=== PATIENT | female | born 1935 | race Caucasian/White ===

== ENCOUNTER 2019-09-22 12:52 | Inpatient (IN) | payer MEDICARE ==
[2019-09-22] MEDS ORDERED: SODIUM CHLORIDE 0.9% 1,000 ML IV STA (14:18)
[2019-09-22] MEDS ORDERED: ASPIRIN 81 MG PO STA (14:30)
--- NOTE | 2019-09-22 14:36 | ED ---
General Adult HPI - General Source: patient, RN notes reviewed, old records reviewed Mode of arrival: ambulatory Limitations: no limitations <Augustine Castillo - Last Filed: 09/22/19 17:01> <Murali Ortiz - Last Filed: 09/22/19 17:11> - General Chief complaint: Dizziness Stated complaint: Diarrhea; no appetite Time Seen by Provider: 09/22/19 14:09 - History of Present Illness Initial comments: 84-year-old female patient past history of type 2 diabetes, prior cardiac issues presents to ED for chief complaint of dizziness. Patient reports that she has been dizzy for a few days. Denies any recent falls or trauma. Denies any pain anywhere. Denies any chest pain, short of breath, abdominal pain. Patient reports that she does not know what her prior heart issues were. Denies any other complaints at this time. Systemic: Pt denies fatigue, fever/chills, rash. Pt denies weakness, night sweats, weight loss. Neuro: Pt denies headache, visual disturbances, syncope or pre-syncope. HEENT: Pt denies ocular discharge or irritation, otalgia, rhinorrhea, pharyngitis or notable lymphadenopathy. Cardiopulmonary: Pt denies chest pain, SOB, heart palpitations, dyspnea on exertion. Abdominal/GI: Pt denies abdominal pain, n/v/d. : Pt denies dysuria, burning w/ urination, frequency/urgency. Denies new onset urinary or bowel incontinence. MSK: Pt denies myalgia, loss of strength or function in extremities. Neuro: Pt denies new onset weakness, paresthesias. (Augustine Castillo) - Related Data Allergies Allergy/AdvReac Type Severity Reaction Status Date / Time Sulfa (Sulfonamide Allergy Unknown Verified 09/22/19 13:59 Antibiotics) Review of Systems ROS Other: All systems not noted in ROS Statement are negative. <Augustine Castillo - Last Filed: 09/22/19 17:01> ROS Other: All systems not noted in ROS Statement are negative. <Murali Ortiz - Last Filed: 09/22/19 17:11> ROS Statement: Those systems with pertinent positive or pertinent negative responses have been documented in the HPI. Past Medical History Past Medical History: Diabetes Mellitus, Myocardial Infarction (MD), Thyroid Disorder History of Any Multi-Drug Resistant Organisms: None Reported Past Surgical History: Breast Surgery, Cholecystectomy, Joint Replacement, Orthopedic Surgery Past Psychological History: No Psychological Hx Reported Smoking Status: Never smoker Past Alcohol Use History: None Reported Past Drug Use History: None Reported <Augustine Castillo - Last Filed: 09/22/19 17:01> General Exam Limitations: no limitations <Augustine Castillo - Last Filed: 09/22/19 17:01> - General Exam Comments Initial Comments: Constitutional: NAD, AOX3, Pt has pleasant affect. HEENT: NC/AT, trachea midline, neck supple, no lymphadenopathy. Posterior pharynx non erythematous, without exudates. External ears appear normal, without discharge. Mucous membranes moist. Eyes PERRLA, EOM intact. There is no scleral icterus. No pallor noted. Cardiopulmonary: RRR, no murmurs, rubs or gallops, no JVD noted. Lungs CTAB in anterior and posterior scherer. No peripheral edema. Abdominal exam: Abdomen soft and non-distended. Abdomen non-tender to palpation in all 4 quadrants. Bowel sounds active in LLQ. No hepatosplenomegaly. No ecchymosis Neuro: CN II-XII intact. No nuchal rigidity. No raccon eyes, no galo sign, no hemotympanum. No cervical spinal tenderness. NIH 0. MSK: No posterior calf tenderness bilaterally, homans sign negative bilaterally. Posterior tibialis and radial pulse +2 bilaterally. Sensation intact in upper and lower extremities. Full active ROM in upper and lower extremities, 5/5 stregnth. (Augustine Castillo) Course <Murali Ortiz - Last Filed: 09/22/19 17:11> Vital Signs 09/22/19 09/22/19 09/22/19 13:59 14:37 15:34 Temperature 97.4 F L Pulse Rate 62 61 57 L Respiratory 18 18 18 Rate Blood Pressure 88/46 107/39 122/39 O2 Sat by Pulse 99 99 95 Oximetry - Reevaluation(s) Reevaluation #1: 09/22/19 17:10 PA supervision: I personally do a [id number] evaluation the patient does present with complaints of weakness some lightheadedness dizziness. She recently had a cardiac catheterization with stent placement in [facility]. Family has no records of this. They do have meds however. Patient is seen Dr. Watkins recently. I did discuss the case with Dr. Gutierrez. Patient was noted have acute renal failure and labs which is new. Initial cardiac workup is negative except for some nonspecific inferior changes. Her clinical exam lungs are clear heart regular abdomen soft nontender. Patient will be admitted with consultation by cardiology and nephrology. I do agree with the assessment and plan (Murali Ortiz) Medical Decision Making - Lab Data Result diagrams: 09/22/19 14:29 09/22/19 14:29 - EKG Data -: EKG Interpreted by Me (and Dr. Ortiz) <Augustine Castillo - Last Filed: 09/22/19 17:01> - Lab Data Result diagrams: 09/22/19 14:29 09/22/19 14:29 <Murali Ortiz - Last Filed: 09/22/19 17:11> - Medical Decision Making 84-year-old female patient past history of type 2 diabetes, prior cardiac issues presents to ED for chief complaint of dizziness. Patient reports that she has been dizzy for a few days. Denies any recent falls or trauma. Denies any pain anywhere. Denies any chest pain, short of breath, abdominal pain. Patient reports that she does not know what her prior heart issues were. Denies any other complaints at this time. Patient will signs stable, afebrile. Physical exam done switch pathology. Neurologic exam within normal limits. Laboratory investigations revealed acute kidney injury, likely prerenal. Son in room r eports the patient is not eating or drinking and days. Mild hyperkalemia 5.5. Troponin 0.032. EKG displayed ST elevation in aVF nonspecific T-wave inversions. Patient not having chest pain this time. Troponins will be trended. No prior EKG for comparision. Patient administered 1 L normal saline. Patient treated for hyperkalemia with insulin, albuterol updraft, low dose of lasix. Patient will be admitted for acute kidney injury. Case discussed in depth with Dr. Ortiz. (Augustine Castillo) - Lab Data Lab Results 09/22/19 09/22/19 09/22/19 Range/Units 14:29 14:29 14:29 WBC 8.0 (3.8-10.6) k/uL RBC 3.73 L (3.80-5.40) m/uL Hgb 13.8 (11.4-16.0) gm/dL Hct 36.0 (34.0-46.0) % MCV 96.5 (80.0-100.0) fL MCH 37.1 H (25.0-35.0) pg MCHC 38.5 H (31.0-37.0) g/dL RDW 13.1 (11.5-15.5) % Plt Count 135 L (150-450) k/uL Neutrophils % 72 % Lymphocytes % 19 % Monocytes % 5 % Eosinophils % 2 % Basophils % 0 % Neutrophils # 5.7 (1.3-7.7) k/uL Lymphocytes # 1.5 (1.0-4.8) k/uL Monocytes # 0.4 (0-1.0) k/uL Eosinophils # 0.2 (0-0.7) k/uL Basophils # 0.0 (0-0.2) k/uL PT (9.0-12.0) sec INR (<1.2) APTT (22.0-30.0) sec Sodium 140 (137-145) mmol/L Potassium 5.5 H (3.5-5.1) mmol/L Chloride 110 H (98-107) mmol/L Carbon Dioxide 15 L (22-30) mmol/L Anion Gap 15 mmol/L BUN 92 H (7-17) mg/dL Creatinine 5.59 H (0.52-1.04) mg/dL Est GFR (CKD-EPI)AfAm 8 (>60 ml/min/1.73 sqM) Est GFR (CKD-EPI)NonAf 7 (>60 ml/min/1.73 sqM) Glucose 206 H (74-99) mg/dL Plasma Lactic Acid Terrence (0.7-2.0) mmol/L Calcium 10.0 (8.4-10.2) mg/dL Magnesium 2.2 (1.6-2.3) mg/dL Total Bilirubin 2.4 H (0.2-1.3) mg/dL AST 21 (14-36) U/L ALT 35 (9-52) U/L Alkaline Phosphatase 86 (38-126) U/L Troponin I (0.000-0.034) ng/mL NT-Pro-B Natriuret Pep 1460 pg/mL Total Protein 8.0 (6.3-8.2) g/dL Albumin 4.5 (3.5-5.0) g/dL 09/22/19 09/22/19 09/22/19 Range/Units 14:29 14:29 14:29 WBC (3.8-10.6) k/uL RBC (3.80-5.40) m/uL Hgb (11.4-16.0) gm/dL Hct (34.0-46.0) % MCV (80.0-100.0) fL MCH (25.0-35.0) pg MCHC (31.0-37.0) g/dL RDW (11.5-15.5) % Plt Count (150-450) k/uL Neutrophils % % Lymphocytes % % Monocytes % % Eosinophils % % Basophils % % Neutrophils # (1.3-7.7) k/uL Lymphocytes # (1.0-4.8) k/uL Monocytes # (0-1.0) k/uL Eosinophils # (0-0.7) k/uL Basophils # (0-0.2) k/uL PT 10.3 (9.0-12.0) sec INR 1.0 (<1.2) APTT 24.9 (22.0-30.0) sec Sodium (137-145) mmol/L Potassium (3.5-5.1) mmol/L Chloride (98-107) mmol/L Carbon Dioxide (22-30) mmol/L Anion Gap mmol/L BUN (7-17) mg/dL Creatinine (0.52-1.04) mg/dL Est GFR (CKD-EPI)AfAm (>60 ml/min/1.73 sqM) Est GFR (CKD-EPI)NonAf (>60 ml/min/1.73 sqM) Glucose (74-99) mg/dL Plasma Lactic Acid Terrence 1.4 (0.7-2.0) mmol/L Calcium (8.4-10.2) mg/dL Magnesium (1.6-2.3) mg/dL Total Bilirubin (0.2-1.3) mg/dL AST (14-36) U/L ALT (9-52) U/L Alkaline Phosphatase (38-126) U/L Troponin I 0.032 (0.000-0.034) ng/mL NT-Pro-B Natriuret Pep pg/mL Total Protein (6.3-8.2) g/dL Albumin (3.5-5.0) g/dL - EKG Data EKG Comments: Integrative 59, CO interval 220, QRS 90, QT/QTc 406/41. Sinus bradycardia with first-degree AV block. ST elevation in aVF. Non specific T-wave inversions. No prior EKG for comparison. Did not believe that this is acute ischemia at this time. (Augustine Castillo) Disposition Is patient prescribed a controlled substance at d/c from ED?: No <Augustine Castillo - Last Filed: 09/22/19 17:01> <Murali Ortiz - Last Filed: 09/22/19 17:11> Clinical Impression: Acute kidney injury Disposition: ADMITTED IP TO THIS HOSP Condition: Serious Referrals: Lisa Watkins MD [Primary Care Provider] - 1-2 days
[2019-09-22 14:42] LABS: Basophils % (A) 0 %; Eosinophils # (A) 0.2 k/uL (0-0.7); Eosinophils % (A) 2 %; HGB 13.8 gm/dL (11.4-16.0); Lymphocytes # (A) 1.5 k/uL (1.0-4.8); Lymphocytes % (A) 19 %; MCH 37.1 pg (25.0-35.0); MCV 96.5 fL (80.0-100.0); Mean Platelet Volume 8.8; Monocytes # (A) 0.4 k/uL (0-1.0); Monocytes % (A) 5 %; Neutrophils # (A) 5.7 k/uL (1.3-7.7); Neutrophils % (A) 72 %; Platelet Count 135 k/uL (150-450); RBC 3.73 m/uL (3.80-5.40); RDW 13.1 % (11.5-15.5)
[2019-09-22 14:46] LABS: MCHC 38.5 g/dL (31.0-37.0)
[2019-09-22 15:11] LABS: Partial Thromboplastin Time 24.9 sec (22.0-30.0); Prothrombin Time 10.3 sec (9.0-12.0)
--- NOTE | 2019-09-22 15:16 | CT ---
EXAMINATION TYPE: CT brain wo con DATE OF EXAM: 09/22/2019 HISTORY: Dizziness. COMPARISON: None TECHNIQUE: 1. Axial CT images of the head without contrast. Bone windows and sagittal and coronal reformats were reviewed. 2. CT DLP: 1099.4 mGycm Automated exposure control for dose reduction was used. FINDINGS: No acute intracranial hemorrhage. 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 No acute loss of melgar-white m atter differentiation to suggest large territorial infarction. Mild cerebral volume loss with appropriate size and morphology of the ventricular system. No extra-ax ial fluid collections or midline shift of structures. Patent basal cisterns. No depressed or displaced calvarial fracture. Intracranial vascular calcifications. Visualized parana jesse sinuses and temporal bone structures are well aerated. The orbits and skull base are unremarkable . IMPRESSION: 1. No acute intracranial abnormality. 2. Senescent changes including cerebral volume loss and sequale of chronic microangiopathy. 3. If there is sufficient clinical concern for acute ischemia, further evaluation with brain MRI is r ecommended.
[2019-09-22 15:18] LABS: Albumin 4.5 g/dL (3.5-5.0); Magnesium 2.2 mg/dL (1.6-2.3); Potassium 5.5 mmol/L (3.5-5.1); Total Bilirubin 2.4 mg/dL (0.2-1.3)
[2019-09-22] MEDS ORDERED: INSULIN REGULAR 100 UNIT/ML VIAL IV ONE (16:53)
[2019-09-22] MEDS ORDERED: DEXTROSE 50% SYRINGE 50 ML IVP STA (16:54)
[2019-09-22] MEDS ORDERED: ALBUTEROL NEBULIZED 2.5 MG/3 ML INHALATION STA (16:54)
[2019-09-22] MEDS ORDERED: FUROSEMIDE 10 MG/ML 2 ML VIAL IV STA (16:59)
[2019-09-22] MEDS ORDERED: NALOXONE 0.4 MG/ML 1 ML VIAL IV PRN (17:02)
--- NOTE | 2019-09-22 17:14 | XR ---
EXAMINATION TYPE: XR chest 2V DATE OF EXAM: 09/22/2019 COMPARISON: NONE TECHNIQUE: PA and lateral views submitted. HISTORY: Chest pain FINDINGS: The lungs are clear and there is no pneumothorax, pleural effusion, or focal pneumonia. Arthropathy of the shoulders with findings suggestive of calcific tendinosis on the right. No overt failure. Ath erosclerotic change aorta. Hypertrophic and degenerative change of the spine. Subsegmental changes at the left lung base. IMPRESSION: 1. Left basilar subsegmental changes which atelectasis is favored over pneumonia..
[2019-09-22] MEDS: SODIUM CHLORIDE 0.9% 1,000 ML IV SCH ×2 (17:53→23:36)
[2019-09-22 18:10] LABS: Glucose,Whole Blood 243 mg/dL (75-99)
[2019-09-22 20:16] LABS: Glucose,Whole Blood 97 mg/dL (75-99)
[2019-09-22] MEDS: INSULIN ASPART (NovoLOG) 100 UNIT/ML VIAL SQ SCH (21:14)
[2019-09-22] MEDS: TICAGRELOR 90 MG TAB PO SCH (21:19)
[2019-09-22] MEDS: ATORVASTATIN 40 MG TAB PO SCH (21:19)
[2019-09-22] MEDS: MIRTAZAPINE 15 MG TAB PO SCH (21:19)
[2019-09-22] MEDS: CARVEDILOL 6.25 MG TAB PO SCH (21:19)
[2019-09-22] MEDS: DONEPEZIL 10 MG TAB PO SCH (21:19)
[2019-09-22] MEDS ORDERED: MIDODRINE 5 MG TAB PO SCH (22:00)
[2019-09-23 02:00] LABS: Glucose,Whole Blood 91 mg/dL (75-99)
[2019-09-23 02:31] LABS: Basophils % (A) 0 %; Eosinophils # (A) 0.1 k/uL (0-0.7); Eosinophils % (A) 3 %; HCT 37.1 % (34.0-46.0); HGB 12.2 gm/dL (11.4-16.0); Lymphocytes # (A) 1.3 k/uL (1.0-4.8); Lymphocytes % (A) 28 %; MCH 31.8 pg (25.0-35.0); MCV 96.2 fL (80.0-100.0); Mean Platelet Volume 8.4; Monocytes # (A) 0.4 k/uL (0-1.0); Monocytes % (A) 8 %; Neutrophils # (A) 2.6 k/uL (1.3-7.7); Neutrophils % (A) 58 %; Platelet Count 125 k/uL (150-450); RBC 3.85 m/uL (3.80-5.40); WBC 4.5 k/uL (3.8-10.6)
[2019-09-23 02:41] LABS: Albumin 3.4 g/dL (3.5-5.0); Potassium 4.8 mmol/L (3.5-5.1); Total Bilirubin 1.8 mg/dL (0.2-1.3); Total Protein 6.4 g/dL (6.3-8.2)
[2019-09-23] MEDS: INSULIN ASPART (NovoLOG) 100 UNIT/ML VIAL SQ SCH ×4 (06:11→21:16)
[2019-09-23 06:12] LABS: Glucose,Whole Blood 98 mg/dL (75-99)
[2019-09-23] MEDS: CARVEDILOL 6.25 MG TAB PO SCH ×2 (06:42→17:34)
[2019-09-23] MEDS: LEVOTHYROXINE 75 MCG TAB PO SCH (06:42)
--- NOTE | 2019-09-23 09:04 | P.NPCON ---
History of Present Illness - Reason for Consult Consult date: 09/23/19 acute renal failure - Chief Complaint Dizziness - History of Present Illness 84-year-old female coming to the hospital with the above complaints. Poor historian and most of the history is obtained from the chart. No previous creatinine to compare. Initial vitals from the ER she was hypotensive with a systolic blood pressure in 80s. She's been having this issue's for few days she has history of hypertension and diabetes take some antihypertensives at home. No NSAID use or recent contrast studies.home medications include entresto, carvedilol, Aldactone. Blood pressures while in the hospital got better her entresto and Aldactone were stopped and was getting normal saline. But currently on midodrine and carvedilol. Review of Systems Constitutional: Reports as per HPI Past Medical History Past Medical History: Diabetes Mellitus, Myocardial Infarction (MT), Thyroid Disorder Additional Past Medical History / Comment(s): Type 2 DM, MT 07/29/19 Last Myocardial Infarction Date:: 07/29/19 History of Any Multi-Drug Resistant Organisms: None Reported Past Surgical History: Breast Surgery, Cholecystectomy, Heart Catheterization With Stent, Joint Replacement, Orthopedic Surgery Additional Past Surgical History / Comment(s): 2 stents Past Anesthesia/Blood Transfusion Reactions: No Reported Reaction Date of Last Stent Placement:: 07/29/19 Past Psychological History: No Psychological Hx Reported Smoking Status: Never smoker Past Alcohol Use History: None Reported Past Drug Use History: None Reported - Past Family History Brother(s) Family Medical History: Myocardial Infarction (MT) Medications and Allergies Home Medications Medication Instructions Recorded Confirmed Type Aspirin 81 mg PO DAILY 09/22/19 09/22/19 History Atorvastatin [Lipitor] 40 mg PO HS 09/22/19 09/22/19 History Carvedilol [Coreg] 6.25 mg PO BID 09/22/19 09/22/19 History Donepezil [Aricept] 10 mg PO BID 09/22/19 09/22/19 History INSULIN ASPART (NovoLOG) [NovoLOG See Protocol SQ AC-TID 09/22/19 09/22/19 History (formulary)] Levothyroxine Sodium [Synthroid] 75 mcg PO DAILY 09/22/19 09/22/19 History Midodrine HCl [ProAmatine] 10 mg PO TID 09/22/19 09/22/19 History Mirtazapine [Remeron] 15 mg PO HS 09/22/19 09/22/19 History Oxybutynin ER [Ditropan Xl] 15 mg PO DAILY 09/22/19 09/22/19 History Sacubitril/Valsartan [Entresto 24 1 tab PO BID 09/22/19 09/22/19 History mg-26 mg Tablet] Spironolactone [Aldactone] 25 mg PO DAILY 09/22/19 09/22/19 History Ticagrelor [Brilinta] 90 mg PO BID 09/22/19 09/22/19 History Allergies Allergy/AdvReac Type Severity Reaction Status Date / Time Sulfa (Sulfonamide Allergy Unknown Verified 09/22/19 18:58 Antibiotics) Physical Exam Vitals: Vital Signs Temp Pulse Pulse Resp BP BP Pulse Ox 09/23/19 04:00 97.7 F 58 L 16 115/53 95 09/23/19 00:00 97.5 F L 57 L 18 152/58 95 09/22/19 20:00 97.8 F 65 18 155/70 98 09/22/19 18:45 97.5 F L 65 16 134/58 99 09/22/19 17:53 98.0 F 63 18 102/36 100 09/22/19 17:28 80 09/22/19 17:15 76 09/22/19 15:34 57 L 18 122/39 95 09/22/19 14:37 61 18 107/39 99 09/22/19 13:59 97.4 F L 62 18 88/46 99 Intake and Output 09/22/19 09/23/19 09/23/19 22:59 06:59 14:59 Intake Total 240 Balance 240 Intake: Oral 240 Other: Voiding Method Toilet Toilet # Voids 1 Weight 74.389 kg 71.7 kg No acute distress S1-S2 heard Lungs clear Abdomen soft No edema Results - Lab Results Most recent lab results Calcium 9.0 mg/dL (8.4-10.2) 09/23/19 02:14 Magnesium 2.2 mg/dL (1.6-2.3) 09/22/19 14:29 09/23/19 02:14 09/23/19 02:14 Assessment and Plan Assessment: #1 acute kidney injury suspect hemodynamics with low blood pressures. Concomitant use of antihypertensives. Unknown baseline creatinine. #2 hypertension, admitted with hypotension #3 metabolic acidosis secondary to acute kidney injury #4 volume depletion Plan: #1 agree with holding antihypertensives. Change normal saline to a bicarb drip. #2 check bladder scan to rule out urinary retention #3 stop midodrine as her blood pressures currently running high. #4 leave Coreg for now if systolic less than 120 decrease dose to 3.125 mg twice a day. #5 check urine analysis renal ultrasounds and repeat labs in the morning.
[2019-09-23] MEDS: ASPIRIN 81 MG PO SCH (09:51)
[2019-09-23] MEDS: TICAGRELOR 90 MG TAB PO SCH (09:51)
[2019-09-23] MEDS: DONEPEZIL 10 MG TAB PO SCH ×2 (09:51→21:17)
--- NOTE | 2019-09-23 10:05 | US ---
EXAMINATION TYPE: US kidneys/renal and bladder DATE OF EXAM: 09/23/2019 COMPARISON: NONE CLINICAL HISTORY: lazaro. EXAM MEASUREMENTS: Right Kidney: 11.2 x 5.3 x 5.3 cm Left Kidney: 7.6 x 2.4 x 2.6 cm Right Kidney: No hydronephrosis or masses seen Left Kidney: atrophied, difficult to visualize. Left pelvis imaged to ensure there is not a pelvic ki dney. Bladder: not well distended Bilateral Jets seen: No Right kidney is unremarkable. The left kidney is small measuring 7.6 cm. There is no evidence of hydr onephrosis. IMPRESSION: LEFT RENAL ATROPHY.
[2019-09-23] MEDS: ACETAMINOPHEN TAB 325 MG TAB PO PRN ×2 (10:19→17:34)
--- NOTE | 2019-09-23 11:33 | P.HPIM ---
History of Present Illness H&P Date: 09/23/19 Chief Complaint: Dizziness This is an 84-year-old female patient of Dr. Watkins with past medical history of diabetes mellitus type 2, myocardial infarction, hypothyroidism. Patient was diagnosed with a myocardial infarction on 07/29/2019 was she was in [place]. She underwent cardiac stenting at that time and the details are not known. Patient did have a follow-up appointment with Dr. lewis following that. Patient is complaining of dizziness and lightheadedness, not eating well. She denies having any falls. She states her symptoms have been going on for at least a few days. She denies any chest pain, shortness of breath or abdominal pain. Patient came into [facility] emergency center for evaluation. Her initial blood pressure was 88/46, BUN 92 and creatinine 5.59, potassium 5.5, CO2 15, chloride 110, blood sugar 106. ProBNP 1460, troponin 0.03 to, lactic acid 1.4. Patient was given 2 L of IV fluid, regular insulin, dextrose 50% and albuterol. Patient received 1 dose of IV Lasix 20 mg. Patient was admitted to the cardiac stepdown unit and consult requested with nephrology and cardiology. Review of Systems Constitutional: Reports fatigue, Reports lethargy, Reports malaise, Reports poor appetite, Reports weakness Eyes: denies blurred vision, denies pain Ears, nose, mouth and throat: Reports vertigo, Denies dental pain, Denies dysphagia, Denies headache, Denies nasal congestion, Denies nasal discharge, Denies sore throat Cardiovascular: Reports lightheadedness, Denies chest pain, Denies edema, Denies irregular heart beat, Denies shortness of breath, Denies syncope Respiratory: Denies cough, Denies cough with sputum, Denies dyspnea, Denies excessive sputum, Denies hemoptysis, Denies home oxygen, Denies respiratory infections, Denies wheezing Gastrointestinal: Reports loss of appetite, Denies abdominal pain, Denies diarrhea, Denies nausea, Denies vomiting Genitourinary: Denies dysuria, Denies hematuria, Denies urgency, Denies urinary frequency Musculoskeletal: Reports muscle weakness, Denies frequent falls, Denies gait dysfunction, Denies myalgias Integumentary: Denies pruritus, Denies rash, Denies wounds Neurological: Denies change in mentation, Denies change in speech, Denies numbness, Denies weakness Psychiatric: Denies anxiety, Denies depression Endocrine: Denies fatigue, Denies weight change Past Medical History Past Medical History: Diabetes Mellitus, Myocardial Infarction (ND), Thyroid Disorder Additional Past Medical History / Comment(s): Type 2 DM, ND 07/29/19 Last Myocardial Infarction Date:: 07/29/19 History of Any Multi-Drug Resistant Organisms: None Reported Past Surgical History: Breast Surgery, Cholecystectomy, Heart Catheterization With Stent, Joint Replacement, Orthopedic Surgery Additional Past Surgical History / Comment(s): 2 cardiac stents, bilateral cataract removal and intraocular lens implants Past Anesthesia/Blood Transfusion Reactions: No Reported Reaction Date of Last Stent Placement:: 07/29/19 Past Psychological History: No Psychological Hx Reported Smoking Status: Never smoker Past Alcohol Use History: None Reported Additional Past Alcohol Use History / Comment(s): Patient was a smoker one pack per day for proximal might 20 years. No illicit drug use or alcohol abuse. Patient uses a walker for ambulation. Past Drug Use History: None Reported - Past Family History Brother(s) Family Medical History: Myocardial Infarction (ND) Additional Family Medical History / Comment(s): The patient has 3 brothers and all have passed. Patient does not know their medical histories nor the reason further tests. Father Additional Family Medical History / Comment(s): Patient's father is . Patient does not know any of his medical history. Mother Additional Family Medical History / Comment(s): Mother in her 60s while sleeping. Sister(s) Additional Family Medical History / Comment(s): Patient has 3 sisters and one has that his history of coronary artery disease status post stents. Daughter(s) Additional Family Medical History / Comment(s): Patient has one daughter that in a motor vehicle accident. Patient has 2 sons and one from an unknown cause. One son is alive with no major medical problems. Medications and Allergies Home Medications Medication Instructions Recorded Confirmed Type Aspirin 81 mg PO DAILY 09/22/19 09/22/19 History Atorvastatin [Lipitor] 40 mg PO HS 09/22/19 09/22/19 History Carvedilol [Coreg] 6.25 mg PO BID 09/22/19 09/22/19 History Donepezil [Aricept] 10 mg PO BID 09/22/19 09/22/19 History INSULIN ASPART (NovoLOG) [NovoLOG See Protocol SQ AC-TID 09/22/19 09/22/19 History (formulary)] Levothyroxine Sodium [Synthroid] 75 mcg PO DAILY 09/22/19 09/22/19 History Midodrine HCl [ProAmatine] 10 mg PO TID 09/22/19 09/22/19 History Mirtazapine [Remeron] 15 mg PO HS 09/22/19 09/22/19 History Oxybutynin ER [Ditropan Xl] 15 mg PO DAILY 09/22/19 09/22/19 History Sacubitril/Valsartan [Entresto 24 1 tab PO BID 09/22/19 09/22/19 History mg-26 mg Tablet] Spironolactone [Aldactone] 25 mg PO DAILY 09/22/19 09/22/19 History Ticagrelor [Brilinta] 90 mg PO BID 09/22/19 09/22/19 History Allergies Allergy/AdvReac Type Severity Reaction Status Date / Time Sulfa (Sulfonamide Allergy Unknown Verified 09/22/19 18:58 Antibiotics) Physical Exam Vitals: Vital Signs Temp Pulse Pulse Resp BP BP Pulse Ox 09/23/19 04:00 97.7 F 58 L 16 115/53 95 09/23/19 00:00 97.5 F L 57 L 18 152/58 95 09/22/19 20:00 97.8 F 65 18 155/70 98 09/22/19 18:45 97.5 F L 65 16 134/58 99 09/22/19 17:53 98.0 F 63 18 102/36 100 09/22/19 17:28 80 09/22/19 17:15 76 09/22/19 15:34 57 L 18 122/39 95 09/22/19 14:37 61 18 107/39 99 09/22/19 13:59 97.4 F L 62 18 88/46 99 Intake and Output 09/22/19 09/23/19 09/23/19 22:59 06:59 14:59 Intake Total 240 Balance 240 Intake: Oral 240 Other: Voiding Method Toilet Toilet # Voids 1 Weight 74.389 kg 71.7 kg Gen: This is an 84-year-old female. Patient is resting in bed and appears to be comfortable and in no acute distress. HEENT: Head is atraumatic, normocephalic. Pupils equal, round. Sclerae is anicteric. NECK: Supple. No JVD. No lymphadenopathy. No thyromegaly. LUNGS: Clear to auscultation. No wheezes or rhonchi. No intercostal retractions. HEART: Regular rate and rhythm. No murmur. ABDOMEN: Soft. Bowel sounds are present. No masses. No tenderness. EXTREMITIES: No pedal edema. No calf tenderness. Dorsalis pedis +2 bilaterally. NEUROLOGICAL: Patient is awake, alert and oriented x3. Cranial nerves 2 through 12 are grossly intact. Results CBC & Chem 7: 09/23/19 02:14 09/23/19 02:14 Labs: Abnormal Lab Results - Last 24 Hours (Table) 09/22/19 09/22/19 09/22/19 Range/Units 14:29 14:29 18:09 RBC 3.73 L (3.80-5.40) m/uL MCH 37.1 H (25.0-35.0) pg MCHC 38.5 H (31.0-37.0) g/dL Plt Count 135 L (150-450) k/uL Potassium 5.5 H (3.5-5.1) mmol/L Chloride 110 H (98-107) mmol/L Carbon Dioxide 15 L (22-30) mmol/L BUN 92 H (7-17) mg/dL Creatinine 5.59 H (0.52-1.04) mg/dL Glucose 206 H (74-99) mg/dL POC Glucose (mg/dL) 243 H (75-99) mg/dL Total Bilirubin 2.4 H (0.2-1.3) mg/dL Albumin (3.5-5.0) g/dL 09/23/19 09/23/19 Range/Units 02:14 02:14 RBC (3.80-5.40) m/uL MCH (25.0-35.0) pg MCHC (31.0-37.0) g/dL Plt Count 125 L (150-450) k/uL Potassium (3.5-5.1) mmol/L Chloride 117 H (98-107) mmol/L Carbon Dioxide 13 L (22-30) mmol/L BUN 89 H (7-17) mg/dL Creatinine 4.70 H (0.52-1.04) mg/dL Glucose (74-99) mg/dL POC Glucose (mg/dL) (75-99) mg/dL Total Bilirubin 1.8 H (0.2-1.3) mg/dL Albumin 3.4 L (3.5-5.0) g/dL Thrombosis Risk Factor Assmnt - DVT/VTE Prophylaxis DVT/VTE Prophylaxis: Pharmacologic Prophylaxis ordered - Choose All That Apply Each Risk Factor Represents 3 Points: Age 75 years or older Thrombosis Risk Factor Assessment Total Risk Factor Score: 3 Thrombosis Risk Factor Assessment Level: Moderate Risk Assessment and Plan Plan: 1. Acute kidney injury secondary to poor oral intake, hypotension. Consult with nephrology appreciated. Patient has been started on a bicarb drip. Renal ultrasound, bladder scan to rule out urinary retention, midodrine was discontinued. Coreg to continue with parameters. Entresto and Aldactone on hold. 2. Recent myocardial infarction July 29 status post 3 stents. Continue aspirin 81 mg daily, atorvastatin 40 mg at bedtime, Coreg 6.25 mg twice daily, Brilinta 90 mg twice daily. Consult with cardiology. 3. Dementia. Continue Aricept 10 mg twice daily. 4. Diabetes mellitus type 2. Patient started on NovoLog scale before meals and at bedtime. 5. Overactive bladder. Hold oxybutynin. 6. Hypothyroidism. Continue levothyroxine 75 g daily. 7. GI prophylaxis. Pepcid. 8. DVT prophylaxis. SCDs and ZOILA roberte. Patient will be admitted to the hospital for a minimum of 3 night stay. Discharge plan: To be determined. PT and OT will be added. Impression and plan of care have been directed as dictated by the signing physician. Michelle Rivera nurse practitioner acting as scribe for signing physician.
[2019-09-23 11:41] LABS: Glucose,Whole Blood 143 mg/dL (75-99)
[2019-09-23] MEDS: DEXTROSE 5% IN WATER 1,000 ML with SODIUM BICARB (1 MEQ/ML) 150 ML IV SCH (12:06)
--- NOTE | 2019-09-23 14:13 | CONS ---
CONSULTATION Mrs. Ojeda is an 84-year-old female who is seen for cardiac evaluation. The patient is a poor historian. History was mostly obtained from the son. The patient has a known history of coronary artery disease. She had a myocardial infarction in July in [place] and underwent 2 stent placements. Subsequently patient was admitted there after a few weeks with episodes of hypoglycemia and was treated and subsequently the patient was brought over here. The patient had not been feeling well since she has been in [place]. Her oral intake is very poor. Occasionally she feels nauseated and she has been having some loose bowel movements 2 or 3 per day. The patient denies any chest pain. Denies any orthopnea or PND. The patient had been on Entresto, Coreg and Aldactone as well as Brilinta. PAST MEDICAL HISTORY: Includes history of diabetes, myocardial infarction, cholecystectomy, orthopedic surgery. MEDICATIONS: The patient's home medications include aspirin, Lipitor, Coreg, Synthroid, midodrine, Remeron, Ditropan, Entresto, Aldactone and Brilinta. PHYSICAL EXAMINATION: At present reveals the patient's blood pressure initially was in the range of 88/56. Patient received 1 L of fluids and blood pressure now is better. The patient is alert and awake and comfortable, sitting in a chair. No respiratory distress is noted. Blood pressure is 125/50 mmHg, heart rate is 50 per minute. HEENT examination is negative. NECK is supple. There is no increase in jugular venous pressure. Both the carotid pulses are felt. There is no bruit. CHEST is symmetrical. HEART the PMI is not felt. First and second heart sounds are normal. There is no evidence of any murmur. LUNGS are clinically clear to auscultation and percussion. ABDOMEN is soft. Liver and spleen not enlarged. EXTREMITIES: Peripheral pulses are not felt. EKG shows sinus bradycardia with a suggestion of old inferior wall myocardial infarction. The patient's hemoglobin is 12.2. Initial creatinine was 5.59 and BUN is 92. The patient's bilirubin was 2.4, repeat bilirubin is 1.8. Two troponins are normal. FINAL IMPRESSION: This patient is admitted with acute renal failure. We do not know the baseline creatinine status. The renal failure could be multifactorial. Patient is stable cardiac llanos without any symptoms of angina. RECOMMENDATIONS: We will recommend to hold the Entresto and Aldactone at present. We will also discontinue Brilinta and start her on Plavix. Echo and Doppler study will be obtained. Continue the rest of the cardiac medications. Thank you for this consultation. DEMAR / VIDYA: [id number] /
[2019-09-23 15:50] LABS: Appearance,Urine Clear (Clear); Bacteria,Urine Rare /hpf; Bilirubin,Urine Negative (Negative); Blood,Urine Negative (Negative); Color,Urine Yellow; Glucose,Urine (UA) Negative (Negative); Hyaline Casts,Urine 4 /lpf (0-2); Ketones,Urine Negative (Negative); Leukocyte Esterase,Urine Small (Negative); Mucus,Urine Rare /hpf; Nitrite,Urine Negative (Negative); Protein,Urine Negative (Negative); RBC,Urine 1 /hpf (0-5); Specific Gravity,Urine 1.011 (1.001-1.035); Squamous Epithelial Cell,Urine 2 /hpf (0-4); Urobilinogen,Urine <2.0 mg/dL (<2.0); WBC,Urine 5 /hpf (0-5)
[2019-09-23 16:29] LABS: Glucose,Whole Blood 163 mg/dL (75-99)
[2019-09-23 21:02] LABS: Glucose,Whole Blood 224 mg/dL (75-99)
[2019-09-23] MEDS: ATORVASTATIN 40 MG TAB PO SCH (21:17)
[2019-09-23] MEDS: MIRTAZAPINE 15 MG TAB PO SCH (21:17)
[2019-09-24] MEDS: DEXTROSE 5% IN WATER 1,000 ML with SODIUM BICARB (1 MEQ/ML) 150 ML IV SCH ×2 (06:08→21:52)
[2019-09-24 06:17] LABS: Calcium 8.7 mg/dL (8.4-10.2); Potassium 4.3 mmol/L (3.5-5.1)
[2019-09-24 06:22] LABS: Glucose,Whole Blood 103 mg/dL (75-99)
[2019-09-24] MEDS: INSULIN ASPART (NovoLOG) 100 UNIT/ML VIAL SQ SCH ×4 (06:25→21:59)
[2019-09-24] MEDS: LEVOTHYROXINE 75 MCG TAB PO SCH (06:26)
[2019-09-24] MEDS: CARVEDILOL 6.25 MG TAB PO SCH ×2 (06:27→17:23)
[2019-09-24] MEDS: DONEPEZIL 10 MG TAB PO SCH ×2 (09:42→20:53)
[2019-09-24] MEDS: CLOPIDOGREL 75 MG TAB PO SCH (09:42)
[2019-09-24] MEDS: ASPIRIN 81 MG PO SCH (09:42)
--- NOTE | 2019-09-24 10:41 | ECHOF ---
Referral Reason:mi MEASUREMENTS -------- HEIGHT: 157.5 cm WEIGHT: 73.9 kg BP: 155/66 RVIDd: 2.5 cm (< 3.3) IVSd: 1.6 cm (0.6 - 1.1) LVIDd: 3.5 cm (3.9 - 5.3) LVPWd: 1.7 cm (0.6 - 1.1) IVSs: 1.6 cm LVIDs: 1.9 cm LVPWs: 1.8 cm Ao Diam: 3.0 cm (2.0 - 3.7) AV Cusp: 1.8 cm (1.5 - 2.6) LA Diam: 3.5 cm (2.7 - 3.8) MV EXCURSION: 15.965 mm (> 18.000) MV EF SLOPE: 71 mm/s (70 - 150) EPSS: 0.2 cm MV E Ean: 0.89 m/s MV DecT: 265 ms MV A Ean: 0.97 m/s MV E/A Ratio: 0.92 RAP: 5.00 mmHg RVSP: 14.31 mmHg TAPSE: 15.27 mm FINDINGS -------- Sinus rhythm. This was a technically adequate study. The left ventricular size is normal. There is severe concentric left ventricular hypertrophy. Ove rall left ventricular systolic function is normal with, an EF between 55 - 60 %. The right ventricle is normal in size. The left atrial size is normal. The right atrial size is normal. The aortic valve is trileaflet and appears structurally normal. The mitral valve is normal. Mild mitral annular calcification present. There is trace mitral regu rgitation. The tricuspid valve appears structurally normal. Trace tricuspid regurgitation present. Right jhonathan tricular systolic pressure is normal at < 35 mmHg. There is no pulmonic regurgitation present. The aortic root size is normal. IVC Not well visulized. There is a moderate, generalized pericardial effusion present. CONCLUSIONS -------- 1. Sinus rhythm. 2. This was a technically adequate study. 3. The left ventricular size is normal. 4. There is severe concentric left ventricular hypertrophy. 5. Overall left ventricular systolic function is normal with, an EF between 55 - 60 %. 6. The right ventricle is normal in size. 7. The left atrial size is normal. 8. The right atrial size is normal. 9. The aortic valve is trileaflet and appears structurally normal. 10. The mitral valve is normal. 11. Mild mitral annular calcification present. 12. There is trace mitral regurgitation. 13. The tricuspid valve appears structurally normal. 14. Trace tricuspid regurgitation present. 15. Right ventricular systolic pressure is normal at < 35 mmHg. 16. There is no pulmonic regurgitation present. 17. The aortic root size is normal. 18. IVC Not well visulized. 19. There is a moderate, generalized pericardial effusion present. MEDICAL PHYSICS TEACHER: Lou Lee RDCS
[2019-09-24 11:14] LABS: Hemoglobin A1C 8.2 % (4.0-6.0)
[2019-09-24 11:43] LABS: Glucose,Whole Blood 118 mg/dL (75-99)
--- NOTE | 2019-09-24 13:38 | P.PN ---
Subjective Progress Note Date: 09/24/19 This is an 84-year-old female patient of Dr. Watkins with past medical history of diabetes mellitus type 2, myocardial infarction, hypothyroidism. Patient was diagnosed with a myocardial infarction on 07/29/2019 was she was in [place]. She underwent cardiac stenting at that time and the details are not known. Patient did have a follow-up appointment with Dr. lewis following that. Patient is complaining of dizziness and lightheadedness, not eating well. She denies having any falls. She states her symptoms have been going on for at least a few days. She denies any chest pain, shortness of breath or abdominal pain. Patient came into [facility] emergency center for evaluation. Her initial blood pressure was 88/46, BUN 92 and creatinine 5.59, potassium 5.5, CO2 15, chloride 110, blood sugar 106. ProBNP 1460, troponin 0.03 to, lactic acid 1.4. Patient was given 2 L of IV fluid, regular insulin, dextrose 50% and albuterol. Patient received 1 dose of IV Lasix 20 mg. Patient was admitted to the cardiac stepdown unit and consult requested with nephrology and cardiology. 09/24: Patient is seen and followed by cardiology. Cardiology has change blunted to Plavix. Renal ultrasound showed left renal atrophy, no hydronephrosis. Patient continues to have no appetite. She states she feels dizzy. Orthostatic vital signs will be checked. Patient has been afebrile, heart rate 64, blood pressure 146/68, pulse ox 96% on room air. Repeat lab work reveals BUN 70, creatinine 2.8, CO2 19. Echocardiogram reveals EF of 55-60% with severe concentric left ventricular hypertrophy, trace mitral regurgitation, trace tricuspid regurgitation, moderate generalized pericardial effusion. Patient is followed by nephrology currently on a bicarb drip. Discharge plan will be subacute rehab. PT and OT in place. Possible discharge by tomorrow. Review of Systems Constitutional: Reports fatigue, Reports lethargy, Reports malaise, Reports poor appetite, Reports weakness Ears, nose, mouth and throat: Reports vertigo, Denies dental pain, Denies dysphagia, Denies headache, Denies nasal congestion, Denies nasal discharge, Denies sore throat Cardiovascular: Reports lightheadedness, Denies chest pain, Denies edema, Denies irregular heart beat, Denies shortness of breath, Denies syncope Respiratory: Denies cough, Denies cough with sputum, Denies dyspnea, Denies excessive sputum, Denies hemoptysis, Denies home oxygen, Denies respiratory infections, Denies wheezing Gastrointestinal: Reports loss of appetite, Denies abdominal pain, Denies diarrhea, Denies nausea, Denies vomiting Genitourinary: Denies dysuria, Denies hematuria, Denies urgency, Denies urinary frequency Musculoskeletal: Reports muscle weakness, Denies frequent falls, Denies gait dysfunction, Denies myalgias Integumentary: Denies pruritus, Denies rash, Denies wounds Neurological: Denies change in mentation, Denies change in speech, Denies numbness, Denies weakness Psychiatric: Denies anxiety, Denies depression Endocrine: Denies fatigue, Denies weight change Objective - Vital Signs Vital signs: Vital Signs Temp 98.0 F 09/24/19 08:00 Pulse 64 09/24/19 08:00 Resp 18 09/24/19 08:00 BP 146/68 09/24/19 08:00 Pulse Ox 96 09/24/19 08:00 Intake & Output 09/23/19 09/24/19 09/24/19 18:59 06:59 18:59 Intake Total 600 Output Total 950 1250 Balance -350 -1250 Weight 74.3 kg Intake: Intake, IV Titration 600 Amount Dextrose 5% in Water 1, 600 000 ml @ 75 mls/hr IV . [id number] MARIO with Sodium Bicarb (1 Meq/ml) 150 ml Rx#:[id number] Output: Urine 950 1250 Other: Voiding Method Toilet Toilet # Voids 4 # Bowel Movements 1 1 - Exam Gen: This is an 84-year-old female. Patient is resting in bed and appears to be comfortable and in no acute distress. Son is at bedside. HEENT: Head is atraumatic, normocephalic. Pupils equal, round. Sclerae is anicteric. NECK: Supple. No JVD. No lymphadenopathy. No thyromegaly. LUNGS: Clear to auscultation. No wheezes or rhonchi. No intercostal retractions. HEART: Regular rate and rhythm. No murmur. ABDOMEN: Soft. Bowel sounds are present. No masses. No tenderness. EXTREMITIES: No pedal edema. No calf tenderness. Dorsalis pedis +2 bilaterally. NEUROLOGICAL: Patient is awake, alert and oriented x3. Cranial nerves 2 through 12 are grossly intact. Generalized weakness noted. - Labs CBC & Chem 7: 09/23/19 02:14 09/24/19 05:40 Labs: Abnormal Lab Results - Last 24 Hours (Table) 09/22/19 09/23/19 09/23/19 Range/Units 15:30 11:39 16:28 Chloride (98-107) mmol/L Carbon Dioxide (22-30) mmol/L BUN (7-17) mg/dL Creatinine (0.52-1.04) mg/dL Glucose (74-99) mg/dL POC Glucose (mg/dL) 143 H 163 H (75-99) mg/dL Ur Leukocyte Esterase Small H (Negative) Urine Bacteria Rare H (None) /hpf Hyaline Casts 4 H (0-2) /lpf Urine Mucus Rare H (None) /hpf 09/23/19 09/24/19 09/24/19 Range/Units 21:01 05:40 06:22 Chloride 116 H (98-107) mmol/L Carbon Dioxide 19 L (22-30) mmol/L BUN 70 H (7-17) mg/dL Creatinine 2.80 H (0.52-1.04) mg/dL Glucose 104 H (74-99) mg/dL POC Glucose (mg/dL) 224 H 103 H (75-99) mg/dL Ur Leukocyte Esterase (Negative) Urine Bacteria (None) /hpf Hyaline Casts (0-2) /lpf Urine Mucus (None) /hpf Assessment and Plan Plan: 1. Acute kidney injury secondary to poor oral intake, hypotension. Consult with nephrology appreciated. Patient has been started on a bicarb drip. Renal ultrasound as above, bladder scan to rule out urinary retention, midodrine was discontinued. Coreg to continue with parameters. Entresto and Aldactone on hold . 2. Recent myocardial infarction July 29 status post 3 stents. Continue aspirin 81 mg daily, atorvastatin 40 mg at bedtime, Coreg 6.25 mg twice daily, Brilinta changed to Plavix. Consult with cardiology appreciated. 3. Dementia. Continue Aricept 10 mg twice daily. 4. Diabetes mellitus type 2. Patient started on NovoLog scale before meals and at bedtime. 5. Overactive bladder. Hold oxybutynin. 6. Hypothyroidism. Continue levothyroxine 75 g daily. 7. GI prophylaxis. Pepcid. 8. DVT prophylaxis. SCDs and ZOILA carpio. Discharge plan: Subacute rehab. PT and OT will be added. Impression and plan of care have been directed as dictated by the signing physician. Michelle Rivera nurse practitioner acting as scribe for signing physician.
[2019-09-24 17:01] LABS: Glucose,Whole Blood 148 mg/dL (75-99)
--- NOTE | 2019-09-24 18:22 | PN ---
PROGRESS NOTE Patient is seen for followup for acute kidney injury. Her renal function has improved significantly with creatinine down from 5.59 at peak to 2.8 now. Patient is maintained on IV bicarb at 75 mL an hour. She has had good urine output. PHYSICAL EXAMINATION: On examination, blood pressure this morning 134/59, heart rate 56 per minute. Patient does have significant orthostatic hypotension. Examination of the heart S1, S2. Examination of the lungs, bilateral breath sounds are heard. Examination of lower extremities show no significant edema. ABDOMEN: Soft, nontender. LAB: Show sodium 144, potassium 4.3, chloride 160, CO2 is 19, BUN 70, creatinine 2.8. ASSESSMENT: 1. Acute kidney injury prerenal currently improving with IV hydration. Continue IV fluids for now. 2. Non-gap metabolic acidosis secondary to renal failure and diarrhea, currently maintained on IV bicarb. This has improved. I will continue with the bicarb for one more day. 3. Hypertension currently controlled. Blood pressure is on the lower side with significant orthostatic hypotension, mainly secondary to hypovolemia. 4. Rule out chronic kidney disease. 5. Coronary artery disease with recent myocardial infarction July 29, status post 3 coronary stents. 6. Dementia. PLAN: Continue with the bicarb drip. Repeat labs in a.m. Avoid nephrotoxic agents. MMODL / IJN: [id number] /
[2019-09-24] MEDS: MIRTAZAPINE 15 MG TAB PO SCH (20:52)
[2019-09-24] MEDS: ATORVASTATIN 40 MG TAB PO SCH (20:52)
[2019-09-24 21:11] LABS: Glucose,Whole Blood 134 mg/dL (75-99)
[2019-09-25 06:36] LABS: Glucose,Whole Blood 126 mg/dL (75-99)
[2019-09-25] MEDS: INSULIN ASPART (NovoLOG) 100 UNIT/ML VIAL SQ SCH ×4 (07:00→21:34)
[2019-09-25] MEDS: LEVOTHYROXINE 75 MCG TAB PO SCH (07:41)
[2019-09-25] MEDS: CARVEDILOL 6.25 MG TAB PO SCH ×2 (07:41→16:09)
[2019-09-25] MEDS: DEXTROSE 5% IN WATER 1,000 ML with SODIUM BICARB (1 MEQ/ML) 150 ML IV SCH (07:42)
[2019-09-25] MEDS: DONEPEZIL 10 MG TAB PO SCH ×2 (09:38→21:34)
[2019-09-25] MEDS: CLOPIDOGREL 75 MG TAB PO SCH (09:38)
[2019-09-25] MEDS: ASPIRIN 81 MG PO SCH (09:38)
[2019-09-25 11:31] LABS: Calcium 9.1 mg/dL (8.4-10.2); Potassium 4.4 mmol/L (3.5-5.1)
[2019-09-25] MEDS ORDERED: SODIUM CHLORIDE 0.9% 1,000 ML IV SCH (11:45)
[2019-09-25 11:47] LABS: Glucose,Whole Blood 152 mg/dL (75-99)
--- NOTE | 2019-09-25 13:36 | P.PN ---
Subjective Progress Note Date: 09/25/19 This is an 84-year-old female patient of Dr. Watkins with past medical history of diabetes mellitus type 2, myocardial infarction, hypothyroidism. Patient was diagnosed with a myocardial infarction on 07/29/2019 was she was in [place]. She underwent cardiac stenting at that time and the details are not known. Patient did have a follow-up appointment with Dr. lewis following that. Patient is complaining of dizziness and lightheadedness, not eating well. She denies having any falls. She states her symptoms have been going on for at least a few days. She denies any chest pain, shortness of breath or abdominal pain. Patient came into [facility] emergency center for evaluation. Her initial blood pressure was 88/46, BUN 92 and creatinine 5.59, potassium 5.5, CO2 15, chloride 110, blood sugar 106. ProBNP 1460, troponin 0.03 to, lactic acid 1.4. Patient was given 2 L of IV fluid, regular insulin, dextrose 50% and albuterol. Patient received 1 dose of IV Lasix 20 mg. Patient was admitted to the cardiac stepdown unit and consult requested with nephrology and cardiology. 09/24: Patient is seen and followed by cardiology. Cardiology has change blunted to Plavix. Renal ultrasound showed left renal atrophy, no hydronephrosis. Patient continues to have no appetite. She states she feels dizzy. Orthostatic vital signs will be checked. Patient has been afebrile, heart rate 64, blood pressure 146/68, pulse ox 96% on room air. Repeat lab work reveals BUN 70, creatinine 2.8, CO2 19. Echocardiogram reveals EF of 55-60% with severe concentric left ventricular hypertrophy, trace mitral regurgitation, trace tricuspid regurgitation, moderate generalized pericardial effusion. Patient is followed by nephrology currently on a bicarb drip. Discharge plan will be subacute rehab. PT and OT in place. Possible discharge by tomorrow. 09/25: Patient continues to state she does not feel well. Orthostatic vital signs have been negative. She has been afebrile, heart rate 64, blood pressure 172/79, pulse ox 90% on room air. Repeat blood work reveals BUN 41 and creatinine 2.07, CO2 23, chloride 112. Anticipate discharge to subacute rehab tomorrow, most likely [facility]. Review of Systems Constitutional: Reports fatigue, Reports lethargy, Reports malaise, Reports poor appetite, Reports weakness Ears, nose, mouth and throat: Reports vertigo, Denies dental pain, Denies dysphagia, Denies headache, Denies nasal congestion, Denies nasal discharge, Denies sore throat Cardiovascular: Reports lightheadedness, Denies chest pain, Denies edema, Denies irregular heart beat, Denies shortness of breath, Denies syncope Respiratory: Denies cough, Denies cough with sputum, Denies dyspnea, Denies excessive sputum, Denies hemoptysis, Denies home oxygen, Denies respiratory infections, Denies wheezing Gastrointestinal: Reports loss of appetite, Denies abdominal pain, Denies diarrhea, Denies nausea, Denies vomiting Genitourinary: Denies dysuria, Denies hematuria, Denies urgency, Denies urinary frequency Musculoskeletal: Reports muscle weakness, Denies frequent falls, Denies gait dysfunction, Denies myalgias Integumentary: Denies pruritus, Denies rash, Denies wounds Neurological: Denies change in mentation, Denies change in speech, Denies numbness Psychiatric: Denies anxiety, Denies depression Endocrine: Denies fatigue, Denies weight change Objective - Vital Signs Vital signs: Vital Signs Temp 98.4 F 09/25/19 08:30 Pulse 62 09/25/19 08:30 Resp 18 09/25/19 08:30 BP 140/65 09/25/19 08:30 Pulse Ox 92 L 09/25/19 08:30 Intake & Output 09/24/19 09/25/19 09/25/19 18:59 06:59 18:59 Intake Total 480 765 Output Total 504 Balance -24 765 Weight 73 kg Intake: Intake, IV Titration 525 Amount Dextrose 5% in Water 1, 525 000 ml @ 75 mls/hr IV . [id number] MARIO with Sodium Bicarb (1 Meq/ml) 150 ml Rx#:[id number] Oral 480 240 Output: Urine 500 Stool 4 Other: Voiding Method Toilet # Voids 3 3 1 - Exam Gen: This is an 84-year-old female. Patient is resting in bed and appears to be comfortable and in no acute distress. HEENT: Head is atraumatic, normocephalic. Pupils equal, round. Sclerae is anicteric. NECK: Supple. No JVD. No lymphadenopathy. No thyromegaly. LUNGS: Clear to auscultation. No wheezes or rhonchi. No intercostal retractions. HEART: Regular rate and rhythm. No murmur. ABDOMEN: Soft. Bowel sounds are present. No masses. No tenderness. EXTREMITIES: No pedal edema. No calf tenderness. Dorsalis pedis +2 bilaterally. NEUROLOGICAL: Patient is awake, alert and oriented x3. Cranial nerves 2 through 12 are grossly intact. Generalized weakness noted. - Labs CBC & Chem 7: 09/23/19 02:14 09/25/19 10:58 Labs: Abnormal Lab Results - Last 24 Hours (Table) 09/23/19 09/24/19 09/24/19 Range/Units 02:14 11:42 16:59 POC Glucose (mg/dL) 118 H 148 H (75-99) mg/dL Hemoglobin A1c 8.2 H (4.0-6.0) % 09/24/19 09/25/19 Range/Units 21:10 06:34 POC Glucose (mg/dL) 134 H 126 H (75-99) mg/dL Hemoglobin A1c (4.0-6.0) % Assessment and Plan Plan: 1. Acute kidney injury secondary to poor oral intake, hypotension. Consult with nephrology appreciated. Continue normal saline at 60 mL per hour. 2. Recent myocardial infarction July 29 status post 3 stents. Continue aspirin 81 mg daily, atorvastatin 40 mg at bedtime, Coreg 6.25 mg twice daily, Brilinta changed to Plavix. Consult with cardiology appreciated. 3. Dementia. Continue Aricept 10 mg twice daily. 4. Diabetes mellitus type 2. Patient started on NovoLog scale before meals and at bedtime. 5. Overactive bladder. Hold oxybutynin. 6. Hypothyroidism. Continue levothyroxine 75 g daily. 7. GI prophylaxis. Pepcid. 8. DVT prophylaxis. SCDs and ZOILA hose. Discharge plan: Subacute rehab on Tuesday. PT and OT following. Impression and plan of care have been directed as dictated by the signing physician. Michelle Rivera nurse practitioner acting as scribe for signing matias asher.
[2019-09-25 16:49] LABS: Glucose,Whole Blood 110 mg/dL (75-99)
--- NOTE | 2019-09-25 18:38 | PN ---
PROGRESS NOTE The patient is seen for followup for acute kidney injury. Currently she is sitting in bed, comfortable, not in any acute distress. Her renal function has improved with creatinine down to 2.0 from 5.59 on initial admission. The patient is off IV fluids. PHYSICAL EXAMINATION: On examination, blood pressure this morning 163/71, heart rate of 64 per minute. She is afebrile. Examination of the heart S1, S2. Examination of the lungs, bilateral breath sounds are heard. ABDOMEN: Soft, nontender. No edema is noted. [employer] exam grossly intact. LABS: Sodium 145, potassium 4.4, chloride 112, CO2 is 23. BUN 41, creatinine 2.07. ASSESSMENT: 1. Acute kidney injury, prerenal, currently significantly improved. Continue off IV fluids. Continue to encourage increased oral intake. 2. Hypertension, uncontrolled, increase Coreg to 12.5 mg b.i.d. 3. Recent myocardial infarction status post cardiac cath and coronary stents. 4. Non-gap metabolic acidosis secondary to renal failure, status post IV bicarb. 5. Dementia. PLAN: Discontinue IV fluids. Increase Coreg. Repeat labs in a.m. Follow up as outpatient for CKD. MMODL / IJN: [id number] /
[2019-09-25 20:04] LABS: Appearance,Urine Clear (Clear); Bilirubin,Urine Negative (Negative); Blood,Urine Negative (Negative); Color,Urine Yellow; Glucose,Urine (UA) 1+ (Negative); Ketones,Urine Negative (Negative); Leukocyte Esterase,Urine Negative (Negative); Nitrite,Urine Negative (Negative); Protein,Urine Negative (Negative); Specific Gravity,Urine 1.016 (1.001-1.035); Urobilinogen,Urine <2.0 mg/dL (<2.0)
[2019-09-25 20:21] LABS: Glucose,Whole Blood 157 mg/dL (75-99)
[2019-09-25] MEDS: MIRTAZAPINE 15 MG TAB PO SCH (21:34)
[2019-09-25] MEDS: ATORVASTATIN 40 MG TAB PO SCH (21:34)
[2019-09-26 06:00] LABS: Glucose,Whole Blood 102 mg/dL (75-99)
[2019-09-26] MEDS: LEVOTHYROXINE 75 MCG TAB PO SCH (06:58)
[2019-09-26] MEDS: INSULIN ASPART (NovoLOG) 100 UNIT/ML VIAL SQ SCH ×4 (06:58→20:21)
[2019-09-26] MEDS: CARVEDILOL 12.5 MG TAB PO SCH ×2 (06:58→17:47)
[2019-09-26 07:02] LABS: Calcium 8.8 mg/dL (8.4-10.2); Potassium 4.2 mmol/L (3.5-5.1)
[2019-09-26] MEDS: DONEPEZIL 10 MG TAB PO SCH ×2 (10:00→20:16)
[2019-09-26] MEDS: ASPIRIN 81 MG PO SCH (10:01)
[2019-09-26] MEDS: CLOPIDOGREL 75 MG TAB PO SCH (10:01)
--- NOTE | 2019-09-26 10:32 | P.DS ---
Providers Date of admission: 09/22/19 17:10 Expected date of discharge: 09/27/19 Attending physician: Lyle Gutierrez Consults: 09/22/19 17:14 Consult Physician Stat Consulting Provider: Deedee Recinos Consult Reason/Comments: abnormal ekg Do you want consulting provider notified?: Yes Consult Physician Stat Consulting Provider: Mansoor Hodges Consult Reason/Comments: acute renal failure Do you want consulting provider notified?: Yes Primary care physician: Lisa Watkins [facility] Course: This is an 84-year-old female patient of Dr. Watkins with past medical history of diabetes mellitus type 2, myocardial infarction, hypothyroidism. Patient was diagnosed with a myocardial infarction on 07/29/2019 was she was in [place]. She underwent cardiac stenting at that time and the details are not known. Patient did have a follow-up appointment with Dr. lewis following that. Patient is complaining of dizziness and lightheadedness, not eating well. She denies having any falls. She states her symptoms have been going on for at least a few days. She denies any chest pain, shortness of breath or abdominal pain. Patient came into [facility] emergency center for evaluation. Her initial blood pressure was 88/46, BUN 92 and creatinine 5.59, potassium 5.5, CO2 15, chloride 110, blood sugar 106. ProBNP 1460, troponin 0.03 to, lactic acid 1.4. Patient was given 2 L of IV fluid, regular insulin, dextrose 50% and albuterol. Patient received 1 dose of IV Lasix 20 mg. Patient was admitted to the cardiac stepdown unit and consult requested with nephrology and cardiology. 09/24: Patient is seen and followed by cardiology. Cardiology has change blunted to Plavix. Renal ultrasound showed left renal atrophy, no hydronephrosis. Patient continues to have no appetite. She states she feels dizzy. Orthostatic vital signs will be checked. Patient has been afebrile, heart rate 64, blood pressure 146/68, pulse ox 96% on room air. Repeat lab work reveals BUN 70, creatinine 2.8, CO2 19. Echocardiogram reveals EF of 55-60% with severe concentric left ventricular hypertrophy, trace mitral regurgitation, trace tricuspid regurgitation, moderate generalized pericardial effusion. Patient is followed by nephrology currently on a bicarb drip. Discharge plan will be subacute rehab. PT and OT in place. Possible discharge by tomorrow. 09/25: Patient continues to state she does not feel well. Orthostatic vital signs have been negative. She has been afebrile, heart rate 64, blood pressure 172/79, pulse ox 90% on room air. Repeat blood work reveals BUN 41 and creatinine 2.07, CO2 23, chloride 112. Anticipate discharge to subacute rehab tomorrow, most likely [facility]. 09/26: Patient was prepared for discharge to [facility] today but due to orthostatic changes, discharge held and planned for tomorrow. IV fluids will be started at 0.9 normal saline at 75 mL per hour. Repeat orthostatics in the morning. Patient states that she ate okay this morning for breakfast. She slept well during the night. She has been afebrile, heart rate 56, blood pressure 159/71, pulse ox 99% on room air. Repeat lab work reveals BUN of 20 and creatinine 1.71, CO2 24, potassium 4.2. Blood sugars running between 102 and 144. 09/27: No new complaints and the patient today. She is again orthostatic positive but was last changed. Pulse rate is stable. Repeat lab work reveals hemoglobin 9.5, platelet count 106, BUN 18, creatinine 1.48, CO2 21, chloride 115, potassium 4.1. Patient is cleared for discharge to [facility] and will be followed there by Dr. Gutierrez. Discharge diagnoses: 1. Acute kidney injury secondary to poor oral intake, hypotension entresto and aldactone contributing. 2. Recent myocardial infarction July 29 status post 3 stents. 3. Dementia. 4. Diabetes mellitus type 2. 5. Overactive bladder. 6. Hypothyroidism. 7. Orthostatic changes. Discharge plan:[facility] under the care of Dr. Gutierrez. Impression and plan of care have been directed as dictated by the signing physician. Michelle Rivera nurse practitioner acting as scribe for signing physician. Patient Condition at Discharge: Good Plan - Discharge Summary Discharge Rx Participant: No New Discharge Prescriptions: New Carvedilol [Coreg*] 12.5 mg PO AC-BID tab INSULIN ASPART (NovoLOG) [NovoLOG (formulary)] 0 unit SQ ACHS vial Clopidogrel [Plavix] 75 mg PO DAILY tab Continue Levothyroxine Sodium [Synthroid] 75 mcg PO DAILY Donepezil [Aricept] 10 mg PO HS Atorvastatin [Lipitor] 40 mg PO HS Aspirin 81 mg PO DAILY Mirtazapine [Remeron] 7.5 mg PO HS Discontinued Oxybutynin ER [Ditropan Xl] 15 mg PO DAILY INSULIN ASPART (NovoLOG) [NovoLOG (formulary)] See Protocol SQ AC-TID Sacubitril/Valsartan [Entresto 24 mg-26 mg Tablet] 1 tab PO BID Carvedilol [Coreg] 6.25 mg PO BID Ticagrelor [Brilinta] 90 mg PO BID Midodrine HCl [ProAmatine] 10 mg PO TID Spironolactone [Aldactone] 25 mg PO DAILY Discharge Medication List Aspirin 81 mg PO DAILY 09/22/19 [History] Atorvastatin [Lipitor] 40 mg PO HS 09/22/19 [History] Donepezil [Aricept] 10 mg PO HS 09/22/19 [History] Levothyroxine Sodium [Synthroid] 75 mcg PO DAILY 09/22/19 [History] Mirtazapine [Remeron] 7.5 mg PO HS 09/22/19 [History] Carvedilol [Coreg*] 12.5 mg PO AC-BID tab 09/26/19 [Rx] Clopidogrel [Plavix] 75 mg PO DAILY tab 09/26/19 [Rx] INSULIN ASPART (NovoLOG) [NovoLOG (formulary)] 0 unit SQ ACHS vial 09/26/19 [Rx] Follow up Appointment(s)/Referral(s): [facility] [Provider Group] - 1 Week Tamara Alvarez MD [STAFF PHYSICIAN] - 1 Week Lisa Watkins MD [Primary Care Provider] - 1 Week (after discharge form [facility]) Discharge Disposition: TRANSFER TO SNF/[facility]
[2019-09-26 11:59] LABS: Glucose,Whole Blood 144 mg/dL (75-99)
--- NOTE | 2019-09-26 14:07 | P.PN ---
Subjective Progress Note Date: 09/26/19 This is an 84-year-old female patient of Dr. Watkins with past medical history of diabetes mellitus type 2, myocardial infarction, hypothyroidism. Patient was diagnosed with a myocardial infarction on 07/29/2019 was she was in [place]. She underwent cardiac stenting at that time and the details are not known. Patient did have a follow-up appointment with Dr. lewis following that. Patient is complaining of dizziness and lightheadedness, not eating well. She denies having any falls. She states her symptoms have been going on for at least a few days. She denies any chest pain, shortness of breath or abdominal pain. Patient came into [facility] emergency center for evaluation. Her initial blood pressure was 88/46, BUN 92 and creatinine 5.59, potassium 5.5, CO2 15, chloride 110, blood sugar 106. ProBNP 1460, troponin 0.03 to, lactic acid 1.4. Patient was given 2 L of IV fluid, regular insulin, dextrose 50% and albuterol. Patient received 1 dose of IV Lasix 20 mg. Patient was admitted to the cardiac stepdown unit and consult requested with nephrology and cardiology. 09/24: Patient is seen and followed by cardiology. Cardiology has change blunted to Plavix. Renal ultrasound showed left renal atrophy, no hydronephrosis. Patient continues to have no appetite. She states she feels dizzy. Orthostatic vital signs will be checked. Patient has been afebrile, heart rate 64, blood pressure 146/68, pulse ox 96% on room air. Repeat lab work reveals BUN 70, creatinine 2.8, CO2 19. Echocardiogram reveals EF of 55-60% with severe concentric left ventricular hypertrophy, trace mitral regurgitation, trace tricuspid regurgitation, moderate generalized pericardial effusion. Patient is followed by nephrology currently on a bicarb drip. Discharge plan will be subacute rehab. PT and OT in place. Possible discharge by tomorrow. 09/25: Patient continues to state she does not feel well. Orthostatic vital signs have been negative. She has been afebrile, heart rate 64, blood pressure 172/79, pulse ox 90% on room air. Repeat blood work reveals BUN 41 and creatinine 2.07, CO2 23, chloride 112. Anticipate discharge to subacute rehab tomorrow, most likely [facility]. 12/11: Patient was prepared for discharge to [facility] today but due to orthostatic changes, patient will be sent held for discharge and planned for tomorrow. IV fluids will be started at 0.9 normal saline at 75 mL per hour. Repeat orthostatics in the morning. Patient states that she ate okay this morning for breakfast. She slept well during the night. She has been afebrile, heart rate 56, blood pressure 159/71, pulse ox 99% on room air. Repeat lab work reveals BUN of 20 and creatinine 1.71, CO2 24, potassium 4.2. Blood sugars running between 102 and 144. Review of Systems Constitutional: Reports fatigue, Reports poor appetite, Reports weakness Ears, nose, mouth and throat: Reports vertigo, Denies dental pain, Denies dysphagia, Denies headache, Denies nasal congestion, Denies nasal discharge, Denies sore throat Cardiovascular: Reports lightheadedness, Denies chest pain, Denies edema, Denies irregular heart beat, Denies shortness of breath, Denies syncope Respiratory: Denies cough, Denies cough with sputum, Denies dyspnea, Denies excessive sputum, Denies hemoptysis, Denies home oxygen, Denies respiratory infections, Denies wheezing Gastrointestinal: Reports loss of appetite, Denies abdominal pain, Denies diarrhea, Denies nausea, Denies vomiting Genitourinary: Denies dysuria, Denies hematuria, Denies urgency, Denies urinary frequency Musculoskeletal: Reports muscle weakness, Denies frequent falls, Denies gait dysfunction, Denies myalgias Integumentary: Denies pruritus, Denies rash, Denies wounds Neurological: Denies change in mentation, Denies change in speech, Denies numbness Psychiatric: Denies anxiety, Denies depression Endocrine: Denies fatigue, Denies weight change Objective - Vital Signs Vital signs: Vital Signs Temp 97.6 F 09/26/19 11:36 Pulse 56 L 09/26/19 11:36 Resp 18 09/26/19 11:36 BP 159/71 09/26/19 11:36 Pulse Ox 99 09/26/19 11:36 Intake & Output 09/25/19 09/26/19 09/26/19 18:59 06:59 18:59 Intake Total 480 360 Output Total 400 400 1 Balance -400 80 359 Weight 73 kg Intake: Intake, IV Titration 360 Amount Sodium Chloride 0.9% 1, 360 000 ml @ 60 mls/hr IV . [id number] [facility] Rx#:[id number] Oral 120 360 Output: Urine 400 400 Stool 1 Other: Voiding Method Toilet Toilet # Voids 1 2 0 # Bowel Movements 1 - Exam Gen: This is an 84-year-old female. Patient is resting in bed and appears to be in no acute distress. HEENT: Head is atraumatic, normocephalic. Pupils equal, round. Sclerae is anicteric. NECK: Supple. No JVD. No lymphadenopathy. No thyromegaly. LUNGS: Clear to auscultation. No wheezes or rhonchi. No intercostal retractions. HEART: Regular rate and rhythm. No murmur. ABDOMEN: Soft. Bowel sounds are present. No masses. No tenderness. EXTREMITIES: No pedal edema. No calf tenderness. Dorsalis pedis +2 bilaterally. NEUROLOGICAL: Patient is awake, alert and oriented x3. Cranial nerves 2 through 12 are grossly intact. Generalized weakness noted. - Labs CBC & Chem 7: 09/23/19 02:14 09/26/19 06:23 Labs: Abnormal Lab Results - Last 24 Hours (Table) 09/25/19 09/25/19 09/25/19 Range/Units 16:10 16:47 20:19 Chloride (98-107) mmol/L BUN (7-17) mg/dL Creatinine (0.52-1.04) mg/dL Glucose (74-99) mg/dL POC Glucose (mg/dL) 110 H 157 H (75-99) mg/dL Urine Glucose (UA) 1+ H (Negative) 09/26/19 09/26/19 09/26/19 Range/Units 05:58 06:23 11:47 Chloride 113 H (98-107) mmol/L BUN 28 H (7-17) mg/dL Creatinine 1.71 H (0.52-1.04) mg/dL Glucose 118 H (74-99) mg/dL POC Glucose (mg/dL) 102 H 144 H (75-99) mg/dL Urine Glucose (UA) (Negative) Assessment and Plan Plan: 1. Acute kidney injury secondary to poor oral intake, hypotension. Consult with nephrology appreciated. 2. Recent myocardial infarction July 29 status post 3 stents. Continue aspirin 81 mg daily, atorvastatin 40 mg at bedtime, Coreg 6.25 mg twice daily, Brilinta changed to Plavix. Consult with cardiology appreciated. 3. Dementia. Continue Aricept 10 mg twice daily. 4. Diabetes mellitus type 2. Patient started on NovoLog scale before meals and at bedtime. 5. Overactive bladder. Hold oxybutynin. 6. Hypothyroidism. Continue levothyroxine 75 g daily. 7. GI prophylaxis. Pepcid. 8. DVT prophylaxis. SCDs and ZOILA hose. 9. Orthostatic changes. Patient will be started on normal saline at 75 mL per hour. Recheck orthostatics tomorrow. Discharge plan: on . PT and OT following. Impression and plan of care have been directed as dictated by the signing physician. Michelle Rivera nurse practitioner acting as scribe for signing physician.
--- NOTE | 2019-09-26 15:46 | P.PN ---
Subjective Progress Note Date: 09/26/19 Is an 84-year-old female with history of coronary artery disease and recent myocardial infarction in July at which time she underwent 2 stents, she was seen in consultation yesterday by Dr. VC Leon. Patient was brought to the hospital primarily was hypoglycemia and acute renal failure. Echocardiogram with Doppler study was performed which revealed a normal left ventricular systolic function. is scheduled to return to [facility] today. From cardiology's perspective we will recommend to continue her other current medications. Continue to hold the and chest O and Aldactone. Objective - Vital Signs Vital signs: Vital Signs Temp 97.6 F 09/26/19 11:36 Pulse 56 L 09/26/19 11:36 Resp 18 09/26/19 11:36 BP 159/71 09/26/19 11:36 Pulse Ox 99 09/26/19 11:36 Intake & Output 09/25/19 09/26/19 09/26/19 18:59 06:59 18:59 Intake Total 480 360 Output Total 400 400 1 Balance -400 80 359 Weight 73 kg Intake: Intake, IV Titration 360 Amount Sodium Chloride 0.9% 1, 360 000 ml @ 60 mls/hr IV . [id number] [facility] Rx#:[id number] Oral 120 360 Output: Urine 400 400 Stool 1 Other: Voiding Method Toilet Toilet # Voids 1 2 0 # Bowel Movements 1 - Exam Gen: This is an 84-year-old female. Patient is resting in bed and appears to be in no acute distress. HEENT: Head is atraumatic, normocephalic. Pupils equal, round. Sclerae is anicteric. NECK: Supple. No JVD. No lymphadenopathy. No thyromegaly. LUNGS: Clear to auscultation. No wheezes or rhonchi. No intercostal retracti ons. HEART: Regular rate and rhythm. No murmur. ABDOMEN: Soft. Bowel sounds are present. No masses. No tenderness. EXTREMITIES: No pedal edema. No calf tenderness. Dorsalis pedis +2 bilaterally. NEUROLOGICAL: Patient is awake, alert and oriented x3. Cranial nerves 2 through 12 are grossly intact. Generalized weakness noted. - Labs CBC & Chem 7: 09/23/19 02:14 09/26/19 06:23 Labs: Abnormal Lab Results - Last 24 Hours (Table) 09/25/19 09/25/19 09/25/19 Range/Units 16:10 16:47 20:19 Chloride (98-107) mmol/L BUN (7-17) mg/dL Creatinine (0.52-1.04) mg/dL Glucose (74-99) mg/dL POC Glucose (mg/dL) 110 H 157 H (75-99) mg/dL Urine Glucose (UA) 1+ H (Negative) 09/26/19 09/26/19 09/26/19 Range/Units 05:58 06:23 11:47 Chloride 113 H (98-107) mmol/L BUN 28 H (7-17) mg/dL Creatinine 1.71 H (0.52-1.04) mg/dL Glucose 118 H (74-99) mg/dL POC Glucose (mg/dL) 102 H 144 H (75-99) mg/dL Urine Glucose (UA) (Negative) Assessment and Plan Plan: Assessment and Plan: 1. Acute kidney injury secondary to poor oral intake, hypotension. 2. Recent myocardial infarction July 29 status post 3 stents. 3. Dementia. 4. Diabetes mellitus type 2. 5. Overactive bladder. 6. Hypothyroidism 7. Hyperlipidemia Plan From cardiology's perspective, patient is stable to be transferred back to [facility] once cleared by primary. We will follow her along with you now on an as-needed basis only, please on hesitate to call with any questions. DNP note has been reviewed, I agree with a documented findings and plan of care. Patient was seen and examined.
[2019-09-26 17:07] LABS: Glucose,Whole Blood 134 mg/dL (75-99)
[2019-09-26] MEDS: SODIUM CHLORIDE 0.9% 1,000 ML IV SCH (17:48)
--- NOTE | 2019-09-26 18:43 | PN ---
PROGRESS NOTE The patient is seen for followup for acute kidney injury. Her renal function continues to improve. Creatinine is down to 1.7 from 5.59. The patient is off of IV fluids, awaiting discharge. PHYSICAL EXAMINATION: On examination, blood pressure was 163/65 this morning, heart rate 55 per minute. She is afebrile. EXAMINATION OF THE HEART: S1 and S2. EXAMINATION OF THE LUNGS: Bilateral breath sounds are heard. ABDOMEN: Soft, nontender. Examination of lower extremities shows no significant edema. LABORATORY DATA: Labs show sodium 145, potassium 4.2, chloride 113, BUN 28, creatinine 1.7. ASSESSMENT: 1. Acute kidney injury, nonoliguric renal failure, currently improving. 2. Hypertension, currently better controlled. Coreg was increased yesterday. 3. History of recent myocardial infarction and cardiac catheterization with coronary stent placement last month. 4. Non-gap metabolic acidosis secondary to renal failure, status post intravenous bicarb. 5. Dementia. PLAN: Patient is stable for discharge. Follow up as outpatient for CKD. MMODL / IJN: [id number] /
[2019-09-26] MEDS: MIRTAZAPINE 15 MG TAB PO SCH (20:16)
[2019-09-26] MEDS: ATORVASTATIN 40 MG TAB PO SCH (20:16)
[2019-09-26 20:19] LABS: Glucose,Whole Blood 111 mg/dL (75-99)
[2019-09-26 20:21] VITALS: RESP 16
[2019-09-27] MEDS: SODIUM CHLORIDE 0.9% 1,000 ML IV SCH (02:58)
[2019-09-27 03:55] VITALS: TEMP 97.5
[2019-09-27] MEDS: INSULIN ASPART (NovoLOG) 100 UNIT/ML VIAL SQ SCH (06:11)
[2019-09-27 06:12] LABS: Glucose,Whole Blood 125 mg/dL (75-99)
[2019-09-27] MEDS: LEVOTHYROXINE 75 MCG TAB PO SCH (06:13)
[2019-09-27] MEDS: CARVEDILOL 12.5 MG TAB PO SCH (06:13)
[2019-09-27 07:12] LABS: HCT 37.4 % (34.0-46.0); HGB 9.5 gm/dL (11.4-16.0); Hypochromasia Marked; MCH 25.7 pg (25.0-35.0); MCHC 25.3 g/dL (31.0-37.0); Platelet Count 106 k/uL (150-450); RBC 3.69 m/uL (3.80-5.40); RDW 12.8 % (11.5-15.5)
[2019-09-27 07:13] LABS: MCV 101.5 fL (80.0-100.0)
[2019-09-27 07:27] LABS: Calcium 8.3 mg/dL (8.4-10.2); Potassium 4.1 mmol/L (3.5-5.1)
[2019-09-27] MEDS: ASPIRIN 81 MG PO SCH (08:59)
[2019-09-27] MEDS: CLOPIDOGREL 75 MG TAB PO SCH (08:59)
[2019-09-27] MEDS: DONEPEZIL 10 MG TAB PO SCH (09:00)
[2019-09-27 12:20] LABS: Glucose,Whole Blood 114 mg/dL (75-99)
[2019-09-27 12:41] VITALS: BP 145/74; PULSE 47
--- NOTE | 2019-09-27 18:23 | PN ---
PROGRESS NOTE Patient is seen for followup for acute kidney injury. Renal function has improved significantly. The patient is off of IV fluids. PHYSICAL EXAMINATION: On examination this morning, blood pressure was 145/74, heart rate 50 per minute. She is afebrile. EXAMINATION OF THE HEART: S1 and S2. EXAMINATION OF LUNGS: Decreased breath sounds at bases. ABDOMEN: Soft, non-tender. Examination of lower extremities shows no significant edema. MANAGER ACUTE exam is grossly intact. LABS: Sodium 144, potassium 4.1, BUN 18, creatinine 1.48, hemoglobin 9.5 g/dL. ASSESSMENT: 1. Acute kidney injury, acute tubular necrosis, currently resolved, with significant improvement in renal function. 2. Hypertension, better controlled with increased dose of Coreg. 3. History of myocardial infarction, status post coronary stents. 4. Non-gap metabolic acidosis, status post IV bicarb. PLAN: Patient is stable for discharge. Repeat labs as outpatient and follow up as outpatient. MMODL / IJN: [id number] /
--- NOTE | 2019-10-01 05:44 | CDI ---
Documentation Clarification Form Date: 10/01/19 From: Raudel Goncalves Phone: If you have a question about this query, please contact Brenda Irving, Production Finisher at [phone] between 8am and 5pm. Admit Date: 09/22/19 Discharge Date: 09/27/19 Patient Name: Rusty Concepcion Visit Number: [id number] ATTENTION: The Clinical Documentation Specialists (CDI) and [facility] Coding Staff appreciate your assistance in clarifying documentation. Please respond to the clarification below the line at the bottom and electronically sign. The CDI & [facility] Coding staff will review the response and follow-up if needed. Please note: Queries are made part of the Legal Health Record. If you have any questions, please contact the author of this message via ITS. Dear Lyle Garcia., Patient admitted with Acute kidney failure. History/Risk Factors:Old NH,cardiac catheterization with stent, Hyperkalemia, Pericardial effusion. BNP: pro-BNP 1460. Echocardiogram Results: ECHO Echocardiogram reveals EF of 55-60% with severe concentric left ventricular hypertrophy, trace mitral regurgitation, trace tricuspid regurgitation, moderate generalized pericardial effusion. Chest X Ray:Left basilar subsegmental changes which atelectasis is favored over pneumonia. Treatment: IV lasix in ED, Cardiology has change blunted to Plavix In your professional opinion, based on these findings Can you please Clarify the diagnosis? CHF Present - YES CHF present- NO IF YES, Please specify type and acuity of CHF ? If known Systolic Heart Failure: Acute Chronic Acute on Chronic Diastolic Heart Failure: Acute Chronic Acute on Chronic Unable to Determine Other, please specify Chronic systolic heart failure MTDD
== END 2019-09-27 15:19 | DRG 683 ==
LOC: EC 12:52 → 3SCARD 17:10
PROVIDERS: ADMIT Internal Medicine; ATTEND Internal Medicine
DX: N17.0 Acute kidney failure with tubular necrosis (principal); E87.2 Acidosis; I31.3 Pericardial effusion (noninflammatory); I50.22 Chronic systolic (congestive) heart failure; E11.9 Type 2 diabetes mellitus without complications; E03.9 Hypothyroidism, unspecified; E78.5 Hyperlipidemia, unspecified; I44.30 Unspecified atrioventricular block; Z96.1 Presence of intraocular lens; F03.90 Unspecified dementia, unspecified severity, without behavioral disturbance, psychotic disturbance, mood disturbance, and anxiety; N32.81 Overactive bladder; I10 Essential (primary) hypertension; E87.5 Hyperkalemia; E86.9 Volume depletion, unspecified; I25.10 Atherosclerotic heart disease of native coronary artery without angina pectoris; R19.7 Diarrhea, unspecified; E86.1 Hypovolemia; I95.1 Orthostatic hypotension; I51.7 Cardiomegaly; Z88.2 Allergy status to sulfonamides; I25.2 Old myocardial infarction; Z90.49 Acquired absence of other specified parts of digestive tract; Z98.890 Other specified postprocedural states; Z95.5 Presence of coronary angioplasty implant and graft; Z98.42 Cataract extraction status, left eye; Z98.41 Cataract extraction status, right eye; Z82.49 Family history of ischemic heart disease and other diseases of the circulatory system; Z79.82 Long term (current) use of aspirin; Z79.899 Other long term (current) drug therapy; Z79.890 Hormone replacement therapy; Z79.02 Long term (current) use of antithrombotics/antiplatelets
CPT/HCPCS: 36415; 70450; 71046; 76770; 80048; 80053; 81001; 81003; 83036; 83605; 83735; 83880; 84484; 85025; 85027; 85610; 85730; 87324; 93005; 93306; 96361; 96374; 96375; 99285

== ENCOUNTER 2020-02-14 16:12 | Inpatient (IN) | payer MEDICARE, OTHER ==
[2020-02-14] MEDS ORDERED: SODIUM CHLORIDE 0.9% 1,000 ML IV STA ×3 (16:28→16:53)
[2020-02-14] MEDS ORDERED: ALBUTEROL NEB (CONC) 2.5 MG/0.5 ML INHALATION ONE (16:29)
[2020-02-14] MEDS ORDERED: SODIUM BICARB 8.4% 50 ML SYR (1 MEQ/ML) IV ONE (16:29)
[2020-02-14] MEDS ORDERED: INSULIN REGULAR 100 UNIT/ML VIAL IV ONE ×2 (16:29→22:45)
[2020-02-14] MEDS ORDERED: SODIUM POLYSTYRENE SULFONATE 15 GM/60 ML BOTTLE PO ONE ×2 (16:29→22:39)
[2020-02-14] MEDS ORDERED: DEXTROSE 50% SYRINGE 50 ML IVP ONE (16:29)
[2020-02-14] MEDS ORDERED: CALCIUM GLUCONATE 1 GM in SODIUM CHLORIDE 0.9% 100 ML IVPB ONE ×2 (16:30→23:00)
[2020-02-14] MEDS ORDERED: DEXTROSE 5% IN WATER 1,000 ML with SODIUM BICARB (1 MEQ/ML) 150 ML IV ONE (16:30)
--- NOTE | 2020-02-14 16:36 | ED ---
General Adult HPI - General Chief complaint: Recheck/Abnormal Lab/Rx Stated complaint: Abnormal Labs Time Seen by Provider: 02/14/20 16:27 Source: patient, EMS, RN notes reviewed Mode of arrival: EMS Limitations: altered mental status - History of Present Illness Initial comments: Patient is a pleasant 85-year-old female presenting to the emergency department with concerns regarding hyper came anemia. Patient did have blood work done prior to arrival showing renal failure and hyperkalemia. Patient is a very poor historian and has difficulty providing information. Patient admits to feeling nauseated. Patient states she has been throwing up. Patient does admit to decreased oral intake the last couple of days. Patient is unclear if there is a ny diarrhea. No fevers. - Related Data Home Medications Medication Instructions Recorded Confirmed Aspirin 81 mg PO DAILY 09/22/19 09/24/19 Atorvastatin [Lipitor] 40 mg PO HS 09/22/19 09/24/19 Donepezil [Aricept] 10 mg PO HS 09/22/19 09/24/19 Levothyroxine Sodium [Synthroid] 75 mcg PO DAILY 09/22/19 09/24/19 Mirtazapine [Remeron] 7.5 mg PO HS 09/22/19 09/24/19 Previous Rx's Medication Instructions Recorded Carvedilol [Coreg*] 12.5 mg PO AC-BID tab 09/26/19 Clopidogrel [Plavix] 75 mg PO DAILY tab 09/26/19 INSULIN ASPART (NovoLOG) [NovoLOG 0 unit SQ ACHS vial 09/26/19 (formulary)] Allergies Allergy/AdvReac Type Severity Reaction Status Date / Time Sulfa (Sulfonamide Allergy Unknown Verified 09/22/19 18:58 Antibiotics) Review of Systems ROS Statement: Those systems with pertinent positive or pertinent negative responses have been documented in the HPI. ROS Other: All systems not noted in ROS Statement are negative. Constitutional: Denies: fever Eyes: Denies: eye pain ENT: Denies: ear pain Respiratory: Denies: cough, dyspnea Cardiovascular: Denies: chest pain Endocrine: Reports: fatigue Gastrointestinal: Reports: nausea, vomiting. Denies: abdominal pain Genitourinary: Denies: dysuria Musculoskeletal: Denies: back pain Skin: Denies: rash Past Medical History Past Medical History: Diabetes Mellitus, Myocardial Infarction ([place]), Thyroid Disorder Additional Past Medical History / Comment(s): Type 2 DM, [place] 07/29/19 Last Myocardial Infarction Date:: 07/29/19 History of Any Multi-Drug Resistant Organisms: None Reported Past Surgical History: Breast Surgery, Cholecystectomy, Heart Catheterization With Stent, Joint Replacement, Orthopedic Surgery Additional Past Surgical History / Comment(s): 2 cardiac stents, bilateral cataract removal and intraocular lens implants Past Anesthesia/Blood Transfusion Reactions: No Reported Reaction Date of Last Stent Placement:: 07/29/19 Past Psychological History: No Psychological Hx Reported Smoking Status: Never smoker Past Alcohol Use History: None Reported Past Drug Use History: None Reported - Past Family History Brother(s) Family Medical History: Myocardial Infarction ([place]) Additional Family Medical History / Comment(s): The patient has 3 brothers and all have passed. Patient does not know their medical histories nor the reason further tests. Father Additional Family Medical History / Comment(s): Patient's father is . Patient does not know any of his medical history. Mother Additional Family Medical History / Comment(s): Mother in her 60s while sleeping. Sister(s) Additional Family Medical History / Comment(s): Patient has 3 sisters and one has that his history of coronary artery disease status post stents. Daughter(s) Additional Family Medical History / Comment(s): Patient has one daughter that in a motor vehicle accident. Patient has 2 sons and one from an unknown cause. One son is alive with no major medical problems. General Exam Limitations: altered mental status General appearance: alert, in no apparent distress Head exam: Present: normocephalic Eye exam: Present: normal appearance, PERRL ENT exam: Present: normal oropharynx Neck exam: Present: normal inspection Respiratory exam: Present: normal lung sounds bilaterally Cardiovascular Exam: Present: regular rate, normal rhythm GI/Abdominal exam: Present: soft, normal bowel sounds. Absent: distended, tenderness, pulsatile mass Extremities exam: Present: normal inspection Neurological exam: Present: alert Expanded Patient oriented to: Present: person, place Psychiatric exam: Present: normal affect, normal mood Skin exam: Present: normal color Course Vital Signs 02/14/20 16:13 Temperature 97.6 F Pulse Rate 58 L Respiratory 17 Rate Blood Pressure 115/45 O2 Sat by Pulse 97 Oximetry EKG Findings - EKG Comments: EKG Findings:: Sinus bradycardia with rate of 59. QRS 106. QT 418. QTC 413. Normal axis. Q waves inferior and leads V1 and V2. No acute ST change. Medical Decision Making - Medical Decision Making Patient reevaluated and updated. Case was discussed in detail with Dr. Brenda romero states this is his patient and will admit. Case also discussed with Dr. Nobles, who will consult for critical care. Nephrology will be placed on consult. Patient received multiple medications for hyperkalemia. - Lab Data Result diagrams: 02/14/20 16:45 02/14/20 16:45 Lab Results 02/14/20 02/14/20 02/14/20 Range/Units 16:45 16:45 16:45 WBC 8.4 (3.8-10.6) k/uL RBC 4.00 (3.80-5.40) m/uL Hgb 12.6 (11.4-16.0) gm/dL Hct 39.1 (34.0-46.0) % MCV 97.8 (80.0-100.0) fL MCH 31.5 (25.0-35.0) pg MCHC 32.2 (31.0-37.0) g/dL RDW 13.4 (11.5-15.5) % Plt Count 142 L (150-450) k/uL Neutrophils % 72 % Lymphocytes % 22 % Monocytes % 5 % Eosinophils % 1 % Basophils % 0 % Neutrophils # 6.0 (1.3-7.7) k/uL Lymphocytes # 1.9 (1.0-4.8) k/uL Monocytes # 0.4 (0-1.0) k/uL Eosinophils # 0.1 (0-0.7) k/uL Basophils # 0.0 (0-0.2) k/uL Hypochromasia Moderate PT 10.2 (9.0-12.0) sec INR 1.0 (<1.2) APTT 23.0 (22.0-30.0) sec Sodium 137 (137-145) mmol/L Potassium 8.5 H* (3.5-5.1) mmol/L Chloride 114 H (98-107) mmol/L Carbon Dioxide 8 L* (22-30) mmol/L Anion Gap 15 mmol/L BUN 157 H* (7-17) mg/dL Creatinine 12.43 H* (0.52-1.04) mg/dL Est GFR (CKD-EPI)AfAm 3 (>60 ml/min/1.73 sqM) Est GFR (CKD-EPI)NonAf 2 (>60 ml/min/1.73 sqM) Glucose 100 H (74-99) mg/dL Calcium 8.7 (8.4-10.2) mg/dL Total Bilirubin 0.5 (0.2-1.3) mg/dL AST 19 (14-36) U/L ALT 42 H (4-34) U/L Alkaline Phosphatase 76 (38-126) U/L Total Protein 6.8 (6.3-8.2) g/dL Albumin 3.7 (3.5-5.0) g/dL Coronavirus (PCR) (Not Detectd) 02/14/20 Range/Units 16:45 WBC (3.8-10.6) k/uL RBC (3.80-5.40) m/uL Hgb (11.4-16.0) gm/dL Hct (34.0-46.0) % MCV (80.0-100.0) fL MCH (25.0-35.0) pg MCHC (31.0-37.0) g/dL RDW (11.5-15.5) % Plt Count (150-450) k/uL Neutrophils % % Lymphocytes % % Monocytes % % Eosinophils % % Basophils % % Neutrophils # (1.3-7.7) k/uL Lymphocytes # (1.0-4.8) k/uL Monocytes # (0-1.0) k/uL Eosinophils # (0-0.7) k/uL Basophils # (0-0.2) k/uL Hypochromasia PT (9.0-12.0) sec INR (<1.2) APTT (22.0-30.0) sec Sodium (137-145) mmol/L Potassium (3.5-5.1) mmol/L Chloride (98-107) mmol/L Carbon Dioxide (22-30) mmol/L Anion Gap mmol/L BUN (7-17) mg/dL Creatinine (0.52-1.04) mg/dL Est GFR (CKD-EPI)AfAm (>60 ml/min/1.73 sqM) Est GFR (CKD-EPI)NonAf (>60 ml/min/1.73 sqM) Glucose (74-99) mg/dL Calcium (8.4-10.2) mg/dL Total Bilirubin (0.2-1.3) mg/dL AST (14-36) U/L ALT (4-34) U/L Alkaline Phosphatase (38-126) U/L Total Protein (6.3-8.2) g/dL Albumin (3.5-5.0) g/dL Coronavirus (PCR) Not Detected (Not Detectd) Critical Care Time Critical Care Time: Yes Total Critical Care Time: 33 Disposition Clinical Impression: Acute kidney injury, Hyperkalemia Disposition: ADMITTED IP TO THIS [facility] Condition: Serious Is patient prescribed a controlled substance at d/c from ED?: No Decision Time: 18:14
[2020-02-14 17:00] LABS: Basophils % (A) 0 %; Eosinophils # (A) 0.1 k/uL (0-0.7); Eosinophils % (A) 1 %; HCT 39.1 % (34.0-46.0); HGB 12.6 gm/dL (11.4-16.0); Hypochromasia Moderate; Lymphocytes # (A) 1.9 k/uL (1.0-4.8); Lymphocytes % (A) 22 %; MCH 31.5 pg (25.0-35.0); MCHC 32.2 g/dL (31.0-37.0); MCV 97.8 fL (80.0-100.0); Mean Platelet Volume 8.2; Monocytes # (A) 0.4 k/uL (0-1.0); Monocytes % (A) 5 %; Neutrophils % (A) 72 %; Platelet Count 142 k/uL (150-450); RDW 13.4 % (11.5-15.5); WBC 8.4 k/uL (3.8-10.6)
[2020-02-14 17:09] LABS: Prothrombin Time 10.2 sec (9.0-12.0)
[2020-02-14 17:11] LABS: Albumin 3.7 g/dL (3.5-5.0); Calcium 8.7 mg/dL (8.4-10.2); Total Bilirubin 0.5 mg/dL (0.2-1.3); Total Protein 6.8 g/dL (6.3-8.2)
[2020-02-14 17:24] LABS: Potassium 8.5 mmol/L (3.5-5.1)
--- NOTE | 2020-02-14 17:40 | XR ---
EXAMINATION TYPE: XR chest 2V DATE OF EXAM: 02/14/2020 COMPARISON: 09/22/2019 INDICATION: Weakness TECHNIQUE: Frontal and lateral views of the chest are obtained. FINDINGS: The heart size is normal. The pulmonary vasculature is normal. The lungs are unchanged. There is a linear opacity at the left lung base may be some scarring present previously. Suspicious peripheral consolidation is not evident. IMPRESSION: 1. No acute pulmonary process.
[2020-02-14] MEDS ORDERED: NALOXONE 0.4 MG/ML 1 ML VIAL IV PRN (18:17)
[2020-02-14] MEDS ORDERED: SODIUM CHLORIDE 0.9% 1,000 ML IV SCH (18:30)
[2020-02-14] MEDS ORDERED: ACETAMINOPHEN TAB 325 MG TAB PO PRN (20:41)
[2020-02-14 20:55] LABS: Appearance,Urine Turbid (Clear); Bacteria,Urine Many /hpf; Bilirubin,Urine Negative (Negative); Blood,Urine Small (Negative); Color,Urine Yellow; Glucose,Urine (UA) Negative (Negative); Hyaline Casts,Urine 32 /lpf (0-2); Ketones,Urine Negative (Negative); Leukocyte Esterase,Urine Large (Negative); Mucus,Urine Few /hpf; Nitrite,Urine Negative (Negative); PH, Urine 5.5 (5.0-8.0); Protein,Urine 2+ (Negative); RBC,Urine 32 /hpf (0-5); Squamous Epithelial Cell,Urine 2 /hpf (0-4); WBC,Urine >182 /hpf (0-5)
[2020-02-14] MEDS: LORazepam 2 MG/ML INJ IV PRN (21:31)
[2020-02-14 22:22] LABS: Calcium 8.7 mg/dL (8.4-10.2)
[2020-02-14] MEDS: DEXTROSE 5% IN WATER 1,000 ML with SODIUM BICARB (1 MEQ/ML) 150 ML IV SCH (22:30)
[2020-02-14 22:32] LABS: Potassium 7.2 mmol/L (3.5-5.1)
[2020-02-14] MEDS ORDERED: DEXTROSE 50% SYRINGE 50 ML IVP STA (22:39)
[2020-02-14] MEDS ORDERED: SODIUM BICARB 8.4% 50 ML SYR (1 MEQ/ML) IV STA ×2 (22:39→22:55)
[2020-02-15 03:16] LABS: Basophils % (A) 0 %; Eosinophils # (A) 0.1 k/uL (0-0.7); Eosinophils % (A) 2 %; HCT 33.2 % (34.0-46.0); HGB 10.5 gm/dL (11.4-16.0); Hypochromasia Slight; Lymphocytes # (A) 1.4 k/uL (1.0-4.8); Lymphocytes % (A) 22 %; MCH 31.3 pg (25.0-35.0); MCHC 31.7 g/dL (31.0-37.0); MCV 98.7 fL (80.0-100.0); Mean Platelet Volume 8.4; Monocytes # (A) 0.3 k/uL (0-1.0); Monocytes % (A) 6 %; Neutrophils # (A) 4.3 k/uL (1.3-7.7); Neutrophils % (A) 69 %; Platelet Count 122 k/uL (150-450); RBC 3.36 m/uL (3.80-5.40); RDW 13.3 % (11.5-15.5); WBC 6.2 k/uL (3.8-10.6)
[2020-02-15 03:52] LABS: Calcium 8.5 mg/dL (8.4-10.2); Potassium 5.3 mmol/L (3.5-5.1)
[2020-02-15 06:03] LABS: Calcium 8.7 mg/dL (8.4-10.2); Magnesium 2.3 mg/dL (1.6-2.3); Phosphorus 7.9 mg/dL (2.5-4.5); Potassium 5.2 mmol/L (3.5-5.1)
[2020-02-15 07:48] LABS: Glucose,Whole Blood 101 mg/dL (75-99)
[2020-02-15] MEDS: DEXTROSE 5% IN WATER 1,000 ML with SODIUM BICARB (1 MEQ/ML) 150 ML IV SCH ×2 (08:44→20:29)
[2020-02-15] MEDS: PANTOPRAZOLE 40 MG/10 ML VIAL IV SCH (08:44)
--- NOTE | 2020-02-15 09:33 | XR ---
EXAMINATION TYPE: XR chest 1V DATE OF EXAM: 02/15/2020 COMPARISON: 02/14/2020 HISTORY: Respiratory distress TECHNIQUE: Single frontal view of the chest is obtained. FINDINGS: There is no focal air space opacity, pleural effusion, or pneumothorax seen. Platelike ate lectasis at the left lung base and in the right midlung linear. The cardiac silhouette size is within normal limits. The osseous structures are intact. Moderate degenerative change of the spine. IMPRESSION: Minimal bibasilar subsegmental atelectasis. Otherwise no acute cardiopulmonary process.
--- NOTE | 2020-02-15 11:24 | P.HPIM ---
History of Present Illness H&P Date: 02/15/20 Chief Complaint: EZEQUIEL/Hyperkalemia/Metabolic acidosis This is an 85-year-old female with a previous medical history significant for coronary artery disease status post myocardial infarction with PCI and his current intervention and ischemic cardiomyopathy, hypertension and hypertensive cardiovascular disease, hyperlipidemia, diabetes mellitus type 2, vascular dementia, hypothyroidism, patient resides at [facility] for chronic care, patient developed to have a significant the poor oral intake of fluid and food over the last few days and the she was found unresponsive by the staff at [facility] a laboratory evaluation was ordered and that showed that the patient is an acute kidney injury with hyperkalemia along with severe metabolic acidosis, patient was directed to be transferred to the emergency department at [facility] where she was evaluated in the ER and she was found to have hyperkalemia as well as acute kidney injury and the patient was admitted to the intensive care unit, she was started on IV fluid resuscitation, she will be seen in consultation by subway repair supervisor as well as nephrology. Review of Systems Constitutional: Reports anorexia, Reports fatigue, Reports lethargy, Reports malaise, Reports weakness Eyes: denies blurred vision, denies bulging eye, denies decreased vision Ears: bilateral: decreased hearing Ears, nose, mouth and throat: Denies dysphagia, Denies neck lump, Denies sore throat Cardiovascular: Denies chest pain, Denies decreased exercise tolerance, Denies dyspnea on exertion, Denies lightheadedness, Denies rapid heart beat, Denies shortness of breath, Denies syncope Respiratory: Denies congestion, Denies cough, Denies dyspnea, Denies home oxygen, Denies sleep apnea, Denies snoring, Denies wheezing Gastrointestinal: Reports loss of appetite, Denies abdominal pain, Denies bloating, Denies BRBPR, Denies heartburn, Denies melena, Denies nausea, Denies vomiting Genitourinary: Denies dysuria, Denies nocturia Menstruation: Reports postmenopausal Musculoskeletal: Reports gait dysfunction Musculoskeletal: absent: ankle pain, ankle stiffness, ankle swelling, elbow pain, elbow stiffness, elbow swelling, foot pain, foot stiffness, foot swelling, hand pain, hand stiffness, hand swelling, hip pain, hip stiffness, hip swelling, knee pain, knee stiffness, knee swelling, shoulder pain, shoulder stiffness, shoulder swelling, wrist pain, wrist stiffness, wrist swelling Integumentary: Denies pruritus, Denies rash Neurological: Reports confusion, Reports gait dysfunction, Reports memory loss, Reports weakness Psychiatric: Reports anxiety, Reports depression, Denies sadness/tearfulness, Denies sleep disturbances, Denies suicidal ideation Endocrine: Denies fatigue, Denies weight change Past Medical History Past Medical History: Coronary Artery Disease (CAD), Diabetes Mellitus, Hyperli pidemia, Hypertension, Memory Impairment, Myocardial Infarction ([place]), Osteoarthritis (OA), Thyroid Disorder Additional Past Medical History / Comment(s): Type 2 DM, [place] 07/29/19 Last Myocardial Infarction Date:: 07/29/19 History of Any Multi-Drug Resistant Organisms: None Reported Past Surgical History: Breast Surgery, Cholecystectomy, Heart Catheterization With Stent, Joint Replacement, Orthopedic Surgery Additional Past Surgical History / Comment(s): 2 cardiac stents, bilateral cataract removal and intraocular lens implants Past Anesthesia/Blood Transfusion Reactions: No Reported Reaction Date of Last Stent Placement:: 07/29/19 Smoking Status: Unknown if ever smoked - Past Family History Brother(s) Family Medical History: Myocardial Infarction ([place]) Additional Family Medical History / Comment(s): The patient has 3 brothers and all have passed. Patient does not know their medical histories nor the reason f urther tests. Father Additional Family Medical History / Comment(s): Patient's father is . Patient does not know any of his medical history. Mother Additional Family Medical History / Comment(s): Mother in her 60s while sleeping. Sister(s) Additional Family Medical History / Comment(s): Patient has 3 sisters and one has that his history of coronary artery disease status post stents. Daughter(s) Additional Family Medical History / Comment(s): Patient has one daughter that in a motor vehicle accident. Patient has 2 sons and one from an unknown cause. One son is alive with no major medical problems. Medications and Allergies Home Medications Medication Instructions Recorded Confirmed Type Aspirin 81 mg PO DAILY@1700 09/22/19 02/14/20 History Atorvastatin [Lipitor] 40 mg PO HS 09/22/19 02/14/20 History Donepezil [Aricept] 10 mg PO HS@2100 09/22/19 02/14/20 History Levothyroxine Sodium [Synthroid] 75 mcg PO DAILY@0600 09/22/19 02/14/20 History Mirtazapine [Remeron] 15 mg PO HS@2100 09/22/19 02/14/20 History Acetaminophen [Tylenol 8 Hour] 650 mg PO Q4H PRN 02/14/20 02/14/20 History Bisacodyl [Dulcolax] 10 mg RECTAL Q24H PRN 02/14/20 02/14/20 History [place] Breakfast Essentials 1 packet PO BID@0800,1700 02/14/20 02/14/20 History Carvedilol [Coreg*] 12.5 mg PO BID@0800,1700 02/14/20 02/14/20 History Clopidogrel [Plavix] 75 mg PO DAILY@0800 02/14/20 02/14/20 History Glucerna Shake 237 ml PO DAILY@1200 02/14/20 02/14/20 History INSULIN ASPART (NovoLOG) [NovoLOG See Protocol SQ ACHS 02/14/20 02/14/20 History (formulary)] Insulin Detemir (Levemir) [Levemir] 23 unit SQ HS@2100 02/14/20 02/14/20 History Lisinopril [Zestril] 10 mg PO DAILY@0800 02/14/20 02/14/20 History Loperamide HCl [Loperamide] 2 mg PO DAILY PRN 02/14/20 02/14/20 History Magnesium Hydroxide [Milk of 7,200 mg PO Q48H PRN 02/14/20 02/14/20 History Magnesia Concentrate] Spironolactone 12.5 mg PO DAILY@0800 02/14/20 02/14/20 History Allergies Allergy/AdvReac Type Severity Reaction Status Date / Time Sulfa (Sulfonamide Allergy Unknown Verified 02/14/20 18:58 Antibiotics) Physical Exam Vitals: Vital Signs Temp Pulse Resp BP Pulse Ox 02/15/20 08:00 79 20 127/45 98 02/15/20 07:30 75 22 129/43 98 02/15/20 07:00 75 20 124/48 96 02/15/20 06:30 68 18 110/40 99 02/15/20 06:00 64 19 138/52 98 02/15/20 05:30 73 20 150/123 96 02/15/20 05:00 71 18 127/43 98 02/15/20 04:30 97.3 F L 68 18 119/40 99 02/15/20 04:00 70 14 131/46 99 02/15/20 03:30 75 18 128/41 98 02/15/20 03:00 72 18 106/50 98 02/15/20 02:30 68 19 126/39 98 02/15/20 02:00 68 17 119/69 98 02/15/20 01:30 72 21 107/39 98 02/15/20 01:00 67 19 119/67 95 02/15/20 00:30 68 20 106/81 98 02/15/20 00:00 98.1 F 76 18 112/51 96 02/14/20 23:30 72 17 111/42 98 02/14/20 23:00 68 17 114/41 97 02/14/20 22:30 72 15 109/41 97 02/14/20 22:00 73 21 99/35 96 02/14/20 21:30 66 18 114/42 99 02/14/20 21:00 72 13 108/35 98 02/14/20 20:30 61 12 98/88 99 02/14/20 20:15 71 22 99/37 96 02/14/20 20:00 65 22 108/93 95 02/14/20 19:45 97.6 F 72 22 89/58 96 02/14/20 19:25 97.2 F L 02/14/20 18:58 69 18 115/69 98 02/14/20 18:40 71 18 02/14/20 18:30 67 02/14/20 18:15 66 18 101/50 98 02/14/20 16:13 97.6 F 58 L 17 115/45 97 Intake and Output 02/14/20 02/15/20 02/15/20 22:59 06:59 14:59 Intake Total 385 1180 125 Output Total 26 590 100 Balance 359 590 25 Intake: IV 385 1180 125 0.9 NaCl- 260 30 D5W with Sodium 125 1000 125 Bicarbonate Rocephin IVPB 50 calcium gluconate 100 Output: Urine 26 590 100 Other: Voiding Method Indwelling Catheter Indwelling Catheter # Bowel Movements 1 1 Weight 73.9 kg 73.6 kg HEENT: Head is atraumatic, normocephalic, pupils were equal round reactive to light and accommodations, extraocular muscle movements were intact, mucous membranes of the mouth are somewhat dry. Neck: Supple, no JVD, decreased carotid upstroke bilaterally. Chest: Decreased breath sounds at the bases, otherwise clear to auscultation no crackles no wheezes no chest wall tenderness no intercostal retractions. Heart: First heart sound is depressed, second heart sounds normal, there is systolic ejection murmur 2/6 located in the left sternal border. Abdomen: Soft, nontender, nondistended, positive bowel sounds. Extremities: There is no edema, no calf tenderness, dorsalis pedis +1 bilaterally. Neurologic examination: Patient is stuporous opens her eyes response to verbal stimuli. Results CBC & Chem 7: 02/15/20 03:03 02/15/20 05:10 Labs: Abnormal Lab Results - Last 24 Hours (Table) 02/14/20 02/14/20 02/14/20 Range/Units 16:45 16:45 20:15 RBC (3.80-5.40) m/uL Hgb (11.4-16.0) gm/dL Hct (34.0-46.0) % Plt Count 142 L (150-450) k/uL Potassium 8.5 H* (3.5-5.1) mmol/L Chloride 114 H (98-107) mmol/L Carbon Dioxide 8 L* (22-30) mmol/L BUN 157 H* (7-17) mg/dL Creatinine 12.43 H* (0.52-1.04) mg/dL Glucose 100 H (74-99) mg/dL POC Glucose (mg/dL) 101 H (75-99) mg/dL Phosphorus (2.5-4.5) mg/dL ALT 42 H (4-34) U/L Urine Appearance (Clear) Urine Protein (Negative) Urine Blood (Negative) Ur Leukocyte Esterase (Negative) Urine RBC (0-5) /hpf Urine WBC (0-5) /hpf Urine WBC Clumps (None) /hpf Urine Bacteria (None) /hpf Hyaline Casts (0-2) /lpf Urine Mucus (None) /hpf 02/14/20 02/14/20 02/15/20 Range/Units 20:22 21:20 03:03 RBC 3.36 L (3.80-5.40) m/uL Hgb 10.5 L (11.4-16.0) gm/dL Hct 33.2 L (34.0-46.0) % Plt Count 122 L (150-450) k/uL Potassium 7.2 H* (3.5-5.1) mmol/L Chloride 116 H (98-107) mmol/L Carbon Dioxide 10 L (22-30) mmol/L BUN 156 H* (7-17) mg/dL Creatinine 11.59 H* (0.52-1.04) mg/dL Glucose (74-99) mg/dL POC Glucose (mg/dL) (75-99) mg/dL Phosphorus (2.5-4.5) mg/dL ALT (4-34) U/L Urine Appearance Turbid H (Clear) Urine Protein 2+ H (Negative) Urine Blood Small H (Negative) Ur Leukocyte Esterase Large H (Negative) Urine RBC 32 H (0-5) /hpf Urine WBC >182 H (0-5) /hpf Urine WBC Clumps Many H (None) /hpf Urine Bacteria Many H (None) /hpf Hyaline Casts 32 H (0-2) /lpf Urine Mucus Few H (None) /hpf 02/15/20 02/15/20 Range/Units 03:03 05:10 RBC (3.80-5.40) m/uL Hgb (11.4-16.0) gm/dL Hct (34.0-46.0) % Plt Count (150-450) k/uL Potassium 5.3 H 5.2 H (3.5-5.1) mmol/L Chloride 115 H 112 H (98-107) mmol/L Carbon Dioxide 13 L 16 L (22-30) mmol/L BUN 158 H* 155 H* (7-17) mg/dL Creatinine 10.44 H* 10.09 H* (0.52-1.04) mg/dL Glucose 127 H 127 H (74-99) mg/dL POC Glucose (mg/dL) (75-99) mg/dL Phosphorus 7.9 H (2.5-4.5) mg/dL ALT (4-34) U/L Urine Appearance (Clear) Urine Protein (Negative) Urine Blood (Negative) Ur Leukocyte Esterase (Negative) Urine RBC (0-5) /hpf Urine WBC (0-5) /hpf Urine WBC Clumps (None) /hpf Urine Bacteria (None) /hpf Hyaline Casts (0-2) /lpf Urine Mucus (None) /hpf Microbiology - Last 24 Hours (Table) 02/14/20 20:22 Urine Culture - Preliminary Urine,Voided Thrombosis Risk Factor Assmnt - DVT/VTE Prophylaxis DVT/VTE Prophylaxis: Pharmacologic Prophylaxis ordered, Mechanical Prophylaxis ordered - Choose All That Apply Any of the Below Risk Factors Present?: Yes Each Factor Represents 1 point: Obesity (BMI >25) Other Risk Factors: Yes Each Risk Factor Represents 2 Points: Patient confined to bed Each Risk Factor Represents 3 Points: Age 75 years or older Thrombosis Risk Factor Assessment Total Risk Factor Score: 6 Thrombosis Risk Factor Assessment Level: High Risk Assessment and Plan Assessment: Assessment and plan: 1. Acute kidney injury secondary to acute tubular necrosis due to poor oral intake and the use of diuretics in a patient with a prior history of ischemic cardiomyopathy and probably reduce effective the blood flow to the kidneys. The patient will be started on IV fluid in the form of half-normal saline at 100 mL an hour, monitor input and output and daily weight continue Romero catheter for close drainage, ultrasound of the kidneys for evaluation of hydronephrosis, nephrology consultation, subway repair supervisor consultation as well. 2. Hyperkalemia secondary to acute kidney injury. Patient did receive D50 in the ER along with calcium gluconate and Kayexalate as well, her potassium today is 5.6. We will continue to monitor continue IV fluid resuscitation the form of normal saline at 100 mL per hour. 3. Anion gap metabolic acidosis due to acute kidney injury. Continue patient on sodium bicarbonate 650 mg orally twice every day. Monitor the patient CMP. 4. UTI. Start the patient on Rocephin 1 g IV piggyback every 24 hours, check the patient urine culture as well as blood culture per 5. History of coronary artery disease post PCI. Continue patient on aspirin 81 mg once every day, Lipitor 40 mg orally once every day, hold off RICKI inhibitor due to the patient's acute kidney injury. 6. Hyperlipidemia. Continue Lipitor 40 mg orally once every day. 7. Hypothyroidism. Continue patient on Synthroid. 8. Diabetes mellitus type 2. Restart the patient on her Levemir as well as sliding scale insulin. 9. Hypertension and hypertensive cardiovascular disease. Hold antihypertensive medicine as the patient is hypertensive for now. 10. Vascular dementia. Currently on Aricept. 11. Anemia. Keep hemoglobin greater than 8. 12. DVT prophylaxis. Heparin 5000 units subcutaneously every 12 hours. 13. GI prophylaxis. Continue the patient on Protonix 40 mg IV push every 24 hours. 14. Patient is full code. 15. Admitted to inpatient. Estimate a length of stay 2 midnights.
--- NOTE | 2020-02-15 12:01 | P.NPCON ---
History of Present Illness - Reason for Consult acute renal failure, hyperkalemia - History of Present Illness Reason for consultation: Acute kidney injury and hyperkalemia History of present illness: Patient is a 85-year-old female seen in renal consultation for acute kidney injury and hyperkalemia. Patient had blood work an outpatient and was noted to be in renal failure with high potassium. She was subsequently sent to the hospital. Patient's potassium level was 8.5 on admission with creatinine of 12.43. Hyperkalemia was medically treated and has been gradually trending down. It was 5.2 this morning. She was noted to be extremely acidotic with a bicarb level of 8 and is currently maintained on isotonic sodium bicarbonate drip which is running at 1 25 mL an hour. Creatinine was 12.43 on admission and is down to 10.09 today. Patient is not a reliable historian. She is currently sleeping. Not any vasopressors. Urine output has improved and is now anywhere in the range of 80-125 mL an hour. No evidence of fluid overload. She was on lisinopril as well as spironolactone at home which are both currently held. I don't see any nonsteroidals at her home medications. Per the records it appears her oral intake has been quite poor the last few days as she has been nauseated. Vital signs are stable. General: The patient appeared well nourished and normally developed. HEENT: Head exam is unremarkable. Neck is without jugular venous distension. LUNGS: Lungs are clear to auscultation and percussion. Breath sounds decreased. HEART: Rate and Rhythm are regular. ABDOMEN: Soft, nondistended. EXTREMITITES: No clubbing, cyanosis, or edema. Past Medical History Past Medical History: Coronary Artery Disease (CAD), Diabetes Mellitus, Hyperlip idemia, Hypertension, Memory Impairment, Myocardial Infarction ([place]), Osteoarthritis (OA), Thyroid Disorder Additional Past Medical History / Comment(s): Type 2 DM, [place] 07/29/19 Last Myocardial Infarction Date:: 07/29/19 History of Any Multi-Drug Resistant Organisms: None Reported Past Surgical History: Breast Surgery, Cholecystectomy, Heart Catheterization With Stent, Joint Replacement, Orthopedic Surgery Additional Past Surgical History / Comment(s): 2 cardiac stents, bilateral cataract removal and intraocular lens implants Past Anesthesia/Blood Transfusion Reactions: No Reported Reaction Date of Last Stent Placement:: 07/29/19 Smoking Status: Unknown if ever smoked - Past Family History Brother(s) Family Medical History: Myocardial Infarction ([place]) Additional Family Medical History / Comment(s): The patient has 3 brothers and all have passed. Patient does not know their medical histories nor the reason further tests. Father Additional Family Medical History / Comment(s): Patient's father is . Patient does not know any of his medical history. Mother Additional Family Medical History / Comment(s): Mother in her 60s while sleeping. Sister(s) Additional Family Medical History / Comment(s): Patient has 3 sisters and one has that his history of coronary artery disease status post stents. Daughter(s) Additional Family Medical History / Comment(s): Patient has one daughter that in a motor vehicle accident. Patient has 2 sons and one from an unknown cause. One son is alive with no major medical problems. Medications and Allergies Home Medications Medication Instructions Recorded Confirmed Type Aspirin 81 mg PO DAILY@1700 09/22/19 02/14/20 History Atorvastatin [Lipitor] 40 mg PO HS 09/22/19 02/14/20 History Donepezil [Aricept] 10 mg PO HS@2100 09/22/19 02/14/20 History Levothyroxine Sodium [Synthroid] 75 mcg PO DAILY@0600 09/22/19 02/14/20 History Mirtazapine [Remeron] 15 mg PO HS@2100 09/22/19 02/14/20 History Acetaminophen [Tylenol 8 Hour] 650 mg PO Q4H PRN 02/14/20 02/14/20 History Bisacodyl [Dulcolax] 10 mg RECTAL Q24H PRN 02/14/20 02/14/20 History [place] Breakfast Essentials 1 packet PO BID@0800,1700 02/14/20 02/14/20 History Carvedilol [Coreg*] 12.5 mg PO BID@0800,1700 02/14/20 02/14/20 History Clopidogrel [Plavix] 75 mg PO DAILY@0800 02/14/20 02/14/20 History Glucerna Shake 237 ml PO DAILY@1200 02/14/20 02/14/20 History INSULIN ASPART (NovoLOG) [NovoLOG See Protocol SQ ACHS 02/14/20 02/14/20 History (formulary)] Insulin Detemir (Levemir) [Levemir] 23 unit SQ HS@2100 02/14/20 02/14/20 History Lisinopril [Zestril] 10 mg PO DAILY@0800 02/14/20 02/14/20 History Loperamide HCl [Loperamide] 2 mg PO DAILY PRN 02/14/20 02/14/20 History Magnesium Hydroxide [Milk of 7,200 mg PO Q48H PRN 02/14/20 02/14/20 History Magnesia Concentrate] Spironolactone 12.5 mg PO DAILY@0800 02/14/20 02/14/20 History Allergies Allergy/AdvReac Type Severity Reaction Status Date / Time Sulfa (Sulfonamide Allergy Unknown Verified 02/14/20 18:58 Antibiotics) Physical Exam Vitals: Vital Signs Temp Pulse Resp BP Pulse Ox 02/15/20 11:00 64 15 143/52 99 02/15/20 10:30 64 16 119/39 97 02/15/20 10:00 63 15 125/43 98 02/15/20 09:30 72 26 H 105/44 98 02/15/20 09:00 69 15 134/72 99 02/15/20 08:30 97.6 F 65 15 129/44 99 02/15/20 08:00 79 20 127/45 98 02/15/20 07:30 75 22 129/43 98 02/15/20 07:00 75 20 124/48 96 02/15/20 06:30 68 18 110/40 99 02/15/20 06:00 64 19 138/52 98 02/15/20 05:30 73 20 150/123 96 02/15/20 05:00 71 18 127/43 98 02/15/20 04:30 97.3 F L 68 18 119/40 99 02/15/20 04:00 70 14 131/46 99 02/15/20 03:30 75 18 128/41 98 02/15/20 03:00 72 18 106/50 98 02/15/20 02:30 68 19 126/39 98 02/15/20 02:00 68 17 119/69 98 02/15/20 01:30 72 21 107/39 98 02/15/20 01:00 67 19 119/67 95 02/15/20 00:30 68 20 106/81 98 02/15/20 00:00 98.1 F 76 18 112/51 96 02/14/20 23:30 72 17 111/42 98 02/14/20 23:00 68 17 114/41 97 02/14/20 22:30 72 15 109/41 97 02/14/20 22:00 73 21 99/35 96 02/14/20 21:30 66 18 114/42 99 02/14/20 21:00 72 13 108/35 98 02/14/20 20:30 61 12 98/88 99 02/14/20 20:15 71 22 99/37 96 02/14/20 20:00 65 22 108/93 95 02/14/20 19:45 97.6 F 72 22 89/58 96 02/14/20 19:25 97.2 F L 02/14/20 18:58 69 18 115/69 98 02/14/20 18:40 71 18 02/14/20 18:30 67 02/14/20 18:15 66 18 101/50 98 02/14/20 16:13 97.6 F 58 L 17 115/45 97 Intake and Output 02/14/20 02/15/20 02/15/20 22:59 06:59 14:59 Intake Total 385 1180 725 Output Total 26 590 385 Balance 359 590 340 Intake: IV 385 1180 725 0.9 NaCl- 260 30 100 D5W with Sodium 125 1000 250 Bicarbonate Dextrose 5% in Water 1, 375 000 ml @ 125 mls/hr IV . Q9H12M MARIO with Sodium Bicarb (1 Meq/ml) 150 ml Rx#:[id number] Rocephin IVPB 50 calcium gluconate 100 Output: Urine 26 590 385 Other: Voiding Method Indwelling Catheter Indwelling Catheter # Bowel Movements 1 1 Weight 73.9 kg 73.6 kg Results - Lab Results Most recent lab results Calcium 8.7 mg/dL (8.4-10.2) 02/15/20 05:10 Phosphorus 7.9 mg/dL (2.5-4.5) H 02/15/20 05:10 Magnesium 2.3 mg/dL (1.6-2.3) 02/15/20 05:10 02/15/20 03:03 02/15/20 05:10 Assessment and Plan Plan: Assessment: 1. Acute kidney injury secondary to ATN secondary to hypotension and severe intravascular volume depletion. Further worsened with the use of lisinopril. Creatinine was 12.43 on admission and is 10.09 today. 2. Rule out chronic kidney disease. Unknown baseline renal function. She had developed an episode of acute kidney injury in September 2019 and at that time her creatinine did come down to 1.4. 3. Hyperkalemia secondary to acute kidney injury, metabolic acidosis, use of lisinopril and Aldactone. Better. 4. Metabolic acidosis secondary to acute kidney injury. Improving. Currently on bicarb drip. 5. Insulin-dependent diabetes mellitus. Plan: Maintain bicarb drip at 125 mL an hour. Repeat BMP at 5 PM today. Continue to monitor renal function and urine output. Avoid nephrotoxins. No urgent need for renal replacement therapy at this time. Thank you for the consultation. I will continue to follow the patient with you during her hospital stay.
[2020-02-15] MEDS: SODIUM CHLORIDE 0.9% 1,000 ML IV SCH (12:47)
--- NOTE | 2020-02-15 14:02 | P.CNPUL ---
History of Present Illness Consult date: 02/15/20 Requesting physician: Lyle Gutierrez Reason for consult: other Chief complaint: Altered mental status, acute kidney injury, hyperkalemia History of present illness: 85 -year-old white female patient of Dr. Gutierrez, a resident of local [facility], with past medical history of coronary artery disease with PCI, with previous history of myocardial infarction, hypertension, hyperlipid emia, diabetes mellitus type 2, vascular dementia, hypothyroidism, osteoarthritis, who was brought into the hospital on 02/14/2020 for concern of acute hypokalemia, and acute kidney injury. Patient is a poor historian, most of the history was obtained from the chart. Apparently patient has been na useous, vomiting, has had poor oral intake or 2 days prior to presentation. Unknown if she also had any diarrhea. No fevers. EKG shows sinus bradycardia with a rate of [address] changes. Lab work showed a normal white count of 8.4, hemoglobin of 12.6, quit addition profile was within normal limits, potassium was 8.5, chloride was 114, CO2 was only 8, anion gap was 15, BUN is 157, and creatinine 12.43, Coronavirus PCR was negative. No pulmonary complaints, chest x-ray shows no acute pulmonary process. Urinalysis showed evidence of urinary tract infection, patient was started on Rocephin for antibiotic coverage. Her hyperkalemia has been treated with combination of sodium bicarbonate, IV fluids, Kayexalate, insulin, and calcium gluconate. Today's labs showed white blood cell count of 6.2, hemoglobin is 10.5, sodium of 141, potassium is down to 5.2, chloride is 112, CO2 16, BUN is 155, creatinine is 10.09. Nephrology is following the patient, and is medically treating the patient, she remains on bicarbonate infusion at a rate of 125 ML per hour. Hemodynamically patient is stable, she is not requiring any drips, she started to produce some urine. Review of Systems All systems: negative Constitutional: Reports anorexia, Reports malaise, Reports weakness, Denies chills, Denies fever Eyes: denies blurred vision, denies pain Ears, nose, mouth and throat: Denies headache, Denies sore throat Cardiovascular: Denies chest pain, Denies shortness of breath Respiratory: Denies cough Gastrointestinal: Reports nausea, Reports vomiting, Denies abdominal pain, Denies diarrhea Genitourinary: Denies dysuria, Denies hematuria Musculoskeletal: Denies myalgias Integumentary: Denies pruritus, Denies rash Neurological: Denies numbness, Denies weakness Psychiatric: Denies anxiety, Denies depression Endocrine: Denies fatigue, Denies weight change Past Medical History Past Medical History: Coronary Artery Disease (CAD), Diabetes Mellitus, Hyperlipidemia, Hypertension, Memory Impairment, Myocardial Infarction (SC), Osteoarthritis (OA), Thyroid Disorder Additional Past Medical History / Comment(s): Type 2 DM, SC 07/29/19 Last Myocardial Infarction Date:: 07/29/19 History of Any Multi-Drug Resistant Organisms: None Reported Past Surgical History: Breast Surgery, Cholecystectomy, Heart Catheterization With Stent, Joint Replacement, Orthopedic Surgery Additional Past Surgical History / Comment(s): 2 cardiac stents, bilateral cataract removal and intraocular lens implants Past Anesthesia/Blood Transfusion Reactions: No Reported Reaction Date of Last Stent Placement:: 07/29/19 Smoking Status: Unknown if ever smoked - Past Family History Brother(s) Family Medical History: Myocardial Infarction (SC) Additional Family Medical History / Comment(s): The patient has 3 brothers and all have passed. Patient does not know their medical histories nor the reason further tests. Father Additional Family Medical History / Comment(s): Patient's father is . Patient does not know any of his medical history. Mother Additional Family Medical History / Comment(s): Mother in her 60s while sleeping. Sister(s) Additional Family Medical History / Comment(s): Patient has 3 sisters and one has that his history of coronary artery disease status post stents. Daughter(s) Additional Family Medical History / Comment(s): Patient has one daughter that in a motor vehicle accident. Patient has 2 sons and one from an unknown cause. One son is alive with no major medical problems. Medications and Allergies Home Medications Medication Instructions Recorded Confirmed Type Aspirin 81 mg PO DAILY@1700 09/22/19 02/14/20 History Atorvastatin [Lipitor] 40 mg PO HS 09/22/19 02/14/20 History Donepezil [Aricept] 10 mg PO HS@2100 09/22/19 02/14/20 History Levothyroxine Sodium [Synthroid] 75 mcg PO DAILY@0600 09/22/19 02/14/20 History Mirtazapine [Remeron] 15 mg PO HS@2100 09/22/19 02/14/20 History Acetaminophen [Tylenol 8 Hour] 650 mg PO Q4H PRN 02/14/20 02/14/20 History Bisacodyl [Dulcolax] 10 mg RECTAL Q24H PRN 02/14/20 02/14/20 History Magnolia Breakfast Essentials 1 packet PO BID@0800,1700 02/14/20 02/14/20 History Carvedilol [Coreg*] 12.5 mg PO BID@0800,1700 02/14/20 02/14/20 History Clopidogrel [Plavix] 75 mg PO DAILY@0800 02/14/20 02/14/20 History Glucerna Shake 237 ml PO DAILY@1200 02/14/20 02/14/20 History INSULIN ASPART (NovoLOG) [NovoLOG See Protocol SQ ACHS 02/14/20 02/14/20 History (formulary)] Insulin Detemir (Levemir) [Levemir] 23 unit SQ HS@209902/14/20 02/14/20 History Lisinopril [Zestril] 10 mg PO DAILY@0800 02/14/20 02/14/20 History Loperamide HCl [Loperamide] 2 mg PO DAILY PRN 02/14/20 02/14/20 History Magnesium Hydroxide [Milk of 7,200 mg PO Q48H PRN 02/14/20 02/14/20 History Magnesia Concentrate] Spironolactone 12.5 mg PO DAILY@0800 02/14/20 02/14/20 History Allergies Allergy/AdvReac Type Severity Reaction Status Date / Time Sulfa (Sulfonamide Allergy Unknown Verified 02/14/20 18:58 Antibiotics) Physical Exam Vitals: Vital Signs Temp Pulse Resp BP Pulse Ox 02/15/20 13:00 86 17 117/61 97 02/15/20 12:30 68 18 132/48 97 02/15/20 12:00 97.5 F L 85 23 138/66 95 02/15/20 11:30 23 153/44 95 02/15/20 11:00 64 15 143/52 99 02/15/20 10:30 64 16 119/39 97 02/15/20 10:00 63 15 125/43 98 02/15/20 09:30 72 26 H 105/44 98 02/15/20 09:00 69 15 134/72 99 02/15/20 08:30 97.6 F 65 15 129/44 99 02/15/20 08:00 79 20 127/45 98 02/15/20 07:30 75 22 129/43 98 02/15/20 07:00 75 20 124/48 96 02/15/20 06:30 68 18 110/40 99 02/15/20 06:00 64 19 138/52 98 02/15/20 05:30 73 20 150/123 96 02/15/20 05:00 71 18 127/43 98 02/15/20 04:30 97.3 F L 68 18 119/40 99 02/15/20 04:00 70 14 131/46 99 02/15/20 03:30 75 18 128/41 98 02/15/20 03:00 72 18 106/50 98 02/15/20 02:30 68 19 126/39 98 02/15/20 02:00 68 17 119/69 98 02/15/20 01:30 72 21 107/39 98 02/15/20 01:00 67 19 119/67 95 02/15/20 00:30 68 20 106/81 98 02/15/20 00:00 98.1 F 76 18 112/51 96 02/14/20 23:30 72 17 111/42 98 02/14/20 23:00 68 17 114/41 97 02/14/20 22:30 72 15 109/41 97 02/14/20 22:00 73 21 99/35 96 02/14/20 21:30 66 18 114/42 99 02/14/20 21:00 72 13 108/35 98 02/14/20 20:30 61 12 98/88 99 02/14/20 20:15 71 22 99/37 96 02/14/20 20:00 65 22 108/93 95 02/14/20 19:45 97.6 F 72 22 89/58 96 02/14/20 19:25 97.2 F L 02/14/20 18:58 69 18 115/69 98 02/14/20 18:40 71 18 04/30/20 18:30 67 02/14/20 18:15 66 18 101/50 98 02/14/20 16:13 97.6 F 58 L 17 115/45 97 Intake and Output 02/14/20 02/15/20 02/15/20 22:59 06:59 14:59 Intake Total 385 1180 1025 Output Total 26 590 473 Balance 359 590 552 Intake: IV 385 1180 995 0.9 NaCl- 260 30 120 D5W with Sodium 125 1000 250 Bicarbonate Dextrose 5% in Water 1, 625 000 ml @ 125 mls/hr IV . Q9H12M MARIO with Sodium Bicarb (1 Meq/ml) 150 ml Rx#:[id number] Rocephin IVPB 50 calcium gluconate 100 Oral 30 Output: Urine 26 590 473 Other: Voiding Method Indwelling Catheter Indwelling Catheter # Bowel Movements 1 1 Weight 73.9 kg 73.6 kg GENERAL EXAM: Lethargic but arousable, 85-year-old white female, resting in bed in the ICU, on 2 L of oxygen with a pulse ox of 96%, comfortable in no apparent distress. HEAD: Normocephalic/atraumatic. EYES: Normal reaction of pupils, equal size. Conjunctiva pink, sclera white. NOSE: Clear with pink turbinates. THROAT: No erythema or exudates. NECK: No masses, no JVD, no thyroid enlargement, no adenopathy. CHEST: No chest wall deformity. Symmetrical expansion. LUNGS: Equal air entry with no crackles, wheeze, rhonchi or dullness. CVS: Regular rate and rhythm, normal S1 and S2, no gallops, no murmurs, no rubs ABDOMEN: Soft, nontender. No hepatosplenomegaly, normal bowel sounds, no guarding or rigidity. EXTREMITIES: No clubbing, no edema, no cyanosis, 2+ pulses and upper and lower extremities. MUSCULOSKELETAL: Muscle strength and tone normal. SPINE: No scoliosis or deformity SKIN: No rashes CENTRAL NERVOUS SYSTEM: Lethargic. No focal deficits, tone is normal in all 4 extremities. Results - Laboratory Findings CBC and BMP: 02/15/20 03:03 02/15/20 05:10 PT/INR, D-dimer PT 10.2 sec (9.0-12.0) 02/14/20 16:45 INR 1.0 (<1.2) 02/14/20 16:45 Abnormal lab findings: Abnormal Labs 02/14/20 02/14/20 02/14/20 16:45 16:45 20:15 RBC Hgb Hct Plt Count 142 L Potassium 8.5 H* Chloride 114 H Carbon Dioxide 8 L* BUN 157 H* Creatinine 12.43 H* Glucose 100 H POC Glucose (mg/dL) 101 H Phosphorus ALT 42 H Urine Appearance Urine Protein Urine Blood Ur Leukocyte Esterase Urine RBC Urine WBC Urine WBC Clumps Urine Bacteria Hyaline Casts Urine Mucus 02/14/20 02/14/20 02/15/20 20:22 21:20 03:03 RBC 3.36 L Hgb 10.5 L Hct 33.2 L Plt Count 122 L Potassium 7.2 H* Chloride 116 H Carbon Dioxide 10 L BUN 156 H* Creatinine 11.59 H* Glucose POC Glucose (mg/dL) Phosphorus ALT Urine Appearance Turbid H Urine Protein 2+ H Urine Blood Small H Ur Leukocyte Esterase Large H Urine RBC 32 H Urine WBC >182 H Urine WBC Clumps Many H Urine Bacteria Many H Hyaline Casts 32 H Urine Mucus Few H 02/15/20 02/15/20 03:03 05:10 RBC Hgb Hct Plt Count Potassium 5.3 H 5.2 H Chloride 115 H 112 H Carbon Dioxide 13 L 16 L BUN 158 H* 155 H* Creatinine 10.44 H* 10.09 H* Glucose 127 H 127 H POC Glucose (mg/dL) Phosphorus 7.9 H ALT Urine Appearance Urine Protein Urine Blood Ur Leukocyte Esterase Urine RBC Urine WBC Urine WBC Clumps Urine Bacteria Hyaline Casts Urine Mucus - Diagnostic Findings Chest x-ray: report reviewed, image reviewed Assessment and Plan Plan: Assessment: #1. Acute kidney injury multifactorial, related to nausea, vomiting, dehydration, RICKI inhibitors and possibility of urinary tract infection #2. Acute hyperkalemia related to the above improved with medical treatment #3. Possibility of chronic kidney disease, unspecified with unknown baseline and renal function, previous episode of acute kidney injury in September 2019 #4. Acute metabolic acidosis related to acute kidney injury moving with bicarbonate replacement #5. Acute urinary tract infection, likely covered with Rocephin, cultures pending #6. Coronary artery disease with previous PCI #7. Diabetes mellitus type 2 #8. Hypertension #9. Hyperlipidemia #10. Previous history of myocardial infarction #11. Hypothyroidism #12. Vascular dementia Plan: Continue bicarbonate infusion at current rate, continue IV antibiotics, send a urine culture. Hemodynamically patient is stable, hyperkalemia and renal profile are improving, nephrology is following, patient is producing small amount of urine, change monitoring electrolytes and renal profile, her code with PCR was negative, she is afebrile. She is empirically covered with antibiotics, chest x-ray shows atelectasis at the left base, no definite evidence of any pulmonary process. Maintain aspiration precautions, monitor febrile pattern, hemodynamics, will continue to monitor in the intensive care unit, CODE STATUS is DO NOT RESUSCITATE, continue supportive treatment, GI and DVT prophylaxis. Will follow I performed a history & physical examination of the patient and discussed their management with my nurse practitioner, Bettie Evans. I reviewed the nurse practitioner's note and agree with the documented findings and plan of care. Lung sounds are positive for diminished breath sounds. The findings and the impression was discussed with the patient. I attest to the documentation by the nurse practitioner. Time with Patient: Greater than 30
[2020-02-15] MEDS: ASPIRIN 81 MG PO SCH (17:45)
[2020-02-15] MEDS: DONEPEZIL 10 MG TAB PO SCH (21:09)
[2020-02-15] MEDS: HEPARIN SODIUM,PORCINE 5,000 UNIT/ML 1 ML VIAL SQ SCH (21:09)
[2020-02-15] MEDS: ATORVASTATIN 40 MG TAB PO SCH (21:09)
[2020-02-15] MEDS: LORazepam 2 MG/ML INJ IV PRN (23:21)
[2020-02-16] MEDS: SODIUM CHLORIDE 0.9% 1,000 ML IV SCH ×3 (05:55→22:58)
[2020-02-16 06:17] LABS: Basophils % (A) 0 %; Eosinophils # (A) 0.1 k/uL (0-0.7); Eosinophils % (A) 3 %; HCT 31.6 % (34.0-46.0); HGB 10.5 gm/dL (11.4-16.0); Lymphocytes # (A) 1.1 k/uL (1.0-4.8); Lymphocytes % (A) 21 %; MCH 31.3 pg (25.0-35.0); MCHC 33.4 g/dL (31.0-37.0); MCV 93.9 fL (80.0-100.0); Mean Platelet Volume 8.3; Monocytes # (A) 0.4 k/uL (0-1.0); Monocytes % (A) 7 %; Neutrophils # (A) 3.6 k/uL (1.3-7.7); Neutrophils % (A) 69 %; Platelet Count 132 k/uL (150-450); RBC 3.36 m/uL (3.80-5.40); RDW 13.5 % (11.5-15.5); WBC 5.3 k/uL (3.8-10.6)
--- NOTE | 2020-02-16 06:22 | XR ---
EXAMINATION TYPE: XR chest 1V DATE OF EXAM: 02/16/2020 HISTORY: Resp distress. REFERENCE: Previous study dated 02/15/2020. FINDINGS: There is platelike atelectasis at the right lung base. There is continuing opacification at the left lung base. The heart is mildly enlarged. There is blunting of left CP angle and I cannot ex clude a small left effusion. IMPRESSION: NO SIGNIFICANT INTERVAL CHANGE IN THE APPEARANCE OF THE CHEST.
[2020-02-16 06:28] LABS: Glucose,Whole Blood 156 mg/dL (75-99)
[2020-02-16 06:34] LABS: Calcium 7.6 mg/dL (8.4-10.2)
[2020-02-16] MEDS: LEVOTHYROXINE 75 MCG TAB PO SCH (06:35)
[2020-02-16] MEDS: DEXTROSE 5% IN WATER 1,000 ML with SODIUM BICARB (1 MEQ/ML) 150 ML IV SCH (06:36)
[2020-02-16] MEDS: HEPARIN SODIUM,PORCINE 5,000 UNIT/ML 1 ML VIAL SQ SCH ×2 (08:28→20:57)
[2020-02-16] MEDS: PANTOPRAZOLE 40 MG/10 ML VIAL IV SCH (08:28)
--- NOTE | 2020-02-16 10:56 | P.PN ---
Subjective Progress Note Date: 02/16/20 This is an 85-year-old female with a previous medical history significant for coronary artery disease status post myocardial infarction with PCI and his current intervention and ischemic cardiomyopathy, hypertension and hypertensive cardiovascular disease, hyperlipidemia, diabetes mellitus type 2, vascular dementia, hypothyroidism, patient resides at [facility] for chronic care, patient developed to have a significant the poor oral intake of fluid and food over the last few days and the she was found unresponsive by the staff at [facility] a laboratory evaluation was ordered and that showed that the patient is an acute kidney injury with hyperkalemia along with severe metabolic acidosis, patient was directed to be transferred to the emergency department at [facility] where she was evaluated in the ER and she was found to have hyperkalemia as well as acute kidney injury and the patient was admitted to the intensive care unit, she was started on IV fluid resuscitation, she will be seen in consultation by manager law as well as nephrology. 02/15: Patient is doing a lot better today she is more awake and more alert she continues to have a poor appetite, she is not eating much, she is taken off bicarbonate drip, her numbers continue to drift down, nephrology is following, patient denies any chest pain, shortness breath, she has no abdominal pain, nausea or vomiting or diarrhea. Objective - Vital Signs Vital signs: Vital Signs Temp 98.5 F 02/16/20 07:00 Pulse 87 02/16/20 09:00 Resp 29 H 02/16/20 09:00 BP 147/51 02/16/20 09:00 Pulse Ox 97 02/16/20 09:00 Intake & Output 02/15/20 02/16/20 02/16/20 18:59 06:59 18:59 Intake Total 1700 1720 385 Output Total 1018 1065 350 Balance 682 655 35 Weight 75.2 kg Intake: IV 1670 1670 385 0.9 NaCl- 170 120 10 D5W with Sodium 250 Bicarbonate Dextrose 5% in Water 1, 1250 1500 375 000 ml @ 125 mls/hr IV . Q9H12M MARIO with Sodium Bicarb (1 Meq/ml) 150 ml Rx#:[id number] Rocephin IVPB 50 Oral 30 50 Output: Urine 1018 1065 350 Other: Voiding Method Indwelling Catheter Indwelling Catheter - Exam Review of Systems Constitutional: Reports anorexia, Reports fatigue, Reports lethargy, Reports malaise, Reports weakness Eyes: denies blurred vision, denies bulging eye, denies decreased vision Ears: bilateral: decreased hearing Ears, nose, mouth and throat: Denies dysphagia, Denies neck lump, Denies sore throat Cardiovascular: Denies chest pain, Denies decreased exercise tolerance, Denies dyspnea on exertion, Denies lightheadedness, Denies rapid heart beat, Denies shortness of breath, Denies syncope Respiratory: Denies congestion, Denies cough, Denies dyspnea, Denies home oxygen, Denies sleep apnea, Denies snoring, Denies wheezing Gastrointestinal: Reports loss of appetite, Denies abdominal pain, Denies bloating, Denies BRBPR, Denies heartburn, Denies melena, Denies nausea, Denies vomiting Genitourinary: Denies dysuria, Denies nocturia Menstruation: Reports postmenopausal Musculoskeletal: Reports gait dysfunction Musculoskeletal: absent: ankle pain, ankle stiffness, ankle swelling, elbow pain, elbow stiffness, elbow swelling, foot pain, foot stiffness, foot swelling, hand pain, hand stiffness, hand swelling, hip pain, hip stiffness, hip swelling, knee pain, knee stiffness, knee swelling, shoulder pain, shoulder stiffness, shoulder swelling, wrist pain, wrist stiffness, wrist swelling Integumentary: Denies pruritus, Denies rash Neurological: Reports confusion, Reports gait dysfunction, Reports memory loss, Reports weakness Psychiatric: Reports anxiety, Reports depression, Denies sadness/tearfulness, Denies sleep disturbances, Denies suicidal ideation Endocrine: Denies fatigue, Denies weight change Physical Exam: HEENT: Head is atraumatic, normocephalic, pupils were equal round reactive to light and accommodations, extraocular muscle movements were intact, mucous membranes of the mouth are somewhat dry. Neck: Supple, no JVD, decreased carotid upstroke bilaterally. Chest: Decreased breath sounds at the bases, otherwise clear to auscultation no crackles no wheezes no chest wall tenderness no intercostal retractions. Heart: First heart sound is depressed, second heart sounds normal, there is systolic ejection murmur 2/6 located in the left sternal border. Abdomen: Soft, nontender, nondistended, positive bowel sounds. Extremities: There is no edema, no calf tenderness, dorsalis pedis +1 bilaterally. Neurologic examination: Patient is stuporous opens her eyes response to verbal stimuli. - Labs CBC & Chem 7: 02/16/20 05:50 02/16/20 05:50 Labs: Abnormal Lab Results - Last 24 Hours (Table) 02/15/20 02/16/20 02/16/20 Range/Units 17:09 05:50 05:50 RBC 3.36 L (3.80-5.40) m/uL Hgb 10.5 L (11.4-16.0) gm/dL Hct 31.6 L (34.0-46.0) % Plt Count 132 L (150-450) k/uL Chloride 108 H (98-107) mmol/L Carbon Dioxide 21 L 31 H (22-30) mmol/L BUN 138 H* 115 H* (7-17) mg/dL Creatinine 7.62 H* 5.08 H (0.52-1.04) mg/dL Glucose 154 H 145 H (74-99) mg/dL POC Glucose (mg/dL) (75-99) mg/dL Calcium 8.0 L 7.6 L (8.4-10.2) mg/dL 02/16/20 Range/Units 06:27 RBC (3.80-5.40) m/uL Hgb (11.4-16.0) gm/dL Hct (34.0-46.0) % Plt Count (150-450) k/uL Chloride (98-107) mmol/L Carbon Dioxide (22-30) mmol/L BUN (7-17) mg/dL Creatinine (0.52-1.04) mg/dL Glucose (74-99) mg/dL POC Glucose (mg/dL) 156 H (75-99) mg/dL Calcium (8.4-10.2) mg/dL Microbiology - Last 24 Hours (Table) 02/14/20 20:22 Urine Culture - Preliminary Urine,Voided Gram Neg Bacilli Assessment and Plan Assessment: Assessment and plan: 1. Acute kidney injury secondary to acute tubular necrosis due to poor oral intake and the use of diuretics in a patient with a prior history of ischemic cardiomyopathy and probably reduce effective blood flow to the kidneys. The patient will be started on IV fluid in the form of half-normal saline at 100 mL an hour, monitor input and output and daily weight continue Romero catheter for close drainage, ultrasound of the kidneys for evaluation of hydronephrosis, nephrology consultation, manager law consultation as well. 2. Hyperkalemia secondary to acute kidney injury. Patient did receive D50 in the ER along with calcium gluconate and Kayexalate as well, her potassium today is 5.6. We will continue to monitor continue IV fluid resuscitation the form of normal saline at 100 mL per hour. 3. Anion gap metabolic acidosis due to acute kidney injury. Monitor the patient CMP. This has resolved. 4. UTI. Start the patient on Rocephin 1 g IV piggyback every 24 hours, check the patient urine culture as well as blood culture . 5. History of coronary artery disease post PCI. Continue patient on aspirin 81 mg once every day, Lipitor 40 mg orally once every day, hold off RICKI inhibitor due to the patient's acute kidney injury. 6. Hyperlipidemia. Continue Lipitor 40 mg orally once every day. 7. Hypothyroidism. Continue patient on Synthroid. 8. Diabetes mellitus type 2. Restart the patient on her Levemir as well as sliding scale insulin. 9. Hypertension and hypertensive cardiovascular disease. Hold antihypertensive medicine as the patient is hypertensive for now. 10. Vascular dementia. Currently on Aricept. 11. Anemia. Keep hemoglobin greater than 8. 12. DVT prophylaxis. Heparin 5000 units subcutaneously every 12 hours. 13. GI prophylaxis. Continue the patient on Protonix 40 mg IV push every 24 hours. 14. Patient is full code.
[2020-02-16 11:59] LABS: Glucose,Whole Blood 138 mg/dL (75-99)
--- NOTE | 2020-02-16 12:13 | P.PN ---
Subjective Progress Note Date: 02/16/20 Follow-up for acute kidney injury. Doing better. No nausea vomiting diarrhea. Objective - Vital Signs Vital signs: Vital Signs Temp 98.6 F 02/16/20 12:00 Pulse 76 02/16/20 12:00 Resp 22 02/16/20 12:00 BP 147/47 02/16/20 12:00 Pulse Ox 98 02/16/20 12:00 Intake & Output 02/15/20 02/16/20 02/16/20 18:59 06:59 18:59 Intake Total 1700 1720 685 Output Total 1018 1065 555 Balance 682 655 130 Weight 75.2 kg Intake: IV 1670 1670 685 0.9 NaCl- 170 120 220 D5W with Sodium 250 Bicarbonate Dextrose 5% in Water 1, 1250 1500 375 000 ml @ 125 mls/hr IV . Q9H12M MARIO with Sodium Bicarb (1 Meq/ml) 150 ml Rx#:[id number] Rocephin IVPB 50 Sodium Chloride 0.9% 1, 90 000 ml @ 100 mls/hr IV . Q10H MARIO Rx#:[id number] Oral 30 50 Output: Urine 1018 1065 555 Other: Voiding Method Indwelling Catheter Indwelling Catheter Indwelling Catheter - Exam No acute distress S1-S2 heard Lungs clear Trace edema - Labs CBC & Chem 7: 02/16/20 05:50 02/16/20 05:50 Labs: Abnormal Lab Results - Last 24 Hours (Table) 02/15/20 02/16/20 02/16/20 Range/Units 17:09 05:50 05:50 RBC 3.36 L (3.80-5.40) m/uL Hgb 10.5 L (11.4-16.0) gm/dL Hct 31.6 L (34.0-46.0) % Plt Count 132 L (150-450) k/uL Chloride 108 H (98-107) mmol/L Carbon Dioxide 21 L 31 H (22-30) mmol/L BUN 138 H* 115 H* (7-17) mg/dL Creatinine 7.62 H* 5.08 H (0.52-1.04) mg/dL Glucose 154 H 145 H (74-99) mg/dL POC Glucose (mg/dL) (75-99) mg/dL Calcium 8.0 L 7.6 L (8.4-10.2) mg/dL 02/16/20 02/16/20 Range/Units 06:27 11:58 RBC (3.80-5.40) m/uL Hgb (11.4-16.0) gm/dL Hct (34.0-46.0) % Plt Count (150-450) k/uL Chloride (98-107) mmol/L Carbon Dioxide (22-30) mmol/L BUN (7-17) mg/dL Creatinine (0.52-1.04) mg/dL Glucose (74-99) mg/dL POC Glucose (mg/dL) 156 H 138 H (75-99) mg/dL Calcium (8.4-10.2) mg/dL Microbiology - Last 24 Hours (Table) 02/14/20 20:22 Urine Culture - Preliminary Urine,Voided Gram Neg Bacilli Assessment and Plan Assessment: #1 nonoliguric acute kidney injury secondary to prerenal process from volume depletion. Baseline creatinine unknown. #2 hyperkalemia multifactorial, acidosis, acute kidney injury, lisinopril use. #3 metabolic alkalosis secondary to bicarb drip #4 insulin-dependent diabetes #5 hypertension Plan: #1 agree with stopping bicarb drip as she was alkalotic. #2 continue with normal saline at 100 ML's an hour. #3 monitor renal function and urine output closely #4 avoid nephrotoxic agents and hypotensive episodes. #5 no acute indication for BOARD LAYER at this time.
--- NOTE | 2020-02-16 14:34 | P.PN ---
Subjective Progress Note Date: 02/16/20 Principal diagnosis: Altered mental status, acute kidney injury, hyperkalemia 85 -year-old white female patient of Dr. Gutierrez, a resident of local [facility], with past medical history of coronary artery disease with PCI, with previous history of myocardial infarction, hypertension, hyperlipidemia, diabetes mellitus type 2, vascular dementia, hypothyroidism, osteoarthritis, who was brought into the hospital on 02/14/2020 for concern of acute hypokalemia, and acute kidney injury. Patient is a poor historian, most of the history was obtained from the chart. Apparently patient has been nauseous, vomiting, has had poor oral intake or 2 days prior to presentation. Unknown if she also had any diarrhea. No fevers. EKG shows sinus bradycardia with a rate of [address] changes. Lab work showed a normal white count of 8.4, hemoglobin of 12.6, quit addition profile was within normal limits, potassium was 8.5, chloride was 114, CO2 was only 8, anion gap was 15, BUN is 157, and creatinine 12.43, Coronavirus PCR was negative. No pulmonary complaints, chest x-ray shows no acute pulmonary process. Urinalysis showed evidence of urinary tract infection, patient was started on Rocephin for antibiotic coverage. Her hyperkalemia has been treated with combination of sodium bicarbonate, IV fluids, Kayexalate, insulin, and calcium gluconate. Roland ingram's labs showed white blood cell count of 6.2, hemoglobin is 10.5, sodium of 141, potassium is down to 5.2, chloride is 112, CO2 16, BUN is 155, creatinine is 10.09. Nephrology is following the patient, and is medically treating the patient, she remains on bicarbonate infusion at a rate of 125 ML per hour. Hemodynamically patient is stable, she is not requiring any drips, she started to produce some urine. The patient is seen today 02/16/2020 in follow-up in the intensive care unit. She is currently resting comfortably in bed. Awake and alert in no acute distress. She is maintaining O2 saturations in the high 90s on 2 L/m per nasal cannula. Chest x-ray reveals atelectasis of the lung bases more so on the left. She is currently on a bicarb drip at 125 ML's per hour. 0.9 normal saline at 10 MLS per hour. Urine culture is positive for gram-negative bacilli. She is currently on ceftriaxone. White count 5.3. Hemoglobin 10.5. Platelet count 132,000. Sodium 145. Potassium 4.0. Chloride 104. Bicarb 31. BUN 115. Creatinine 5.08. Glucose 145. Objective - Vital Signs Vital signs: Vital Signs Temp 98.6 F 02/16/20 12:00 Pulse 84 02/16/20 14:00 Resp 47 H 02/16/20 14:00 BP 128/80 02/16/20 14:00 Pulse Ox 94 L 02/16/20 14:00 Intake & Output 02/15/20 02/16/20 02/16/20 18:59 06:59 18:59 Intake Total 1700 1720 685 Output Total 1018 1065 555 Balance 682 655 130 Weight 75.2 kg Intake: IV 1670 1670 685 0.9 NaCl- 170 120 220 D5W with Sodium 250 Bicarbonate Dextrose 5% in Water 1, 1250 1500 375 000 ml @ 125 mls/hr IV . Q9H12M MARIO with Sodium Bicarb (1 Meq/ml) 150 ml Rx#:[id number] Rocephin IVPB 50 Sodium Chloride 0.9% 1, 90 000 ml @ 100 mls/hr IV . Q10H MARIO Rx#:[id number] Oral 30 50 Output: Urine 1018 1065 555 Other: Voiding Method Indwelling Catheter Indwelling Catheter Indwelling Catheter - Exam GENERAL EXAM: Lethargic but arousable, 85-year-old female patient, maintaining O2 saturation the high 90s on 2 L/m per nasal cannula, comfortable in no apparent distress. HEAD: Normocephalic/atraumatic. EYES: Normal reaction of pupils, equal size. Conjunctiva pink, sclera white. NOSE: Clear with pink turbinates. THROAT: No erythema or exudates. NECK: No masses, no JVD, no thyroid enlargement, no adenopathy. CHEST: No chest wall deformity. Symmetrical expansion. LUNGS: Equal air entry with crackles in the bilateral posterior bases. CVS: Regular rate and rhythm, normal S1 and S2, no gallops, no murmurs, no rubs ABDOMEN: Soft, nontender. No hepatosplenomegaly, normal bowel sounds, no guarding or rigidity. EXTREMITIES: No clubbing, no edema, no cyanosis, 2+ pulses and upper and lower extremities. MUSCULOSKELETAL: Muscle strength and tone normal. SPINE: No scoliosis or deformity SKIN: No rashes CENTRAL NERVOUS SYSTEM: No focal deficits, tone is normal in all 4 extremities. - Labs CBC & Chem 7: 02/16/20 05:50 02/16/20 05:50 Labs: Abnormal Lab Results - Last 24 Hours (Table) 02/15/20 02/16/20 02/16/20 Range/Units 17:09 05:50 05:50 RBC 3.36 L (3.80-5.40) m/uL Hgb 10.5 L (11.4-16.0) gm/dL Hct 31.6 L (34.0-46.0) % Plt Count 132 L (150-450) k/uL Chloride 108 H (98-107) mmol/L Carbon Dioxide 21 L 31 H (22-30) mmol/L BUN 138 H* 115 H* (7-17) mg/dL Creatinine 7.62 H* 5.08 H (0.52-1.04) mg/dL Glucose 154 H 145 H (74-99) mg/dL POC Glucose (mg/dL) (75-99) mg/dL Calcium 8.0 L 7.6 L (8.4-10.2) mg/dL 02/16/20 02/16/20 Range/Units 06:27 11:58 RBC (3.80-5.40) m/uL Hgb (11.4-16.0) gm/dL Hct (34.0-46.0) % Plt Count (150-450) k/uL Chloride (98-107) mmol/L Carbon Dioxide (22-30) mmol/L BUN (7-17) mg/dL Creatinine (0.52-1.04) mg/dL Glucose (74-99) mg/dL POC Glucose (mg/dL) 156 H 138 H (75-99) mg/dL Calcium (8.4-10.2) mg/dL Microbiology - Last 24 Hours (Table) 02/14/20 20:22 Urine Culture - Preliminary Urine,Voided Gram Neg Bacilli Assessment and Plan Assessment: #1. Acute kidney injury multifactorial, related to nausea, vomiting, dehydration, RICKI inhibitors and possibility of urinary tract infection #2. Acute hyperkalemia related to the above improved with medical treatment #3. Possibility of chronic kidney disease, unspecified with unknown baseline and renal function, previous episode of acute kidney injury in September 2019 #4. Acute metabolic acidosis related to acute kidney injury moving with bicarbonate replacement #5. Acute urinary tract infection, likely covered with Rocephin, cultures pending #6. Coronary artery disease with previous PCI #7. Diabetes mellitus type 2 #8. Hypertension #9. Hyperlipidemia #10. Previous history of myocardial infarction #11. Hypothyroidism #12. Vascular dementia Plan: The patient was seen and evaluated by Dr. Nobles Chest x-ray and labs reviewed Discontinue bicarbonate drip 0.9 normal saline at 100 mL per hour Continue ceftriaxone and await final cultures Keep her here in the intensive care unit another 24 hours We'll continue to follow and make further recommendations based on her clinical status I, the cosigning physician, performed a history & physical examination of the patient. Lungs sounds with crackles in the bilateral posterior bases. Maintaining good O2 saturations in the 90s on 2 L/m per nasal cannula. I discussed the assessment and plan of care with my nurse practitioner, Aishwarya Almaguer. I attest to the above note as dictated by her. Time with Patient: Greater than 30
[2020-02-16] MEDS: ASPIRIN 81 MG PO SCH (16:38)
[2020-02-16 16:47] LABS: Glucose,Whole Blood 138 mg/dL (75-99)
[2020-02-16 20:31] LABS: Glucose,Whole Blood 157 mg/dL (75-99)
[2020-02-16] MEDS: ATORVASTATIN 40 MG TAB PO SCH (20:55)
[2020-02-16] MEDS: DONEPEZIL 10 MG TAB PO SCH (20:56)
[2020-02-17 04:39] LABS: Basophils % (A) 1 %; Eosinophils # (A) 0.1 k/uL (0-0.7); Eosinophils % (A) 1 %; HCT 30.7 % (34.0-46.0); HGB 9.7 gm/dL (11.4-16.0); Lymphocytes # (A) 1.2 k/uL (1.0-4.8); Lymphocytes % (A) 22 %; MCH 30.5 pg (25.0-35.0); MCHC 31.5 g/dL (31.0-37.0); Mean Platelet Volume 7.7; Monocytes # (A) 0.3 k/uL (0-1.0); Monocytes % (A) 6 %; Neutrophils # (A) 3.7 k/uL (1.3-7.7); Neutrophils % (A) 69 %; Platelet Count 121 k/uL (150-450); RBC 3.17 m/uL (3.80-5.40); RDW 13.4 % (11.5-15.5); WBC 5.4 k/uL (3.8-10.6)
[2020-02-17 05:11] LABS: Potassium 4.2 mmol/L (3.5-5.1)
[2020-02-17] MEDS: SODIUM CHLORIDE 0.9% 1,000 ML IV SCH ×4 (06:20→22:07)
[2020-02-17] MEDS: LEVOTHYROXINE 75 MCG TAB PO SCH (06:22)
[2020-02-17 06:43] LABS: Glucose,Whole Blood 117 mg/dL (75-99)
[2020-02-17] MEDS: PANTOPRAZOLE 40 MG/10 ML VIAL IV SCH (08:53)
[2020-02-17] MEDS: HEPARIN SODIUM,PORCINE 5,000 UNIT/ML 1 ML VIAL SQ SCH ×2 (08:53→21:58)
[2020-02-17] MEDS ORDERED: ONDANSETRON 4 MG/2 ML VIAL IVP PRN (09:46)
--- NOTE | 2020-02-17 10:04 | P.PN ---
Subjective Progress Note Date: 02/17/20 This is an 85-year-old female with a previous medical history significant for coronary artery disease status post myocardial infarction with PCI and his current intervention and ischemic cardiomyopathy, hypertension and hypertensive cardiovascular disease, hyperlipidemia, diabetes mellitus type 2, vascular dementia, hypothyroidism, patient resides at [facility] for chronic care, patient developed to have a significant the poor oral intake of fluid and food over the last few days and the she was found unresponsive by the staff at [facility] a laboratory evaluation was ordered and that showed that the patient is an acute kidney injury with hyperkalemia along with severe metabolic acidosis, patient was directed to be transferred to the emergency department at [facility] where she was evaluated in the ER and she was found to have hyperkalemia as well as acute kidney injury and the patient was admitted to the intensive care unit, she was started on IV fluid resuscitation, she will be seen in consultation by yard inspector as well as nephrology. 5/2: Patient is doing a lot better today she is more awake and more alert she continues to have a poor appetite, she is not eating much, she is taken off bicarbonate drip, her numbers continue to drift down, nephrology is following, patient denies any chest pain, shortness breath, she has no abdominal pain, nausea or vomiting or diarrhea. 5/3: Patient is laying down in bed that does not appear to be in acute distress, she can use to be deeply depressed she is not eating or drinking much patient kidney function is improving at this point in time we will try to move the patient out of the intensive care unit to the medical surgical floor this point I'll restart the patient back on a small dose of mirtazapine 7.5 mg orally once every day. As an antidepressant as well as an appetite stimulant while the patient is here we'll continue with the monitoring very closely patient denies any chest pain at this time she has no shortness breath that she does have some nausea she will be getting Zofran for that, she has no bowel movement yet she does not appear to be in acute distress at this point in time. Objective - Vital Signs Vital signs: Vital Signs Temp 98.6 F 02/17/20 08:00 Pulse 74 02/17/20 08:00 Resp 27 H 02/17/20 08:00 BP 163/52 02/17/20 08:00 Pulse Ox 97 02/17/20 08:00 Intake & Output 02/16/20 02/17/20 02/17/20 18:59 06:59 18:59 Intake Total 1285 1385 300 Output Total 879 1180 150 Balance 406 205 150 Weight 76.7 kg Intake: IV 1285 1275 300 0.9 NaCl- 220 Dextrose 5% in Water 1, 375 125 000 ml @ 125 mls/hr IV . Q9H12M MARIO with Sodium Bicarb (1 Meq/ml) 150 ml Rx#:[id number] Rocephin IVPB 50 Sodium Chloride 0.9% 1, 690 1100 300 000 ml @ 100 mls/hr IV . Q10H MARIO Rx#:[id number] Oral 110 Output: Urine 879 1150 150 Emesis 30 Other: Voiding Method Indwelling Catheter Indwelling Catheter Indwelling Catheter - Exam Review of Systems Constitutional: Reports anorexia, Reports fatigue, Reports lethargy, Reports malaise, Reports weakness Eyes: denies blurred vision, denies bulging eye, denies decreased vision Ears: bilateral: decreased hearing Ears, nose, mouth and throat: Denies dysphagia, Denies neck lump, Denies sore throat Cardiovascular: Denies chest pain, Denies decreased exercise tolerance, Denies dyspnea on exertion, Denies lightheadedness, Denies rapid heart beat, Denies shortness of breath, Denies syncope Respiratory: Denies congestion, Denies cough, Denies dyspnea, Denies home o xygen, Denies sleep apnea, Denies snoring, Denies wheezing Gastrointestinal: Reports loss of appetite, Denies abdominal pain, Denies bloating, Denies BRBPR, Denies heartburn, Denies melena, Denies nausea, Denies vomiting Genitourinary: Denies dysuria, Denies nocturia Menstruation: Reports postmenopausal Musculoskeletal: Reports gait dysfunction Musculoskeletal: absent: ankle pain, ankle stiffness, ankle swelling, elbow pain, elbow stiffness, elbow swelling, foot pain, foot stiffness, foot swelling, hand pain, hand stiffness, hand swelling, hip pain, hip stiffness, hip swelling, knee pain, knee stiffness, knee swelling, shoulder pain, shoulder stiffness, shoulder swelling, wrist pain, wrist stiffness, wrist swelling Integumentary: Denies pruritus, Denies rash Neurological: Reports confusion, Reports gait dysfunction, Reports memory loss, Reports weakness Psychiatric: Reports anxiety, Reports depression, Denies sadness/tearfulness, Denies sleep disturbances, Denies suicidal ideation Endocrine: Denies fatigue, Denies weight change Physical Exam: HEENT: Head is atraumatic, normocephalic, pupils were equal round reactive to light and accommodations, extraocular muscle movements were intact, mucous membranes of the mouth are somewhat dry. Neck: Supple, no JVD, decreased carotid upstroke bilaterally. Chest: Decreased breath sounds at the bases, otherwise clear to auscultation no crackles no wheezes no chest wall tenderness no intercostal retractions. Heart: First heart sound is depressed, second heart sounds normal, there is systolic ejection murmur 2/6 located in the left sternal border. Abdomen: Soft, nontender, nondistended, positive bowel sounds. Extremities: There is no edema, no calf tenderness, dorsalis pedis +1 bilate rally. Neurologic examination: Patient is stuporous opens her eyes response to verbal stimuli. - Labs CBC & Chem 7: 02/17/20 04:22 02/17/20 04:22 Labs: Abnormal Lab Results - Last 24 Hours (Table) 02/16/20 02/16/20 02/16/20 Range/Units 11:58 16:46 20:30 RBC (3.80-5.40) m/uL Hgb (11.4-16.0) gm/dL Hct (34.0-46.0) % Plt Count (150-450) k/uL Carbon Dioxide (22-30) mmol/L BUN (7-17) mg/dL Creatinine (0.52-1.04) mg/dL Glucose (74-99) mg/dL POC Glucose (mg/dL) 138 H 138 H 157 H (75-99) mg/dL Calcium (8.4-10.2) mg/dL 02/17/20 02/17/20 02/17/20 Range/Units 04:22 04:22 06:41 RBC 3.17 L (3.80-5.40) m/uL Hgb 9.7 L (11.4-16.0) gm/dL Hct 30.7 L (34.0-46.0) % Plt Count 121 L (150-450) k/uL Carbon Dioxide 33 H (22-30) mmol/L BUN 76 H (7-17) mg/dL Creatinine 2.83 H (0.52-1.04) mg/dL Glucose 121 H (74-99) mg/dL POC Glucose (mg/dL) 117 H (75-99) mg/dL Calcium 7.0 L (8.4-10.2) mg/dL Microbiology - Last 24 Hours (Table) 02/14/20 20:22 Urine Culture - Final Urine,Voided Escherichia coli Assessment and Plan Assessment: Assessment and plan: 1. Acute kidney injury secondary to acute tubular necrosis due to poor oral intake and the use of diuretics in a patient with a prior history of ischemic cardiomyopathy and probably reduce effective blood flow to the kidneys. The patient will be started on IV fluid in the form of half-normal saline at 100 mL an hour, monitor input and output and daily weight continue Romero catheter for close drainage, numbers are improving we will continue to monitor the CMP and a daily basis per 2. Hyperkalemia secondary to acute kidney injury. Resolved. 3. Anion gap metabolic acidosis due to acute kidney injury. Monitor the patient CMP. This has resolved. 4. UTI. Start the patient on Rocephin 1 g IV piggyback every 24 hours, check the patient urine culture as well as blood culture . 5. History of coronary artery disease post PCI. Continue patient on aspirin 81 mg once every day, Lipitor 40 mg orally once every day, hold off RICKI inhibitor d ue to the patient's acute kidney injury. 6. Hyperlipidemia. Continue Lipitor 40 mg orally once every day. 7. Hypothyroidism. Continue patient on Synthroid. 8. Diabetes mellitus type 2. Restart the patient on her Levemir as well as sliding scale insulin. 9. Hypertension and hypertensive cardiovascular disease. Hold antihypertensive medicine as the patient is hypertensive for now. 10. Vascular dementia. Currently on Aricept. 11. Anemia. Keep hemoglobin greater than 8. 12. DVT prophylaxis. Heparin 5000 units subcutaneously every 12 hours. 13. GI prophylaxis. Continue the patient on Protonix 40 mg IV push every 24 hours. 14. Depression with poor appetite. Start the patient on mirtazapine 15 mg at bedtime. 15. Full code. 16. Medically stable to be transferred to the medical surgical floor.
--- NOTE | 2020-02-17 11:57 | P.PN ---
Subjective Progress Note Date: 02/17/20 Follow-up for acute kidney injury. Doing better. No nausea vomiting diarrhea. Objective - Vital Signs Vital signs: Vital Signs Temp 98.6 F 02/17/20 08:00 Pulse 74 02/17/20 08:00 Resp 27 H 02/17/20 08:00 BP 163/52 02/17/20 08:00 Pulse Ox 97 02/17/20 08:00 Intake & Output 02/16/20 02/17/20 02/17/20 18:59 06:59 18:59 Intake Total 1285 1385 300 Output Total 879 1180 150 Balance 406 205 150 Weight 76.7 kg Intake: IV 1285 1275 300 0.9 NaCl- 220 Dextrose 5% in Water 1, 375 125 000 ml @ 125 mls/hr IV . Q9H12M MARIO with Sodium Bicarb (1 Meq/ml) 150 ml Rx#:[id number] Rocephin IVPB 50 Sodium Chloride 0.9% 1, 690 1100 300 000 ml @ 100 mls/hr IV . Q10H MARIO Rx#:[id number] Oral 110 Output: Urine 879 1150 150 Emesis 30 Other: Voiding Method Indwelling Catheter Indwelling Catheter Indwelling Catheter - Exam No acute distress S1-S2 heard Lungs clear Trace edema - Labs CBC & Chem 7: 02/17/20 04:22 02/17/20 04:22 Labs: Abnormal Lab Results - Last 24 Hours (Table) 02/16/20 02/16/20 02/16/20 Range/Units 11:58 16:46 20:30 RBC (3.80-5.40) m/uL Hgb (11.4-16.0) gm/dL Hct (34.0-46.0) % Plt Count (150-450) k/uL Carbon Dioxide (22-30) mmol/L BUN (7-17) mg/dL Creatinine (0.52-1.04) mg/dL Glucose (74-99) mg/dL POC Glucose (mg/dL) 138 H 138 H 157 H (75-99) mg/dL Calcium (8.4-10.2) mg/dL 02/17/20 02/17/20 02/17/20 Range/Units 04:22 04:22 06:41 RBC 3.17 L (3.80-5.40) m/uL Hgb 9.7 L (11.4-16.0) gm/dL Hct 30.7 L (34.0-46.0) % Plt Count 121 L (150-450) k/uL Carbon Dioxide 33 H (22-30) mmol/L BUN 76 H (7-17) mg/dL Creatinine 2.83 H (0.52-1.04) mg/dL Glucose 121 H (74-99) mg/dL POC Glucose (mg/dL) 117 H (75-99) mg/dL Calcium 7.0 L (8.4-10.2) mg/dL Microbiology - Last 24 Hours (Table) 02/14/20 20:22 Urine Culture - Final Urine,Voided Escherichia coli Assessment and Plan Assessment: #1 nonoliguric acute kidney injury secondary to prerenal process from volume depletion. Baseline creatinine unknown. #2 hyperkalemia multifactorial, acidosis, acute kidney injury, lisinopril use. #3 metabolic alkalosis secondary to bicarb drip, stopped yesterday #4 insulin-dependent diabetes #5 hypertension Plan: #1 continue with normal saline at 100 ML's an hour. #2 monitor renal function and urine output closely #3 avoid nephrotoxic agents and hypotensive episodes. #4 no acute indication for SANITATION MANAGER at this time.
--- NOTE | 2020-02-17 12:05 | P.PN ---
Subjective Progress Note Date: 02/17/20 Principal diagnosis: Altered mental status, acute kidney injury, hyperkalemia 85 -year-old white female patient of Dr. Gutierrez, a resident of local [facility], with past medical history of coronary artery disease with PCI, with previous history of myocardial infarction, hypertension, hyperlipidemia, diabetes mellitus type 2, vascular dementia, hypothyroidism, osteoarthritis, who was brought into the hospital on 02/14/2020 for concern of acute hypokalemia, and acute kidney injury. Patient is a poor historian, most of the history was obtained from the chart. Apparently patient has been nauseous, vomiting, has had poor oral intake or 2 days prior to presentation. Unknown if she also had any diarrhea. No fevers. EKG shows sinus bradycardia with a rate of [address] changes. Lab work showed a normal white count of 8.4, hemoglobin of 12.6, quit addition profile was within normal limits, potassium was 8.5, chloride was 114, CO2 was only 8, anion gap was 15, BUN is 157, and creatinine 12.43, Coronavirus PCR was negative. No pulmonary complaints, chest x-ray shows no acute pulmonary process. Urinalysis showed evidence of urinary tract infection, patient was started on Rocephin for antibiotic coverage. Her hyperkalemia has been treated with combination of sodium bicarbonate, IV fluids, Kayexalate, insulin, and calcium gluconate. Roland ingram's labs showed white blood cell count of 6.2, hemoglobin is 10.5, sodium of 141, potassium is down to 5.2, chloride is 112, CO2 16, BUN is 155, creatinine is 10.09. Nephrology is following the patient, and is medically treating the patient, she remains on bicarbonate infusion at a rate of 125 ML per hour. Hemodynamically patient is stable, she is not requiring any drips, she started to produce some urine. The patient is seen today 02/16/2020 in follow-up in the intensive care unit. She is currently resting comfortably in bed. Awake and alert in no acute distress. She is maintaining O2 saturations in the high 90s on 2 L/m per nasal cannula. Chest x-ray reveals atelectasis of the lung bases more so on the left. She is currently on a bicarb drip at 125 ML's per hour. 0.9 normal saline at 10 MLS per hour. Urine culture is positive for gram-negative bacilli. She is currently on ceftriaxone. White count 5.3. Hemoglobin 10.5. Platelet count 132,000. Sodium 145. Potassium 4.0. Chloride 104. Bicarb 31. BUN 115. Creatinine 5.08. Glucose 145. The patient is seen today 02/17/2020 in follow-up in the intensive care unit. She is currently awake and alert in no acute distress. Maintaining O2 saturations in the 90s on 2 L/m per nasal cannula. She's been afebrile. He modynamically stable. Urine culture positive for E. coli. White count 5.4. Hemoglobin 9.7. Platelets 121. Sodium 134. Potassium 4.2. Creatinine 2.83. She is continued on ceftriaxone. Objective - Vital Signs Vital signs: Vital Signs Temp 98.6 F 02/17/20 08:00 Pulse 74 02/17/20 08:00 Resp 27 H 02/17/20 08:00 BP 163/52 02/17/20 08:00 Pulse Ox 97 02/17/20 08:00 Intake & Output 02/16/20 02/17/20 02/17/20 18:59 06:59 18:59 Intake Total 1285 1385 300 Output Total 879 1180 150 Balance 406 205 150 Weight 76.7 kg Intake: IV 1285 1275 300 0.9 NaCl- 220 Dextrose 5% in Water 1, 375 125 000 ml @ 125 mls/hr IV . Q9H12M MARIO with Sodium Bicarb (1 Meq/ml) 150 ml Rx#:[id number] Rocephin IVPB 50 Sodium Chloride 0.9% 1, 690 1100 300 000 ml @ 100 mls/hr IV . Q10H MARIO Rx#:[id number] Oral 110 Output: Urine 879 1150 150 Emesis 30 Other: Voiding Method Indwelling Catheter Indwelling Catheter Indwelling Catheter - Exam GENERAL EXAM: Awake, 85-year-old female patient, maintaining O2 saturation the high 90s on 2 L/m per nasal cannula, comfortable in no apparent distress. HEAD: Normocephalic/atraumatic. EYES: Normal reaction of pupils, equal size. Conjunctiva pink, sclera white. NOSE: Clear with pink turbinates. THROAT: No erythema or exudates. NECK: No masses, no JVD, no thyroid enlargement, no adenopathy. CHEST: No chest wall deformity. Symmetrical expansion. LUNGS: Equal air entry with crackles in the bilateral posterior bases. CVS: Regular rate and rhythm, normal S1 and S2, no gallops, no murmurs, no rubs ABDOMEN: Soft, nontender. No hepatosplenomegaly, normal bowel sounds, no guarding or rigidity. EXTREMITIES: No clubbing, no edema, no cyanosis, 2+ pulses and upper and lower extremities. MUSCULOSKELETAL: Muscle strength and tone normal. SPINE: No scoliosis or deformity SKIN: No rashes CENTRAL NERVOUS SYSTEM: No focal deficits, tone is normal in all 4 extremities. - Labs CBC & Chem 7: 02/17/20 04:22 02/17/20 04:22 Labs: Abnormal Lab Results - Last 24 Hours (Table) 02/16/20 02/16/20 02/17/20 Range/Units 16:46 20:30 04:22 RBC 3.17 L (3.80-5.40) m/uL Hgb 9.7 L (11.4-16.0) gm/dL Hct 30.7 L (34.0-46.0) % Plt Count 121 L (150-450) k/uL Carbon Dioxide (22-30) mmol/L BUN (7-17) mg/dL Creatinine (0.52-1.04) mg/dL Glucose (74-99) mg/dL POC Glucose (mg/dL) 138 H 157 H (75-99) mg/dL Calcium (8.4-10.2) mg/dL 02/17/20 02/17/20 Range/Units 04:22 06:41 RBC (3.80-5.40) m/uL Hgb (11.4-16.0) gm/dL Hct (34.0-46.0) % Plt Count (150-450) k/uL Carbon Dioxide 33 H (22-30) mmol/L BUN 76 H (7-17) mg/dL Creatinine 2.83 H (0.52-1.04) mg/dL Glucose 121 H (74-99) mg/dL POC Glucose (mg/dL) 117 H (75-99) mg/dL Calcium 7.0 L (8.4-10.2) mg/dL Microbiology - Last 24 Hours (Table) 02/14/20 20:22 Urine Culture - Final Urine,Voided Escherichia coli Assessment and Plan Assessment: #1. Acute kidney injury multifactorial, related to nausea, vomiting, dehydration, RICKI inhibitors and urinary tract infection secondary to E. coli. On ceftriaxone. Creatinine 2.83. #2. Acute hyperkalemia related to the above improved with medical treatment, c urrent potassium 4.2 #3. Possibility of chronic kidney disease, unspecified with unknown baseline and renal function, previous episode of acute kidney injury in September 2019 #4. Acute metabolic acidosis related to acute kidney injury moving with bicarbonate replacement, recovered #5. Acute urinary tract infection, likely covered with Rocephin, cultures pending #6. Coronary artery disease with previous PCI #7. Diabetes mellitus type 2 #8. Hypertension #9. Hyperlipidemia #10. Previous history of myocardial infarction #11. Hypothyroidism #12. Vascular dementia Plan: The patient was seen and evaluated by Dr. Nobles Continue ceftriaxone for E. coli UTI Transfer her out to the regular medical floor today We'll continue to follow and make further recommendations based on her clinical status I, the cosigning physician, performed a history & physical examination of the patient. Lungs sounds with crackles in the bilateral posterior bases. Maintaining good O2 saturations in the 90s on 2 L/m per nasal cannula. I discussed the assessment and plan of care with my nurse practitioner, Aishwarya Almaguer. I attest to the above note as dictated by her.
[2020-02-17 12:09] LABS: Glucose,Whole Blood 99 mg/dL (75-99)
[2020-02-17 16:59] LABS: Glucose,Whole Blood 116 mg/dL (75-99)
[2020-02-17] MEDS: ASPIRIN 81 MG PO SCH (17:17)
[2020-02-17] MEDS ORDERED: CARVEDILOL 6.25 MG TAB PO SCH (17:30)
[2020-02-17] MEDS: hydrALAZINE HCL 20 MG/ML 1 ML VIAL IVP PRN (17:58)
[2020-02-17 20:22] LABS: Glucose,Whole Blood 125 mg/dL (75-99)
[2020-02-17] MEDS: DONEPEZIL 10 MG TAB PO SCH (21:57)
[2020-02-17] MEDS: MIRTAZAPINE 15 MG TAB PO SCH (21:57)
[2020-02-17] MEDS: ATORVASTATIN 40 MG TAB PO SCH (21:57)
[2020-02-18] MEDS: hydrALAZINE HCL 20 MG/ML 1 ML VIAL IVP PRN (00:51)
[2020-02-18] MEDS: LORazepam 2 MG/ML INJ IV PRN (01:46)
[2020-02-18 04:57] LABS: Basophils % (A) 0 %; Eosinophils # (A) 0.1 k/uL (0-0.7); Eosinophils % (A) 2 %; HGB 9.4 gm/dL (11.4-16.0); Hypochromasia Marked; Lymphocytes # (A) 1.3 k/uL (1.0-4.8); Lymphocytes % (A) 20 %; MCHC 31.3 g/dL (31.0-37.0); MCV 99.2 fL (80.0-100.0); Mean Platelet Volume 8.1; Monocytes # (A) 0.4 k/uL (0-1.0); Monocytes % (A) 6 %; Neutrophils # (A) 4.5 k/uL (1.3-7.7); Neutrophils % (A) 71 %; Platelet Count 125 k/uL (150-450); RBC 3.03 m/uL (3.80-5.40); RDW 12.8 % (11.5-15.5); WBC 6.4 k/uL (3.8-10.6)
[2020-02-18 05:15] LABS: Albumin 2.4 g/dL (3.5-5.0); Potassium 4.5 mmol/L (3.5-5.1)
[2020-02-18 05:29] LABS: Calcium 6.3 mg/dL (8.4-10.2)
[2020-02-18 07:30] LABS: Glucose,Whole Blood 103 mg/dL (75-99)
[2020-02-18] MEDS: LEVOTHYROXINE 75 MCG TAB PO SCH (08:53)
[2020-02-18] MEDS: PANTOPRAZOLE 40 MG/10 ML VIAL IV SCH (08:53)
[2020-02-18] MEDS: CLOPIDOGREL 75 MG TAB PO SCH (08:53)
[2020-02-18] MEDS: HEPARIN SODIUM,PORCINE 5,000 UNIT/ML 1 ML VIAL SQ SCH ×2 (08:53→21:01)
[2020-02-18] MEDS: CARVEDILOL 6.25 MG TAB PO SCH ×2 (08:54→17:38)
[2020-02-18] MEDS: SODIUM CHLORIDE 0.9% 1,000 ML IV SCH (08:55)
--- NOTE | 2020-02-18 09:31 | P.PN ---
Subjective Progress Note Date: 02/18/20 This is an 85-year-old female with a previous medical history significant for coronary artery disease status post myocardial infarction with PCI and his current intervention and ischemic cardiomyopathy, hypertension and hypertensive cardiovascular disease, hyperlipidemia, diabetes mellitus type 2, vascular dementia, hypothyroidism, patient resides at [facility] for chronic care, patient developed to have a significant the poor oral intake of fluid and food over the last few days and the she was found unresponsive by the staff at [facility] a laboratory evaluation was ordered and that showed that the patient is an acute kidney injury with hyperkalemia along with severe metabolic acidosis, patient was directed to be transferred to the emergency department at [facility] where she was evaluated in the ER and she was found to have hyperkalemia as well as acute kidney injury and the patient was admitted to the intensive care unit, she was started on IV fluid resuscitation, she will be seen in consultation by ecommerce marketing manager as well as nephrology. 5/2: Patient is doing a lot better today she is more awake and more alert she continues to have a poor appetite, she is not eating much, she is taken off bicarbonate drip, her numbers continue to drift down, nephrology is following, patient denies any chest pain, shortness breath, she has no abdominal pain, nausea or vomiting or diarrhea. 5/3: Patient is laying down in bed that does not appear to be in acute distress, she can use to be deeply depressed she is not eating or drinking much patient kidney function is improving at this point in time we will try to move the patient out of the intensive care unit to the medical surgical floor this point I'll restart the patient back on a small dose of mirtazapine 7.5 mg orally once every day. As an antidepressant as well as an appetite stimulant while the patient is here we'll continue with the monitoring very closely patient denies any chest pain at this time she has no shortness breath that she does have some nausea she will be getting Zofran for that, she has no bowel movement yet she does not appear to be in acute distress at this point in time. 5/4: Patient sitting up in chair she appears extremely weak at this point in time yesterday developed to have a significant accelerated hypertension for which she was started on hydralazine 20 mg IV push every 4 hours as needed she did use it once, increase her carvedilol to 12.5 mg orally twice every day, her blood pressure is much better, patient denies any chest pain, or shortness breath, she has no abdominal pain nausea or vomiting she continues to have very poor appetite she continues to feel very weak, physical therapy will be consulted patient Romero catheter will be discontinued and she will be moved to a medical surgical floor today. Objective - Vital Signs Vital signs: Vital Signs Temp 98.2 F 02/18/20 08:00 Pulse 87 02/18/20 08:00 Resp 25 H 02/18/20 08:00 BP 139/43 02/18/20 08:00 Pulse Ox 98 02/18/20 08:00 Intake & Output 02/17/20 02/18/20 02/18/20 18:59 06:59 18:59 Intake Total 1600 2100 Output Total 713 1050 200 Balance 887 1050 -200 Weight 78.4 kg Intake: IV 1000 1500 Rocephin IVPB 100 Sodium Chloride 0.9% 1, 1000 1400 000 ml @ 100 mls/hr IV . Q10H [facility] Rx#:[id number] Oral 600 600 Output: Urine 713 1050 200 Other: Voiding Method Indwelling Catheter Indwelling Catheter Indwelling Catheter - Exam Review of Systems Constitutional: Reports anorexia, Reports fatigue, Reports lethargy, Reports malaise, Reports weakness Eyes: denies blurred vision, denies bulging eye, denies decreased vision Ears: bilateral: decreased hearing Ears, nose, mouth and throat: Denies dysphagia, Denies neck lump, Denies sore throat Cardiovascular: Denies chest pain, Denies decreased exercise tolerance, Denies dyspnea on exertion, Denies lightheadedness, Denies rapid heart beat, Denies shortness of breath, Denies syncope Respiratory: Denies congestion, Denies cough, Denies dyspnea, Denies home oxygen, Denies sleep apnea, Denies snoring, Denies wheezing Gastrointestinal: Reports loss of appetite, Denies abdominal pain, Denies bloating, Denies BRBPR, Denies heartburn, Denies melena, Denies nausea, Denies vomiting Genitourinary: Denies dysuria, Denies nocturia Menstruation: Reports postmenopausal Musculoskeletal: Reports gait dysfunction Musculoskeletal: absent: ankle pain, ankle stiffness, ankle swelling, elbow pain, elbow stiffness, elbow swelling, foot pain, foot stiffness, foot swelling, hand pain, hand stiffness, hand swelling, hip pain, hip stiffness, hip swelling, knee pain, knee stiffness, knee swelling, shoulder pain, shoulder stiffness, shoulder swelling, wrist pain, wrist stiffness, wrist swelling Integumentary: Denies pruritus, Denies rash Neurological: Reports confusion, Reports gait dysfunction, Reports memory loss, Reports weakness Psychiatric: Reports anxiety, Reports depression, Denies sadness/tearfulness, Denies sleep disturbances, Denies suicidal ideation Endocrine: Denies fatigue, Denies weight change Physical Exam: HEENT: Head is atraumatic, normocephalic, pupils were equal round reactive to light and accommodations, extraocular muscle movements were intact, mucous membranes of the mouth are somewhat dry. Neck: Supple, no JVD, decreased carotid upstroke bilaterally. Chest: Decreased breath sounds at the bases, otherwise clear to auscultation no crackles no wheezes no chest wall tenderness no intercostal retractions. Heart: First heart sound is depressed, second heart sounds normal, there is systolic ejection murmur 2/6 located in the left sternal border. Abdomen: Soft, nontender, nondistended, positive bowel sounds. Extremities: There is no edema, no calf tenderness, dorsalis pedis +1 bilaterally. Neurologic examination: Patient is stuporous opens her eyes response to verbal stimuli. - Labs CBC & Chem 7: 02/18/20 04:46 02/18/20 04:46 Labs: Abnormal Lab Results - Last 24 Hours (Table) 02/17/20 02/17/20 02/18/20 Range/Units 16:58 20:21 04:46 RBC 3.03 L (3.80-5.40) m/uL Hgb 9.4 L (11.4-16.0) gm/dL Hct 30.0 L (34.0-46.0) % Plt Count 125 L (150-450) k/uL Chloride (98-107) mmol/L BUN (7-17) mg/dL Creatinine (0.52-1.04) mg/dL Glucose (74-99) mg/dL POC Glucose (mg/dL) 116 H 125 H (75-99) mg/dL Calcium (8.4-10.2) mg/dL Ionized Calcium Neal (4.5-5.3) mg/dL Total Protein (6.3-8.2) g/dL Albumin (3.5-5.0) g/dL 02/18/20 02/18/20 02/18/20 Range/Units 04:46 07:29 07:34 RBC (3.80-5.40) m/uL Hgb (11.4-16.0) gm/dL Hct (34.0-46.0) % Plt Count (150-450) k/uL Chloride 110 H (98-107) mmol/L BUN 44 H (7-17) mg/dL Creatinine 1.90 H (0.52-1.04) mg/dL Glucose 105 H (74-99) mg/dL POC Glucose (mg/dL) 103 H (75-99) mg/dL Calcium 6.3 L* (8.4-10.2) mg/dL Ionized Calcium Neal 3.9 L (4.5-5.3) mg/dL Total Protein 5.0 L (6.3-8.2) g/dL Albumin 2.4 L (3.5-5.0) g/dL Assessment and Plan Assessment: Assessment and plan: 1. Acute kidney injury secondary to acute tubular necrosis due to poor oral intake and the use of diuretics in a patient with a prior history of ischemic cardiomyopathy and probably reduce effective blood flow to the kidneys. The patient will be started on IV fluid in the form of half-normal saline at 100 mL an hour, monitor input and output and daily weight continue Romero catheter for close drainage, numbers are improving we will continue to monitor the CMP and a daily basis per 2. Hyperkalemia secondary to acute kidney injury. Resolved. 3. Anion gap metabolic acidosis due to acute kidney injury. Monitor the patient CMP. This has resolved. 4. UTI. Start the patient on Rocephin 1 g IV piggyback every 24 hours. 5. History of coronary artery disease post PCI. Continue patient on aspirin 81 mg once every day, Lipitor 40 mg orally once every day, Plavix 75 mg orally once every day, hold off RICKI inhibitor due to the patient's acute kidney injury. 6. Hyperlipidemia. Continue Lipitor 40 mg orally once every day. 7. Hypothyroidism. Continue patient on Synthroid 75 g orally once every day. 8. Diabetes mellitus type 2. Restart the patient on sliding scale insulin for now as the patient is not eating more than 25% of her meal. 9. Hypertension and hypertensive cardiovascular disease. We will continue Coreg 12.5 mg orally twice every day as well as hydralazine 20 mg IV push every 4 hours as needed for systolic greater than 160. 10. Vascular dementia. Currently on Aricept 10 mg orally bedtime. 11. Anemia. Keep hemoglobin greater than 8. 12. DVT prophylaxis. Heparin 5000 units subcutaneously every 12 hours. 13. GI prophylaxis. Continue the patient on Protonix 40 mg and we will switch her to oral. 14. Depression with poor appetite. Start the patient on mirtazapine 15 mg at bedtime. 15. Full code. 16. Medically stable to be transferred to the medical surgical floor. 17. Physical therapy evaluation to return back to [facility]. 18. Discontinue Romero catheter.
[2020-02-18 12:32] LABS: Glucose,Whole Blood 102 mg/dL (75-99)
[2020-02-18] MEDS: SODIUM CHLORIDE 0.45% 1,000 ML IV SCH (12:34)
--- NOTE | 2020-02-18 15:50 | PN ---
PROGRESS NOTE PULMONARY/CRITICAL CARE PROGRESS NOTE: DATE OF SERVICE: 02/18/2020 This is an 85-year-old female who was admitted back on February 13 for hyperkalemia and acute kidney injury. Currently the patient is on 2 L by nasal cannula and saline at 10 mL/hour. The patient has a history of acute kidney injury, acute hyperkalemia, metabolic acidosis, urinary tract infection, CAD with previous stenting, diabetes, hypertension, hyperlipidemia, prior history of myocardial infarction, hypothyroidism and vascular dementia. Currently the patient is an overflow patient waiting for a bed on the medical/surgical floor. She has no complaints today. She is resting comfortably. PHYSICAL EXAMINATION: VITAL SIGNS: Current vital signs are reviewed. Temperature 98.2, heart rate 87, respiratory rate 16, blood pressure 139/43, mean 75, two-liter saturation 98%. GENERAL APPEARANCE: Appears in no acute distress. HEENT EXAMINATION: Grossly unremarkable. Mucous membranes are moist. Nasal oxygen noted. NECK: Supple. Full range of motion. No adenopathy, thyromegaly or neck vein distention. CARDIOVASCULAR: Examination reveals regular rhythm and rate. Heart rate 87 beats per minute. S1, S2 normal. There is no murmur. LUNGS: Lungs reveal clear breath sounds. No wheezes, rhonchi or crackles. ABDOMEN: Soft. Bowel sounds are heard. EXTREMITIES: Intact. No cyanosis, clubbing or significant edema. SKIN: Without rash. NEUROLOGIC: Neurologic examination is brief but nonfocal. LABS: Reviewed. White count 6.4, hemoglobin 9.4, hematocrit 30, platelet count 125,000. Sodium 142, potassium 4.5, chloride 110, CO2 26. Anion gap is 6. BUN and creatinine were 44 and 1.90. Calcium 6.3, albumin 2.4. No recent chest x-ray to report. Microbiology is showing E coli in the urine. MEDICATIONS: Reviewed. Currently she is on Tylenol, aspirin, Lipitor, Coreg, Rocephin, Plavix, Aricept, subcutaneous heparin, hydralazine, levothyroxine, Remeron, Narcan, Zofran, Protonix and saline IV. ASSESSMENT: 1. Acute kidney injury secondary to dehydration, RICKI inhibitors and Escherichia coli urinary tract infection. 2. Acute hyperkalemia, secondary to acute kidney injury. 3. Possible underlying chronic kidney disease. 4. Acute metabolic acidosis secondary to acute kidney injury. 5. Escherichia coli urinary tract infection. 6. Coronary artery disease with previous percutaneous coronary intervention. 7. Diabetes mellitus, type 2. 8. Hypertension. 9. Hyperlipidemia. 10.Prior history of myocardial infarction. 11.Hypothyroidism. 12.Vascular dementia. PLAN: The patient remains on Rocephin for her E coli urinary tract infection. She remains on GI and DVT prophylaxis. Will continue to follow. Prognosis is guarded. No additional recommendations are made. Waiting for a bed on the medical/surgical floor. MMODL / IJN: [id number] /
--- NOTE | 2020-02-18 15:50 | PN ---
PROGRESS NOTE Patient is seen for followup for acute kidney injury. Renal function has improved. Serum creatinine is down to 1.9 from initial reading of 12.43 on admission. Patient has been maintained on IV fluids. This morning she is awake, comfortable. She is not in any acute distress. Blood pressure this morning was 139/43, heart rate 87 per minute, she is afebrile. Examination shows bilateral lower extremities to be wrapped. LEARNING OPERATIONS SPECIALIST exam grossly intact. Abdomen is soft, nontender. Decreased breath sounds at the bases. LEARNING OPERATIONS SPECIALIST exam grossly intact. LABS: Show hemoglobin 9.4, sodium 142, potassium 4.5, BUN 44, serum creatinine 1.9, calcium 6.3. ASSESSMENT: 1. Acute kidney injury, prerenal associated with severe volume depletion, currently significantly improved. The patient is maintained on IV fluids. 2. Escherichia coli urinary tract infection, maintained on Rocephin. 3. Severe volume depletion, currently improved. 4. Hyperkalemia associated with acute kidney injury metabolic acidosis on initial admission along with use of RICKI inhibitors, now resolved. 5. Hypertension, currently controlled. PLAN: Encourage increased oral intake. Check chest x-ray in a.m. and if patient has good oral intake, we can decrease her fluids. MMODL / IJN: [id number] /
[2020-02-18 17:18] LABS: Glucose,Whole Blood 135 mg/dL (75-99)
[2020-02-18] MEDS: ASPIRIN 81 MG PO SCH (17:38)
[2020-02-18] MEDS: ATORVASTATIN 40 MG TAB PO SCH (21:01)
[2020-02-18] MEDS: MIRTAZAPINE 15 MG TAB PO SCH (21:01)
[2020-02-18] MEDS: DONEPEZIL 10 MG TAB PO SCH (21:01)
[2020-02-18 21:11] LABS: Glucose,Whole Blood 99 mg/dL (75-99)
[2020-02-19] MEDS: LEVOTHYROXINE 75 MCG TAB PO SCH (05:05)
[2020-02-19] MEDS: SODIUM CHLORIDE 0.45% 1,000 ML IV SCH ×2 (05:05→15:28)
[2020-02-19 06:45] LABS: Basophils % (A) 0 %; Eosinophils # (A) 0.2 k/uL (0-0.7); Eosinophils % (A) 3 %; HCT 30.7 % (34.0-46.0); HGB 9.9 gm/dL (11.4-16.0); Hypochromasia Slight; Lymphocytes # (A) 1.2 k/uL (1.0-4.8); Lymphocytes % (A) 22 %; MCH 31.1 pg (25.0-35.0); MCHC 32.1 g/dL (31.0-37.0); MCV 96.9 fL (80.0-100.0); Mean Platelet Volume 8.2; Monocytes # (A) 0.4 k/uL (0-1.0); Monocytes % (A) 6 %; Neutrophils # (A) 3.8 k/uL (1.3-7.7); Neutrophils % (A) 67 %; Platelet Count 108 k/uL (150-450); RBC 3.17 m/uL (3.80-5.40); RDW 13.1 % (11.5-15.5); WBC 5.7 k/uL (3.8-10.6)
[2020-02-19 06:59] LABS: Potassium 4.2 mmol/L (3.5-5.1)
[2020-02-19 07:06] LABS: Calcium 6.4 mg/dL (8.4-10.2)
[2020-02-19 07:39] LABS: Glucose,Whole Blood 93 mg/dL (75-99)
[2020-02-19] MEDS: HEPARIN SODIUM,PORCINE 5,000 UNIT/ML 1 ML VIAL SQ SCH ×2 (07:58→19:56)
[2020-02-19] MEDS: CLOPIDOGREL 75 MG TAB PO SCH (07:58)
[2020-02-19] MEDS: CARVEDILOL 6.25 MG TAB PO SCH ×2 (07:58→17:14)
[2020-02-19] MEDS: PANTOPRAZOLE 40 MG TABLET PO SCH (07:58)
[2020-02-19 11:28] LABS: Glucose,Whole Blood 84 mg/dL (75-99)
--- NOTE | 2020-02-19 11:54 | P.PN ---
Subjective Progress Note Date: 02/19/20 Principal diagnosis: Altered mental status, acute kidney injury, hyperkalemia 85 -year-old white female patient of Dr. Gutierrez, a resident [facility], with past medical history of coronary artery disease with PCI, with previous history of myocardial infarction, hypertension, hyperlipidemia, diabetes mellitus type 2, vascular dementia, hypothyroidism, osteoarthritis, who was brought into the hospital on 02/14/2020 for concern of acute hypokalemia, and acute kidney injury. Patient is a poor historian, most of the history was obtained from the chart. Apparently patient has been nauseous, vomiting, has had poor oral intake or 2 days prior to presentation. Unknown if she also had any diarrhea. No fevers. EKG shows sinus bradycardia with a rate of [address] changes. Lab work showed a normal white count of 8.4, hemoglobin of 12.6, quit addition profile was within normal limits, potassium was 8.5, chloride was 114, CO2 was only 8, anion gap was 15, BUN is 157, and creatinine 12.43, Coronavirus PCR was negative. No pulmonary complaints, chest x-ray shows no acute pulmonary process. Urinalysis showed evidence of urinary tract infection, patient was started on Rocephin for antibiotic coverage. Her hyperkalemia has been treated with combination of sodium bicarbonate, IV fluids, Kayexalate, insulin, and calcium gluconate. Roland ingram's labs showed white blood cell count of 6.2, hemoglobin is 10.5, sodium of 141, potassium is down to 5.2, chloride is 112, CO2 16, BUN is 155, creatinine is 10.09. Nephrology is following the patient, and is medically treating the patient, she remains on bicarbonate infusion at a rate of 125 ML per hour. Hemodynamically patient is stable, she is not requiring any drips, she started to produce some urine. The patient is seen today 02/16/2020 in follow-up in the intensive care unit. She is currently resting comfortably in bed. Awake and alert in no acute distress. She is maintaining O2 saturations in the high 90s on 2 L/m per nasal cannula. Chest x-ray reveals atelectasis of the lung bases more so on the left. She is currently on a bicarb drip at 125 ML's per hour. 0.9 normal saline at 10 MLS per hour. Urine culture is positive for gram-negative bacilli. She is currently on ceftriaxone. White count 5.3. Hemoglobin 10.5. Platelet count 132,000. Sodium 145. Potassium 4.0. Chloride 104. Bicarb 31. BUN 115. Creatinine 5.08. Glucose 145. The patient is seen today 02/17/2020 in follow-up in the intensive care unit. She is currently awake and alert in no acute distress. Maintaining O2 saturations in the 90s on 2 L/m per nasal cannula. She's been afebrile. He modynamically stable. Urine culture positive for E. coli. White count 5.4. Hemoglobin 9.7. Platelets 121. Sodium 134. Potassium 4.2. Creatinine 2.83. She is continued on ceftriaxone. Patient is seen today 02/19/2020 in follow-up on the regular medical floor. She is currently resting comfortably and patent. Laying flat. On room air. White count 5.7. Hemoglobin 9.9. Platelets 108. Sodium 140. Potassium 4.2. Creatinine 1.62. Objective - Vital Signs Vital signs: Vital Signs Temp 98.2 F 02/19/20 11:49 Pulse 66 02/19/20 11:49 Resp 18 02/19/20 11:49 BP 165/67 02/19/20 11:49 Pulse Ox 95 02/19/20 11:49 Intake & Output 02/18/20 02/19/20 02/19/20 18:59 06:59 18:59 Intake Total 600 825 Output Total 800 500 Balance -200 325 Intake: IV 600 Sodium Chloride 0.9% 1, 600 000 ml @ 100 mls/hr IV . Q10H [facility] Rx#:[id number] Intake, IV Titration 825 Amount Sodium Chloride 0.45% 1, 825 000 ml @ 75 mls/hr IV . [id number] [facility] Rx#:[id number] Output: Urine 800 500 Straight 500 Other: Voiding Method Indwelling Catheter Diaper Diaper # Voids 0 - Exam GENERAL EXAM: Awake, 85-year-old female patient, maintaining O2 saturation the high 90s on room air, comfortable in no apparent distress. HEAD: Normocephalic/atraumatic. EYES: Normal reaction of pupils, equal size. Conjunctiva pink, sclera white. NOSE: Clear with pink turbinates. THROAT: No erythema or exudates. NECK: No masses, no JVD, no thyroid enlargement, no adenopathy. CHEST: No chest wall deformity. Symmetrical expansion. LUNGS: Equal air entry with no crackles, rhonchi, wheeze. CVS: Regular rate and rhythm, normal S1 and S2, no gallops, no murmurs, no rubs ABDOMEN: Soft, nontender. No hepatosplenomegaly, normal bowel sounds, no guarding or rigidity. EXTREMITIES: No clubbing, no edema, no cyanosis, 2+ pulses and upper and lower extremities. MUSCULOSKELETAL: Muscle strength and tone normal. SPINE: No scoliosis or deformity SKIN: No rashes CENTRAL NERVOUS SYSTEM: No focal deficits, tone is normal in all 4 extremities. - Labs CBC & Chem 7: 02/19/20 06:07 02/19/20 06:07 Labs: Abnormal Lab Results - Last 24 Hours (Table) 02/18/20 02/18/20 02/19/20 Range/Units 12:31 17:02 06:07 RBC 3.17 L (3.80-5.40) m/uL Hgb 9.9 L (11.4-16.0) gm/dL Hct 30.7 L (34.0-46.0) % Plt Count 108 L (150-450) k/uL Chloride (98-107) mmol/L BUN (7-17) mg/dL Creatinine (0.52-1.04) mg/dL POC Glucose (mg/dL) 102 H 135 H (75-99) mg/dL Calcium (8.4-10.2) mg/dL 02/19/20 Range/Units 06:07 RBC (3.80-5.40) m/uL Hgb (11.4-16.0) gm/dL Hct (34.0-46.0) % Plt Count (150-450) k/uL Chloride 109 H (98-107) mmol/L BUN 30 H (7-17) mg/dL Creatinine 1.62 H (0.52-1.04) mg/dL POC Glucose (mg/dL) (75-99) mg/dL Calcium 6.4 L* (8.4-10.2) mg/dL Assessment and Plan Assessment: #1. Acute kidney injury multifactorial, related to nausea, vomiting, dehydration, RICKI inhibitors and urinary tract infection secondary to E. coli. Completed ceftriaxone. Creatinine 1.6 to. #2. Acute hyperkalemia related to the above improved with medical treatment, current potassium 4.2 #3. Possibility of chronic kidney disease, unspecified with unknown baseline and renal function, previous episode of acute kidney injury in September 2019 #4. Acute metabolic acidosis related to acute kidney injury moving with bicarbonate replacement, recovered #5. Acute urinary tract infection, likely covered with Rocephin, cultures pending #6. Coronary artery disease with previous PCI #7. Diabetes mellitus type 2 #8. Hypertension #9. Hyperlipidemia #10. Previous history of myocardial infarction #11. Hypothyroidism #12. Vascular dementia Plan: The patient was seen and evaluated by Dr. Engel She is stable from the pulmonary and critical care standpoint We will see her on an as-needed basis I, the cosigning physician, performed a history & physical examination of the patient. Lungs sounds clear. Maintaining good O2 saturations in the 90s on room air. I discussed the assessment and plan of care with my nurse practitioner, Aishwarya Almaguer. I attest to the above note as dictated by her.
--- NOTE | 2020-02-19 12:10 | XR ---
EXAMINATION TYPE: XR chest 1V DATE OF EXAM: 02/19/2020 HISTORY: Shortness of breath. COMPARISON: February 16, 2020 TECHNIQUE: Single view of the chest is submitted. FINDINGS: Demonstrated are scattered senescent parenchymal change. Persistent but improving patchy infiltrate left lower lobe. The heart is stable. Hilar and mediastinal structures are within normal limits. Degenerative changes are seen of the dorsal spine. IMPRESSION: 1. Persistent but improving patchy infiltrate left lower lobe.
--- NOTE | 2020-02-19 13:02 | P.DS ---
Providers Date of admission: 02/14/20 18:17 Expected date of discharge: 02/20/20 Attending physician: Lyle Gutierrez Consults: 02/14/20 16:52 Consult Physician Urgent Consulting Provider: Italo Botello Consult Reason/Comments: arf, hyperkalemia Do you want consulting provider notified?: Yes 02/14/20 18:17 Consult Physician Stat Consulting Provider: Juan Nobles Consult Reason/Comments: criticalcare Do you want consulting provider notified?: Already Contacted Primary care physician: Lyle Gutierrez Hospital Course: This is an 85-year-old female with a previous medical history significant for coronary artery disease status post myocardial infarction with PCI and his current intervention and ischemic cardiomyopathy, hypertension and hypertensive cardiovascular disease, hyperlipidemia, diabetes mellitus type 2, vascular dementia, hypothyroidism, patient resides at [facility] for chronic care, patient developed to have a significant the poor oral intake of fluid and food over the last few days and the she was found unresponsive by the staff at [facility] a laboratory evaluation was ordered and that showed that the patient is an acute kidney injury with hyperkalemia along with severe metabolic acidosis, patient was directed to be transferred to the emergency department at [facility] where she was evaluated in the ER and she was found to have hyperkalemia as well as acute kidney injury and the patient was admitted to the intensive care unit, she was started on IV fluid resuscitation, she will be seen in consultation by load blocker as well as nephrology. 5/2: Patient is doing a lot better today she is more awake and more alert she continues to have a poor appetite, she is not eating much, she is taken off bicarbonate drip, her numbers continue to drift down, nephrology is following, patient denies any chest pain, shortness breath, she has no abdominal pain, nausea or vomiting or diarrhea. 5/3: Patient is laying down in bed that does not appear to be in acute distress, she can use to be deeply depressed she is not eating or drinking much patient kidney function is improving at this point in time we will try to move the patient out of the intensive care unit to the medical surgical floor this point I'll restart the patient back on a small dose of mirtazapine 7.5 mg orally once every day. As an antidepressant as well as an appetite stimulant while the patient is here we'll continue with the monitoring very closely patient denies any chest pain at this time she has no shortness breath that she does have some nausea she will be getting Zofran for that, she has no bowel movement yet she does not appear to be in acute distress at this point in time. 02/17: Patient sitting up in chair she appears extremely weak at this point in time yesterday developed to have a significant accelerated hypertension for which she was started on hydralazine 20 mg IV push every 4 hours as needed she did use it once, increase her carvedilol to 12.5 mg orally twice every day, her blood pressure is much better, patient denies any chest pain, or shortness breath, she has no abdominal pain nausea or vomiting she continues to have very poor appetite she continues to feel very weak, physical therapy will be consulted patient Romero catheter will be discontinued and she will be moved to a medical surgical floor today. discharge diagnoses: 1. Acute kidney injury secondary to acute tubular necrosis due to poor oral intake and the use of diuretics in a patient with a prior history of ischemic cardiomyopathy and probably reduce effective blood flow to the kidneys. 2. Hyperkalemia secondary to acute kidney injury. 3. Anion gap metabolic acidosis due to acute kidney injury. 4. UTI. 5. History of coronary artery disease post PCI. 6. Hyperlipidemia. 7. Hypothyroidism. 8. Diabetes mellitus type 2. 9. Hypertension and hypertensive cardiovascular disease. 10. Vascular dementia. 11. Anemia. Patient Condition at Discharge: Serious Plan - Discharge Summary Discharge Rx Participant: No New Discharge Prescriptions: New Cefuroxime Axetil [Ceftin] 250 mg PO BID 7 Days #14 tab Continue Levothyroxine Sodium [Synthroid] 75 mcg PO DAILY@0600 Donepezil [Aricept] 10 mg PO HS@2100 Atorvastatin [Lipitor] 40 mg PO HS Aspirin 81 mg PO DAILY@1700 Mirtazapine [Remeron] 15 mg PO HS@2100 Bisacodyl [Dulcolax] 10 mg RECTAL Q24H PRN PRN Reason: Constipation Acetaminophen [Tylenol 8 Hour] 650 mg PO Q4H PRN PRN Reason: general discomfort INSULIN ASPART (NovoLOG) [NovoLOG (formulary)] See Protocol SQ ACHS Carvedilol [Coreg*] 12.5 mg PO BID@0800,1700 Clopidogrel [Plavix] 75 mg PO DAILY@0800 Glucerna Shake 237 ml PO DAILY@1200 Discontinued Loperamide HCl [Loperamide] 2 mg PO DAILY PRN PRN Reason: Loose Stool [place] Breakfast Essentials 1 packet PO BID@0800,1700 Spironolactone 12.5 mg PO DAILY@0800 Insulin Detemir (Levemir) [Levemir] 23 unit SQ HS@2100 Magnesium Hydroxide [Milk of Magnesia Concentrate] 7,200 mg PO Q48H PRN PRN Reason: Constipation Lisinopril [Zestril] 10 mg PO DAILY@0800 Discharge Medication List Aspirin 81 mg PO DAILY@1700 09/22/19 [History] Atorvastatin [Lipitor] 40 mg PO HS 09/22/19 [History] Donepezil [Aricept] 10 mg PO HS@2100 09/22/19 [History] Levothyroxine Sodium [Synthroid] 75 mcg PO DAILY@0600 09/22/19 [History] Mirtazapine [Remeron] 15 mg PO HS@2100 09/22/19 [History] Acetaminophen [Tylenol 8 Hour] 650 mg PO Q4H PRN 02/14/20 [History] Bisacodyl [Dulcolax] 10 mg RECTAL Q24H PRN 02/14/20 [History] Carvedilol [Coreg*] 12.5 mg PO BID@0800,1700 02/14/20 [History] Clopidogrel [Plavix] 75 mg PO DAILY@0800 02/14/20 [History] Glucerna Shake 237 ml PO DAILY@1200 02/14/20 [History] INSULIN ASPART (NovoLOG) [NovoLOG (formulary)] See Protocol SQ ACHS 02/14/20 [History] Cefuroxime Axetil [Ceftin] 250 mg PO BID 7 Days #14 tab 02/19/20 [Rx] Discharge Disposition: TRANSFER TO SNF/ECF
--- NOTE | 2020-02-19 15:44 | PN ---
PROGRESS NOTE Patient is seen for followup for acute kidney injury. She is currently doing very well. Serum creatinine continues to improve. It is down to 1.6 now. Patient remains on IV fluids which were decreased to 75 mL an hour. PHYSICAL EXAMINATION: On examination, blood pressure this morning was 133/58, heart rate of 66 per minute. Patient is afebrile. She appears euvolemic. No evidence of edema lower extremities. Abdomen is soft, nontender. Patient is resting comfortably, she is arousable. CHAR CONVEYOR TENDER CELLAR exam grossly intact. LABS: Show hemoglobin 9.9, sodium 140, potassium 4.2, chloride 109, BUN 30, creatinine 1.62. Calcium was low at 6.4. ASSESSMENT: 1. Acute kidney injury, mostly associated with severe volume depletion, ATN, hypotension, currently improving. 2. Escherichia coli urinary tract infection, maintained on Rocephin. 3. Hyperkalemia associated acute kidney injury on initial admission, now resolved. PLAN: Continue to encourage increased oral intake. Continue IV fluids. Monitor labs if patient is discharged to rehab. Continue off RICKI inhibitors for now. MMODL / IJN: [id number] /
[2020-02-19] MEDS: ASPIRIN 81 MG PO SCH (17:14)
[2020-02-19 17:26] LABS: Glucose,Whole Blood 80 mg/dL (75-99)
[2020-02-19] MEDS: MIRTAZAPINE 15 MG TAB PO SCH (19:56)
[2020-02-19] MEDS: ATORVASTATIN 40 MG TAB PO SCH (19:56)
[2020-02-19] MEDS: DONEPEZIL 10 MG TAB PO SCH (19:56)
[2020-02-19 20:38] LABS: Glucose,Whole Blood 81 mg/dL (75-99)
[2020-02-20] MEDS: LEVOTHYROXINE 75 MCG TAB PO SCH (05:38)
[2020-02-20] MEDS: SODIUM CHLORIDE 0.45% 1,000 ML IV SCH (05:38)
[2020-02-20] MEDS: hydrALAZINE HCL 20 MG/ML 1 ML VIAL IVP PRN (05:38)
[2020-02-20 07:15] LABS: Glucose,Whole Blood 63 mg/dL (75-99)
[2020-02-20 07:40] LABS: Glucose,Whole Blood 82 mg/dL (75-99)
[2020-02-20] MEDS: CLOPIDOGREL 75 MG TAB PO SCH (09:55)
[2020-02-20] MEDS: CARVEDILOL 6.25 MG TAB PO SCH ×2 (09:55→17:35)
[2020-02-20] MEDS: PANTOPRAZOLE 40 MG TABLET PO SCH (09:56)
[2020-02-20] MEDS: HEPARIN SODIUM,PORCINE 5,000 UNIT/ML 1 ML VIAL SQ SCH ×2 (09:56→20:18)
[2020-02-20] MEDS ORDERED: FUROSEMIDE 10 MG/ML 4 ML VIAL IV STA (10:51)
--- NOTE | 2020-02-20 10:51 | P.PN ---
Subjective Progress Note Date: 02/20/20 This is an 85-year-old female with a previous medical history significant for coronary artery disease status post myocardial infarction with PCI and his current intervention and ischemic cardiomyopathy, hypertension and hypertensive cardiovascular disease, hyperlipidemia, diabetes mellitus type 2, vascular dementia, hypothyroidism, patient resides at [facility] for chronic care, patient developed to have a significant the poor oral intake of fluid and food over the last few days and the she was found unresponsive by the staff at [facility] a laboratory evaluation was ordered and that showed that the patient is an acute kidney injury with hyperkalemia along with severe metabolic acidosis, patient was directed to be transferred to the emergency department at [facility] where she was evaluated in the ER and she was found to have hyperkalemia as well as acute kidney injury and the patient was admitted to the intensive care unit, she was started on IV fluid resuscitation, she will be seen in consultation by derrick man as well as nephrology. 5/2: Patient is doing a lot better today she is more awake and more alert she continues to have a poor appetite, she is not eating much, she is taken off bicarbonate drip, her numbers continue to drift down, nephrology is following, patient denies any chest pain, shortness breath, she has no abdominal pain, nausea or vomiting or diarrhea. 5/3: Patient is laying down in bed that does not appear to be in acute distress, she can use to be deeply depressed she is not eating or drinking much patient kidney function is improving at this point in time we will try to move the patient out of the intensive care unit to the medical surgical floor this point I'll restart the patient back on a small dose of mirtazapine 7.5 mg orally once every day. As an antidepressant as well as an appetite stimulant while the patient is here we'll continue with the monitoring very closely patient denies any chest pain at this time she has no shortness breath that she does have some nausea she will be getting Zofran for that, she has no bowel movement yet she does not appear to be in acute distress at this point in time. 5/4: Patient sitting up in chair she appears extremely weak at this point in time yesterday developed to have a significant accelerated hypertension for which she was started on hydralazine 20 mg IV push every 4 hours as needed she did use it once, increase her carvedilol to 12.5 mg orally twice every day, her blood pressure is much better, patient denies any chest pain, or shortness breath, she has no abdominal pain nausea or vomiting she continues to have very poor appetite she continues to feel very weak, physical therapy will be consulted patient Romero catheter will be discontinued and she will be moved to a medical surgical floor today. 02/19: Patient sitting up in bed that she appears a bit short of breath today chest x-ray was ordered she will be given Lasix 40 mg IV push 1, we will monitor the patient very closely today hopefully she will be able to be discharged back to [facility] hopefully in the next 24 hours. Objective - Vital Signs Vital signs: Vital Signs Temp 99.3 F 02/20/20 05:35 Pulse 70 02/20/20 05:35 Resp 18 02/20/20 05:35 BP 128/56 02/20/20 06:11 Pulse Ox 93 L 02/20/20 05:35 Intake & Output 02/19/20 02/20/20 02/20/20 18:59 06:59 18:59 Intake Total 825 Balance 825 Intake: Intake, IV Titration 825 Amount Sodium Chloride 0.45% 1, 825 000 ml @ 75 mls/hr IV . [id number] [facility] Rx#:[id number] Other: Voiding Method Diaper Diaper # Voids 3 1 - Exam Review of Systems Constitutional: Reports anorexia, Reports fatigue, Reports lethargy, Reports malaise, Reports weakness Eyes: denies blurred vision, denies bulging eye, denies decreased vision Ears: bilateral: decreased hearing Ears, nose, mouth and throat: Denies dysphagia, Denies neck lump, Denies sore throat Cardiovascular: Denies chest pain, Denies decreased exercise tolerance, Denies dyspnea on exertion, Denies lightheadedness, Denies rapid heart beat, Denies shortness of breath, Denies syncope Respiratory: Denies congestion, Denies cough, Denies dyspnea, Denies home oxygen, Denies sleep apnea, Denies snoring, Denies wheezing Gastrointestinal: Reports loss of appetite, Denies abdominal pain, Denies bloating, Denies BRBPR, Denies heartburn, Denies melena, Denies nausea, Denies vomiting Genitourinary: Denies dysuria, Denies nocturia Menstruation: Reports postmenopausal Musculoskeletal: Reports gait dysfunction Musculoskeletal: absent: ankle pain, ankle stiffness, ankle swelling, elbow pain, elbow stiffness, elbow swelling, foot pain, foot stiffness, foot swelling, hand pain, hand stiffness, hand swelling, hip pain, hip stiffness, hip swelling, knee pain, knee stiffness, knee swelling, shoulder pain, shoulder stiffness, shoulder swelling, wrist pain, wrist stiffness, wrist swelling Integumentary: Denies pruritus, Denies rash Neurological: Reports confusion, Reports gait dysfunction, Reports memory loss, Reports weakness Psychiatric: Reports anxiety, Reports depression, Denies sadness/tearfulness, Denies sleep disturbances, Denies suicidal ideation Endocrine: Denies fatigue, Denies weight change Physical Exam: HEENT: Head is atraumatic, normocephalic, pupils were equal round reactive to light and accommodations, extraocular muscle movements were intact, mucous membranes of the mouth are somewhat dry. Neck: Supple, no JVD, decreased carotid upstroke bilaterally. Chest: Decreased breath sounds at the bases, few rhonchi minimal electrophoresis minimal intercostal retractions. Heart: First heart sound is depressed, second heart sound is normal, there is systolic ejection murmur 2/6 located in the left sternal border. Abdomen: Soft, nontender, nondistended, positive bowel sounds. Extremities: There is no edema, no calf tenderness, dorsalis pedis +1 bilaterally. Neurologic examination: Patient is stuporous opens her eyes response to verbal stimuli. - Labs CBC & Chem 7: 02/19/20 06:07 02/19/20 06:07 Labs: Abnormal Lab Results - Last 24 Hours (Table) 02/20/20 Range/Units 07:12 POC Glucose (mg/dL) 63 L (75-99) mg/dL Assessment and Plan Assessment: Assessment and plan: 1. Acute respiratory insufficiency due to fluid overload. Chest x-ray was ordered of the patient Lasix 40 mg IV push 1 Hep-Lock IV. 2. Acute kidney injury secondary to acute tubular necrosis due to poor oral intake and the use of diuretics in a patient with a prior history of ischemic cardiomyopathy and probably reduce effective blood flow to the kidneys. resolved. 3. Hyperkalemia secondary to acute kidney injury. Resolved. 4. Anion gap metabolic acidosis due to acute kidney injury. Monitor the patient CMP. This has resolved. 5. UTI. Start the patient on cipro 250 mg orally bid. 6. History of coronary artery disease post PCI. Continue patient on aspirin 81 mg once every day, Lipitor 40 mg orally once every day, Plavix 75 mg orally once every day, hold off RICKI inhibitor due to the patient's acute kidney injury. 7. Hyperlipidemia. Continue Lipitor 40 mg orally once every day. 8. Hypothyroidism. Continue patient on Synthroid 75 g orally once every day. 9. Diabetes mellitus type 2. Restart the patient on sliding scale insulin for now as the patient is not eating more than 25% of her meal. 10. Hypertension and hypertensive cardiovascular disease. We will continue Coreg 12.5 mg orally twice every day as well as hydralazine 20 mg IV push every 4 hours as needed for systolic greater than 160. 11. Vascular dementia. Currently on Aricept 10 mg orally bedtime. 12. Anemia. Keep hemoglobin greater than 8. 13. DVT prophylaxis. Heparin 5000 units subcutaneously every 12 hours. 14. GI prophylaxis. Continue the patient on Protonix 40 mg and we will switch her to oral. 15. Depression with poor appetite. Start the patient on mirtazapine 15 mg at bedtime. 16. DO NOT RESUSCITATE.. 17. Medically stable to be transferred to the medical surgical floor. 18. Physical therapy evaluation to return back to [facility] tomorrow morning.
[2020-02-20] MEDS ORDERED: CALCIUM GLUCONATE 1 GM in SODIUM CHLORIDE 0.9% 100 ML IVPB ONE (10:57)
--- NOTE | 2020-02-20 11:21 | XR ---
EXAMINATION TYPE: XR chest 1V DATE OF EXAM: 02/20/2020 CLINICAL HISTORY: Wheezing . TECHNIQUE: Single AP portable upright view of the chest is obtained. COMPARISON: Chest x-ray from one day earlier and older x-ray studies. FINDINGS: There is chronic parenchymal change with persistent lateral left basilar opacity. Right lynne ng remains clear. Cardiac silhouette size stable and mildly enlarged with atherosclerotic change in t he aortic knob. Osseous structures demineralized with dextroconvex scoliosis centered mid thoracic sp ine redemonstrated. IMPRESSION: Overall stable findings, chronic parenchymal changes and mild cardiomegaly with persist ent lateral left basilar acute infiltrate and/or atelectasis. No new infiltrates seen.
[2020-02-20 11:29] LABS: Glucose,Whole Blood 76 mg/dL (75-99)
--- NOTE | 2020-02-20 12:52 | PN ---
PROGRESS NOTE PULMONARY/CRITICAL CARE PROGRESS NOTE: DATE OF SERVICE: 02/20/2020 An 85-year-old female who was again seen in her room. She is resting comfortably. She is not receiving any supplemental oxygen. She is getting 0.45 saline at 20 mL an hour. She has a history of acute kidney injury, acute hyperkalemia, chronic kidney disease, metabolic acidosis, urinary tract infection, CAD, and diabetes mellitus. The patient possibly could be discharged within the next 24-48 hours or so. Today, she has no particular pulmonary complaints. She denies any shortness of breath, chest tightness, wheezing, cough or phlegm production. Current vital signs are reviewed. Temperature is 98 degrees, heart rate 65, respiratory rate 18, blood pressure 171/72 mean 105, room air saturation 96%. She appears in no acute distress. HEENT: Examination is grossly unremarkable. Mucous membranes are moist. No supplemental oxygen. NECK: Supple. Full range of motion. No adenopathy. Neck veins are flat. CARDIOVASCULAR: Examination reveals regular rhythm and rate. Heart rate 65 beats per minute. S1, S2 normal. LUNGS: Reveal clear breath sounds. No wheezes, rhonchi, or crackles. ABDOMEN: Obese. Bowel sounds are heard. EXTREMITIES: Intact. Minimal edema. No cyanosis or clubbing. SKIN: Without rash. NEUROLOGIC: Examination is brief but nonfocal. LABS: Reviewed. No new labs from today. Her most recent kidney function from yesterday showed a BUN of 30 and creatinine of 1.62. Microbiology showing it to be positive for E coli in the urine. The most recent chest x-ray done today shows stable findings with mild cardiomegaly and some minimal atelectasis or infiltrate at the bases. Medications are reviewed. Everything seems to be appropriate. ASSESSMENT: 1. Acute kidney injury, secondary to dehydration, RICKI inhibitors, and E coli urinary tract infection. 2. Acute hyperkalemia secondary to acute kidney injury. 3. History of chronic kidney disease, possibly from diabetic nephropathy. 4. Acute metabolic acidosis, resolved. 5. Escherichia coli urinary tract infection. 6. Coronary artery disease with previous PCI. 7. Diabetes mellitus, type 2, rule out diabetic nephropathy. 8. Hypertension. 9. Hyperlipidemia. 10.History of myocardial infarction. 11.Hypothyroidism. 12.Vascular dementia. PLAN: The patient is doing well. Her pulmonary status is stable. We will see the patient as needed. No additional recommendations are made. Prognosis is guarded. MMODL / IJN: [id number] /
--- NOTE | 2020-02-20 15:04 | PN ---
PROGRESS NOTE Patient is seen for followup for acute kidney injury which was mainly associated with volume depletion. Patient's renal function has improved significantly. She has been maintained on IV fluids; however, this morning she states she is not feeling well. She appears to be mildly short of breath. Patient has audible wheezing. This morning, blood pressure was 128/56, heart rate of 70 per minute, and a blood pressure was 172/52. She has O2 saturation 93% on room air. Examination of the lungs shows bilateral wheezing. Heart sounds are heard. Abdomen is soft, nontender. Examination of the lower extremities shows no significant edema. GAS SPECIALIST exam grossly intact. LABS: Not available from today. Sodium 140, potassium 4.2 yesterday. Serum creatinine 1.62 yesterday. ASSESSMENT: 1. Acute kidney injury, prerenal associated with severe volume depletion, hypotension, currently significantly improved. No labs from today. We will repeat labs in a.m. Patient is nonoliguric. I will hold the IV fluids and obtain a chest x-ray. Patient appears volume overloaded. 2. Escherichia coli urinary tract infection, maintained on Rocephin. 3. Hyperkalemia on initial admission, now resolved. PLAN: Hold IV fluids. Check chest x-ray. Encourage increased oral intake, repeat labs in a.m. MMODL / IJN: [id number] /
[2020-02-20 17:01] LABS: Glucose,Whole Blood 69 mg/dL (75-99)
[2020-02-20 17:30] LABS: Glucose,Whole Blood 86 mg/dL (75-99)
[2020-02-20] MEDS: ASPIRIN 81 MG PO SCH (17:35)
[2020-02-20] MEDS: ATORVASTATIN 40 MG TAB PO SCH (20:18)
[2020-02-20] MEDS: MIRTAZAPINE 15 MG TAB PO SCH (20:18)
[2020-02-20] MEDS: DONEPEZIL 10 MG TAB PO SCH (20:18)
[2020-02-20] MEDS: CIPROFLOXACIN HCL 250 MG TAB PO SCH (20:18)
[2020-02-20 20:45] LABS: Glucose,Whole Blood 93 mg/dL (75-99)
[2020-02-20 21:25] VITALS: RESP 16
[2020-02-21] MEDS: LEVOTHYROXINE 75 MCG TAB PO SCH (05:23)
[2020-02-21] MEDS: hydrALAZINE HCL 20 MG/ML 1 ML VIAL IVP PRN (05:23)
[2020-02-21 06:46] LABS: Glucose,Whole Blood 77 mg/dL (75-99)
[2020-02-21 07:02] LABS: Basophils % (A) 0 %; Eosinophils # (A) 0.2 k/uL (0-0.7); Eosinophils % (A) 4 %; HCT 30.7 % (34.0-46.0); HGB 9.8 gm/dL (11.4-16.0); Hypochromasia Slight; Lymphocytes # (A) 1.1 k/uL (1.0-4.8); Lymphocytes % (A) 23 %; MCH 30.7 pg (25.0-35.0); MCHC 31.8 g/dL (31.0-37.0); MCV 96.8 fL (80.0-100.0); Mean Platelet Volume 8.2; Monocytes # (A) 0.3 k/uL (0-1.0); Monocytes % (A) 7 %; Neutrophils # (A) 2.9 k/uL (1.3-7.7); Neutrophils % (A) 64 %; Platelet Count 148 k/uL (150-450); RBC 3.17 m/uL (3.80-5.40); RDW 12.7 % (11.5-15.5); WBC 4.6 k/uL (3.8-10.6)
[2020-02-21 07:25] LABS: Albumin 2.6 g/dL (3.5-5.0); Calcium 6.9 mg/dL (8.4-10.2); Potassium 3.9 mmol/L (3.5-5.1); Total Bilirubin 0.9 mg/dL (0.2-1.3); Total Protein 5.4 g/dL (6.3-8.2)
[2020-02-21] MEDS: HEPARIN SODIUM,PORCINE 5,000 UNIT/ML 1 ML VIAL SQ SCH (08:51)
[2020-02-21] MEDS: PANTOPRAZOLE 40 MG TABLET PO SCH (08:52)
[2020-02-21] MEDS: CLOPIDOGREL 75 MG TAB PO SCH (08:52)
[2020-02-21] MEDS: CARVEDILOL 6.25 MG TAB PO SCH (08:52)
[2020-02-21] MEDS: CIPROFLOXACIN HCL 250 MG TAB PO SCH (10:00)
[2020-02-21 11:14] LABS: Glucose,Whole Blood 101 mg/dL (75-99)
[2020-02-21 12:25] VITALS: BP 129/56; PULSE 62; TEMP 97.1
[2020-02-21 12:31] VITALS: BMI 30.6
--- NOTE | 2020-02-21 13:21 | P.DS ---
Providers Date of admission: 02/14/20 18:17 Expected date of discharge: 02/21/20 Attending physician: Lyle Gutierrez Consults: 02/14/20 16:52 Consult Physician Urgent Consulting Provider: Italo Botello Consult Reason/Comments: arf, hyperkalemia Do you want consulting provider notified?: Yes 02/14/20 18:17 Consult Physician Stat Consulting Provider: Juan Nobles Consult Reason/Comments: criticalcare Do you want consulting provider notified?: Already Contacted Primary care physician: Lyle Gutierrez Hospital Course: This is an 85-year-old female with a previous medical history significant for coronary artery disease status post myocardial infarction with PCI and his current intervention and ischemic cardiomyopathy, hypertension and hypertensive cardiovascular disease, hyperlipidemia, diabetes mellitus type 2, vascular dementia, hypothyroidism, patient resides at [facility] for chronic care, patient developed to have a significant the poor oral intake of fluid and food over the last few days and the she was found unresponsive by the staff at [facility] a laboratory evaluation was ordered and that showed that the patient is an acute kidney injury with hyperkalemia along with severe metabolic acidosis, patient was directed to be transferred to the emergency department at [facility] where she was evaluated in the ER and she was found to have hyperkalemia as well as acute kidney injury and the patient was admitted to the intensive care unit, she was started on IV fluid resuscitation, she will be seen in consultation by digital strategy director as well as nephrology. 5/2: Patient is doing a lot better today she is more awake and more alert she continues to have a poor appetite, she is not eating much, she is taken off bicarbonate drip, her numbers continue to drift down, nephrology is following, patient denies any chest pain, shortness breath, she has no abdominal pain, nausea or vomiting or diarrhea. 5/3: Patient is laying down in bed that does not appear to be in acute distress, she can use to be deeply depressed she is not eating or drinking much patient kidney function is improving at this point in time we will try to move the patient out of the intensive care unit to the medical surgical floor this point I'll restart the patient back on a small dose of mirtazapine 7.5 mg orally once every day. As an antidepressant as well as an appetite stimulant while the patient is here we'll continue with the monitoring very closely patient denies any chest pain at this time she has no shortness breath that she does have some nausea she will be getting Zofran for that, she has no bowel movement yet she does not appear to be in acute distress at this point in time. 02/17: Patient sitting up in chair she appears extremely weak at this point in time yesterday developed to have a significant accelerated hypertension for which she was started on hydralazine 20 mg IV push every 4 hours as needed she did use it once, increase her carvedilol to 12.5 mg orally twice every day, her blood pressure is much better, patient denies any chest pain, or shortness breath, she has no abdominal pain nausea or vomiting she continues to have very poor appetite she continues to feel very weak, physical therapy will be consulted patient Romero catheter will be discontinued and she will be moved to a medical surgical floor today. 6: Patient sitting up in bed that she appears a bit short of breath today chest x-ray was ordered she will be given Lasix 40 mg IV push 1, we will monitor the patient very closely today hopefully she will be able to be discharged back to [facility] hopefully in the next 24 hours. 02/20: A C. difficile toxin negative. WBC 4.6, hemoglobin 9.8, platelet count 148, BUN 23 creatinine 1.66, albumin 2.6. Patient ate about 50% of her dinner but did not eat her breakfast today and a very little for lunch. Patient is denying any abdominal pain, no lower extremity edema improved from yesterday after IV Lasix. Patient will be discharged home today in stable condition. Discharge diagnoses: 1. Acute kidney injury secondary to acute tubular necrosis due to poor oral intake and the use of diuretics in a patient with a prior history of ischemic cardiomyopathy and probably reduce effective blood flow to the kidneys. 2. Hyperkalemia secondary to acute kidney injury. 3. Anion gap metabolic acidosis due to acute kidney injury. 4. E coli UTI. 5. History of coronary artery disease post PCI. 6. Hyperlipidemia. 7. Hypothyroidism. 8. Diabetes mellitus type 2. 9. Hypertension and hypertensive cardiovascular disease. 10. Vascular dementia. 11. Anemia. 12. CKD 3. Discharge plan: Return to [facility] Impression and plan of care have been directed as dictated by the signing physician. Michelle Rivera nurse practitioner acting as scribe for signing physician. Patient Condition at Discharge: Good Plan - Discharge Summary Discharge Rx Participant: No New Discharge Prescriptions: New Cefuroxime Axetil [Ceftin] 250 mg PO BID 7 Days #14 tab Continue Levothyroxine Sodium [Synthroid] 75 mcg PO DAILY@0600 Donepezil [Aricept] 10 mg PO HS@2100 Atorvastatin [Lipitor] 40 mg PO HS Aspirin 81 mg PO DAILY@1700 Mirtazapine [Remeron] 15 mg PO HS@2100 Bisacodyl [Dulcolax] 10 mg RECTAL Q24H PRN PRN Reason: Constipation Acetaminophen [Tylenol 8 Hour] 650 mg PO Q4H PRN PRN Reason: general discomfort INSULIN ASPART (NovoLOG) [NovoLOG (formulary)] See Protocol SQ ACHS Carvedilol [Coreg*] 12.5 mg PO BID@0800,1700 Clopidogrel [Plavix] 75 mg PO DAILY@0800 Glucerna Shake 237 ml PO DAILY@1200 Discontinued Loperamide HCl [Loperamide] 2 mg PO DAILY PRN PRN Reason: Loose Stool Josephine Breakfast Essentials 1 packet PO BID@0800,1700 Spironolactone 12.5 mg PO DAILY@0800 Insulin Detemir (Levemir) [Levemir] 23 unit SQ HS@2100 Magnesium Hydroxide [Milk of Magnesia Concentrate] 7,200 mg PO Q48H PRN PRN Reason: Constipation Lisinopril [Zestril] 10 mg PO DAILY@0800 Discharge Medication List Aspirin 81 mg PO DAILY@1700 09/22/19 [History] Atorvastatin [Lipitor] 40 mg PO HS 09/22/19 [History] Donepezil [Aricept] 10 mg PO HS@2100 09/22/19 [History] Levothyroxine Sodium [Synthroid] 75 mcg PO DAILY@0600 09/22/19 [History] Mirtazapine [Remeron] 15 mg PO HS@2100 09/22/19 [History] Acetaminophen [Tylenol 8 Hour] 650 mg PO Q4H PRN 02/14/20 [History] Bisacodyl [Dulcolax] 10 mg RECTAL Q24H PRN 02/14/20 [History] Carvedilol [Coreg*] 12.5 mg PO BID@0800,1700 02/14/20 [History] Clopidogrel [Plavix] 75 mg PO DAILY@0800 02/14/20 [History] Glucerna Shake 237 ml PO DAILY@1200 02/14/20 [History] INSULIN ASPART (NovoLOG) [NovoLOG (formulary)] See Protocol SQ ACHS 02/14/20 [History] Cefuroxime Axetil [Ceftin] 250 mg PO BID 7 Days #14 tab 02/19/20 [Rx] Follow up Appointment(s)/Referral(s): Lyle Gutierrez MD [Primary Care Provider] - 1 Week Discharge Disposition: TRANSFER TO SNF/ECF
--- NOTE | 2020-02-21 14:11 | PN ---
PROGRESS NOTE Patient is seen for followup for acute kidney injury which has improved significantly with serum creatinine now staying at about 1.6 mg/dL for the last 2 days. The serum creatinine has decreased from 12.43 on initial admission. Patient was maintained on IV fluids which were held yesterday as she was mildly short of breath and mildly volume overloaded. Currently, she is comfortable not in any acute distress. Blood pressure was 115/57, heart rate 69 per minute, she is afebrile. Examination of the heart, S1 and S2. Examination of lower extremities shows trace edema bilaterally. Abdomen is soft, nontender. Patient is not in any acute distress. ESCROW CLOSER exam is grossly intact. LABS: Show sodium 138, potassium 3.9, chloride 108, BUN 20, serum creatinine 1.6, hemoglobin 9.8 g/dL. ASSESSMENT: 1. Acute kidney injury associated with volume depletion, hypotension, currently improved. 2. Chronic kidney disease stage III previous creatinine 1.4 in September of 2019 secondary to most likely nephrosclerosis; however, patient did have proteinuria on this admission. This will be repeated down the road. 3. Escherichia coli urinary tract infection, status post antibiotics. 4. Generalized debility. 5. Hypertension. PLAN: Continue off of IV fluids. Continue to encourage increased oral intake. Patient will need followup as outpatient. MMODL / IJN: [id number] /
[2020-02-22] MEDS ORDERED: CIPROFLOXACIN HCL 250 MG TAB PO SCH (04:00)
== END 2020-02-21 16:05 | DRG 683 ==
LOC: EC 16:12 → 2SICU 18:17 → 5NMEDONC 02-18 16:12
PROVIDERS: ADMIT Internal Medicine; ATTEND Internal Medicine
DX: N17.0 Acute kidney failure with tubular necrosis (principal); E87.4 Mixed disorder of acid-base balance; N39.0 Urinary tract infection, site not specified; J98.11 Atelectasis; Z11.59 Encounter for screening for other viral diseases; D63.1 Anemia in chronic kidney disease; E11.22 Type 2 diabetes mellitus with diabetic chronic kidney disease; I13.10 Hypertensive heart and chronic kidney disease without heart failure, with stage 1 through stage 4 chronic kidney disease, or unspecified chronic kidney disease; F01.50 Vascular dementia, unspecified severity, without behavioral disturbance, psychotic disturbance, mood disturbance, and anxiety; I95.9 Hypotension, unspecified; N18.3 Chronic kidney disease, stage 3 (moderate); E87.5 Hyperkalemia; E78.5 Hyperlipidemia, unspecified; Z66 Do not resuscitate; I25.10 Atherosclerotic heart disease of native coronary artery without angina pectoris; I25.5 Ischemic cardiomyopathy; E03.9 Hypothyroidism, unspecified; E66.9 Obesity, unspecified; M19.90 Unspecified osteoarthritis, unspecified site; E86.0 Dehydration; R00.1 Bradycardia, unspecified; F32.9 Major depressive disorder, single episode, unspecified; R63.0 Anorexia; E87.70 Fluid overload, unspecified; R06.89 Other abnormalities of breathing; R53.81 Other malaise; K59.00 Constipation, unspecified; T46.4X5A Adverse effect of angiotensin-converting-enzyme inhibitors, initial encounter; B96.20 Unspecified Escherichia coli [E. coli] as the cause of diseases classified elsewhere; I25.2 Old myocardial infarction; Z68.30 Body mass index [BMI] 30.0-30.9, adult; Z71.3 Dietary counseling and surveillance; Z79.82 Long term (current) use of aspirin; Z79.899 Other long term (current) drug therapy; Z79.890 Hormone replacement therapy; Z79.02 Long term (current) use of antithrombotics/antiplatelets; Z79.4 Long term (current) use of insulin; Z90.49 Acquired absence of other specified parts of digestive tract; Z95.5 Presence of coronary angioplasty implant and graft; Z98.42 Cataract extraction status, left eye; Z98.41 Cataract extraction status, right eye; Z96.1 Presence of intraocular lens; Z96.60 Presence of unspecified orthopedic joint implant; Z88.2 Allergy status to sulfonamides; Z82.49 Family history of ischemic heart disease and other diseases of the circulatory system
CPT/HCPCS: 36415; 71045; 71046; 80048; 80053; 81001; 82330; 83605; 83735; 84100; 84484; 85025; 85027; 85610; 85730; 87077; 87086; 87186; 87324; 87635; 93005; 94640; 96365; 96375; 99291

== ENCOUNTER 2021-02-01 20:43 | Emergency (ER) | payer MEDICARE, OTHER ==
[2021-02-01] MEDS ORDERED: cloNIDine HCL 0.2 MG TAB PO STA (21:15)
--- NOTE | 2021-02-01 22:52 | ED ---
ENT HPI - General Chief complaint: Recheck/Abnormal Lab/Rx Stated complaint: Nosebleed Time Seen by Provider: 02/01/21 20:47 Source: patient, EMS Mode of arrival: EMS Limitations: no limitations - History of Present Illness MD complaint: epistaxis -: hour(s) Location: nose Severity: moderate Severity scale (1-10): 0 Consistency: constant Improves with: pressure Context-Epistaxis: other (plavix) - Related Data Home Medications Medication Instructions Recorded Confirmed Aspirin 81 mg PO DAILY@1700 09/22/19 02/01/21 Atorvastatin [Lipitor] 40 mg PO HS@2100 09/22/19 02/01/21 Donepezil [Aricept] 10 mg PO HS@2100 09/22/19 02/01/21 Levothyroxine Sodium [Synthroid] 75 mcg PO DAILY@0600 09/22/19 02/01/21 Mirtazapine [Remeron] 15 mg PO HS@2100 09/22/19 02/01/21 Acetaminophen [Tylenol 8 Hour] 650 mg PO Q4H PRN 02/14/20 02/01/21 Clopidogrel [Plavix] 75 mg PO DAILY@0800 02/14/20 02/01/21 INSULIN ASPART (NovoLOG) [NovoLOG See Protocol SQ ACHS 02/14/20 02/01/21 (formulary)] bisacodyL [Dulcolax] 10 mg RECTAL DAILY PRN 02/14/20 02/01/21 carvediloL [Coreg*] 12.5 mg PO BID@0800,1700 02/14/20 02/01/21 Cholecalciferol [Vitamin D3 (25 2,000 units PO DAILY@0800 05/26/20 02/01/21 Mcg = 1000 Iu)] Magnesium Hydroxide [Milk of 30 ml PO DAILY PRN 05/26/20 02/01/21 Magnesia] INSULIN ASPART (NovoLOG) [NovoLOG 2 unit SQ DAILY@0700 02/01/21 02/01/21 (formulary)] INSULIN ASPART (NovoLOG) [NovoLOG 4 unit SQ DAILY@1100 02/01/21 02/01/21 (formulary)] INSULIN ASPART (NovoLOG) [NovoLOG 6 unit SQ DAILY@1630 02/01/21 02/01/21 (formulary)] Insulin Detemir [Levemir Flextouch] 16 units SQ HS@2100 02/01/21 02/01/21 Loperamide HCl [Imodium A-D] 4 mg PO Q12H PRN 02/01/21 02/01/21 Ubidecarenone [Co Q-10] 200 mg PO DAILY@1700 02/01/21 02/01/21 lisinopriL [Zestril] 5 mg PO DAILY@0800 02/01/21 02/01/21 Allergies Allergy/AdvReac Type Severity Reaction Status Date / Time Sulfa (Sulfonamide Allergy Unknown Verified 02/01/21 21:33 Antibiotics) Review of Systems ROS Statement: Those systems with pertinent positive or pertinent negative responses have been documented in the HPI. ROS Other: All systems not noted in ROS Statement are negative. Constitutional: Denies: fever, chills ENT: Reports: epistaxis. Denies: throat pain, congestion Respiratory: Denies: cough, dyspnea Cardiovascular: Denies: chest pain, palpitations Gastrointestinal: Denies: abdominal pain, vomiting Neurological: Denies: headache Past Medical History Past Medical History: Coronary Artery Disease (CAD), Diabetes Mellitus, Hyperlipidemia, Hypertension, Memory Impairment, Myocardial Infarction (CA), Osteoarthritis (OA), Thyroid Disorder Additional Past Medical History / Comment(s): Type 2 DM, CA 07/29/19 Last Myocardial Infarction Date:: 07/29/19 History of Any Multi-Drug Resistant Organisms: None Reported Past Surgical History: Breast Surgery, Cholecystectomy, Heart Catheterization With Stent, Joint Replacement, Orthopedic Surgery Additional Past Surgical History / Comment(s): 2 cardiac stents, bilateral cataract removal and intraocular lens implants Past Anesthesia/Blood Transfusion Reactions: No Reported Reaction Date of Last Stent Placement:: 07/29/19 Past Psychological History: No Psychological Hx Reported Smoking Status: Former smoker - Past Family History Brother(s) Family Medical History: Myocardial Infarction (CA) Additional Family Medical History / Comment(s): The patient has 3 brothers and all have passed. Patient does not know their medical histories nor the reason further tests. Father Additional Family Medical History / Comment(s): Patient's father is . Patient does not know any of his medical history. Mother Additional Family Medical History / Comment(s): Mother in her 60s while sleeping. Sister(s) Additional Family Medical History / Comment(s): Patient has 3 sisters and one h as that his history of coronary artery disease status post stents. Daughter(s) Additional Family Medical History / Comment(s): Patient has one daughter that in a motor vehicle accident. Patient has 2 sons and one from an unknown cause. One son is alive with no major medical problems. 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 The has mucosa adjacent to the perforation is hyperemic and there is ulceration with bleeding on both sides at the margin of the area of perforation) Neck exam: Present: normal inspection Respiratory exam: Present: normal lung sounds bilaterally. Absent: respiratory distress, wheezes, rales, rhonchi, stridor Cardiovascular Exam: Present: regular rate, normal rhythm, normal heart sounds. Absent: systolic murmur, diastolic murmur, rubs, gallop GI/Abdominal exam: Present: soft. Absent: tenderness Extremities exam: Present: normal inspection, normal capillary refill. Absent: pedal edema, calf tenderness Back exam: Present: normal inspection. Absent: CVA tenderness (R), CVA tenderness (L) Neurological exam: Present: alert Skin exam: Present: warm, dry, intact, normal color. Absent: rash Course Vital Signs 02/01/21 02/01/21 02/01/21 20:46 21:24 23:26 Temperature 97.5 F L Pulse Rate 60 61 60 Respiratory 18 18 16 Rate Blood Pressure 144/61 126/73 150/55 O2 Sat by Pulse 96 97 96 Oximetry 02/02/21 00:00 Temperature 98.0 F Pulse Rate 64 Respiratory 16 Rate Blood Pressure 128/52 O2 Sat by Pulse 98 Oximetry Medical Decision Making - Medical Decision Making This patient is an 85-year-old woman here for epistaxis. 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 I did apply Afrin spray which did slow the bleeding did not stop it. Silver nitrate cautery was applied which did provide good hemostasis. Patient tolerated this well Disposition Clinical Impression: Epistaxis Disposition: HOME SELF-CARE Condition: Good Instructions (If sedation given, give patient instructions): Nosebleed (ED) Is patient prescribed a controlled substance at d/c from ED?: No Referrals: Lyle Gutierrez MD [Primary Care Provider] - 1-2 days
[2021-02-01] MEDS ORDERED: OXYMETAZOLINE 0.05% NASL SPRAY 1 SPRAY BOTTLE NASAL STA (22:55)
[2021-02-01] MEDS ORDERED: SILVER NITRATE APPLICATOR 1 EACH STICK..EA. TOPICAL STA (22:55)
[2021-02-01 23:27] VITALS: RESP 16
[2021-02-02 00:04] VITALS: BP 128/52; PULSE 64; TEMP 98
== END 2021-02-02 | disposition home or self-care (01) ==
LOC: EC 20:43
DX: R04.0 Epistaxis (principal); I25.10 Atherosclerotic heart disease of native coronary artery without angina pectoris; E11.9 Type 2 diabetes mellitus without complications; E78.5 Hyperlipidemia, unspecified; I10 Essential (primary) hypertension; I25.2 Old myocardial infarction; M19.90 Unspecified osteoarthritis, unspecified site; E07.9 Disorder of thyroid, unspecified; Z90.49 Acquired absence of other specified parts of digestive tract; Z95.5 Presence of coronary angioplasty implant and graft
CPT/HCPCS: 99283

== ENCOUNTER 2021-04-14 12:49 | Inpatient (IN) | payer MEDICARE, OTHER ==
[2021-04-14] MEDS ORDERED: ACETAMINOPHEN TAB 500 MG TAB PO STA (13:07)
[2021-04-14] MEDS ORDERED: IBUPROFEN 600 MG TAB PO STA (13:07)
--- NOTE | 2021-04-14 13:32 | ED ---
General Adult HPI - General Chief complaint: Weakness Stated complaint: Weakness/Possible UTI Time Seen by Provider: 04/14/21 12:55 Source: patient, EMS, RN notes reviewed, old records reviewed Mode of arrival: EMS - History of Present Illness Initial comments: This is an 86-year-old female presents emergency Department from a assisted because she has a fever. Patient is a very poor historian because of her dementia. However she does deny any pain currently. She was sent in because she has a fever and appears to be overall more weak. Temperature at the facility was 101.5 here I got a temperature 102.0. Patient denies any chest pain patient denies headache patient denies abdominal pain. - Related Data Home Medications Medication Instructions Recorded Confirmed Aspirin 81 mg PO DAILY@1700 09/22/19 04/14/21 Atorvastatin [Lipitor] 40 mg PO HS@2100 09/22/19 04/14/21 Donepezil [Aricept] 10 mg PO HS@2100 09/22/19 04/14/21 Levothyroxine Sodium [Synthroid] 75 mcg PO DAILY@0600 09/22/19 04/14/21 Acetaminophen [Tylenol 8 Hour] 650 mg PO Q4H PRN 02/14/20 04/14/21 Clopidogrel [Plavix] 75 mg PO DAILY@0800 02/14/20 04/14/21 INSULIN ASPART (NovoLOG) [NovoLOG See Protocol SQ ACHS 02/14/20 04/14/21 (formulary)] bisacodyL [Dulcolax] 10 mg RECTAL DAILY PRN 02/14/20 04/14/21 carvediloL [Coreg*] 12.5 mg PO BID@0800,1700 02/14/20 04/14/21 Cholecalciferol [Vitamin D3 (25 2,000 units PO DAILY@0800 05/26/20 04/14/21 Mcg = 1000 Iu)] INSULIN ASPART (NovoLOG) [NovoLOG 2 unit SQ DAILY@0700 02/01/21 04/14/21 (formulary)] INSULIN ASPART (NovoLOG) [NovoLOG 4 unit SQ DAILY@1100 02/01/21 04/14/21 (formulary)] INSULIN ASPART (NovoLOG) [NovoLOG 6 unit SQ DAILY@1630 02/01/21 04/14/21 (formulary)] Insulin Detemir [Levemir Flextouch] 16 units SQ HS@2100 02/01/21 04/14/21 Loperamide HCl [Imodium A-D] 2 - 4 mg PO TID PRN MDD 4 TABS 02/01/21 04/14/21 Ubidecarenone [Co Q-10] 200 mg PO DAILY@1700 02/01/21 04/14/21 lisinopriL [Zestril] 5 mg PO DAILY@0800 02/01/21 04/14/21 Magnesium Hydroxide [Milk of 7,200 mg PO DAILY PRN 04/14/21 04/14/21 Magnesia Concentrate] Ondansetron HCl [Zofran] 4 mg PO Q8H PRN 04/14/21 04/14/21 Allergies Allergy/AdvReac Type Severity Reaction Status Date / Time Sulfa (Sulfonamide Allergy Unknown Verified 04/14/21 13:36 Antibiotics) Review of Systems ROS Statement: Those systems with pertinent positive or pertinent negative responses have been documented in the HPI. ROS Other: All systems not noted in ROS Statement are negative. Past Medical History Past Medical History: Coronary Artery Disease (CAD), Diabetes Mellitus, Hyperlipidemia, Hypertension, Memory Impairment, Myocardial Infarction (HI), Ost eoarthritis (OA), Thyroid Disorder Additional Past Medical History / Comment(s): Type 2 DM, HI 07/29/19 Last Myocardial Infarction Date:: 07/29/19 History of Any Multi-Drug Resistant Organisms: None Reported Past Surgical History: Breast Surgery, Cholecystectomy, Heart Catheterization With Stent, Joint Replacement, Orthopedic Surgery Additional Past Surgical History / Comment(s): 2 cardiac stents, bilateral cataract removal and intraocular lens implants Past Anesthesia/Blood Transfusion Reactions: No Reported Reaction Date of Last Stent Placement:: 07/29/19 Past Psychological History: No Psychological Hx Reported Smoking Status: Former smoker Past Alcohol Use History: None Reported Past Drug Use History: None Reported - Past Family History Brother(s) Family Medical History: Myocardial Infarction (HI) Additional Family Medical History / Comment(s): The patient has 3 brothers and all have passed. Patient does not know their medical histories nor the reason further tests. Father Additional Family Medical History / Comment(s): Patient's father is . Patient does not know any of his medical history. Mother Additional Family Medical History / Comment(s): Mother in her 60s while sleeping. Sister(s) Additional Family Medical History / Comment(s): Patient has 3 sisters and one has that his history of coronary artery disease status post stents. Daughter(s) Additional Family Medical History / Comment(s): Patient has one daughter that in a motor vehicle accident. Patient has 2 sons and one from an unknown cause. One son is alive with no major medical problems. General Exam - General Exam Comments Initial Comments: GENERAL: Patient is well-developed and well-nourished. Patient is nontoxic and well-hydrated and is in no acute distress. Temperature is 102.0 ENT: Neck is soft and supple. No significant lymphadenopathy is noted. Oropharynx is clear. Moist mucous membranes. Neck has full range of motion without eliciting any pain. EYES: The sclera were anicteric and conjunctiva were pink and moist. Extraocular movements were intact and pupils were equal round and reactive to light. Eyelids were unremarkable. PULMONARY: Unlabored respirations. Good breath sounds bilaterally. No audible rales rhonchi or wheezing was noted. CARDIOVASCULAR: There is a regular rate and rhythm without any murmurs gallops or rubs. ABDOMEN: Soft and nontender with normal bowel sounds. SKIN: Skin is clear with no lesions or rashes and otherwise unremarkable. NEUROLOGIC: Patient is alert and oriented 2. Cranial nerves II through XII are grossly intact. Motor and sensory are also intact. Normal speech, volume and content. Symmetrical smile. MUSCULOSKELETAL: Normal extremities with adequate strength and full range of motion. No lower extremity swelling or edema. No calf tenderness. LYMPHATICS: No significant lymphadenopathy is noted PSYCHIATRIC: Normal psychiatric evaluation. Course Vital Signs 04/14/21 04/14/21 12:52 14:51 Temperature 100.4 F H 101.8 F H Pulse Rate 80 Respiratory 18 Rate O2 Sat by Pulse 96 Oximetry Medical Decision Making - Medical Decision Making EKG shows sinus rhythm at 77 bpm UT interval is 234 QRS is 86 QT interval 366 QTC is 414 per patient's EKG shows no ST segment elevation or depression. Patient received 2 g of Rocephin emergency department. I spoke with Dr. Jay and he agreed to admit the patient admitted the patient I wrote admitting orders and I continued antibiotics on the floor. - Lab Data Result diagrams: 04/14/21 13:44 04/14/21 13:44 Lab Results 04/14/21 04/14/21 04/14/21 Range/Units 13:44 13:44 13:44 WBC 5.6 (3.8-10.6) k/uL RBC 4.20 (3.80-5.40) m/uL Hgb 13.2 (11.4-16.0) gm/dL Hct 40.1 (34.0-46.0) % MCV 95.4 (80.0-100.0) fL MCH 31.5 (25.0-35.0) pg MCHC 33.0 (31.0-37.0) g/dL RDW 12.6 (11.5-15.5) % Plt Count 115 L (150-450) k/uL MPV 7.7 Neutrophils % 82 % Lymphocytes % 11 % Monocytes % 5 % Eosinophils % 1 % Basophils % 0 % Neutrophils # 4.6 (1.3-7.7) k/uL Lymphocytes # 0.6 L (1.0-4.8) k/uL Monocytes # 0.3 (0-1.0) k/uL Eosinophils # 0.0 (0-0.7) k/uL Basophils # 0.0 (0-0.2) k/uL PT (9.0-12.0) sec INR (<1.2) APTT (22.0-30.0) sec Sodium 138 (137-145) mmol/L Potassium 4.3 (3.5-5.1) mmol/L Chloride 109 H (98-107) mmol/L Carbon Dioxide 18 L (22-30) mmol/L Anion Gap 11 mmol/L BUN 25 H (7-17) mg/dL Creatinine 1.81 H (0.52-1.04) mg/dL Est GFR (CKD-EPI)AfAm 29 (>60 ml/min/1.73 sqM) Est GFR (CKD-EPI)NonAf 25 (>60 ml/min/1.73 sqM) Glucose 165 H (74-99) mg/dL Plasma Lactic Acid Terrence (0.7-2.0) mmol/L Calcium 8.7 (8.4-10.2) mg/dL Total Bilirubin 0.9 (0.2-1.3) mg/dL AST 89 H (14-36) U/L ALT 21 (4-34) U/L Alkaline Phosphatase 93 (38-126) U/L Total Protein 6.5 (6.3-8.2) g/dL Albumin 3.6 (3.5-5.0) g/dL Urine Color Light Yellow Urine Appearance Cloudy H (Clear) Urine pH 5.0 (5.0-8.0) Ur Specific Fre[place] 1.013 (1.001-1.035) Urine Protein 1+ H (Negative) Urine Glucose (UA) Negative (Negative) Urine Ketones Negative (Negative) Urine Blood Moderate H (Negative) Urine Nitrite Positive H (Negative) Urine Bilirubin Negative (Negative) Urine Urobilinogen <2.0 (<2.0) mg/dL Ur Leukocyte Esterase Large H (Negative) Urine RBC 2 (0-5) /hpf Urine WBC 96 H (0-5) /hpf Urine WBC Clumps Few H (None) /hpf Ur Squamous Epith Cells <1 (0-4) /hpf Urine Bacteria Moderate H (None) /hpf Urine Mucus Rare H (None) /hpf 04/14/21 04/14/21 Range/Units 13:44 15:11 WBC (3.8-10.6) k/uL RBC (3.80-5.40) m/uL Hgb (11.4-16.0) gm/dL Hct (34.0-46.0) % MCV (80.0-100.0) fL MCH (25.0-35.0) pg MCHC (31.0-37.0) g/dL RDW (11.5-15.5) % Plt Count (150-450) k/uL MPV Neutrophils % % Lymphocytes % % Monocytes % % Eosinophils % % Basophils % % Neutrophils # (1.3-7.7) k/uL Lymphocytes # (1.0-4.8) k/uL Monocytes # (0-1.0) k/uL Eosinophils # (0-0.7) k/uL Basophils # (0-0.2) k/uL PT 10.9 (9.0-12.0) sec INR 1.0 (<1.2) APTT 24.1 (22.0-30.0) sec Sodium (137-145) mmol/L Potassium (3.5-5.1) mmol/L Chloride (98-107) mmol/L Carbon Dioxide (22-30) mmol/L Anion Gap mmol/L BUN (7-17) mg/dL Creatinine (0.52-1.04) mg/dL Est GFR (CKD-EPI)AfAm (>60 ml/min/1.73 sqM) Est GFR (CKD-EPI)NonAf (>60 ml/min/1.73 sqM) Glucose (74-99) mg/dL Plasma Lactic Acid Terrence 1.6 (0.7-2.0) mmol/L Calcium (8.4-10.2) mg/dL Total Bilirubin (0.2-1.3) mg/dL AST (14-36) U/L ALT (4-34) U/L Alkaline Phosphatase (38-126) U/L Total Protein (6.3-8.2) g/dL Albumin (3.5-5.0) g/dL Urine Color Urine Appearance (Clear) Urine pH (5.0-8.0) Ur Specific Fre[place] (1.001-1.035) Urine Protein (Negative) Urine Glucose (UA) (Negative) Urine Ketones (Negative) Urine Blood (Negative) Urine Nitrite (Negative) Urine Bilirubin (Negative) Urine Urobilinogen (<2.0) mg/dL Ur Leukocyte Esterase (Negative) Urine RBC (0-5) /hpf Urine WBC (0-5) /hpf Urine WBC Clumps (None) /hpf Ur Squamous Epith Cells (0-4) /hpf Urine Bacteria (None) /hpf Urine Mucus (None) /hpf Disposition Clinical Impression: Urinary tract infection, Generalized weakness, Altered mental state Disposition: ADMITTED IP TO THIS HOSP Referrals: None,Stated [Primary Care Provider] - 1-2 days Time of Disposition: 16:05
[2021-04-14] MEDS: SODIUM CHLORIDE 0.9% 500 ML 500 ML IV SCH (13:56)
[2021-04-14 14:02] LABS: Basophils % (A) 0 %; Eosinophils % (A) 1 %; HCT 40.1 % (34.0-46.0); HGB 13.2 gm/dL (11.4-16.0); Lymphocytes # (A) 0.6 k/uL (1.0-4.8); Lymphocytes % (A) 11 %; MCH 31.5 pg (25.0-35.0); MCV 95.4 fL (80.0-100.0); Mean Platelet Volume 7.7; Monocytes # (A) 0.3 k/uL (0-1.0); Monocytes % (A) 5 %; Neutrophils # (A) 4.6 k/uL (1.3-7.7); Neutrophils % (A) 82 %; Platelet Count 115 k/uL (150-450); RDW 12.6 % (11.5-15.5); WBC 5.6 k/uL (3.8-10.6)
[2021-04-14 14:12] LABS: Albumin 3.6 g/dL (3.5-5.0); Calcium 8.7 mg/dL (8.4-10.2); Potassium 4.3 mmol/L (3.5-5.1); Total Bilirubin 0.9 mg/dL (0.2-1.3); Total Protein 6.5 g/dL (6.3-8.2)
--- NOTE | 2021-04-14 14:19 | XR ---
EXAMINATION TYPE: XR chest 2V DATE OF EXAM: 04/14/2021 COMPARISON: 02/20/2020 HISTORY: Shortness of breath TECHNIQUE: Frontal and lateral views of the chest are obtained. FINDINGS: Scattered senescent parenchymal changes noted. Hyperinflation compatible with COPD. No evidence for infiltrate. No evidence for atelectasis. Heart size is stable. Mediastinal structures are stable and grossly unremarkable. No evidence for hilar prominence. Degenerative changes dorsal spine. IMPRESSION: 1. No evidence for acute pulmonary disease.
[2021-04-14 15:28] LABS: Appearance,Urine Cloudy (Clear); Bacteria,Urine Moderate /hpf; Bilirubin,Urine Negative (Negative); Blood,Urine Moderate (Negative); Color,Urine Light Yellow; Glucose,Urine (UA) Negative (Negative); Ketones,Urine Negative (Negative); Leukocyte Esterase,Urine Large (Negative); Mucus,Urine Rare /hpf; Nitrite,Urine Positive (Negative); Protein,Urine 1+ (Negative); RBC,Urine 2 /hpf (0-5); Specific Gravity,Urine 1.013 (1.001-1.035); Squamous Epithelial Cell,Urine <1 /hpf (0-4); Urobilinogen,Urine <2.0 mg/dL (<2.0); WBC,Urine 96 /hpf (0-5)
[2021-04-14 16:03] LABS: Partial Thromboplastin Time 24.1 sec (22.0-30.0); Prothrombin Time 10.9 sec (9.0-12.0)
[2021-04-14] MEDS ORDERED: SODIUM CHLORIDE 0.9% 1,000 ML IV ONE (16:06)
[2021-04-14] MEDS ORDERED: ACETAMINOPHEN TAB 325 MG TAB PO PRN (21:34)
[2021-04-14] MEDS ORDERED: bisacodyL 10 MG SUPP RECTAL PRN (21:34)
[2021-04-14] MEDS ORDERED: INSULIN DETEMIR (LEVEMIR) 100 UNIT/ML SYR SQ SCH (22:00)
[2021-04-14] MEDS: METOPROLOL TARTRATE 25 MG TAB PO SCH (22:21)
[2021-04-14] MEDS: ATORVASTATIN 40 MG TAB PO SCH (22:21)
[2021-04-14] MEDS: DONEPEZIL 10 MG TAB PO SCH (22:21)
[2021-04-15] MEDS: HEPARIN SODIUM,PORCINE/PF 5,000 UNIT/0.5 ML SYRINGE SQ SCH ×4 (00:11→23:11)
[2021-04-15] MEDS: LEVOTHYROXINE 75 MCG TAB PO SCH (05:39)
[2021-04-15 08:17] LABS: Glucose,Whole Blood 204 mg/dL (75-99)
[2021-04-15] MEDS: INSULIN ASPART (NovoLOG) 100 UNIT/ML VIAL SQ SCH ×5 (08:57→21:11)
[2021-04-15] MEDS: CLOPIDOGREL 75 MG TAB PO SCH (08:57)
[2021-04-15] MEDS: METOPROLOL TARTRATE 25 MG TAB PO SCH ×2 (08:58→21:23)
[2021-04-15] MEDS: CHOLECALCIFEROL 25 MCG (1000 IU) TABLET PO SCH (08:58)
[2021-04-15] MEDS: lisinopriL 5 MG TAB PO SCH (08:58)
--- NOTE | 2021-04-15 09:18 | P.HPIM ---
History of Present Illness H&P Date: 04/14/21 Chief Complaint: Altered mental status Patient is a 86-year-old female with a known history of hypertension, hyperlipidemia, diabetes type 2 insulin-dependent, coronary artery disease with history of stent placement, history of MO, hypothyroidism and memory impairment currently staying at [facility] facility was sent to Hospital due to fever and altered mental status. Patient does have underlying dementia and is a poor historian otherwise. Patient has been more weak recently. Patient will be able to walk with a walker. T-max was 101.5 at that facility. plans of cough or sputum production. no shortness of breath. denied any abdominal pain. no nausea vomiting or diarrhea recently. blood pressure 100/61 and pulse 60 and t-max 101.8 on admission and saturating at 94% on room air. Chest x-ray showed no acute process. EKG showed sinus rhythm with first-degree AV block. Low voltage QRS. Laboratory data showed WBC 5.6, hemoglobin 13.2 and platelets 115 BUE and 25 and creatinine 1.81 Sodium 138 potassium 4.3 chloride 109 and bicarb is 18 Urinalysis showed cloudy with nitrite positive and large leukocyte esterase with elevated WBC count. COVID-19 patient not ejected. Review of Systems Constitutional: Patient does have fever and chills and generalized weakness and malaise.. Abdomen: Patient denied nausea vomiting and diarrhea and abdominal pain. Cardiovascular: Patient denies any chest pain or short of breath no palpitations. Respiratory: patient denied any cough is from production. No shortness of breath Neurologic: Patient denied any numbness or tingling headache. Complete review of systems could not be obtained from the patient. Past Medical History Past Medical History: Coronary Artery Disease (CAD), Diabetes Mellitus, Hyperlipidemia, Hypertension, Memory Impairment, Myocardial Infarction (MO), Osteoarthritis (OA), Thyroid Disorder Additional Past Medical History / Comment(s): Type 2 DM, MO 07/29/19 Last Myocardial Infarction Date:: 07/29/19 History of Any Multi-Drug Resistant Organisms: None Reported Past Surgical History: Breast Surgery, Cholecystectomy, Heart Catheterization With Stent, Joint Replacement, Orthopedic Surgery Additional Past Surgical History / Comment(s): 2 cardiac stents, bilateral cataract removal and intraocular lens implants Past Anesthesia/Blood Transfusion Reactions: No Reported Reaction Date of Last Stent Placement:: 07/29/19 Past Psychological History: No Psychological Hx Reported Smoking Status: Former smoker Past Alcohol Use History: None Reported Past Drug Use History: None Reported - Past Family History Brother(s) Family Medical History: Myocardial Infarction (MO) Additional Family Medical History / Comment(s): The patient has 3 brothers and all have passed. Patient does not know their medical histories nor the reason further tests. Father Additional Family Medical History / Comment(s): Patient's father is . Patient does not know any of his medical history. Mother Additional Family Medical History / Comment(s): Mother in her 60s while sleeping. Sister(s) Additional Family Medical History / Comment(s): Patient has 3 sisters and one has that his history of coronary artery disease status post stents. Daughter(s) Additional Family Medical History / Comment(s): Patient has one daughter that in a motor vehicle accident. Patient has 2 sons and one from an unknown cause. One son is alive with no major medical problems. Medications and Allergies Home Medications Medication Instructions Recorded Confirmed Type Aspirin 81 mg PO DAILY@1700 09/22/19 04/14/21 History Atorvastatin [Lipitor] 40 mg PO HS@2100 09/22/19 04/14/21 History Donepezil [Aricept] 10 mg PO HS@2100 09/22/19 04/14/21 History Levothyroxine Sodium [Synthroid] 75 mcg PO DAILY@0600 09/22/19 04/14/21 History Acetaminophen [Tylenol 8 Hour] 650 mg PO Q4H PRN 02/14/20 04/14/21 History Clopidogrel [Plavix] 75 mg PO DAILY@0800 02/14/20 04/14/21 History INSULIN ASPART (NovoLOG) [NovoLOG See Protocol SQ ACHS 02/14/20 04/14/21 History (formulary)] bisacodyL [Dulcolax] 10 mg RECTAL DAILY PRN 02/14/20 04/14/21 History carvediloL [Coreg*] 12.5 mg PO BID@0800,1700 02/14/20 04/14/21 History Cholecalciferol [Vitamin D3 (25 2,000 units PO DAILY@0800 0804/14/21 History Mcg = 1000 Iu)] INSULIN ASPART (NovoLOG) [NovoLOG 2 unit SQ DAILY@0700 02/01/21 04/14/21 History (formulary)] INSULIN ASPART (NovoLOG) [NovoLOG 4 unit SQ DAILY@1100 02/01/21 04/14/21 History (formulary)] INSULIN ASPART (NovoLOG) [NovoLOG 6 unit SQ DAILY@1630 02/01/21 04/14/21 History (formulary)] Insulin Detemir [Levemir Flextouch] 16 units SQ HS@2100 02/01/21 04/14/21 History Loperamide HCl [Imodium A-D] 2 - 4 mg PO TID PRN MDD 4 TABS 02/01/21 04/14/21 History Ubidecarenone [Co Q-10] 200 mg PO DAILY@1700 02/01/21 04/14/21 History lisinopriL [Zestril] 5 mg PO DAILY@0800 02/01/21 04/14/21 History Magnesium Hydroxide [Milk of 7,200 mg PO DAILY PRN 04/14/21 04/14/21 History Magnesia Concentrate] Ondansetron HCl [Zofran] 4 mg PO Q8H PRN 04/14/21 04/14/21 History Allergies Allergy/AdvReac Type Severity Reaction Status Date / Time Sulfa (Sulfonamide Allergy Unknown Verified 04/14/21 13:36 Antibiotics) Physical Exam Vitals: Vital Signs Temp Pulse Resp BP Pulse Ox 04/14/21 18:19 69 18 100/61 95 04/14/21 16:24 99.7 F H 60 18 96 04/14/21 14:51 101.8 F H 04/14/21 12:52 100.4 F H 80 18 96 Intake and Output 04/14/21 04/14/21 04/14/21 06:59 14:59 22:59 Other: Weight 177.2 kg PHYSICAL EXAMINATION: Patient is lying in the bed comfortably, no acute distress, awake alert and oriented 2.. HEENT: Normocephalic. Neck is supple. Pupils reactive. Nostrils clear. Oral cavity is moist. Neck reveals no JVD, carotid bruits, or thyromegaly. CHEST EXAMINATION: Trachea is central. Symmetrical expansion. Lung scherer clear to auscultation and percussion. CARDIAC: Normal S1, S2 with no gallops. No murmurs ABDOMEN: Soft. Bowel sounds normal. No organomegaly. No abdominal bruits. Extremities: reveal no edema. No clubbing or cyanosis Neurologically awake, alert, oriented x2 with well-coordinated movements. No focal deficits noted Skin: No rash or skin lesions. Psychiatric: Coperative. Could not be sure that completely. Musculoskeletal: No joint swelling or deformity. Normal range of motion. Results CBC & Chem 7: 04/14/21 13:44 04/14/21 13:44 Labs: Abnormal Lab Results - Last 24 Hours (Table) 04/14/21 04/14/21 04/14/21 Range/Units 13:44 13:44 13:44 Plt Count 115 L (150-450) k/uL Lymphocytes # 0.6 L (1.0-4.8) k/uL Chloride 109 H (98-107) mmol/L Carbon Dioxide 18 L (22-30) mmol/L BUN 25 H (7-17) mg/dL Creatinine 1.81 H (0.52-1.04) mg/dL Glucose 165 H (74-99) mg/dL AST 89 H (14-36) U/L Urine Appearance Cloudy H (Clear) Urine Protein 1+ H (Negative) Urine Blood Moderate H (Negative) Urine Nitrite Positive H (Negative) Ur Leukocyte Esterase Large H (Negative) Urine WBC 96 H (0-5) /hpf Urine WBC Clumps Few H (None) /hpf Urine Bacteria Moderate H (None) /hpf Urine Mucus Rare H (None) /hpf Thrombosis Risk Factor Assmnt - DVT/VTE Prophylaxis DVT/VTE Prophylaxis: Pharmacologic Prophylaxis ordered Assessment and Plan Assessment: Altered mental status. Possible metabolic encephalopathy due to infection. 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 Hypertension Hyperlipidemia Diabetes type 2 uncontrolled with mild hyperglycemia DVT prophylaxis with heparin subcu. Plan: Patient be continued on gentle IV hydration and antibiotics in form of ceftriaxone. Follow-up urine culture report. Hold blood pressure medications due to hypotension. Follow-up renal function. PTOT consulted. Continue to follow closely. Time with Patient: Greater than 30
[2021-04-15 10:27] LABS: African American GFR (CKD) 35 (>60 ml/min/1.73 sqM); Anion Gap 8 mmol/L; Blood Urea Nitrogen 25 mg/dL (7-17); Calcium 8.3 mg/dL (8.4-10.2); Carbon Dioxide 17 mmol/L (22-30); Chloride 115 mmol/L (98-107); Glucose 179 mg/dL (74-99); Non-African American GFR(CKD) 30 (>60 ml/min/1.73 sqM); Potassium 4.2 mmol/L (3.5-5.1); Sodium 140 mmol/L (137-145)
[2021-04-15] MEDS ORDERED: INSULIN ASPART (NovoLOG) 100 UNIT/ML VIAL SQ SCH ×2 (11:00→16:30)
[2021-04-15 11:54] LABS: Glucose,Whole Blood 103 mg/dL (75-99)
[2021-04-15] MEDS: ASPIRIN 81 MG PO SCH (15:57)
[2021-04-15] MEDS: NON FORMULARY DRUG (Ubidecarenone [Co Q-10] 100 MG Capsule) PO SCH (16:11)
[2021-04-15 16:23] LABS: Glucose,Whole Blood 89 mg/dL (75-99)
[2021-04-15 17:57] LABS: Glucose,Whole Blood 86 mg/dL (75-99)
[2021-04-15 20:51] LABS: Glucose,Whole Blood 86 mg/dL (75-99)
[2021-04-15] MEDS: ATORVASTATIN 40 MG TAB PO SCH (21:23)
[2021-04-15] MEDS: DONEPEZIL 10 MG TAB PO SCH (21:23)
[2021-04-16] MEDS: LEVOTHYROXINE 75 MCG TAB PO SCH (06:00)
[2021-04-16 06:53] LABS: Glucose,Whole Blood 94 mg/dL (75-99)
[2021-04-16] MEDS: INSULIN ASPART (NovoLOG) 100 UNIT/ML VIAL SQ SCH ×5 (07:28→20:22)
[2021-04-16] MEDS: CLOPIDOGREL 75 MG TAB PO SCH (07:31)
[2021-04-16] MEDS: HEPARIN SODIUM,PORCINE/PF 5,000 UNIT/0.5 ML SYRINGE SQ SCH ×3 (07:32→23:17)
[2021-04-16] MEDS: lisinopriL 5 MG TAB PO SCH (07:32)
[2021-04-16] MEDS: METOPROLOL TARTRATE 25 MG TAB PO SCH ×2 (07:32→20:31)
[2021-04-16] MEDS: CHOLECALCIFEROL 25 MCG (1000 IU) TABLET PO SCH (07:32)
[2021-04-16] MEDS: INSULIN DETEMIR (LEVEMIR) 100 UNIT/ML SYR SQ SCH (08:32)
--- NOTE | 2021-04-16 09:10 | P.PN ---
Subjective Progress Note Date: 04/16/21 HISTORY OF PRESENT ILLNESS This is an 86-year-old female with previous medical history significa nt for coronary artery disease status post myocardial infarction with PCI, ischemic cardiomyopathy, hypertension hypertensive cardiovascular disease, hyperlipidemia, diabetes mellitus type 2, vascular dementia, hypothyroidism, chronic kidney disease stage IIIB, recurrent depression and generalized anxiety disorder. Patient is a long-term resident at [facility] yesterday nursing reported the patient had a brief episode of loss of consciousness and her eyes rolled back in her head. Temperature was found to be 101.5, heart rate 85, respiratory rate 16, blood pressure 179/68 and pulse ox 95% on room air. Patient was transferred to [facility] emergency center for further evaluation and subsequently was admitted to the hospital initially under [facility] services and subsequently was transferred to our care. In the emergency center, patient had a temperature max 101.8. EKG was a sinus rhythm with no acute ST changes. WBC 5.6, hemoglobin 13.2, platelet count 115 sodium 1 38, potassium 4.3, chloride 109, CO2 18, BUN 25 creatinine 1.81. Blood sugar 165. AST 89 otherwise liver function tests were normal. Albumin 3.6. Urinalysis cloudy with blood moderate, nitrate positive, leukoesterase large, WBC is 96, bacteria moderate. Lactic acid 1.6. X-ray revealed no acute pulmonary disease. Patient was started on Rocephin, [facility] Urine culture is positive for gram-negative bacilli. Blood culture no growth at 24 hours. REVIEW OF SYSTEMS Constitutional: No fever, no chills, no night sweats. No weight change. Noted weakness, noted fatigue noted lethargy. No daytime sleepiness. EENT: No headache. No blurred vision or double vision, no loss of vision. No loss of Hearing, no ringing in the ears, no dizziness. No nasal drainage or congestion. No epistaxis. No sore throat. Lungs: No shortness of breath, cough, no sputum production. No wheezing. Cardiovascular: No chest pain, no lower extremity edema. No palpitations. No paroxysmal nocturnal dyspnea. No orthopnea. No lightheadedness or dizziness. Reported syncopal episodes. Abdominal: No abdominal pain. Reported nausea, reported 1 episode of vomiting. No diarrhea. No constipation. No bloody or tarry stools. Noted loss of appetite. Genitourinary: No dysuria, increased frequency, urgency. No urinary retention. Musculoskeletal: No myalgias. No muscle weakness, no gait dysfunction, no frequent falls. No back pain. No neck pain. Integumentary: No wounds, no lesions. No rash or pruritus. No unusual bruising. No change in hair or nails. Neurologic: No aphasia. No facial droop. Mild change in mentation. Underlying dementia. No head injury. No headache. No paralysis. No paresthesia. Psychiatric: No depression. No anxiety. No mood swings. Endocrine: No abnormal blood sugars. MEDICAL HISTORY CAD post UT and PCI. Hypertension and hypertensive cardiovascular disease. Hyperlipidemia. CKD 3. Hypothyroidism. Diabetes mellitus type 2. Osteoarthritis. Vascular dementia. SURGICAL HISTORY LHC with PCI and 2 stents placed. Bilateral cataract surgeries. Cholecystectomy. Breast surgery. Orthopedic surgery. SOCIAL HISTORY Patient smoked about a pack every day for 20 years then quit, she denies any ETOH use, no Illicit drug use, uses a walker for ambulation. FAMILY HISTORY Mother in her 60s while sleeping, father and she does not know anything about him, patient had 3 brothers all and does not know much about their medicals, patient had 3 sisters one from CAD, patient had one daughter who from MVA, 2 sons one from unknown cause and the other one no issues. PHYSICAL EXAMINATION Gen: This is this is an 86-year-old female. HEENT: Head is atraumatic, normocephalic. Pupils equal, round. Sclerae is anicteric. NECK: Supple. No JVD. No lymphadenopathy. No thyromegaly. LUNGS: Decreased breath sounds at the bases. No wheezes or rhonchi. No intercostal retractions. HEART: Regular rate and rhythm. Systolic ejection murmur 2/6 at the left sternal border. ABDOMEN: Soft. Bowel sounds are present. No masses. No tenderness. EXTREMITIES: No pedal edema. No calf tenderness. NEUROLOGICAL: Patient is awake, alert and oriented to person and place. She is able to move all 4 extremities. Cranial nerves II through XII are grossly intact. Muscle power 4/5 in the bilateral upper extremities and 3/5 in the lower extremities. ASSESSMENT AND PLAN 1. Acute metabolic encephalopathy secondary to urinary tract infection and sepsis. Continue Rocephin 1 g IV piggyback daily, await finalization of urine culture, monitor blood cultures. Encourage oral intake and reorient patient. 2. Acute urinary tract infection. Continue as in #1. 3. Acute kidney injury with chronic kidney disease stage IIIB. Patient is status post 2 L of IV fluid. 4. Metabolic acidosis secondary to acute kidney injury. 5. Thrombocytopenia most likely secondary to sepsis. 6. First-degree AV block on EKG, Coreg changed to Lopressor. Hypertension, hypertensive cardio vascular disease. Continue lisinopril 5 mg daily, Coreg was changed to Lopressor 25 mg twice daily. 7. Lipidemia. Continue Lipitor 40 mg at bedtime. 8. Coronary artery disease with previous UT and PCI. Continue aspirin 81 mg daily, Plavix 75 mg daily, Lopressor. 9. Hypothyroidism. Continue levothyroxine 75 g daily. 10. Diabetes mellitus type 2. Sugars are running on the lower side with poor oral intake. Scheduled NovoLog will be discontinued for now. Continue Levemir 16 units daily and NovoLog scale.. 11. Vascular dementia. Continue Aricept 10 mg at bedtime. 12. GI prophylaxis. Protonix 40 mg oral daily. 13. DVT prophylaxis. Heparin subcu 5000 units every 8 hours. CODE STATUS: Full code Patient will be admitted to the hospital for a minimum of 2 night stay. DISCHARGE PLAN Return to [facility] under the care of Dr. Gutierrez where she resides as a long-term care resident. Impression and plan of care have been directed as dictated by the signing physician. Michelle Rivera nurse practitioner acting as scribe for signing ph ysician. Objective - Vital Signs Vital signs: Vital Signs Temp 98.3 F 04/16/21 07:44 Pulse 62 04/16/21 07:44 Resp 14 04/16/21 07:44 BP 151/45 04/16/21 07:44 Pulse Ox 96 04/16/21 07:44 Intake & Output 04/15/21 04/16/21 04/16/21 18:59 06:59 18:59 Intake Total 472 Balance 472 Intake: Oral 472 Other: Voiding Method Toilet Toilet Diaper # Voids 1 2 # Bowel Movements 1 # Emeses 1 - Labs CBC & Chem 7: 04/14/21 13:44 04/15/21 09:27 Labs: Abnormal Lab Results - Last 24 Hours (Table) 04/15/21 04/15/21 Range/Units 09:27 11:52 Chloride 115 H (98-107) mmol/L Carbon Dioxide 17 L (22-30) mmol/L BUN 25 H (7-17) mg/dL Creatinine 1.57 H (0.52-1.04) mg/dL Glucose 179 H (74-99) mg/dL POC Glucose (mg/dL) 103 H (75-99) mg/dL Calcium 8.3 L (8.4-10.2) mg/dL Microbiology - Last 24 Hours (Table) 04/14/21 13:44 Urine Culture - Preliminary Urine,Voided Gram Neg Bacilli 04/14/21 13:44 Blood Culture - Preliminary Blood No Growth after 24 hours 04/14/21 13:44 Blood Culture - Preliminary Blood No Growth after 24 hours
--- NOTE | 2021-04-16 09:36 | P.PN ---
Subjective Progress Note Date: 04/15/21 Principal diagnosis: Acute urinary tract infection Altered mental status Patient is a 86-year-old female with a known history of hypertension, hyperlipidemia, diabetes type 2 insulin-dependent, coronary artery disease with history of stent placement, history of CA, hypothyroidism and memory impairment currently staying at [facility] facility was sent to Hospital due to fever and altered mental status. Patient does have underlying dementia and is a poor historian otherwise. Patient has been more weak recently. Patient will be able to walk with a walker. T-max was 101.5 at that facility. plans of cough or sputum production. no shortness of breath. denied any abdominal pain. no nausea vomiting or diarrhea recently. blood pressure 100/61 and pulse 60 and t-max 101.8 on admission and saturating at 94% on room air. Chest x-ray showed no acute process. EKG showed sinus rhythm with first-degree AV block. Low voltage QRS. Laboratory data showed WBC 5.6, hemoglobin 13.2 and platelets 115 BUE and 25 and creatinine 1.81 Sodium 138 potassium 4.3 chloride 109 and bicarb is 18 Urinalysis showed cloudy with nitrite positive and large leukocyte esterase with elevated WBC count. COVID-19 patient not ejected. 04/15/2021 Patient is currently lying in the bed comfortably. Awake alert and oriented 3. No complaints of abdominal pain. No nausea vomiting or diarrhea. Currently on IV hydration and renal function is improving with creatinine level I.57 Urine culture is pending at this time. Continue with PT OT and antibiotic support, of ceftriaxone. Patient has been afebrile. No cough or sputum production. No chest pain or shortness of breath. current medications reviewed. Objective - Vital Signs Vital signs: Vital Signs Temp 100.2 F H 04/15/21 19:41 Pulse 66 04/15/21 19:41 Resp 17 04/15/21 19:41 BP 182/69 04/15/21 19:41 Pulse Ox 94 L 04/15/21 19:41 Intake & Output 04/15/21 04/15/21 04/16/21 06:59 18:59 06:59 Intake Total 472 Balance 472 Weight 177.2 kg Intake: Oral 472 Other: Voiding Method Toilet Toilet Diaper # Voids 1 1 # Bowel Movements 2 1 # Emeses 1 - Exam PHYSICAL EXAMINATION: Patient is lying in the bed comfortably, no acute distress, awake alert and oriented 3.. HEENT: Normocephalic. Neck is supple. Pupils reactive. Nostrils clear. Oral cavity is moist. Neck reveals no JVD, carotid bruits, or thyromegaly. CHEST EXAMINATION: Trachea is central. Symmetrical expansion. Lung scherer clear to auscultation and percussion. CARDIAC: Normal S1, S2 with no gallops. No murmurs ABDOMEN: Soft. Bowel sounds normal. No organomegaly. No abdominal bruits. Extremities: reveal no edema. No clubbing or cyanosis Neurologically awake, alert, oriented x2-3 with well-coordinated movements. No focal deficits noted Skin: No rash or skin lesions. Psychiatric: Coperative. Could not be sure that completely. Musculoskeletal: No joint swelling or deformity. Normal range of motion. - Labs CBC & Chem 7: 04/14/21 13:44 04/15/21 09:27 Labs: Abnormal Lab Results - Last 24 Hours (Table) 04/15/21 04/15/21 04/15/21 Range/Units 08:16 09:27 11:52 Chloride 115 H (98-107) mmol/L Carbon Dioxide 17 L (22-30) mmol/L BUN 25 H (7-17) mg/dL Creatinine 1.57 H (0.52-1.04) mg/dL Glucose 179 H (74-99) mg/dL POC Glucose (mg/dL) 204 H 103 H (75-99) mg/dL Calcium 8.3 L (8.4-10.2) mg/dL Microbiology - Last 24 Hours (Table) 04/14/21 13:44 Urine Culture - Preliminary Urine,Voided Gram Neg Bacilli 04/14/21 13:44 Blood Culture - Preliminary Blood No Growth after 24 hours 04/14/21 13:44 Blood Culture - Preliminary Blood No Growth after 24 hours Assessment and Plan Assessment: Altered mental status. Possible metabolic encephalopathy due to infection. Improved. Acute urinary tract infection with gram-negative bacilli. Acute kidney injury likely prerenal Further underlying CK D stage III due to diabetic nephropathy Metabolic acidosis secondary to acute kidney injury Coronary artery disease with history of stent placement History of CA Hypothyroidism Memory impairment/dementia Medical debility patient able to walk with walker at intermediate. Hypertension Hyperlipidemia Diabetes type 2 uncontrolled with mild hyperglycemia DVT prophylaxis with heparin subcu. Plan: Patient be continued on gentle IV hydration and antibiotics in form of ceftriaxone. Follow-up urine culture report. Hold blood pressure medications due to hypotension. Follow up final culture report. Follow-up renal function. PTOT consulted. Continue to follow closely.
[2021-04-16 11:08] LABS: Glucose,Whole Blood 114 mg/dL (75-99)
[2021-04-16 16:24] LABS: Glucose,Whole Blood 181 mg/dL (75-99)
[2021-04-16] MEDS: ASPIRIN 81 MG PO SCH (16:56)
[2021-04-16] MEDS: NON FORMULARY DRUG (Ubidecarenone [Co Q-10] 100 MG Capsule) PO SCH (16:59)
[2021-04-16 20:25] LABS: Glucose,Whole Blood 77 mg/dL (75-99)
[2021-04-16] MEDS: DONEPEZIL 10 MG TAB PO SCH (20:31)
[2021-04-16] MEDS: ATORVASTATIN 40 MG TAB PO SCH (20:31)
[2021-04-17] MEDS: LEVOTHYROXINE 75 MCG TAB PO SCH (05:40)
[2021-04-17] MEDS: INSULIN ASPART (NovoLOG) 100 UNIT/ML VIAL SQ SCH (07:25)
[2021-04-17] MEDS: INSULIN DETEMIR (LEVEMIR) 100 UNIT/ML SYR SQ SCH (07:25)
[2021-04-17 07:29] LABS: Glucose,Whole Blood 122 mg/dL (75-99)
[2021-04-17] MEDS ORDERED: PANTOPRAZOLE 40 MG TABLET PO SCH (07:30)
[2021-04-17] MEDS: CLOPIDOGREL 75 MG TAB PO SCH (07:32)
[2021-04-17] MEDS: lisinopriL 5 MG TAB PO SCH (07:32)
[2021-04-17] MEDS: CHOLECALCIFEROL 25 MCG (1000 IU) TABLET PO SCH (07:32)
[2021-04-17] MEDS: METOPROLOL TARTRATE 25 MG TAB PO SCH (07:32)
[2021-04-17] MEDS: HEPARIN SODIUM,PORCINE/PF 5,000 UNIT/0.5 ML SYRINGE SQ SCH (07:32)
[2021-04-17 08:04] VITALS: BP 156/73; PULSE 51; RESP 16; TEMP 99.2
--- NOTE | 2021-04-17 08:40 | P.DS ---
Providers Date of admission: 04/14/21 16:06 Expected date of discharge: 04/17/21 Attending physician: Lyle Gutierrez Primary care physician: Stated None Hospital Course: HISTORY OF PRESENT ILLNESS This is an 86-year-old female with previous medical history significant for coronary artery disease status post myocardial infarction with PCI, ischemic cardiomyopathy, hypertension hypertensive cardiovascular disease, hyperlipidemia, diabetes mellitus type 2, vascular dementia, hypothyroidism, chronic kidney disease stage IIIB, recurrent depression and generalized anxiety disorder. Patient is a long-term resident at [facility] yesterday nursing reported the patient had a brief episode of loss of consciousness and her eyes rolled back in her head. Temperature was found to be 101.5, heart rate 85, respiratory rate 16, blood pressure 179/68 and pulse ox 95% on room air. Patient was transferred to [facility] emergency center for further evaluation and subsequently was admitted to the hospital initially under [facility] services and subsequently was transferred to our care. In the emergency center, patient had a temperature max 101.8. EKG was a sinus rhythm with no acute ST changes. WBC 5.6, hemoglobin 13.2, platelet count 115 sodium 138, potassium 4.3, chloride 109, CO2 18, BUN 25 creatinine 1.81. Blood sugar 165. AST 89 otherwise liver function tests were normal. Albumin 3.6. Urinalysis cloudy with blood moderate, nitrate positive, leukoesterase large, WBC is 96, bacteria moderate. Lactic acid 1.6. X-ray revealed no acute pulmonary disease. Patient was started on Rocephin, admitted to the [facility] floor. Urine culture is positive for gram-negative bacilli. Blood culture no growth at 24 hours. /: Urine culture is positive for E. coli resistant to Bactrim and ampicillin/Unasyn. She has been afebrile, heart rate 63, blood pressure 180/73, pulse ox 92% on room air. Blood sugars have been running between 77 and 181. Patient denies any new complaints today. She denies having any fever or chills. No abdominal pain. No chest pain or shortness of breath, no cough. She did eat her breakfast this morning. Patient will be discharged back to [facility] today in stable condition. ASSESSMENT AND PLAN 1. Acute metabolic encephalopathy secondary to urinary tract infection and sepsis. 2. Acute urinary tract infection. 3. Acute kidney injury with chronic kidney disease stage IIIB. 4. Metabolic acidosis secondary to acute kidney injury. 5. Thrombocytopenia most likely secondary to sepsis. 6. First-degree AV block on EKG. 7. Hyperlipidemia. 8. Coronary artery disease with previous [place] and PCI. 9. Hypothyroidism. 10. Diabetes mellitus type 2. 11. Vascular dementia. DISCHARGE PLAN Return to [facility] under the care of Dr. Gutierrez where she resides as a long-term care resident. Impression and plan of care have been directed as dictated by the signing physician. Michelle Rivera nurse practitioner acting as scribe for signing physician. Plan - Discharge Summary Discharge Rx Participant: Yes New Discharge Prescriptions: New Cefuroxime [Ceftin] 250 mg PO BID 7 Days #14 tab Continue Levothyroxine Sodium [Synthroid] 75 mcg PO DAILY@0600 Donepezil [Aricept] 10 mg PO HS@2100 Atorvastatin [Lipitor] 40 mg PO HS@2100 Aspirin 81 mg PO DAILY@1700 bisacodyL [Dulcolax] 10 mg RECTAL DAILY PRN PRN Reason: Constipation Acetaminophen [Tylenol 8 Hour] 650 mg PO Q4H PRN PRN Reason: general discomfort INSULIN ASPART (NovoLOG) [NovoLOG (formulary)] See Protocol SQ ACHS carvediloL [Coreg*] 12.5 mg PO BID@0800,1700 Clopidogrel [Plavix] 75 mg PO DAILY@0800 Cholecalciferol [Vitamin D3 (25 Mcg = 1000 Iu)] 2,000 units PO DAILY@0800 Insulin Detemir [Levemir Flextouch] 16 units SQ HS@2100 Loperamide HCl [Imodium A-D] 2 - 4 mg PO TID PRN MDD 4 TABS PRN Reason: Diarrhea Magnesium Hydroxide [Milk of Magnesia Concentrate] 7,200 mg PO DAILY PRN PRN Reason: Constipation Ubidecarenone [Co Q-10] 200 mg PO DAILY@1700 Ondansetron HCl [Zofran] 4 mg PO Q8H PRN PRN Reason: Nausea And Vomiting Changed lisinopriL [Zestril] 10 mg PO DAILY@0800 #0 Discontinued INSULIN ASPART (NovoLOG) [NovoLOG (formulary)] 6 unit SQ DAILY@1630 INSULIN ASPART (NovoLOG) [NovoLOG (formulary)] 4 unit SQ DAILY@1100 INSULIN ASPART (NovoLOG) [NovoLOG (formulary)] 2 unit SQ DAILY@0700 Discharge Medication List Aspirin 81 mg PO DAILY@1700 09/22/19 [History] Atorvastatin [Lipitor] 40 mg PO HS@2100 09/22/19 [History] Donepezil [Aricept] 10 mg PO HS@2100 09/22/19 [History] Levothyroxine Sodium [Synthroid] 75 mcg PO DAILY@0600 09/22/19 [History] Acetaminophen [Tylenol 8 Hour] 650 mg PO Q4H PRN 02/14/20 [History] Clopidogrel [Plavix] 75 mg PO DAILY@0800 02/14/20 [History] INSULIN ASPART (NovoLOG) [NovoLOG (formulary)] See Protocol SQ ACHS 02/14/20 [History] bisacodyL [Dulcolax] 10 mg RECTAL DAILY PRN 02/14/20 [History] carvediloL [Coreg*] 12.5 mg PO BID@0800,1700 02/14/20 [History] Cholecalciferol [Vitamin D3 (25 Mcg = 1000 Iu)] 2,000 units PO DAILY@0800 05/26/20 [History] Insulin Detemir [Levemir Flextouch] 16 units SQ HS@209902/01/21 [History] Loperamide HCl [Imodium A-D] 2 - 4 mg PO TID PRN MDD 4 TABS 02/01/21 [History] Ubidecarenone [Co Q-10] 200 mg PO DAILY@1700 02/01/21 [History] Magnesium Hydroxide [Milk of Magnesia Concentrate] 7,200 mg PO DAILY PRN 04/14/21 [History] Ondansetron HCl [Zofran] 4 mg PO Q8H PRN 04/14/21 [History] Cefuroxime [Ceftin] 250 mg PO BID 7 Days #14 tab 04/17/21 [Rx] lisinopriL [Zestril] 10 mg PO DAILY@0800 #0 04/17/21 [Rx] Follow up Appointment(s)/Referral(s): Lyle Gutierrez MD [STAFF PHYSICIAN] - 1 Week Discharge Disposition: TRANSFER TO SNF/ECF
[2021-04-17] MEDS ORDERED: lisinopriL 5 MG TAB PO STA (08:59)
== END 2021-04-17 11:59 | DRG 871 ==
LOC: EC 12:49 → 4SSUR 16:06
PROVIDERS: ADMIT Internal Medicine; ATTEND Internal Medicine
DX: A41.9 Sepsis, unspecified organism (principal); G93.41 Metabolic encephalopathy; N39.0 Urinary tract infection, site not specified; N17.9 Acute kidney failure, unspecified; E87.2 Acidosis; F33.9 Major depressive disorder, recurrent, unspecified; Z16.29 Resistance to other single specified antibiotic; I25.10 Atherosclerotic heart disease of native coronary artery without angina pectoris; E78.5 Hyperlipidemia, unspecified; Z20.822 Contact with and (suspected) exposure to COVID-19; F01.50 Vascular dementia, unspecified severity, without behavioral disturbance, psychotic disturbance, mood disturbance, and anxiety; N18.32 Chronic kidney disease, stage 3b; E03.9 Hypothyroidism, unspecified; E11.22 Type 2 diabetes mellitus with diabetic chronic kidney disease; E11.65 Type 2 diabetes mellitus with hyperglycemia; F41.1 Generalized anxiety disorder; M19.90 Unspecified osteoarthritis, unspecified site; D69.59 Other secondary thrombocytopenia; I44.0 Atrioventricular block, first degree; Z82.49 Family history of ischemic heart disease and other diseases of the circulatory system; I25.5 Ischemic cardiomyopathy; Z79.02 Long term (current) use of antithrombotics/antiplatelets; Z79.82 Long term (current) use of aspirin; Z79.890 Hormone replacement therapy; Z79.4 Long term (current) use of insulin; Z95.5 Presence of coronary angioplasty implant and graft; I25.2 Old myocardial infarction; Z87.891 Personal history of nicotine dependence; I13.10 Hypertensive heart and chronic kidney disease without heart failure, with stage 1 through stage 4 chronic kidney disease, or unspecified chronic kidney disease; Z96.1 Presence of intraocular lens; B96.20 Unspecified Escherichia coli [E. coli] as the cause of diseases classified elsewhere; Z79.899 Other long term (current) drug therapy
CPT/HCPCS: 36415; 71046; 80048; 80053; 81001; 83605; 85025; 85610; 85730; 87040; 87077; 87086; 87186; 87635; 93005; 96360; 96361; 99285

== ENCOUNTER 2021-09-04 05:34 | Emergency (ER) | payer MEDICARE, OTHER ==
[2021-09-04 05:44] VITALS: BP 153/83; PULSE 45; RESP 17; TEMP 97.8
[2021-09-04] MEDS ORDERED: MORPHINE SULFATE 4 MG/ML SYRINGE IV STA (05:49)
[2021-09-04] MEDS ORDERED: MORPHINE SULFATE 4 MG/ML SYRINGE IM STA (05:51)
--- NOTE | 2021-09-04 06:24 | XR ---
EXAMINATION TYPE: XR shoulder limited LT DATE OF EXAM: 09/04/2021 COMPARISON: NONE HISTORY: Fall. Pain. TECHNIQUE: 2 views FINDINGS: There is 3 x 1 cm chip fracture of the greater tuberosity humerus. There is no dislocation. AC joint is intact. I see no definite humeral neck fracture. IMPRESSION: Large chip fracture of the greater tuberosity of the humerus. Humeral neck fracture not e ntirely excluded.
--- NOTE | 2021-09-04 06:25 | XR ---
EXAMINATION TYPE: XR humerus LT DATE OF EXAM: 09/04/2021 COMPARISON: NONE HISTORY: Fall. Pain. TECHNIQUE: Single view FINDINGS: There is no dislocation. Elbow joint appears to be anatomic. There is large chip fracture o f the greater tuberosity humerus. There is possible hairline fracture of the humeral neck. IMPRESSION: Large chip fracture of the greater tuberosity of the left humerus. Possible hairline frac ture of the humeral neck.
--- NOTE | 2021-09-04 06:41 | ED ---
Fall HPI - General Chief Complaint: Fall Stated Complaint: Fall Time Seen by Provider: 09/04/21 05:46 Source: patient, EMS Mode of arrival: EMS - History of Present Illness Initial Comments: This patient is an 86-year-old woman brought for evaluation after she had fall at her long-term care facility. Patient believes the only injury was to her arm. She denies head, neck, back, chest or abdomen pain. No loss consciousness. MD Complaint: fall Onset/Timin -: hour(s) Fall From: standing When Fall Occurred: 1 hour [employer] Fall Witnessed: yes, by living facility staff Place Fall Occurred: residential/SNF Loss of Consciousness: none Prolonged Down Time?: no Symptoms Prior to Fall: none Location - Extremities: Left: Shoulder Severity: severe Quality: sharp Associated Symptoms: denies - Related Data Home Medications Medication Instructions Recorded Confirmed Aspirin 81 mg PO DAILY@1700 09/22/19 04/14/21 Atorvastatin [Lipitor] 40 mg PO HS@2100 09/22/19 04/14/21 Donepezil [Aricept] 10 mg PO HS@2100 09/22/19 04/14/21 Levothyroxine Sodium [Synthroid] 75 mcg PO DAILY@0600 09/22/19 04/14/21 Acetaminophen [Tylenol 8 Hour] 650 mg PO Q4H PRN 02/14/20 04/14/21 Clopidogrel [Plavix] 75 mg PO DAILY@0800 02/14/20 04/14/21 INSULIN ASPART (NovoLOG) [NovoLOG See Protocol SQ ACHS 02/14/20 04/14/21 (formulary)] bisacodyL [Dulcolax] 10 mg RECTAL DAILY PRN 02/14/20 04/14/21 carvediloL [Coreg*] 12.5 mg PO BID@0800,1700 02/14/20 04/14/21 Cholecalciferol [Vitamin D3 (25 2,000 units PO DAILY@0800 05/26/20 04/14/21 Mcg = 1000 Iu)] Insulin Detemir [Levemir Flextouch 16 units SQ HS@2100 02/01/21 04/14/21 Pen] Loperamide HCl [Imodium A-D] 2 - 4 mg PO TID PRN MDD 4 TABS 02/01/21 04/14/21 Ubidecarenone [Co Q-10] 200 mg PO DAILY@1700 02/01/21 04/14/21 Magnesium Hydroxide [Milk of 7,200 mg PO DAILY PRN 04/14/21 04/14/21 Magnesia Concentrate] Ondansetron HCl [Zofran] 4 mg PO Q8H PRN 04/14/21 04/14/21 Previous Rx's Medication Instructions Recorded Cefuroxime [Ceftin] 250 mg PO BID 7 Days #14 tab 04/17/21 lisinopriL [Zestril] 10 mg PO DAILY@0800 #0 04/17/21 HYDROcodone/APAP 5-325MG [[place] 1 tab PO Q4HR PRN 3 Days #18 tab 09/04/21 5-325] Allergies Allergy/AdvReac Type Severity Reaction Status Date / Time Sulfa (Sulfonamide Allergy Unknown Verified 04/14/21 13:36 Antibiotics) Review of Systems ROS Statement: Those systems with pertinent positive or pertinent negative responses have been documented in the HPI. ROS Other: All systems not noted in ROS Statement are negative. Constitutional: Denies: weakness Eyes: Denies: vision change Respiratory: Denies: cough, dyspnea Cardiovascular: Denies: chest pain, syncope Gastrointestinal: Denies: abdominal pain, vomiting Musculoskeletal: Reports: as per HPI, arthralgia. Denies: back pain Skin: Denies: lesions Neurological: Denies: headache, weakness, numbness, paresthesias Past Medical History Past Medical History: Coronary Artery Disease (CAD), Diabetes Mellitus, Hyperlipidemia, Hypertension, Memory Impairment, Myocardial Infarction ([place]), Osteoarthritis (OA), Thyroid Disorder Additional Past Medical History / Comment(s): Type 2 DM, [place] 07/29/19 Last Myocardial Infarction Date:: 07/29/19 History of Any Multi-Drug Resistant Organisms: None Reported Past Surgical History: Breast Surgery, Cholecystectomy, Heart Catheterization With Stent, Joint Replacement, Orthopedic Surgery Additional Past Surgical History / Comment(s): 2 cardiac stents, bilateral cataract removal and intraocular lens implants Past Anesthesia/Blood Transfusion Reactions: No Reported Reaction Date of Last Stent Placement:: 07/29/19 Past Psychological History: No Psychological Hx Reported Smoking Status: Former smoker Past Alcohol Use History: None Reported Past Drug Use History: None Reported - Past Family History Brother(s) Family Medical History: Myocardial Infarction ([place]) Additional Family Medical History / Comment(s): The patient has 3 brothers and all have passed. Patient does not know their medical histories nor the reason further tests. Father Additional Family Medical History / Comment(s): Patient's father is . Patient does not know any of his medical history. Mother Additional Family Medical History / Comment(s): Mother in her 60s while sleeping. Sister(s) Additional Family Medical History / Comment(s): Patient has 3 sisters and one has that his history of coronary artery disease status post stents. Daughter(s) Additional Family Medical History / Comment(s): Patient has one daughter that in a motor vehicle accident. Patient has 2 sons and one from an unknown cause. One son is alive with no major medical problems. General Exam Limitations: no limitations General appearance: alert, in no apparent distress Head exam: Present: atraumatic, normocephalic Eye exam: Present: normal appearance, EOMI. Absent: scleral icterus, conjunctival injection Neck exam: Present: normal inspection, full ROM. Absent: tenderness Respiratory exam: Present: normal lung sounds bilaterally. Absent: respiratory distress, wheezes, rales, rhonchi, stridor, chest wall tenderness Cardiovascular Exam: Present: regular rate, normal rhythm, normal heart sounds. Absent: systolic murmur, diastolic murmur, rubs, gallop GI/Abdominal exam: Present: soft. Absent: distended, tenderness, guarding, r ebound, rigid, mass Extremities exam: Present: normal inspection, normal capillary refill. Absent: pedal edema, calf tenderness Left General: Absent: laceration, abrasion Shoulder Exam: Present: tenderness, swelling, crepitus. Absent: full ROM, abrasion, laceration, ecchymosis, erythema, tenderness over AC joint Upper Arm exam: Present: tenderness, swelling. Absent: full ROM Elbow exam: Present: normal inspection, full ROM. Absent: tenderness, swelling, abrasion, ecchymosis, deformity Forearm Wrist exam: Present: normal inspection, full ROM. Absent: tenderness, swelling, abrasion, ecchymosis, deformity Hand Wrist exam: Present: normal inspection, full ROM. Absent: tenderness, swelling, abrasion, laceration, ecchymosis, crepitus, dislocation Neuro motor exam: Present: wrist extension intact, thumb opposition intact, thumb IP flexion intact, thumb adduction intact, fingers 2-5 abduction intact Neurosensory exam: Present: 2-point discrimination, radial nerve intact, ulnar nerve intact, median nerve intact Vascular: Present: normal capillary refill. Absent: vascular compromise, pulse deficit radial art, pulse deficit ulnar art, pulse deficit brachial art Back exam: Present: normal inspection. Absent: CVA tenderness (R), CVA tenderness (L), vertebral tenderness Neurological exam: Present: alert. Absent: motor sensory deficit Skin exam: Present: warm, dry, intact, normal color. Absent: rash Course Vital Signs 09/04/21 05:36 Temperature 97.8 F Pulse Rate 45 L Respiratory 17 Rate Blood Pressure 153/83 O2 Sat by Pulse 97 Oximetry Medical Decision Making - Medical Decision Making Patient is a 86-year-old woman here after a fall at her long-term care facility. Appears to have isolated humerus injury at this point. Symptoms improved with analgesic and immobilization. Will have patient follow with orthopedics Disposition Clinical Impression: Fall, Humerus fracture Disposition: HOME SELF-CARE Condition: Good Instructions (If sedation given, give patient instructions): Fall Prevention for Older Adults (ED) Prescriptions: HYDROcodone/APAP 5-325MG [[place] 5-325] 1 tab PO Q4HR PRN 3 Days #18 tab PRN Reason: Pain Is patient prescribed a controlled substance at d/c from ED?: Yes When asked, does pt state using other controlled substances?: No If prescribed controlled substance>3 days was MAPS reviewed?: Prescribed <3 Days If opioid is for acute pain is fill amount 7 days or less?: Yes If Rx opioid, was Start Talking consent form obtained?: Yes Referrals: None,Stated [Primary Care Provider] - 1-2 days Dante Loving DO [Doctor of Osteopathic Medicine] - 1-2 days
== END 2021-09-04 07:17 | disposition home or self-care (01) ==
LOC: EC 05:34
DX: S42.302A Unspecified fracture of shaft of humerus, left arm, initial encounter for closed fracture (principal); I25.10 Atherosclerotic heart disease of native coronary artery without angina pectoris; E11.9 Type 2 diabetes mellitus without complications; E78.5 Hyperlipidemia, unspecified; I10 Essential (primary) hypertension; I25.2 Old myocardial infarction; M19.90 Unspecified osteoarthritis, unspecified site; E07.9 Disorder of thyroid, unspecified; Z79.82 Long term (current) use of aspirin; Z79.4 Long term (current) use of insulin; Z88.2 Allergy status to sulfonamides; Z90.49 Acquired absence of other specified parts of digestive tract; Z87.891 Personal history of nicotine dependence; W01.0XXA Fall on same level from slipping, tripping and stumbling without subsequent striking against object, initial encounter
CPT/HCPCS: 99283; 96372; 73020; 73060; J2270

== ENCOUNTER 2021-10-12 17:40 | Inpatient (IN) | payer MEDICARE, OTHER ==
[2021-10-12] MEDS ORDERED: SODIUM CHLORIDE 0.9% 500 ML 500 ML IV STA (17:47)
--- NOTE | 2021-10-12 17:51 | ED ---
General Adult HPI - General Stated complaint: Abnormal labs Time Seen by Provider: 10/12/21 17:40 Source: patient, RN notes reviewed, old records reviewed - History of Present Illness Initial comments: This is a 86-year-old female who presents emergency Department via EMS. Patient was sent in because of electrolyte abnormalities. It was thought that that the patient's potassium was elevated however no one know the level. Staff also stated that the patient had acute renal failure. Patient denies all patient denies any difficulty breathing. Patient states she has no complaints and does not want she's here. Patient does have a history of some dementia. Patient does not know why they sent her in. No other history is available this time - Related Data Home Medications Medication Instructions Recorded Confirmed Aspirin 81 mg PO DAILY@1700 09/22/19 04/14/21 Atorvastatin [Lipitor] 40 mg PO HS@2100 09/22/19 04/14/21 Donepezil [Aricept] 10 mg PO HS@2100 09/22/19 04/14/21 Levothyroxine Sodium [Synthroid] 75 mcg PO DAILY@0600 09/22/19 04/14/21 Acetaminophen [Tylenol 8 Hour] 650 mg PO Q4H PRN 02/14/20 04/14/21 Clopidogrel [Plavix] 75 mg PO DAILY@0800 02/14/20 04/14/21 INSULIN ASPART (NovoLOG) [NovoLOG See Protocol SQ ACHS 02/14/20 04/14/21 (formulary)] bisacodyL [Dulcolax] 10 mg RECTAL DAILY PRN 02/14/20 04/14/21 carvediloL [Coreg*] 12.5 mg PO BID@0800,1700 02/14/20 04/14/21 Cholecalciferol [Vitamin D3 (25 2,000 units PO DAILY@0800 05/26/20 04/14/21 Mcg = 1000 Iu)] Insulin Detemir [Levemir Flextouch 16 units SQ HS@209902/01/21 04/14/21 Pen] Loperamide HCl [Imodium A-D] 2 - 4 mg PO TID PRN MDD 4 TABS 02/01/21 04/14/21 Ubidecarenone [Co Q-10] 200 mg PO DAILY@1700 02/01/21 04/14/21 Magnesium Hydroxide [Milk of 7,200 mg PO DAILY PRN 04/14/21 04/14/21 Magnesia Concentrate] Ondansetron HCl [Zofran] 4 mg PO Q8H PRN 04/14/21 04/14/21 Previous Rx's Medication Instructions Recorded Cefuroxime [Ceftin] 250 mg PO BID 7 Days #14 tab 04/17/21 lisinopriL [Zestril] 10 mg PO DAILY@0800 #0 04/17/21 HYDROcodone/APAP 5-325MG [[place] 1 tab PO Q4HR PRN 3 Days #18 tab 09/04/21 5-325] Allergies Allergy/AdvReac Type Severity Reaction Status Date / Time Sulfa (Sulfonamide Allergy Unknown Verified 10/12/21 17:50 Antibiotics) Review of Systems ROS Statement: Those systems with pertinent positive or pertinent negative responses have been documented in the HPI. ROS Other: All systems not noted in ROS Statement are negative. Past Medical History Past Medical History: Coronary Artery Disease (CAD), Diabetes Mellitus, Hyperlipidemia, Hypertension, Memory Impairment, Myocardial Infarction ([place]), Osteoarthritis (OA), Thyroid Disorder Additional Past Medical History / Comment(s): Type 2 DM, [place] 07/29/19 Last Myocardial Infarction Date:: 07/29/19 History of Any Multi-Drug Resistant Organisms: None Reported Past Surgical History: Breast Surgery, Cholecystectomy, Heart Catheterization With Stent, Joint Replacement, Orthopedic Surgery Additional Past Surgical History / Comment(s): 2 cardiac stents, bilateral cataract removal and intraocular lens implants Past Anesthesia/Blood Transfusion Reactions: No Reported Reaction Date of Last Stent Placement:: 07/29/19 Past Psychological History: No Psychological Hx Reported Smoking Status: Former smoker Past Alcohol Use History: None Reported Past Drug Use History: None Reported - Past Family History Brother(s) Family Medical History: Myocardial Infarction ([place]) Additional Family Medical History / Comment(s): The patient has 3 brothers and all have passed. Patient does not know their medical histories nor the reason further tests. Father Additional Family Medical History / Comment(s): Patient's father is . Patient does not know any of his medical history. Mother Additional Family Medical History / Comment(s): Mother in her 60s while sleeping. Sister(s) Additional Family Medical History / Comment(s): Patient has 3 sisters and one has that his history of coronary artery disease status post stents. Daughter(s) Additional Family Medical History / Comment(s): Patient has one daughter that in a motor vehicle accident. Patient has 2 sons and one from an unknown cause. One son is alive with no major medical problems. General Exam - General Exam Comments Initial Comments: GENERAL: Patient is well-developed and well-nourished. Patient is nontoxic and well- hydrated and is in no acute distress. ENT: Neck is soft and supple. No significant lymphadenopathy is noted. Oropharynx is clear. Moist mucous membranes. Neck has full range of motion without eliciting any pain. EYES: The sclera were anicteric and conjunctiva were pink and moist. Extraocular movements were intact and pupils were equal round and reactive to light. Eyelids were unremarkable. PULMONARY: Unlabored respirations. Good breath sounds bilaterally. No audible rales rhonchi or wheezing was noted. CARDIOVASCULAR: There is a regular rate and rhythm without any murmurs gallops or rubs. ABDOMEN: Soft and nontender with normal bowel sounds. SKIN: Skin is clear with no lesions or rashes and otherwise unremarkable. NEUROLOGIC: Patient is alert and oriented 2. Cranial nerves II through XII are grossly intact. Motor and sensory are also intact. Normal speech, volume and content. Symmetrical smile. MUSCULOSKELETAL: Normal extremities with adequate strength and full range of motion. No lower extremity swelling or edema. No calf tenderness. LYMPHATICS: No significant lymphadenopathy is noted PSYCHIATRIC: Normal psychiatric evaluation. Course Vital Signs 10/12/21 17:47 Temperature 98.8 F Pulse Rate 53 L Respiratory 18 Rate Blood Pressure 141/61 O2 Sat by Pulse 97 Oximetry Medical Decision Making - Medical Decision Making Potassium 6.5. Patient received calcium chloride, Kayexalate, D50, sodium bicarbonate, insulin regular 10 units. I spoke with Dr. Gutierrez he agreed to admit the patient admitted the patient remaining orders I consult nephrology. - Lab Data Result diagrams: 10/12/21 17:57 10/12/21 17:57 Lab Results 10/12/21 10/12/21 10/12/21 Range/Units 17:57 17:57 17:57 WBC 5.0 (3.8-10.6) k/uL RBC 3.98 (3.80-5.40) m/uL Hgb 12.8 (11.4-16.0) gm/dL Hct 42.4 (34.0-46.0) % MCV 106.7 H (80.0-100.0) fL MCH 32.1 (25.0-35.0) pg MCHC 30.1 L (31.0-37.0) g/dL RDW 12.2 (11.5-15.5) % Plt Count 124 L (150-450) k/uL MPV 8.5 Neutrophils % 65 % Lymphocytes % 24 % Monocytes % 7 % Eosinophils % 3 % Basophils % 1 % Neutrophils # 3.3 (1.3-7.7) k/uL Lymphocytes # 1.2 (1.0-4.8) k/uL Monocytes # 0.3 (0-1.0) k/uL Eosinophils # 0.2 (0-0.7) k/uL Basophils # 0.0 (0-0.2) k/uL Hypochromasia Marked Macrocytosis Moderate PT 10.7 (9.0-12.0) sec INR 1.0 (<1.2) APTT 21.6 L (22.0-30.0) sec Sodium 141 (137-145) mmol/L Potassium 6.5 H* (3.5-5.1) mmol/L Chloride 119 H (98-107) mmol/L Carbon Dioxide 11 L (22-30) mmol/L Anion Gap 11 mmol/L BUN 76 H (7-17) mg/dL Creatinine 2.98 H (0.52-1.04) mg/dL Est GFR (CKD-EPI)AfAm 16 (>60 ml/min/1.73 sqM) Est GFR (CKD-EPI)NonAf 14 (>60 ml/min/1.73 sqM) Glucose 124 H (74-99) mg/dL Calcium 9.1 (8.4-10.2) mg/dL Magnesium 2.3 (1.6-2.3) mg/dL Total Bilirubin 1.1 (0.2-1.3) mg/dL AST 24 (14-36) U/L ALT 22 (4-34) U/L Alkaline Phosphatase 99 (38-126) U/L Troponin I (0.000-0.034) ng/mL Total Protein 6.9 (6.3-8.2) g/dL Albumin 3.9 (3.5-5.0) g/dL 10/12/21 Range/Units 17:57 WBC (3.8-10.6) k/uL RBC (3.80-5.40) m/uL Hgb (11.4-16.0) gm/dL Hct (34.0-46.0) % MCV (80.0-100.0) fL MCH (25.0-35.0) pg MCHC (31.0-37.0) g/dL RDW (11.5-15.5) % Plt Count (150-450) k/uL MPV Neutrophils % % Lymphocytes % % Monocytes % % Eosinophils % % Basophils % % Neutrophils # (1.3-7.7) k/uL Lymphocytes # (1.0-4.8) k/uL Monocytes # (0-1.0) k/uL Eosinophils # (0-0.7) k/uL Basophils # (0-0.2) k/uL Hypochromasia Macrocytosis PT (9.0-12.0) sec INR (<1.2) APTT (22.0-30.0) sec Sodium (137-145) mmol/L Potassium (3.5-5.1) mmol/L Chloride (98-107) mmol/L Carbon Dioxide (22-30) mmol/L Anion Gap mmol/L BUN (7-17) mg/dL Creatinine (0.52-1.04) mg/dL Est GFR (CKD-EPI)AfAm (>60 ml/min/1.73 sqM) Est GFR (CKD-EPI)NonAf (>60 ml/min/1.73 sqM) Glucose (74-99) mg/dL Calcium (8.4-10.2) mg/dL Magnesium (1.6-2.3) mg/dL Total Bilirubin (0.2-1.3) mg/dL AST (14-36) U/L ALT (4-34) U/L Alkaline Phosphatase (38-126) U/L Troponin I <0.012 (0.000-0.034) ng/mL Total Protein (6.3-8.2) g/dL Albumin (3.5-5.0) g/dL Disposition Clinical Impression: Hyperkalemia, Acute renal failure Disposition: ADMITTED IP TO THIS HOSP Referrals: Lyle Gutierrez MD [Primary Care Provider] - 1-2 days Time of Disposition: 18:54
[2021-10-12 18:17] LABS: Prothrombin Time 10.7 sec (9.0-12.0)
[2021-10-12 18:32] LABS: Partial Thromboplastin Time 21.6 sec (22.0-30.0)
[2021-10-12 18:35] LABS: Albumin 3.9 g/dL (3.5-5.0); Calcium 9.1 mg/dL (8.4-10.2); Total Bilirubin 1.1 mg/dL (0.2-1.3); Total Protein 6.9 g/dL (6.3-8.2)
--- NOTE | 2021-10-12 18:42 | XR ---
EXAMINATION TYPE: XR chest 2V DATE OF EXAM: 10/12/2021 6:16 PM COMPARISON:None CLINICAL INDICATION:Female, 86 years old with history of Chest Pain; TECHNIQUE: Frontal and lateral views of the chest. FINDINGS: Lungs/Pleura: There is no evidence of pleural effusion, focal consolidation, or pneumothorax. Pulmonary vascularity: Unremarkable. Heart/mediastinum: Cardiomediastinal silhouette is enlarged and stable. Atherosclerotic calcificatio ns are seen in the aorta. Musculoskeletal: Multiple level degenerative disc disease changes seen throughout the spine. IMPRESSION: No acute cardiopulmonary disease/process.
[2021-10-12 18:48] LABS: Basophils % (A) 1 %; Eosinophils # (A) 0.2 k/uL (0-0.7); Eosinophils % (A) 3 %; HCT 42.4 % (34.0-46.0); HGB 12.8 gm/dL (11.4-16.0); Hypochromasia Marked; Lymphocytes # (A) 1.2 k/uL (1.0-4.8); Lymphocytes % (A) 24 %; MCH 32.1 pg (25.0-35.0); MCHC 30.1 g/dL (31.0-37.0); MCV 106.7 fL (80.0-100.0); Macrocytosis Moderate; Mean Platelet Volume 8.5; Monocytes # (A) 0.3 k/uL (0-1.0); Monocytes % (A) 7 %; Neutrophils # (A) 3.3 k/uL (1.3-7.7); Neutrophils % (A) 65 %; Platelet Count 124 k/uL (150-450); RBC 3.98 m/uL (3.80-5.40); RDW 12.2 % (11.5-15.5)
[2021-10-12 18:49] LABS: Magnesium 2.3 mg/dL (1.6-2.3); Potassium 6.5 mmol/L (3.5-5.1)
[2021-10-12] MEDS ORDERED: CALCIUM CHLORIDE 100 MG/ML 10 ML SYRINGE IVP STA (18:49)
[2021-10-12] MEDS ORDERED: SODIUM BICARB 8.4% 50 ML SYR (1 MEQ/ML) IV STA (18:49)
[2021-10-12] MEDS ORDERED: SODIUM POLYSTYRENE SULFONATE 15 GM/60 ML BOTTLE PO STA (18:49)
[2021-10-12] MEDS ORDERED: INSULIN REGULAR 100 UNIT/ML VIAL (IV) IV ONE (18:51)
[2021-10-12] MEDS ORDERED: DEXTROSE 50% SYRINGE 50 ML IVP STA (18:51)
[2021-10-12] MEDS ORDERED: DEXTROSE 5% IN WATER 1,000 ML with SODIUM BICARB (1 MEQ/ML) 150 ML IV ONE (18:55)
[2021-10-12 23:53] LABS: Calcium 9.8 mg/dL (8.4-10.2); Potassium 5.7 mmol/L (3.5-5.1)
[2021-10-13 06:59] LABS: Glucose,Whole Blood 133 mg/dL (75-99)
[2021-10-13] MEDS ORDERED: bisacodyL 10 MG SUPP RECTAL PRN (08:06)
[2021-10-13] MEDS: NON FORMULARY DRUG (Ubidecarenone [Coenzyme Q10] 200 MG Capsule) PO SCH (08:23)
[2021-10-13] MEDS: CLOPIDOGREL 75 MG TAB PO SCH (08:25)
[2021-10-13] MEDS: LEVOTHYROXINE 75 MCG TAB PO SCH (08:25)
[2021-10-13] MEDS: LORATADINE 10 MG TAB PO SCH (08:25)
[2021-10-13] MEDS: CHOLECALCIFEROL 25 MCG (1000 IU) TABLET PO SCH (08:25)
[2021-10-13] MEDS: ASPIRIN 81 MG PO SCH (08:25)
[2021-10-13] MEDS: HEPARIN SODIUM,PORCINE/PF 5,000 UNIT/0.5 ML SYRINGE SQ SCH ×2 (08:25→22:48)
[2021-10-13] MEDS: carvediloL 12.5 MG TAB PO SCH ×2 (08:25→17:08)
[2021-10-13 08:42] LABS: Basophils % (A) 1 %; Eosinophils # (A) 0.1 k/uL (0-0.7); Eosinophils % (A) 2 %; HCT 44.1 % (34.0-46.0); HGB 13.2 gm/dL (11.4-16.0); Hypochromasia Marked; Lymphocytes # (A) 1.2 k/uL (1.0-4.8); Lymphocytes % (A) 21 %; MCH 31.6 pg (25.0-35.0); MCHC 29.9 g/dL (31.0-37.0); MCV 105.8 fL (80.0-100.0); Macrocytosis Slight; Mean Platelet Volume 8.4; Monocytes # (A) 0.4 k/uL (0-1.0); Monocytes % (A) 8 %; Neutrophils # (A) 3.9 k/uL (1.3-7.7); Neutrophils % (A) 67 %; Platelet Count 130 k/uL (150-450); RBC 4.17 m/uL (3.80-5.40); RDW 12.3 % (11.5-15.5); WBC 5.8 k/uL (3.8-10.6)
[2021-10-13 08:57] LABS: ALT 18 U/L (4-34); AST 19 U/L (14-36); African American GFR (CKD) 24 (>60 ml/min/1.73 sqM); Albumin 3.5 g/dL (3.5-5.0); Albumin/Globulin Ratio 1.2; Alkaline Phosphatase 98 U/L (38-126); Anion Gap 5 mmol/L; Blood Urea Nitrogen 62 mg/dL (7-17); Calcium 9.6 mg/dL (8.4-10.2); Carbon Dioxide 23 mmol/L (22-30); Chloride 115 mmol/L (98-107); Glucose 126 mg/dL (74-99); Non-African American GFR(CKD) 21 (>60 ml/min/1.73 sqM); Potassium 5.2 mmol/L (3.5-5.1); Sodium 143 mmol/L (137-145); Total Bilirubin 1.3 mg/dL (0.2-1.3); Total Protein 6.5 g/dL (6.3-8.2)
--- NOTE | 2021-10-13 11:07 | US ---
EXAMINATION TYPE: US kidneys/renal and bladder DATE OF EXAM: 10/13/2021 COMPARISON: 09/23/2019 CLINICAL HISTORY: acute kidney injury. Diabetes EXAM MEASUREMENTS: Right Kidney: 11.4x5.4x5.6 cm Left Kidney: 6.4x2.9x2.7 cm Right Kidney: No hydronephrosis or masses seen Left Kidney: Echogenic, small in size Bladder: Not full Bilateral Jets seen: No There is no evidence for hydronephrosis at this point in time. No nephrolithiasis is seen. No shawn s are identified. The urinary bladder is anechoic. Bilateral ureteral jets are seen. IMPRESSION: Atrophic left kidney.
[2021-10-13 11:53] LABS: Glucose,Whole Blood 106 mg/dL (75-99)
[2021-10-13] MEDS: INSULIN ASPART (NovoLOG) 100 UNIT/ML VIAL SQ SCH ×3 (11:53→21:25)
[2021-10-13] MEDS: LACTATED RINGERS 1,000 ML IV SCH ×2 (11:54→22:53)
[2021-10-13 16:57] LABS: Glucose,Whole Blood 103 mg/dL (75-99)
[2021-10-13 17:28] LABS: Appearance,Urine Cloudy (Clear); Bacteria,Urine Many /hpf; Bilirubin,Urine Negative (Negative); Blood,Urine Moderate (Negative); Color,Urine Yellow; Glucose,Urine (UA) Negative (Negative); Ketones,Urine Negative (Negative); Leukocyte Esterase,Urine Large (Negative); Mucus,Urine Rare /hpf; Nitrite,Urine Negative (Negative); PH, Urine 5.5 (5.0-8.0); Protein,Urine Trace (Negative); Specific Gravity,Urine 1.014 (1.001-1.035); Squamous Epithelial Cell,Urine <1 /hpf (0-4); Urobilinogen,Urine <2.0 mg/dL (<2.0); WBC,Urine 14 /hpf (0-5)
--- NOTE | 2021-10-13 18:57 | CONS ---
CONSULTATION REASON FOR CONSULT: Renal failure. HISTORY OF PRESENT ILLNESS: Patient is an 86-year-old female who was admitted to the hospital due to abnormal labs. The patient was transferred from inpatient rehab. She is not able to give us a detailed history. Her potassium was 6.5 on initial admission. Patient was also acidotic with CO2 of 11. She has received IV bicarb overnight. This morning potassium was down to 5.2 and CO2 was improved to 115. Serum creatinine was 2.9 on initial admission. It is down to 2.1 now. Previous creatinine noted to be ranging between 1.5- 1.6 mg/dL as of 09/18/2021. There is another creatinine of 3.6 on 10/11/2021. The patient is voiding. Blood pressure is not low. In fact, it is on the higher side. The systolic around 140- 160. I do see one reading of 107/67. Home medications do reveal RICKI inhibitors. No NSAIDs noted. PAST MEDICAL HISTORY: Significant for CKD NKF stage 3B, coronary artery disease, type 2 diabetes, hyperlipidemia, OR, osteoarthritis and hypothyroidism. PAST SURGICAL HISTORY: Breast surgery, cholecystectomy, cardiac catheterization, coronary stent placement, cataract surgery. SOCIAL HISTORY: Patient is a former smoker. No history of drug abuse or alcohol abuse. MEDICATIONS: Medications prior to admission included: Lipitor, aspirin, Synthroid, Aricept, Plavix insulin, Dulcolax, Coreg, vitamin D, Zofran, milk of magnesia, Co Q10, Ceftin, Zestril and [place]. ALLERGIES: INCLUDE SULFA. Reaction type is not known. REVIEW OF SYSTEMS: As per HPI. Other systems appear to be negative. PHYSICAL EXAMINATION: On examination, patient is comfortable. She is awake, not in any acute distress, not able to give a detailed history. Blood pressure this morning was 194/88, repeat blood pressure 166/73, heart rate 53 per minute. She is afebrile. Examination of the HEART S1, S2. Examination of the LUNGS, bilateral breath sounds are heard. ABDOMEN is soft, nontender. Examination of lower EXTREMITIES shows no significant edema. [employer]OUD [employer]ATION TE[employer] exam: Shows patient is confused. She is moving her extremities. LAB: Show sodium 143, potassium 5.2, chloride 115, BUN 62, creatinine 2.1, hemoglobin 13.2 g/dL. ASSESSMENT: 1. Acute kidney injury, appears to be prerenal currently maintained on IV fluids with improvement in renal function. Rule out obstructive uropathy. Check bladder scan. Check ultrasound of the kidneys and check urinalysis as well. 2. Chronic kidney disease NKF stage 3B. Previous creatinine 1.5-1.6 mg/dL. Etiology is nephrosclerosis and diabetic kidney disease. Patient did have proteinuria on a previous UA in March of 2021. 3. Severe metabolic acidosis. No obvious history of diarrhea. Also could be associated with acute kidney injury, status post IV bicarb, currently improved. No obvious diarrhea noted at this point. 4. Hyperkalemia associated with severe acidosis and acute kidney injury and use of RICKI inhibitors, now improved. PLAN: Check UA. Check ultrasound of the kidneys. Continue IV fluids and repeat labs in a.m. Hold off on RICKI inhibitors. Thank you for this consultation. We will continue to follow the patient with you during her hospitalization. MMODL / IJN: [id number] /
[2021-10-13 21:13] LABS: Glucose,Whole Blood 161 mg/dL (75-99)
[2021-10-13] MEDS: INSULIN DETEMIR (LEVEMIR) 100 UNIT/ML SYR SQ SCH (22:48)
[2021-10-13] MEDS: DONEPEZIL 10 MG TAB PO SCH (22:49)
[2021-10-13] MEDS: ATORVASTATIN 40 MG TAB PO SCH (22:49)
[2021-10-14 07:05] LABS: Glucose,Whole Blood 91 mg/dL (75-99)
[2021-10-14] MEDS: INSULIN ASPART (NovoLOG) 100 UNIT/ML VIAL SQ SCH ×4 (07:56→21:15)
[2021-10-14] MEDS: LORATADINE 10 MG TAB PO SCH (09:15)
[2021-10-14] MEDS: ASPIRIN 81 MG PO SCH (09:15)
[2021-10-14] MEDS: CLOPIDOGREL 75 MG TAB PO SCH (09:15)
[2021-10-14] MEDS: LEVOTHYROXINE 75 MCG TAB PO SCH (09:15)
[2021-10-14] MEDS: CHOLECALCIFEROL 25 MCG (1000 IU) TABLET PO SCH (09:15)
[2021-10-14] MEDS: HEPARIN SODIUM,PORCINE/PF 5,000 UNIT/0.5 ML SYRINGE SQ SCH ×2 (09:16→21:15)
[2021-10-14] MEDS: carvediloL 12.5 MG TAB PO SCH ×2 (09:16→17:46)
[2021-10-14] MEDS: NON FORMULARY DRUG (Ubidecarenone [Coenzyme Q10] 200 MG Capsule) PO SCH (09:16)
[2021-10-14 10:02] LABS: African American GFR (CKD) 36.4 (60.0-200.0); Anion Gap 11.6 mmol/L (10.00-18.00); BUN/Creat Ratio 25.7 Ratio (12.00-20.00); Blood Urea Nitrogen 38.8 mg/dL (9.0-27.0); Calcium 8.9 mg/dL (8.7-10.3); Carbon Dioxide 19.9 mmol/L (20.0-27.5); Non-African American GFR(CKD) 31.4 (60.0-200.0); Potassium 4.8 mmol/L (3.5-5.5)
[2021-10-14 11:35] LABS: Glucose,Whole Blood 207 mg/dL (75-99)
[2021-10-14] MEDS: LACTATED RINGERS 1,000 ML IV SCH (14:05)
[2021-10-14] MEDS: lisinopriL 10 MG TAB PO SCH (14:06)
--- NOTE | 2021-10-14 16:07 | P.HPIM ---
History of Present Illness H&P Date: 10/13/21 HISTORY OF PRESENT ILLNESS This is an 86-year-old female with previous medical history sig nificant for coronary artery disease status post myocardial infarction with PCI, ischemic cardiomyopathy, hypertension hypertensive cardiovascular disease, hyperlipidemia, diabetes mellitus type 2, vascular dementia, hypothyroidism, chronic kidney disease stage IIIB, recurrent depression and generalized anxiety disorder. Patient is a long-term resident at [facility], patient has been having issues with increased confusion as well as poor oral intake and not able to do things since she had a fall and ended up with the humerus fracture, a stat laboratory evaluation including CBC and a CMP did show an evidence of any acute kidney injury and top of severe hyperkalemia patient was directed to go to the emergency department at [facility] for evaluation her potassium was about 6.5 she did receive sodium bicarbonate as well as insulin and glucose in the ER and she was placed on sodium bicarbonate drip with D5W with 3 A of sodium bicarb's, she was started at 10/17/2019 5 mL an hour, she was admitted to the hospital reevaluation by nephrology, ultrasound of the kidney did show an atrophy of the left kidney, patient will be seen in consultation by nephrology and she will be kept in the hospital until her back to baseline. REVIEW OF SYSTEMS Constitutional: No fever, no chills, no night sweats. positive for weight change. Positive for weakness, noted fatigue noted lethargy. No daytime sleepiness. HEENT: No headache. No blurred vision or double vision, no loss of vision. No loss of Hearing, no ringing in the ears, no dizziness. No nasal drainage or congestion. No epistaxis. No sore throat. Lungs: No shortness of breath, cough, no sputum production. No wheezing. Cardiovascular: No chest pain, no lower extremity edema. No palpitations. No p aroxysmal nocturnal dyspnea. No orthopnea. No lightheadedness or dizziness. Reported syncopal episodes. Abdominal: No abdominal pain. Reported nausea, no vomiting. No diarrhea. No constipation. No bloody or tarry stools. Noted loss of appetite. Genitourinary: No dysuria, increased frequency, urgency. No urinary retention. Musculoskeletal: No myalgias. No muscle weakness, positive for gait dysfunction, no frequent falls. No back pain. No neck pain, decreased range of motion of the right upper extremity Integumentary: No wounds, no lesions. No rash or pruritus. No unusual bruisin g. No change in hair or nails. Neurologic: No aphasia. No facial droop. Mild change in mentation. Underlying dementia. No head injury. No headache. No paralysis. No paresthesia. Psychiatric: positive for depression. No anxiety. No mood swings. Endocrine: No abnormal blood sugars. MEDICAL HISTORY CAD post DC and PCI. Hypertension and hypertensive cardiovascular disease. Hyperlipidemia. CKD 3. Hypothyroidism. Diabetes mellitus type 2. Osteoarthritis. Vascular dementia. SURGICAL HISTORY [facility] with PCI and 2 stents placed. Bilateral cataract surgeries. Cholecystectomy. Breast surgery. Orthopedic surgery. SOCIAL HISTORY Patient smoked about a pack every day for 20 years then quit, she denies any ETOH use, no Illicit drug use, uses a walker for ambulation. FAMILY HISTORY Mother in her 60s while sleeping, father and she does not know anything about him, patient had 3 brothers all and does not know much about their medicals, patient had 3 sisters one from CAD, patient had one daughter who from MVA, 2 sons one from unknown cause and the other one no issues. PHYSICAL EXAMINATION Gen: This is this is an 86-year-old female. HEENT: Head is atraumatic, normocephalic. Pupils equal, round. Sclerae is anicteric, conjunctivae pale mucous complains of the mouth are somewhat dry. NECK: Supple. No JVD. No lymphadenopathy. No thyromegaly, decreased carotid upstroke bilaterally per LUNGS: Decreased breath sounds at the bases. No wheezes or rhonchi. No intercostal retractions. HEART: first heart sound is depressed, second heart sounds normal, there is systolic ejection murmur 2/6 located in the left sternal border. ABDOMEN: Soft, Bowel sounds are present. No masses. No tenderness. EXTREMITIES: No pedal edema. No calf tenderness, dorsalis pedis +2 bilaterally. NEUROLOGICAL: Patient is awake, alert and oriented to person and place. She is able to move all 4 extremities. Cranial nerves II through XII are grossly intact. Muscle power 4/5 in the bilateral upper extremities and 3/5 in the lower extremities. ASSESSMENT AND PLAN 1. Acute kidney injury on top of chronic kidney disease stage IIIb. Start the patient on sodium bicarbonate drip D5W with 3 A of sodium bicarb for the next 24 hours, monitor the patient CMP, monitor the patient magnesium or phosphorus, ultrasound of the kidneys, nephrology consultation encourage oral intake of fluid. 2. Hyperkalemia. Status post treatment. Repeat CMP tomorrow morning. 3. Metabolic acidosis secondary to acute kidney injury. continue sodium bicarbonate drip monitor the patient CMP in the next 24 hours. 4. Hypertension and hypertensive cardiovascular disease. Continue patient on metoprolol 25 mg orally twice every day, hold lisinopril for the next 24 hours and then restart 5. Hyperlipidemia. Continue Lipitor 40 mg at bedtime. 6. Coronary artery disease with previous DC and PCI. Continue aspirin 81 mg daily, Plavix 75 mg daily, Lopressor 25 mg orally twice every day, continue atorvastatin 40 mg orally once every day. 7. Hypothyroidism. Continue levothyroxine 75 g daily. 8. Diabetes mellitus type 2. Continue Levemir 16 units at bedtime along with a sliding scale insulin 9. Vascular dementia. Continue Aricept 10 mg at bedtime. 10. GI prophylaxis. Protonix 40 mg oral daily. 11. DVT prophylaxis. Heparin subcu 5000 units every 12 hours. CODE STATUS: Full code Patient will be admitted to the hospital for a minimum of 2 night stay. DISCHARGE PLAN Return to [facility] under the care of Dr. Gutierrez where she resides as a long-term care resident. Past Medical History Past Medical History: Coronary Artery Disease (CAD), Diabetes Mellitus, Hyperlipidemia, Hypertension, Memory Impairment, Myocardial Infarction (DC), Osteoarthritis (OA), Thyroid Disorder Additional Past Medical History / Comment(s): Type 2 DM, DC 07/29/19 Last Myocardial Infarction Date:: 07/29/19 History of Any Multi-Drug Resistant Organisms: None Reported Past Surgical History: Breast Surgery, Cholecystectomy, Heart Catheterization With Stent, Joint Replacement, Orthopedic Surgery Additional Past Surgical History / Comment(s): 2 cardiac stents, bilateral cataract removal and intraocular lens implants Past Anesthesia/Blood Transfusion Reactions: No Reported Reaction Date of Last Stent Placement:: 07/29/19 Past Psychological History: No Psychological Hx Reported Smoking Status: Former smoker Past Alcohol Use History: None Reported Additional Past Alcohol Use History / Comment(s): Patient was a smoker one pack per day for proximal might 20 years. No illicit drug use or alcohol abuse. Patient uses a walker for ambulation. Past Drug Use History: None Reported - Past Family History Brother(s) Family Medical History: Myocardial Infarction (DC) Additional Family Medical History / Comment(s): The patient has 3 brothers and all have passed. Patient does not know their medical histories nor the reason further tests. Father Additional Family Medical History / Comment(s): Patient's father is . Patient does not know any of his medical history. Mother Additional Family Medical History / Comment(s): Mother in her 60s while sleeping. Sister(s) Additional Family Medical History / Comment(s): Patient has 3 sisters and one has that his history of coronary artery disease status post stents. Daughter(s) Additional Family Medical History / Comment(s): Patient has one daughter that in a motor vehicle accident. Patient has 2 sons and one from an unknown cause. One son is alive with no major medical problems. Medications and Allergies Home Medications Medication Instructions Recorded Confirmed Type Aspirin 81 mg PO DAILY 09/22/19 10/12/21 History Atorvastatin [Lipitor] 40 mg PO HS 09/22/19 10/12/21 History Donepezil [Aricept] 10 mg PO HS 09/22/19 10/12/21 History Levothyroxine Sodium [Synthroid] 75 mcg PO DAILY 09/22/19 10/12/21 History Acetaminophen [Tylenol 8 Hour] 650 mg PO Q4H PRN 02/14/20 10/12/21 History Clopidogrel [Plavix] 75 mg PO DAILY 02/14/20 10/12/21 History INSULIN ASPART (NovoLOG) [NovoLOG See Protocol SQ ACHS 02/14/20 10/12/21 History (formulary)] bisacodyL [Dulcolax] 10 mg RECTAL DAILY PRN 02/14/20 10/12/21 History carvediloL [Coreg*] 12.5 mg PO BID 02/14/20 10/12/21 History Insulin Detemir [Levemir Flextouch 16 units SQ HS 02/01/21 10/12/21 History Pen] Loperamide HCl [Imodium A-D] 4 mg PO TID PRN MDD 4 TABS 02/01/21 10/12/21 History Magnesium Hydroxide [Milk of 7,200 mg PO DAILY PRN 04/14/21 10/12/21 History Magnesia Concentrate] Ondansetron HCl [Zofran] 4 mg PO Q8H PRN 04/14/21 10/12/21 History HYDROcodone/APAP 5-325MG [[place] 1 tab PO Q4HR PRN 3 Days #18 tab 09/04/21 10/12/21 Rx 5-325] Cetirizine HCl 10 mg PO DAILY 10/12/21 10/12/21 History Cholecalciferol [Vitamin D3 (25 50 mcg PO DAILY 10/12/21 10/12/21 History Mcg = 1000 Iu)] Na Phos,M-B/Na Phos,Di-Ba [Fleet 133 ml RECTAL DAILY PRN 10/12/21 10/12/21 History Adult] Ubidecarenone [Coenzyme Q10] 200 mg PO DAILY 10/12/21 10/12/21 History lisinopriL [Zestril] 10 mg PO DAILY 10/12/21 10/12/21 History Allergies Allergy/AdvReac Type Severity Reaction Status Date / Time Sulfa (Sulfonamide Allergy Unknown Verified 10/12/21 19:22 Antibiotics) Physical Exam Vitals: Vital Signs Temp Pulse Pulse Resp BP BP Pulse Ox 10/13/21 02:15 97.4 F L 64 16 166/64 97 10/13/21 00:00 58 L 16 107/67 97 10/12/21 21:00 66 17 147/92 95 10/12/21 19:49 62 18 137/87 94 L 10/12/21 17:47 98.8 F 53 L 18 141/61 97 Intake and Output 10/12/21 10/13/21 10/13/21 22:59 06:59 14:59 Intake Total 1200 Balance 1200 Intake: Intake, IV Titration 1200 Amount Dextrose 5% in Water 1, 1200 000 ml @ 100 mls/hr IV . [id number] ONE with Sodium Bicarb (1 Meq/ml) 150 ml Rx#:[id number] Other: Voiding Method Diaper # Voids 2 # Bowel Movements 2 Weight 68.039 kg 68.039 kg Results CBC & Chem 7: 10/13/21 07:45 10/14/21 06:44 Labs: Abnormal Lab Results - Last 24 Hours (Table) 10/12/21 10/12/21 10/12/21 Range/Units 17:57 17:57 17:57 MCV 106.7 H (80.0-100.0) fL MCHC 30.1 L (31.0-37.0) g/dL Plt Count 124 L (150-450) k/uL APTT 21.6 L (22.0-30.0) sec Potassium 6.5 H* (3.5-5.1) mmol/L Chloride 119 H (98-107) mmol/L Carbon Dioxide 11 L (22-30) mmol/L BUN 76 H (7-17) mg/dL Creatinine 2.98 H (0.52-1.04) mg/dL Glucose 124 H (74-99) mg/dL POC Glucose (mg/dL) (75-99) mg/dL 10/12/21 10/13/21 Range/Units 23:10 06:58 MCV (80.0-100.0) fL MCHC (31.0-37.0) g/dL Plt Count (150-450) k/uL APTT (22.0-30.0) sec Potassium 5.7 H (3.5-5.1) mmol/L Chloride 119 H (98-107) mmol/L Carbon Dioxide 14 L (22-30) mmol/L BUN 72 H (7-17) mg/dL Creatinine 2.55 H (0.52-1.04) mg/dL Glucose 109 H (74-99) mg/dL POC Glucose (mg/dL) 133 H (75-99) mg/dL Thrombosis Risk Factor Assmnt - Choose All That Apply Each Risk Factor Represents 3 Points: Age 75 years or older Thrombosis Risk Factor Assessment Total Risk Factor Score: 3 Thrombosis Risk Factor Assessment Level: Moderate Risk
--- NOTE | 2021-10-14 17:40 | PN ---
PROGRESS NOTE Patient is seen for followup for acute kidney injury, mostly prerenal, currently improved with IV hydration. EXAMINATION: Today patient is comfortable. Blood pressure was elevated at 186/72, heart rate 51 per minute, she is afebrile. Examination of the heart S1, S2. Examination of the lungs, bilateral breath sounds are heard. Abdomen is soft, nontender. Examination lower extremities shows no significant edema. DECISION ANALYST exam shows patient moving all four extremities. She is following commands. LAB: Show sodium 145, potassium 4.8, chloride 113, CO2 is 19.9, BUN 38.8, serum creatinine 1.5. UA shows moderate blood, trace protein, WBCs 14. Urine culture is currently pending. ASSESSMENT: 1. Acute kidney injury, prerenal, currently improving with IV hydration. 2. Volume depletion, currently improved. 3. Mental status changes associated with volume depletion, acute kidney injury, UTI. 4. Pyuria, rule out urinary tract infection. Urine culture is pending. 5. Severe metabolic acidosis associated with acute kidney injury. No obvious history of diarrhea, status post IV bicarb. 6. Hyperkalemia associated with severe acidosis, acute kidney injury and use of RICKI inhibitors, now improved. 7. Chronic kidney disease stage 3B. Previous creatinine 1.5-1.6. Etiology is nephrosclerosis and diabetic kidney disease. Previous UA did show proteinuria in March of 2021. 8. Left renal atrophy with left kidney 6.4 cm, right kidney 11.4 cm. PLAN: Continue with IV fluids. Encourage increased oral intake. May continue with the RICKI inhibitors as blood pressure is elevated. This was just started yesterday and increase Coreg to 25 mg b.i.d. if blood pressure remains elevated. MMODL / IJN: [id number] /
[2021-10-14 17:46] LABS: Glucose,Whole Blood 183 mg/dL (75-99)
[2021-10-14 21:09] LABS: Glucose,Whole Blood 165 mg/dL (75-99)
[2021-10-14] MEDS: ATORVASTATIN 40 MG TAB PO SCH (21:15)
[2021-10-14] MEDS: DONEPEZIL 10 MG TAB PO SCH (21:15)
[2021-10-14] MEDS: INSULIN DETEMIR (LEVEMIR) 100 UNIT/ML SYR SQ SCH (21:16)
[2021-10-15] MEDS: LACTATED RINGERS 1,000 ML IV SCH ×2 (04:45→15:50)
[2021-10-15 07:06] LABS: Glucose,Whole Blood 79 mg/dL (75-99)
[2021-10-15] MEDS: INSULIN ASPART (NovoLOG) 100 UNIT/ML VIAL SQ SCH ×4 (07:08→20:41)
--- NOTE | 2021-10-15 08:24 | P.PN ---
Subjective Progress Note Date: 10/15/21 Principal diagnosis: 86-year-old female with acute kidney injury secondary to volume depletion , chronic kidney disease diabetic nephropathy unequal kidney size. was admitted with confusion and decreased intake from a shelter. she is improving with IV fluids Urine output is documented 1000 mL , creatinine down to 1.5. vital signs are stable she is awake and alert but complains of poor appetite no nausea vomiting diarrhea no fever no chills. No dysuria frequency. Urine culture is growinggram negative bacilli 10,000-49,000 CFU per mLher urinalysis was consistent with urine tract infection Objective - Vital Signs Vital signs: Vital Signs Temp 98.4 F 10/15/21 01:18 Pulse 62 10/15/21 01:18 Resp 14 10/15/21 01:18 BP 177/63 10/15/21 01:18 Pulse Ox 95 10/15/21 01:18 Intake & Output 10/14/21 10/15/21 10/15/21 18:59 06:59 18:59 Intake Total 180 1050 Output Total 600 400 Balance -420 650 Weight 68.5 kg Intake: Intake, IV Titration 900 Amount Lactated Ringers 1,000 ml 900 @ 75 mls/hr IV .[id number] MARIO Rx#:[id number] Oral 180 150 Output: Urine 600 400 Other: Voiding Method Diaper Diaper External Catheter External Catheter # Voids 1 # Bowel Movements 3 1 examination she was sleepy but arousable and cooperative HEENT exam no JVP in. No facial asymmetry Lungs are clear to auscultation good air entry bilaterally Heart sounds unremarkable for any murmur rub gallop Abdomen soft nontender nondistended Extremity exam was no edema. Neurologically arousable and seems to be appropriate - Labs CBC & Chem 7: 10/13/21 07:45 10/14/21 06:44 Labs: Abnormal Lab Results - Last 24 Hours (Table) 10/14/21 10/14/21 10/14/21 Range/Units 06:44 11:33 17:44 Chloride 113 H (96-109) mmol/L Carbon Dioxide 19.9 L (20.0-27.5) mmol/L BUN 38.8 H (9.0-27.0) mg/dL Est GFR (CKD-EPI)AfAm 36.4 L (60.0-200.0) Est GFR (CKD-EPI)NonAf 31.4 L (60.0-200.0) BUN/Creatinine Ratio 25.70 H (12.00-20.00) Ratio POC Glucose (mg/dL) 207 H 183 H (75-99) mg/dL 10/14/21 Range/Units 21:07 Chloride (96-109) mmol/L Carbon Dioxide (20.0-27.5) mmol/L BUN (9.0-27.0) mg/dL Est GFR (CKD-EPI)AfAm (60.0-200.0) Est GFR (CKD-EPI)NonAf (60.0-200.0) BUN/Creatinine Ratio (12.00-20.00) Ratio POC Glucose (mg/dL) 165 H (75-99) mg/dL Microbiology - Last 24 Hours (Table) 10/13/21 17:00 Urine Culture - Preliminary Urine,Voided Gram Neg Bacilli Assessment and Plan Assessment: impression 1. Acute kidney injury from decreased intake and volume depletion responding2 lactated Ringer's, creatinine went up to 2.98 on admission and is down to 1.5 as of yesterday.patient has chronic kidney disease with trace proteinuria possibly nephrosclerosis and or diabetic nephropathy additionallyBaseline creatinine is 1.3-1.5 2. Acidosis secondary to acute kidney injury improved bicarb is 19.9 this morning. 3. Urine tract infection with gram-negative bacilli. 4.hyperkalemia resolved. 5. Hypertension slightly about target Recommendation 1. Because of poor intake continued to lactated Ringer's. 2.patient currently on lisinopril andCoreg. Will increase the lisinopril to 10 twice a day and watch her labs and potassium
[2021-10-15] MEDS: HEPARIN SODIUM,PORCINE/PF 5,000 UNIT/0.5 ML SYRINGE SQ SCH ×2 (08:32→20:26)
[2021-10-15] MEDS: LEVOTHYROXINE 75 MCG TAB PO SCH (08:34)
[2021-10-15] MEDS: LORATADINE 10 MG TAB PO SCH (08:34)
[2021-10-15] MEDS: lisinopriL 10 MG TAB PO SCH (08:34)
[2021-10-15] MEDS: CHOLECALCIFEROL 25 MCG (1000 IU) TABLET PO SCH (08:34)
[2021-10-15] MEDS: CLOPIDOGREL 75 MG TAB PO SCH (08:34)
[2021-10-15] MEDS: carvediloL 12.5 MG TAB PO SCH ×2 (08:34→17:01)
[2021-10-15] MEDS: ASPIRIN 81 MG PO SCH (08:34)
[2021-10-15] MEDS: NON FORMULARY DRUG (Ubidecarenone [Coenzyme Q10] 200 MG Capsule) PO SCH (08:38)
[2021-10-15 09:13] LABS: Basophils # (A) 0.02 X 10*3/uL (0.00-0.10); Basophils % (A) 0.4 %; Eosinophils # (A) 0.19 X 10*3/uL (0.04-0.35); Eosinophils % (A) 3.4 %; HCT 33.5 % (37.2-46.3); HGB 10.3 g/dL (12.0-15.0); Lymphocytes % (A) 25.2 %; MCH 30.6 pg (27.0-32.0); MCHC 30.7 g/dL (32.0-37.0); MCV 99.4 fL (80.0-97.0); Mean Platelet Volume 10.9 fL (9.5-12.2); Monocytes # (A) 0.44 X 10*3/uL (0.20-1.00); Monocytes % (A) 7.9 %; Neutrophils # (A) 3.48 X 10*3/uL (1.80-7.70); Neutrophils % (A) 62.7 %; Platelet Count 143 X 10*3/uL (140-440); RBC 3.37 X 10*6/uL (4.10-5.20); RDW 12.4 % (11.5-14.5); WBC 5.55 X 10*3/uL (4.50-10.00)
[2021-10-15 10:09] LABS: African American GFR (CKD) 38.9 (60.0-200.0); Albumin 3.3 g/dL (3.8-4.9); Albumin/Globulin Ratio 1.58 (1.60-3.17); Anion Gap 12.7 mmol/L (10.00-18.00); BUN/Creat Ratio 17.06 Ratio (12.00-20.00); Blood Urea Nitrogen 24.4 mg/dL (9.0-27.0); Calcium 8.6 mg/dL (8.7-10.3); Carbon Dioxide 21.4 mmol/L (20.0-27.5); Globulin 2.1 g/dL (1.6-3.3); Non-African American GFR(CKD) 33.5 (60.0-200.0); Potassium 4.8 mmol/L (3.5-5.5); Total Bilirubin 0.6 mg/dL (0.30-1.20); Total Protein 5.3 g/dL (6.2-8.2)
[2021-10-15 11:53] LABS: Glucose,Whole Blood 82 mg/dL (75-99)
--- NOTE | 2021-10-15 12:54 | P.PN ---
Subjective Progress Note Date: 10/14/21 H&P Date: 10/14/21 HISTORY OF PRESENT ILLNESS This is an 86-year-old female with previous medical history significant for coronary artery disease status post myocardial infarction with PCI, ischemic cardiomyopathy, hypertension hypertensive cardiovascular disease, hyperlipidemia, diabetes mellitus type 2, vascular dementia, hypothyroidism, chronic kidney disease stage IIIB, recurrent depression and generalized anxiety disorder. Patient is a long-term resident at [facility], patient has been having issues with increased confusion as well as poor oral intake and not able to do things since she had a fall and ended up with the humerus fracture, a stat laboratory evaluation including CBC and a CMP did show an evidence of any acute kidney injury and top of severe hyperkalemia patient was directed to go to the emergency department at [facility] for evaluation her potassium was about 6.5 she did receive sodium bicarbonate as well as insulin and glucose in [facility] ER and she was placed on sodium bicarbonate drip with D5W with 3 A of sodium bicarb's, she was started at 10/17/2019 5 mL an hour, she was admitted to the hospital reevaluation by nephrology, ultrasound of the kidney did show an atrophy of the left kidney, patient will be seen in consultation by nephrology and she will be kept in the hospital until her back to baseline. 10/14: He shouldn't is laying down in bed in no apparent distress, she denies any chest pain, shortness breath, she has no abdominal pain, she continues to have a poor appetite, we'll continue to follow the patient very closely, her BUN/creatinine is better, her potassium is better, her ultrasound of the kidney was reviewed and showed left atrophied kidney, she'll likely be discharged back to senior care tomorrow morning. REVIEW OF SYSTEMS Constitutional: No fever, no chills, no night sweats. positive for weight change. Positive for weakness, noted fatigue noted lethargy. No daytime sleepiness. HEENT: No headache. No blurred vision or double vision, no loss of vision. No loss of Hearing, no ringing in the ears, no dizziness. No nasal drainage or congestion. No epistaxis. No sore throat. Lungs: No shortness of breath, cough, no sputum production. No wheezing. Cardiovascular: No chest pain, no lower extremity edema. No palpitations. No paroxysmal nocturnal dyspnea. No orthopnea. No lightheadedness or dizziness. Reported syncopal episodes. Abdominal: No abdominal pain. Reported nausea, no vomiting. No diarrhea. No constipation. No bloody or tarry stools. Noted loss of appetite. Genitourinary: No dysuria, increased frequency, urgency. No urinary retention. Musculoskeletal: No myalgias. No muscle weakness, positive for gait dysfunction, no frequent falls. No back pain. No neck pain, decreased range of motion of the right upper extremity Integumentary: No wounds, no lesions. No rash or pruritus. No unusual bruising. No change in hair or nails. Neurologic: No aphasia. No facial droop. Mild change in mentation. Underlying dementia. No head injury. No headache. No paralysis. No paresthesia. Psychiatric: positive for depression. No anxiety. No mood swings. Endocrine: No abnormal blood sugars. PHYSICAL EXAMINATION Gen: This is this is an 86-year-old female. HEENT: Head is atraumatic, normocephalic. Pupils equal, round. Sclerae is anicteric, conjunctivae pale mucous complains of the mouth are somewhat dry. NECK: Supple. No JVD. No lymphadenopathy. No thyromegaly, decreased carotid upstroke bilaterally per LUNGS: Decreased breath sounds at the bases. No wheezes or rhonchi. No intercostal retractions. HEART: first heart sound is depressed, second heart sounds normal, there is systolic ejection murmur 2/6 located in the left sternal border. ABDOMEN: Soft, Bowel sounds are present. No masses. No tenderness. EXTREMITIES: No pedal edema. No calf tenderness, dorsalis pedis +2 bilaterally. NEUROLOGICAL: Patient is awake, alert and oriented to person and place. She is able to move all 4 extremities. Cranial nerves II through XII are grossly intact. Muscle power 4/5 in the bilateral upper extremities and 3/5 in the lower extremities. ASSESSMENT AND PLAN 1. Acute kidney injury on top of chronic kidney disease stage IIIb. Start the patient on sodium bicarbonate drip D5W with 3 A of sodium bicarb for the next 24 hours, monitor the patient CMP, monitor the patient magnesium or phosphorus, ultrasound of the kidneys, nephrology consultation encourage oral intake of fluid. 2. Hyperkalemia. Status post treatment. Repeat CMP tomorrow morning. 3. Metabolic acidosis secondary to acute kidney injury. continue sodium bicarbonate drip monitor the patient CMP in the next 24 hours. 4. Hypertension and hypertensive cardiovascular disease. Continue patient on metoprolol 25 mg orally twice every day, hold lisinopril for the next 24 hours and then restart 5. Hyperlipidemia. Continue Lipitor 40 mg at bedtime. 6. Coronary artery disease with previous AL and PCI. Continue aspirin 81 mg daily, Plavix 75 mg daily, Lopressor 25 mg orally twice every day, continue atorvastatin 40 mg orally once every day. 7. Hypothyroidism. Continue levothyroxine 75 g daily. 8. Diabetes mellitus type 2. Continue Levemir 16 units at bedtime along with a sliding scale insulin 9. Vascular dementia. Continue Aricept 10 mg at bedtime. 10. Depression. Start the patient on mirtazapine 7.5 mg at bedtime. 11. GI prophylaxis. Protonix 40 mg oral daily. 12. DVT prophylaxis. Heparin subcu 5000 units every 12 hours. 13. Physical therapy evaluation . 14. general office worker consultation for discharge planning that is back to [facility]. Objective - Vital Signs Vital signs: Vital Signs Temp 98 F 10/14/21 14:00 Pulse 60 10/14/21 14:00 Resp 16 10/14/21 14:00 BP 156/78 10/14/21 14:00 Pulse Ox 98 10/14/21 14:00 Intake & Output 10/13/21 10/14/21 10/14/21 18:59 06:59 18:59 Intake Total 236 960 180 Output Total 200 200 Balance 36 760 180 Weight 76 kg 74 kg Intake: Intake, IV Titration 900 Amount Lactated Ringers 1,000 ml 900 @ 75 mls/hr IV .[id number] [facility] Rx#:[id number] Oral 236 60 180 Output: Urine 200 200 Other: Voiding Method Diaper Diaper Diaper Incontinent Incontinent External Catheter # Voids 1 # Bowel Movements 1 - Labs CBC & Chem 7: 10/15/21 06:19 10/15/21 06:10 Labs: Abnormal Lab Results - Last 24 Hours (Table) 10/13/21 10/13/21 10/13/21 Range/Units 16:55 17:00 21:12 Chloride (96-109) mmol/L Carbon Dioxide (20.0-27.5) mmol/L BUN (9.0-27.0) mg/dL Est GFR (CKD-EPI)AfAm (60.0-200.0) Est GFR (CKD-EPI)NonAf (60.0-200.0) BUN/Creatinine Ratio (12.00-20.00) Ratio POC Glucose (mg/dL) 103 H 161 H (75-99) mg/dL Urine Appearance Cloudy H (Clear) Urine Protein Trace H (Negative) Urine Blood Moderate H (Negative) Ur Leukocyte Esterase Large H (Negative) Urine WBC 14 H (0-5) /hpf Urine Bacteria Many H (None) /hpf Urine Mucus Rare H (None) /hpf 10/14/21 10/14/21 Range/Units 06:44 11:33 Chloride 113 H (96-109) mmol/L Carbon Dioxide 19.9 L (20.0-27.5) mmol/L BUN 38.8 H (9.0-27.0) mg/dL Est GFR (CKD-EPI)AfAm 36.4 L (60.0-200.0) Est GFR (CKD-EPI)NonAf 31.4 L (60.0-200.0) BUN/Creatinine Ratio 25.70 H (12.00-20.00) Ratio POC Glucose (mg/dL) 207 H (75-99) mg/dL Urine Appearance (Clear) Urine Protein (Negative) Urine Blood (Negative) Ur Leukocyte Esterase (Negative) Urine WBC (0-5) /hpf Urine Bacteria (None) /hpf Urine Mucus (None) /hpf Microbiology - Last 24 Hours (Table) 10/13/21 17:00 Urine Culture - Preliminary Urine,Voided
--- NOTE | 2021-10-15 12:57 | P.PN ---
Subjective Progress Note Date: 10/15/21 H&P Date: 10/14/21 HISTORY OF PRESENT ILLNESS This is an 86-year-old female with previous medical history significant for coronary artery disease status post myocardial infarction with PCI, ischemic cardiomyopathy, hypertension hypertensive cardiovascular disease, hyperlipidemia, diabetes mellitus type 2, vascular dementia, hypothyroidism, chronic kidney disease stage IIIB, recurrent depression and generalized anxiety disorder. Patient is a long-term resident at [facility], patient has been having issues with increased confusion as well as poor oral intake and not able to do things since she had a fall and ended up with the humerus fracture, a stat laboratory evaluation including CBC and a CMP did show an evidence of any acute kidney injury and top of severe hyperkalemia patient was directed to go to the emergency department at [facility] for evaluation her potassium was about 6.5 she did receive sodium bicarbonate as well as insulin and glucose in [facility] ER and she was placed on sodium bicarbonate drip with D5W with 3 A of sodium bicarb's, she was started at 10/17/2019 5 mL an hour, she was admitted to the hospital reevaluation by nephrology, ultrasound of the kidney did show an atrophy of the left kidney, patient will be seen in consultation by nephrology and she will be kept in the hospital until her back to baseline. 10/14: Patient is laying down in bed in no apparent distress, she denies any chest pain, shortness breath, she has no abdominal pain, she continues to have a poor appetite, we'll continue to follow the patient very closely, her BUN/creatinine is better, her potassium is better, her ultrasound of the kidney was reviewed and showed left atrophied kidney, she'll likely be discharged back to [facility] tomorrow morning. 10/15: Patient is laying down in bed in no apparent distress, she continues to have a poor appetite, she is not eating or drinking much, we will start the patient on mirtazapine 7.5 mg at bedtime, urine culture showed contaminated specimen we'll discontinue IV antibiotic, we will plan to transfer the patient back to [facility] in the next 24 hours. REVIEW OF SYSTEMS Constitutional: No fever, no chills, no night sweats. positive for weight change. Positive for weakness, noted fatigue noted lethargy. No daytime sleepiness. HEENT: No headache. No blurred vision or double vision, no loss of vision. No loss of Hearing, no ringing in the ears, no dizziness. No nasal drainage or congestion. No epistaxis. No sore throat. Lungs: No shortness of breath, cough, no sputum production. No wheezing. Cardiovascular: No chest pain, no lower extremity edema. No palpitations. No paroxysmal nocturnal dyspnea. No orthopnea. No lightheadedness or dizziness. Reported syncopal episodes. Abdominal: No abdominal pain. Reported nausea, no vomiting. No diarrhea. No constipation. No bloody or tarry stools. Noted loss of appetite. Genitourinary: No dysuria, increased frequency, urgency. No urinary retention. Musculoskeletal: No myalgias. No muscle weakness, positive for gait dysfunction, no frequent falls. No back pain. No neck pain, decreased range of motion of the right upper extremity Integumentary: No wounds, no lesions. No rash or pruritus. No unusual bruising. No change in hair or nails. Neurologic: No aphasia. No facial droop. Mild change in mentation. Underlying dementia. No head injury. No headache. No paralysis. No paresthesia. Psychiatric: positive for depression. No anxiety. No mood swings. Endocrine: No abnormal blood sugars. PHYSICAL EXAMINATION Gen: This is this is an 86-year-old female. HEENT: Head is atraumatic, normocephalic. Pupils equal, round. Sclerae is anicteric, conjunctivae pale mucous complains of the mouth are somewhat dry. NECK: Supple. No JVD. No lymphadenopathy. No thyromegaly, decreased carotid upstroke bilaterally per LUNGS: Decreased breath sounds at the bases. No wheezes or rhonchi. No intercostal retractions. HEART: first heart sound is depressed, second heart sounds normal, there is systolic ejection murmur 2/6 located in the left sternal border. ABDOMEN: Soft, Bowel sounds are present. No masses. No tenderness. EXTREMITIES: No pedal edema. No calf tenderness, dorsalis pedis +2 bilaterally. NEUROLOGICAL: Patient is awake, alert and oriented to person and place. She is able to move all 4 extremities. Cranial nerves II through XII are grossly intact. Muscle power 4/5 in the bilateral upper extremities and 3/5 in the lower extremities. ASSESSMENT AND PLAN 1. Acute kidney injury on top of chronic kidney disease stage IIIb. Start the patient on sodium bicarbonate drip D5W with 3 A of sodium bicarb for the next 24 hours, monitor the patient CMP, monitor the patient magnesium or phosphorus, ultrasound of the kidneys, nephrology consultation encourage oral intake of fluid. 2. Hyperkalemia. Status post treatment. Repeat CMP tomorrow morning. 3. Metabolic acidosis secondary to acute kidney injury. continue sodium bicarbonate drip monitor the patient CMP in the next 24 hours. 4. Hypertension and hypertensive cardiovascular disease. Continue patient on metoprolol 25 mg orally twice every day, hold lisinopril for the next 24 hours and then restart 5. Hyperlipidemia. Continue Lipitor 40 mg at bedtime. 6. Coronary artery disease with previous OK and PCI. Continue aspirin 81 mg daily, Plavix 75 mg daily, Lopressor 25 mg orally twice every day, continue atorvastatin 40 mg orally once every day. 7. Hypothyroidism. Continue levothyroxine 75 g daily. 8. Diabetes mellitus type 2. Continue Levemir 16 units at bedtime along with a sliding scale insulin 9. Vascular dementia. Continue Aricept 10 mg at bedtime. 10. Depression. Start the patient on mirtazapine 7.5 mg at bedtime. 11. GI prophylaxis. Protonix 40 mg oral daily. 12. DVT prophylaxis. Heparin subcu 5000 units every 12 hours. 13. Physical therapy evaluation . 14. rehabilitation worker consultation for discharge planning that is back to [facility] tomorrow morning. Objective - Vital Signs Vital signs: Vital Signs Temp 98.6 F 10/15/21 08:00 Pulse 57 L 10/15/21 08:00 Resp 18 10/15/21 08:00 BP 157/56 10/15/21 08:00 Pulse Ox 97 10/15/21 08:00 Intake & Output 10/14/21 10/15/21 10/15/21 18:59 06:59 18:59 Intake Total 180 1050 Output Total 600 400 Balance -420 650 Weight 68.5 kg Intake: Intake, IV Titration 900 Amount Lactated Ringers 1,000 ml 900 @ 75 mls/hr IV .[id number] [facility] Rx#:[id number] Oral 180 150 Output: Urine 600 400 Other: Voiding Method Diaper Diaper Diaper External Catheter External Catheter External Catheter # Voids 1 # Bowel Movements 3 1 - Labs CBC & Chem 7: 10/15/21 06:19 10/15/21 06:10 Labs: Abnormal Lab Results - Last 24 Hours (Table) 10/14/21 10/14/21 10/15/21 Range/Units 17:44 21:07 06:10 RBC (4.10-5.20) X 10*6/uL Hgb (12.0-15.0) g/dL Hct (37.2-46.3) % MCV (80.0-97.0) fL MCHC (32.0-37.0) g/dL Sodium 146 H (135-145) mmol/L Chloride 111 H (96-109) mmol/L Est GFR (CKD-EPI)AfAm 38.9 L (60.0-200.0) Est GFR (CKD-EPI)NonAf 33.5 L (60.0-200.0) POC Glucose (mg/dL) 183 H 165 H (75-99) mg/dL Calcium 8.6 L (8.7-10.3) mg/dL Total Protein 5.3 L (6.2-8.2) g/dL Albumin 3.3 L (3.8-4.9) g/dL Albumin/Globulin Ratio 1.58 L (1.60-3.17) g/dL 10/15/21 Range/Units 06:19 RBC 3.37 L (4.10-5.20) X 10*6/uL Hgb 10.3 L (12.0-15.0) g/dL Hct 33.5 L (37.2-46.3) % MCV 99.4 H (80.0-97.0) fL MCHC 30.7 L (32.0-37.0) g/dL Sodium (135-145) mmol/L Chloride (96-109) mmol/L Est GFR (CKD-EPI)AfAm (60.0-200.0) Est GFR (CKD-EPI)NonAf (60.0-200.0) POC Glucose (mg/dL) (75-99) mg/dL Calcium (8.7-10.3) mg/dL Total Protein (6.2-8.2) g/dL Albumin (3.8-4.9) g/dL Albumin/Globulin Ratio (1.60-3.17) g/dL Microbiology - Last 24 Hours (Table) 10/13/21 17:00 Urine Culture - Preliminary Urine,Voided Gram Neg Bacilli
[2021-10-15 16:32] LABS: Glucose,Whole Blood 133 mg/dL (75-99)
[2021-10-15 20:05] VITALS: RESP 16
[2021-10-15] MEDS: ATORVASTATIN 40 MG TAB PO SCH (20:25)
[2021-10-15] MEDS: DONEPEZIL 10 MG TAB PO SCH (20:26)
[2021-10-15 20:44] LABS: Glucose,Whole Blood 79 mg/dL (75-99)
[2021-10-15] MEDS ORDERED: MIRTAZAPINE 15 MG TAB PO SCH (21:00)
[2021-10-15] MEDS ORDERED: hydrALAZINE HCL 20 MG/ML 1 ML VIAL IVP PRN (21:05)
[2021-10-15] MEDS: INSULIN DETEMIR (LEVEMIR) 100 UNIT/ML SYR SQ SCH (21:06)
[2021-10-15] MEDS ORDERED: INSULIN DETEMIR (LEVEMIR) 100 UNIT/ML SYR SQ ONE (21:07)
[2021-10-15] MEDS: hydrALAZINE HCL 50 MG TAB PO SCH (21:11)
[2021-10-15] MEDS ORDERED: amLODIPine 5 MG TAB PO SCH (22:30)
[2021-10-16 07:27] LABS: Glucose,Whole Blood 81 mg/dL (75-99)
[2021-10-16 07:44] VITALS: BP 176/61; PULSE 62; TEMP 98.7
[2021-10-16] MEDS: INSULIN ASPART (NovoLOG) 100 UNIT/ML VIAL SQ SCH ×2 (08:07→12:08)
[2021-10-16] MEDS: LORATADINE 10 MG TAB PO SCH (09:08)
[2021-10-16] MEDS: carvediloL 12.5 MG TAB PO SCH (09:08)
[2021-10-16] MEDS: CHOLECALCIFEROL 25 MCG (1000 IU) TABLET PO SCH (09:08)
[2021-10-16] MEDS: CLOPIDOGREL 75 MG TAB PO SCH (09:08)
[2021-10-16] MEDS: HEPARIN SODIUM,PORCINE/PF 5,000 UNIT/0.5 ML SYRINGE SQ SCH (09:08)
[2021-10-16] MEDS: LEVOTHYROXINE 75 MCG TAB PO SCH (09:08)
[2021-10-16] MEDS: lisinopriL 10 MG TAB PO SCH (09:08)
[2021-10-16] MEDS: hydrALAZINE HCL 50 MG TAB PO SCH (09:08)
[2021-10-16] MEDS: ASPIRIN 81 MG PO SCH (09:08)
[2021-10-16] MEDS: NON FORMULARY DRUG (Ubidecarenone [Coenzyme Q10] 200 MG Capsule) PO SCH (09:12)
[2021-10-16 09:33] LABS: African American GFR (CKD) 43.6 (60.0-200.0); Albumin 3.3 g/dL (3.8-4.9); Albumin/Globulin Ratio 1.65 (1.60-3.17); Anion Gap 10.3 mmol/L (10.00-18.00); BUN/Creat Ratio 14.38 Ratio (12.00-20.00); Blood Urea Nitrogen 18.7 mg/dL (9.0-27.0); Calcium 8.6 mg/dL (8.7-10.3); Carbon Dioxide 24.7 mmol/L (20.0-27.5); Non-African American GFR(CKD) 37.6 (60.0-200.0); Potassium 4.4 mmol/L (3.5-5.5); Total Bilirubin 0.8 mg/dL (0.30-1.20); Total Protein 5.3 g/dL (6.2-8.2)
[2021-10-16 09:47] LABS: Basophils # (A) 0.03 X 10*3/uL (0.00-0.10); Basophils % (A) 0.5 %; Eosinophils % (A) 3.6 %; HCT 33.9 % (37.2-46.3); HGB 10.6 g/dL (12.0-15.0); Lymphocytes # (A) 1.62 X 10*3/uL (0.90-5.00); Lymphocytes % (A) 29.6 %; MCH 30.8 pg (27.0-32.0); MCHC 31.3 g/dL (32.0-37.0); MCV 98.5 fL (80.0-97.0); Mean Platelet Volume 10.5 fL (9.5-12.2); Monocytes # (A) 0.55 X 10*3/uL (0.20-1.00); Neutrophils # (A) 3.07 X 10*3/uL (1.80-7.70); Neutrophils % (A) 56.1 %; Platelet Count 148 X 10*3/uL (140-440); RBC 3.44 X 10*6/uL (4.10-5.20); RDW 12.4 % (11.5-14.5); WBC 5.48 X 10*3/uL (4.50-10.00)
--- NOTE | 2021-10-16 11:00 | P.PN ---
Subjective Progress Note Date: 10/16/21 Principal diagnosis: 86-year-old female with acute kidney injury secondary to volume depletion , chronic kidney disease diabetic nephropathy unequal kidney size. was admitted with confusion and decreased intake from a senior living. she is improving with IV fluids She has a UTI with Proteus, urine output is documented at 700 mL.. Creatinine is 1.3 sodium is 147. She remains confused but she is awake and alert but complains of poor appetite no nausea vomiting diarrhea no fever no chills. No dysuria frequency. Objective - Vital Signs Vital signs: Vital Signs Temp 98.7 F 10/16/21 07:43 Pulse 62 10/16/21 07:43 Resp 16 10/16/21 07:43 BP 176/61 10/16/21 07:43 Pulse Ox 97 10/16/21 07:43 Intake & Output 10/15/21 10/16/21 10/16/21 18:59 06:59 18:59 Output Total 700 Balance -700 Weight 77.5 kg Output: Urine 700 Other: Voiding Method Diaper Diaper Toilet External Catheter External Catheter # Voids 525 525 # Bowel Movements 1 On examination awake alert but unable to recall any details of her history HEENT exam unremarkable no JVP neck is supple no facial asymmetry Lungs are clear to auscultation good air entry bilaterally Heart sounds are unremarkable Abdomen soft nontender Extremity exam was no edema Neurologically awake alert sitting comfortably in the bed but unable to recall any details for history - Labs CBC & Chem 7: 10/16/21 06:26 10/16/21 06:26 Labs: Abnormal Lab Results - Last 24 Hours (Table) 10/15/21 10/16/21 10/16/21 Range/Units 16:31 06:26 06:26 RBC 3.44 L (4.10-5.20) X 10*6/uL Hgb 10.6 L (12.0-15.0) g/dL Hct 33.9 L (37.2-46.3) % MCV 98.5 H (80.0-97.0) fL MCHC 31.3 L (32.0-37.0) g/dL Sodium 147 H (135-145) mmol/L Chloride 112 H (96-109) mmol/L Est GFR (CKD-EPI)AfAm 43.6 L (60.0-200.0) Est GFR (CKD-EPI)NonAf 37.6 L (60.0-200.0) POC Glucose (mg/dL) 133 H (75-99) mg/dL Calcium 8.6 L (8.7-10.3) mg/dL AST 11 L (13-35) U/L Total Protein 5.3 L (6.2-8.2) g/dL Albumin 3.3 L (3.8-4.9) g/dL Microbiology - Last 24 Hours (Table) 10/13/21 17:00 Urine Culture - Final Urine,Voided Proteus mirabilis Assessment and Plan Assessment: impression 1. Acute kidney injury from decreased intake and volume depletion responding to lactated Ringer's, creatinine went up to 2.98 on admission and is down to 1.3. patient has chronic kidney disease with trace proteinuria possibly nephrosclerosis and or diabetic nephropathy additionally. Baseline creatinine is 1.3-1.5 2. Acidosis secondary to acute kidney injury improved bicarb 24. 3. Urine tract infection with gram-negative bacilli. Proteus mirabilis 4.hyperkalemia resolved. 5. Hypertension slightly about target Recommendation 1. DC IV fluids as supposedly she is taking oral intake adequately 2. patient currently on lisinopril and Coreg. Lisinopril dose was increased ye to 10 twice a day and watch her blood pressure as an outpatient and adjust medication as an outpatient She can be discharged
[2021-10-16 12:00] LABS: Glucose,Whole Blood 137 mg/dL (75-99)
--- NOTE | 2021-10-16 13:02 | P.DS ---
Providers Date of admission: 10/12/21 18:58 Expected date of discharge: 10/16/21 Attending physician: Lyle Gutierrez Consults: 10/12/21 18:57 Consult Physician Urgent Consulting Provider: Tamara Alvarez Consult Reason/Comments: Acute renal failure, hyperkalemia Do you want consulting provider notified?: Yes Primary care physician: Lyle Gutierrez Hospital Course: Final diagnosis Acute kidney injury on top of chronic kidney disease stage III B Hyperkalemia metabolic acidosis secondary to acute kidney injury hypertension and hypertensive cardiovascular disease hyperlipidemia Coronary artery disease with previous myocardial infarction and PCI hypothyroidism Diabetes mellitus type 2 vascular dementia depression GI prophylaxis DVT prophylaxis Discharge disposition Patient is being discharged in a stable condition with guarded prognosis to [facility]. Patient will follow-up with Dr. Gutierrez in the outpatient setting upon discharge. Total time taken is greater than 35 minutes. Hospital course This is an 86-year-old female who was recently admitted with elevated potassium, increased confusion, poor oral intake, acute kidney injury and was being closely monitored. Patient also with Dr. Gutierrez in the outpatient setting. She was evaluated by nephrology closely recommending close outpatient follow-up with repeat labs. Recommend renal diet with low potassium low-sodium and encourage oral intake. Patient is requesting to go back to [facility] today. Current close outpatient follow-up with repeat labs and prescription provided for repeat CBC and CMP in the outpatient setting. Currently no reports of chest pain, shortness of breath, or palpitations. Patient is afebrile. No reports of nausea or vomiting and patient is tolerating diet. Patient will be going to [facility] today. Guarded prognosis. On exam vital signs are stable. Cardio S1, S2 are muffled. Respiratory system shows diminished breath sounds at the bases with no wheezing or rhonchi noted. Abdomen is soft and nontender. Nervous system shows diffuse weakness. Please refer to medication reconciliation sheet for a list of medications. Patient Condition at Discharge: Stable Plan - Discharge Summary Discharge Rx Participant: No New Discharge Prescriptions: New hydrALAZINE HCL [Apresoline] 50 mg PO BID tab amLODIPine [Norvasc] 5 mg PO HS tab Continue Levothyroxine Sodium [Synthroid] 75 mcg PO DAILY Donepezil [Aricept] 10 mg PO HS Atorvastatin [Lipitor] 40 mg PO HS Aspirin 81 mg PO DAILY bisacodyL [Dulcolax] 10 mg RECTAL DAILY PRN PRN Reason: Constipation Acetaminophen [Tylenol 8 Hour] 650 mg PO Q4H PRN PRN Reason: general discomfort INSULIN ASPART (NovoLOG) [NovoLOG (formulary)] See Protocol SQ ACHS carvediloL [Coreg*] 12.5 mg PO BID Clopidogrel [Plavix] 75 mg PO DAILY Insulin Detemir [Levemir Flextouch Pen] 16 units SQ HS Loperamide HCl [Imodium A-D] 4 mg PO TID PRN MDD 4 TABS PRN Reason: Diarrhea Magnesium Hydroxide [Milk of Magnesia Concentrate] 7,200 mg PO DAILY PRN PRN Reason: Constipation Ubidecarenone [Coenzyme Q10] 200 mg PO DAILY Cholecalciferol [Vitamin D3 (25 Mcg = 1000 Iu)] 50 mcg PO DAILY Cetirizine HCl 10 mg PO DAILY HYDROcodone/APAP 5-325MG [[place] 5-325] 1 tab PO Q4HR PRN 3 Days #6 tab PRN Reason: Pain Ondansetron HCl [Zofran] 4 mg PO Q8H PRN PRN Reason: Nausea And Vomiting lisinopriL [Zestril] 10 mg PO DAILY Na Phos,M-B/Na Phos,Di-Ba [Fleet Adult] 133 ml RECTAL DAILY PRN PRN Reason: Constipation Discharge Medication List Aspirin 81 mg PO DAILY 09/22/19 [History] Atorvastatin [Lipitor] 40 mg PO HS 09/22/19 [History] Donepezil [Aricept] 10 mg PO HS 09/22/19 [History] Levothyroxine Sodium [Synthroid] 75 mcg PO DAILY 09/22/19 [History] Acetaminophen [Tylenol 8 Hour] 650 mg PO Q4H PRN 02/14/20 [History] Clopidogrel [Plavix] 75 mg PO DAILY 02/14/20 [History] INSULIN ASPART (NovoLOG) [NovoLOG (formulary)] See Protocol SQ ACHS 02/14/20 [History] bisacodyL [Dulcolax] 10 mg RECTAL DAILY PRN 02/14/20 [History] carvediloL [Coreg*] 12.5 mg PO BID 02/14/20 [History] Insulin Detemir [Levemir Flextouch Pen] 16 units SQ HS 02/01/21 [History] Loperamide HCl [Imodium A-D] 4 mg PO TID PRN MDD 4 TABS 02/01/21 [History] Magnesium Hydroxide [Milk of Magnesia Concentrate] 7,200 mg PO DAILY PRN 04/14/21 [History] Ondansetron HCl [Zofran] 4 mg PO Q8H PRN 04/14/21 [History] Cetirizine HCl 10 mg PO DAILY 10/12/21 [History] Cholecalciferol [Vitamin D3 (25 Mcg = 1000 Iu)] 50 mcg PO DAILY 10/12/21 [History] Na Phos,M-B/Na Phos,Di-Ba [Fleet Adult] 133 ml RECTAL DAILY PRN 10/12/21 [History] Ubidecarenone [Coenzyme Q10] 200 mg PO DAILY 10/12/21 [History] lisinopriL [Zestril] 10 mg PO DAILY 10/12/21 [History] HYDROcodone/APAP 5-325MG [[place] 5-325] 1 tab PO Q4HR PRN 3 Days #6 tab 10/16/21 [Rx] amLODIPine [Norvasc] 5 mg PO HS tab 10/16/21 [Rx] hydrALAZINE HCL [Apresoline] 50 mg PO BID tab 10/16/21 [Rx] Follow up Appointment(s)/Referral(s): Lyle Gutierrez MD [Primary Care Provider] - 1-2 days [facility], [NON-STAFF] - As Needed Activity/Diet/Wound Care/Special Instructions: Patient is going to [facility] Activity as tolerated Follow-up with Dr. Gutierrez outpatient Continue taking medications as prescribed Recommend repeat labs in 2-3 days Continue monitoring Accu-Cheks before meals and at bedtime Continue with renal diet and ensures 3 times a day with meals Low-sodium, low potassium diet Discharge Disposition: TRANSFER TO SNF/ECF
== END 2021-10-16 16:00 | DRG 683 ==
LOC: EC 17:40 → 3SCARD 18:58 → 4SSUR 10-13 00:49
PROVIDERS: ADMIT Internal Medicine; ATTEND Internal Medicine
DX: N17.9 Acute kidney failure, unspecified (principal); E87.2 Acidosis; N39.0 Urinary tract infection, site not specified; Y92.9 Unspecified place or not applicable; E87.5 Hyperkalemia; B96.4 Proteus (mirabilis) (morganii) as the cause of diseases classified elsewhere; E03.9 Hypothyroidism, unspecified; Z20.822 Contact with and (suspected) exposure to COVID-19; E11.22 Type 2 diabetes mellitus with diabetic chronic kidney disease; E78.5 Hyperlipidemia, unspecified; E86.9 Volume depletion, unspecified; F01.50 Vascular dementia, unspecified severity, without behavioral disturbance, psychotic disturbance, mood disturbance, and anxiety; F32.A Depression, unspecified; F41.1 Generalized anxiety disorder; I13.10 Hypertensive heart and chronic kidney disease without heart failure, with stage 1 through stage 4 chronic kidney disease, or unspecified chronic kidney disease; I25.10 Atherosclerotic heart disease of native coronary artery without angina pectoris; I25.2 Old myocardial infarction; I25.5 Ischemic cardiomyopathy; N18.32 Chronic kidney disease, stage 3b; Z82.49 Family history of ischemic heart disease and other diseases of the circulatory system; Z87.891 Personal history of nicotine dependence; Z95.5 Presence of coronary angioplasty implant and graft; Z96.1 Presence of intraocular lens; Z79.899 Other long term (current) drug therapy; Z79.890 Hormone replacement therapy; Z79.82 Long term (current) use of aspirin; Z79.4 Long term (current) use of insulin; Z79.02 Long term (current) use of antithrombotics/antiplatelets; M19.90 Unspecified osteoarthritis, unspecified site
CPT/HCPCS: 36415; 71046; 76770; 80048; 80053; 81001; 83735; 84484; 85025; 85027; 85610; 85730; 87077; 87086; 87186; 87635; 93005; 99285

== ENCOUNTER 2023-08-15 20:59 | Inpatient (IN) | payer MEDICARE, OTHER ==
--- NOTE | 2023-08-15 21:16 | ED ---
Recheck HPI - General Chief Complaint: Recheck/Abnormal Lab/Rx Stated Complaint: Abnormal labs Time Seen by Provider: 08/15/23 21:04 Source: patient, EMS Mode of arrival: EMS Limitations: altered mental status - History of Present Illness Initial Comments: This patient is an 88-year-old woman who was sent here from [facility] after they had checked some labs and found that she had elevated BUN and elevated potassium. When I interview the patient, she does not know why she is here. She states she feels well. Denies pain. No dyspnea. She has not noted changes in urination or bowel movements area MD Complaint: abnormal lab -: unknown Returns Today for: Called Because of Abnormal Lab/Test - Related Data Home Medications Medication Instructions Recorded Confirmed Aspirin 81 mg PO DAILY@1700 09/22/19 08/16/23 Levothyroxine Sodium [Synthroid] 75 mcg PO DAILY 09/22/19 08/16/23 Acetaminophen [Tylenol 8 Hour] 650 mg PO Q4H PRN 02/14/20 08/16/23 Clopidogrel [Plavix] 75 mg PO DAILY 02/14/20 08/16/23 INSULIN ASPART (NovoLOG) [NovoLOG See Protocol SQ ACHS 02/14/20 08/16/23 (formulary)] bisacodyL [Dulcolax] 10 mg RECTAL DAILY PRN 02/14/20 08/16/23 carvediloL [Coreg*] 12.5 mg PO BID@0800,1700 02/14/20 08/16/23 Magnesium Hydroxide [Milk of 7,200 mg PO DAILY PRN 04/14/21 08/16/23 Magnesia Concentrate] Cholecalciferol [Vitamin D3 (25 50 mcg PO DAILY 10/12/21 08/16/23 Mcg = 1000 Iu)] Ubidecarenone [Coenzyme Q10] 200 mg PO DAILY@1700 10/12/21 08/16/23 Atorvastatin [Lipitor] 20 mg PO HS 08/16/23 08/16/23 Ensure Enlive 237 ml PO QID 08/16/23 08/16/23 Hydrocortisone Cream 1 applic TOPICAL BID 08/16/23 08/16/23 [Hydrocortisone 2.5% Cream] Mirtazapine [Remeron] 15 mg PO HS 08/16/23 08/16/23 Sennosides [Senokot] 8.6 mg PO BID@0800,1700 08/16/23 08/16/23 Previous Rx's Medication Instructions Recorded Hydrocortisone Suppository 25 mg RECTAL BID 5 Days suppositor 08/19/23 [Anusol-Hc] Sodium Bicarbonate Tab 650 mg PO BID tab 08/19/23 hydrALAZINE HCL [Apresoline] 50 mg PO BID tab 08/19/23 Allergies Allergy/AdvReac Type Severity Reaction Status Date / Time Sulfa (Sulfonamide Allergy Unknown Verified 08/16/23 07:18 Antibiotics) Review of Systems ROS Statement: Those systems with pertinent positive or pertinent negative responses have been documented in the HPI. ROS Other: All systems not noted in ROS Statement are negative. Constitutional: Denies: fever, weakness Respiratory: Denies: cough, dyspnea Cardiovascular: Denies: chest pain, palpitations Gastrointestinal: Denies: abdominal pain, vomiting, diarrhea Genitourinary: Denies: dysuria, hematuria Musculoskeletal: Denies: back pain Skin: Denies: rash Neurological: Denies: headache, weakness Past Medical History Past Medical History: Coronary Artery Disease (CAD), Diabetes Mellitus, Hyperlipidemia, Hypertension, Memory Impairment, Myocardial Infarction ([place]), Osteoarthritis (OA), Thyroid Disorder Additional Past Medical History / Comment(s): Type 2 DM, [place] 07/29/19 Last Myocardial Infarction Date:: 07/29/19 History of Any Multi-Drug Resistant Organisms: None Reported Past Surgical History: Breast Surgery, Cholecystectomy, Heart Catheterization With Stent, Joint Replacement, Orthopedic Surgery Additional Past Surgical History / Comment(s): 2 cardiac stents, bilateral cataract removal and intraocular lens implants Past Anesthesia/Blood Transfusion Reactions: No Reported Reaction Date of Last Stent Placement:: 07/29/19 Past Psychological History: No Psychological Hx Reported Smoking Status: Former smoker Past Alcohol Use History: None Reported Additional Past Alcohol Use History / Comment(s): Patient was a smoker one pack per day for proximal might 20 years. No illicit drug use or alcohol abuse. Patient uses a walker for ambulation. Past Drug Use History: None Reported - Past Family History Brother(s) Family Medical History: Myocardial Infarction ([place]) Additional Family Medical History / Comment(s): The patient has 3 brothers and all have passed. Patient does not know their medical histories nor the reason further tests. Father Additional Family Medical History / Comment(s): Patient's father is . Patient does not know any of his medical history. Mother Additional Family Medical History / Comment(s): Mother in her 60s while sleeping. Sister(s) Additional Family Medical History / Comment(s): Patient has 3 sisters and one has that his history of coronary artery disease status post stents. Daughter(s) Additional Family Medical History / Comment(s): Patient has one daughter that in a motor vehicle accident. Patient has 2 sons and one from an unknown cause. One son is alive with no major medical problems. General Exam Limitations: altered mental status General appearance: alert, in no apparent distress Head exam: Present: atraumatic, normocephalic Eye exam: Present: normal appearance. Absent: scleral icterus, conjunctival injection ENT exam: Present: normal oropharynx Neck exam: Present: normal inspection Respiratory exam: Present: normal lung sounds bilaterally. Absent: respiratory distress, wheezes, rales, rhonchi, stridor Cardiovascular Exam: Present: regular rate, normal rhythm, normal heart sounds. Absent: systolic murmur, diastolic murmur, rubs, gallop GI/Abdominal exam: Present: soft. Absent: distended, tenderness, guarding, rebound, rigid, mass Extremities exam: Present: normal inspection, normal capillary refill. Absent: pedal edema, calf tenderness Back exam: Present: normal inspection. Absent: CVA tenderness (R), CVA tenderness (L) Neurological exam: Present: alert, oriented X3 (Patient is oriented to person a nd place did not know the date), CN II-XII intact. Absent: motor sensory deficit Skin exam: Present: warm, dry, intact, pallor. Absent: rash Course Vital Signs 08/15/23 08/15/23 08/15/23 21:03 21:05 22:00 Temperature 97.0 F L Pulse Rate 61 58 L Respiratory 18 Rate Blood Pressure 114/60 122/87 104/51 O2 Sat by Pulse 96 92 L Oximetry 08/15/23 08/16/23 08/16/23 23:00 00:00 01:00 Temperature Pulse Rate 62 60 59 L Respiratory 16 Rate Blood Pressure 96/63 105/49 118/48 O2 Sat by Pulse 95 96 95 Oximetry 08/16/23 08/16/23 08/16/23 02:00 03:00 04:00 Temperature Pulse Rate 58 L 64 63 Respiratory 16 16 Rate Blood Pressure 115/38 109/44 112/83 O2 Sat by Pulse 95 93 L 97 Oximetry 08/16/23 08/16/23 08/16/23 05:00 06:00 07:00 Temperature Pulse Rate 67 58 L 57 L Respiratory 16 18 16 Rate Blood Pressure 121/51 114/48 123/50 O2 Sat by Pulse 95 95 94 L Oximetry 08/16/23 08/16/23 08/16/23 08:00 09:00 11:58 Temperature 97 F L Pulse Rate 59 L 59 L 62 Respiratory 18 18 18 Rate Blood Pressure 115/53 117/36 120/82 O2 Sat by Pulse 96 98 100 Oximetry 08/16/23 15:56 Temperature Pulse Rate 78 Respiratory 18 Rate Blood Pressure 124/68 O2 Sat by Pulse 98 Oximetry Medical Decision Making - Medical Decision Making Was pt. sent in by a medical professional or institution (, PA, [employer], urgent care, hospital, or custodial...) When possible be specific @ -Patient is sent from custodial for abnormal lab test Did you speak to anyone other than the patient for history (EMS, parent, family, police, friend...)? What history was obtained from this source @ -[No] Did you review nursing and triage notes (agree or disagree)? Why? @ -[I reviewed and agree with nursing and triage notes] Were old charts reviewed (outside hosp., previous admission, EMS record, old EKG, old radiological studies, urgent care reports/EKG's, custodial records)? Report findings @ -[No old charts were reviewed] Differential Diagnosis (chest pain, altered mental status, abdominal pain women, abdominal pain men, vaginal bleeding, weakness, fever, dyspnea, syncope, headache, dizziness, GI bleed, back pain, seizure, CVA, palpatations, mental health, musculoskeletal)? @ -[not applicable] EKG interpreted by me (3pts min.). @ -[As above] X-rays interpreted by me (1pt min.). @ -[None done] CT interpreted by me (1pt min.). @ -[None done] U/S interpreted by me (1pt. min.). @ -[None done] What testing was considered but not performed or refused? (CT, X-rays, U/S, labs)? Why? @ -[None] What meds were considered but not given or refused? Why? @ -[None] Did you discuss the management of the patient with other professionals (professionals i.e. , PA, [employer], lab, RT, psych nurse, social media coordinator, restrictive preparation operator, teacher, airline pilot/first officer, shelter case manager)? Give summary @ -[No] Was smoking cessation discussed for >3mins.? @ -[No] Was critical care preformed (if so, how long)? @ -[No] Were there social determinants of health that impacted care today? How? (Homelessness, low income, unemployed, alcoholism, drug addiction, transportation, low edu. Level, literacy, decrease access to med. care, [place] [facility], rehab)? @ -[No] Was there de-escalation of care discussed even if they declined (Discuss DNR or withdrawal of care, Hospice)? DNR status @ -[No] What co-morbidities impacted this encounter? (DM, HTN, Smoking, COPD, CAD, Cancer, CVA, ARF, Chemo, Hep., AIDS, mental health diagnosis, sleep apnea, morbid obesity)? @ -[None] Was patient admitted / discharged? Hospital course, mention meds given and route, prescriptions, significant lab abnormalities, going to OR and other pertinent info. @ -[Patient will be admitted to have hydration, additional studies and nephrology consultation Undiagnosed new problem with uncertain prognosis? @ -[No] Drug Therapy requiring intensive monitoring for toxicity (Heparin, Nitro, Insulin, Cardizem)? @ -[No] Were any procedures done? @ -[No] Diagnosis/symptom? @ -[Acute on chronic kidney failure Acute hyperkalemia Acute, or Chronic, or Acute on Chronic? @ -[default] Uncomplicated (without systemic symptoms) or Complicated (systemic symptoms)? @ -[Uncomplicated Side effects of treatment? @ -[No] Exacerbation, Progression, or Severe Exacerbation? @ -[No] Poses a threat to life or bodily function? How? (Chest pain, [place], [place], pneumonia, PE, COPD, DKA, ARF, appy, cholecystitis, CVA, Diverticulitis, Homicidal, Suicidal, threat to staff... and all critical care pts) @ -[Yes, untreated for kidney failure may progress - Lab Data Result diagrams: 08/18/23 07:47 08/20/23 08:07 Lab Results 08/15/23 08/15/23 08/15/23 Range/Units 21:05 21:33 21:33 WBC 6.9 (3.8-10.6) k/uL RBC 3.79 L (3.80-5.40) m/uL Hgb 11.8 (11.4-16.0) gm/dL Hct 36.0 (34.0-46.0) % MCV 94.9 (80.0-100.0) fL MCH 31.1 (25.0-35.0) pg MCHC 32.7 (31.0-37.0) g/dL RDW 14.4 (11.5-15.5) % Plt Count 184 (150-450) k/uL MPV 8.7 Neutrophils % 59 % Lymphocytes % 29 % Monocytes % 6 % Eosinophils % 3 % Basophils % 0 % Neutrophils # 4.1 (1.3-7.7) k/uL Lymphocytes # 2.0 (1.0-4.8) k/uL Monocytes # 0.4 (0-1.0) k/uL Eosinophils # 0.2 (0-0.7) k/uL Basophils # 0.0 (0-0.2) k/uL Sodium 137 (137-145) mmol/L Potassium 6.3 H* (3.5-5.1) mmol/L Chloride 105 (98-107) mmol/L Carbon Dioxide 19 L (22-30) mmol/L Anion Gap 13 mmol/L BUN 143 H* (7-17) mg/dL Creatinine 3.46 H (0.52-1.04) mg/dL Est GFR (CKD-EPI)AfAm 13 (>60 ml/min/1.73 sqM) Est GFR (CKD-EPI)NonAf 11 (>60 ml/min/1.73 sqM) Glucose 107 H (74-99) mg/dL Plasma Lactic Acid Terrence 1.0 (0.7-2.0) mmol/L Calcium 9.1 (8.4-10.2) mg/dL Magnesium 3.1 H (1.6-2.3) mg/dL Total Bilirubin 0.6 (0.2-1.3) mg/dL AST 26 (14-36) U/L ALT 36 H (4-34) U/L Alkaline Phosphatase 70 (38-126) U/L Total Protein 6.9 (6.3-8.2) g/dL Albumin 3.8 (3.5-5.0) g/dL Urine Color Urine Appearance (Clear) Urine pH (5.0-8.0) Ur Specific [place] (1.001-1.035) Urine Protein (Negative) Urine Glucose (UA) (Negative) Urine Ketones (Negative) Urine Blood (Negative) Urine Nitrite (Negative) Urine Bilirubin (Negative) Urine Urobilinogen (<2.0) mg/dL Ur Leukocyte Esterase (Negative) Urine RBC (0-5) /hpf Urine WBC (0-5) /hpf Urine WBC Clumps (None) /hpf Urine Bacteria (None) /hpf 08/15/23 Range/Units 21:33 WBC (3.8-10.6) k/uL RBC (3.80-5.40) m/uL Hgb (11.4-16.0) gm/dL Hct (34.0-46.0) % MCV (80.0-100.0) fL MCH (25.0-35.0) pg MCHC (31.0-37.0) g/dL RDW (11.5-15.5) % Plt Count (150-450) k/uL MPV Neutrophils % % Lymphocytes % % Monocytes % % Eosinophils % % Basophils % % Neutrophils # (1.3-7.7) k/uL Lymphocytes # (1.0-4.8) k/uL Monocytes # (0-1.0) k/uL Eosinophils # (0-0.7) k/uL Basophils # (0-0.2) k/uL Sodium (137-145) mmol/L Potassium (3.5-5.1) mmol/L Chloride (98-107) mmol/L Carbon Dioxide (22-30) mmol/L Anion Gap mmol/L BUN (7-17) mg/dL Creatinine (0.52-1.04) mg/dL Est GFR (CKD-EPI)AfAm (>60 ml/min/1.73 sqM) Est GFR (CKD-EPI)NonAf (>60 ml/min/1.73 sqM) Glucose (74-99) mg/dL Plasma Lactic Acid Terrence (0.7-2.0) mmol/L Calcium (8.4-10.2) mg/dL Magnesium (1.6-2.3) mg/dL Total Bilirubin (0.2-1.3) mg/dL AST (14-36) U/L ALT (4-34) U/L Alkaline Phosphatase (38-126) U/L Total Protein (6.3-8.2) g/dL Albumin (3.5-5.0) g/dL Urine Color Light Yellow Urine Appearance Cloudy H (Clear) Urine pH 6.0 (5.0-8.0) Ur Specific [place] 1.015 (1.001-1.035) Urine Protein Trace H (Negative) Urine Glucose (UA) 3+ (Negative) Urine Ketones Negative (Negative) Urine Blood Negative (Negative) Urine Nitrite Negative (Negative) Urine Bilirubin Negative (Negative) Urine Urobilinogen <2.0 (<2.0) mg/dL Ur Leukocyte Esterase Large (Negative) Urine RBC 1 (0-5) /hpf Urine WBC 57 H (0-5) /hpf Urine WBC Clumps Many H (None) /hpf Urine Bacteria Rare H (None) /hpf Disposition Clinical Impression: Acute kidney injury, Hyperkalemia, Urinary tract infection Disposition: ADMITTED IP TO THIS HOSP Condition: Fair Is patient prescribed a controlled substance at d/c from ED?: No
[2023-08-15 21:51] LABS: Basophils % (A) 0 %; Eosinophils # (A) 0.2 k/uL (0-0.7); Eosinophils % (A) 3 %; HGB 11.8 gm/dL (11.4-16.0); Lymphocytes % (A) 29 %; MCH 31.1 pg (25.0-35.0); MCHC 32.7 g/dL (31.0-37.0); MCV 94.9 fL (80.0-100.0); Mean Platelet Volume 8.7; Monocytes # (A) 0.4 k/uL (0-1.0); Monocytes % (A) 6 %; Neutrophils # (A) 4.1 k/uL (1.3-7.7); Neutrophils % (A) 59 %; Platelet Count 184 k/uL (150-450); RBC 3.79 m/uL (3.80-5.40); RDW 14.4 % (11.5-15.5); WBC 6.9 k/uL (3.8-10.6)
[2023-08-15 22:03] LABS: Appearance,Urine Cloudy (Clear); Bacteria,Urine Rare /hpf; Bilirubin,Urine Negative (Negative); Color,Urine Light Yellow; Glucose,Urine (UA) 3+ (Negative); Ketones,Urine Negative (Negative); Protein,Urine Trace (Negative); RBC,Urine 1 /hpf (0-5); Specific Gravity,Urine 1.015 (1.001-1.035); WBC,Urine 57 /hpf (0-5)
[2023-08-15 22:04] LABS: Blood,Urine Negative (Negative); Leukocyte Esterase,Urine Large (Negative); Nitrite,Urine Negative (Negative); Urobilinogen,Urine <2.0 mg/dL (<2.0)
[2023-08-15 22:06] LABS: ALT 36 U/L (4-34); AST 26 U/L (14-36); African American GFR (CKD) 13 (>60 ml/min/1.73 sqM); Albumin 3.8 g/dL (3.5-5.0); Alkaline Phosphatase 70 U/L (38-126); Anion Gap 13 mmol/L; Calcium 9.1 mg/dL (8.4-10.2); Carbon Dioxide 19 mmol/L (22-30); Chloride 105 mmol/L (98-107); Glucose 107 mg/dL (74-99); Magnesium 3.1 mg/dL (1.6-2.3); Non-African American GFR(CKD) 11 (>60 ml/min/1.73 sqM); Sodium 137 mmol/L (137-145); Total Bilirubin 0.6 mg/dL (0.2-1.3); Total Protein 6.9 g/dL (6.3-8.2)
[2023-08-15 22:18] LABS: Potassium 6.3 mmol/L (3.5-5.1)
[2023-08-15 22:21] LABS: Blood Urea Nitrogen 143 mg/dL (7-17)
[2023-08-16] MEDS ORDERED: NALOXONE 0.4 MG/ML 1 ML VIAL IV PRN (00:29)
[2023-08-16] MEDS ORDERED: CALCIUM GLUCONATE IN NACL 1 GM in SALINE 1 100ML.BAG IVPB ONE (00:33)
[2023-08-16] MEDS ORDERED: DEXTROSE 50% SYRINGE 50 ML IVP STA (00:34)
[2023-08-16] MEDS ORDERED: SODIUM BICARB 8.4% 50 ML SYR (1 MEQ/ML) IV STA (00:34)
[2023-08-16] MEDS ORDERED: INSULIN REGULAR 100 UNIT/ML VIAL (IV) SQ STA (00:37)
[2023-08-16] MEDS: SODIUM CHLORIDE 0.9% 1,000 ML IV SCH ×3 (01:40→21:00)
--- NOTE | 2023-08-16 08:01 | US ---
EXAMINATION TYPE: US kidneys/renal and bladder DATE OF EXAM: 08/16/2023 COMPARISON: NONE CLINICAL INDICATION: Female, 88 years old with history of Acute kidney injury; EZEQUIEL EXAM MEASUREMENTS: Right Kidney: 9.6 x 4.6 x 4.7 cm Left Kidney: 6.3 x 2.9 x 2.9 cm Right Kidney: no evidence of hydronephrosis Left Kidney: small, echogenic, thin renal cortex, anechoic lesions noted, largest = 1.1 x 0.8 x 1.0cm Bladder: wnl Bilateral Jets seen: no IMPRESSION: 1. Small left renal cyst
[2023-08-16 09:43] LABS: African American GFR (CKD) 14 (>60 ml/min/1.73 sqM); Anion Gap 13 mmol/L; Calcium 9.2 mg/dL (8.4-10.2); Carbon Dioxide 21 mmol/L (22-30); Chloride 110 mmol/L (98-107); Glucose 55 mg/dL (74-99); Non-African American GFR(CKD) 12 (>60 ml/min/1.73 sqM); Potassium 5.2 mmol/L (3.5-5.1); Sodium 144 mmol/L (137-145)
[2023-08-16 10:00] LABS: Blood Urea Nitrogen 132 mg/dL (7-17)
[2023-08-16] MEDS ORDERED: SODIUM ZIRCONIUM CYCLOSILICATE 10 GM PACKET PO ONE (11:27)
--- NOTE | 2023-08-16 11:32 | P.NPCON ---
History of Present Illness - Reason for Consult acute renal failure, chronic renal failure - History of Present Illness Reason for consultation: Acute kidney injury on chronic kidney disease History of present illness: Patient is a 88-year-old female seen in renal consultation for acute kidney injury on chronic kidney disease. Patient has chronic kidney disease stage IV with baseline creatinine in the range of 1.8 to secondary to nephrosclerosis and diabetic kidney disease. Patient had blood work an outpatient and was sent to the hospital due to worsening kidney failure and hyperkalemia. Patient's potassium level on admission was 6.3 and creatinine was 3.46. BUN 143. Patient's currently receiving IV fluids. Renal function is improving. BUN is trying down. Potassium is down to 5.2. Patient has long-standing history of diabetes. She was taking potassium supplementation as well as lisinopril at home which is currently held. She was also on Lasix and Farxiga which are also held. She has been voiding. Denies gross hematuria. Hemodynamically stable. No fever or chills. Denies use of nonsteroidals. Blood sugar controlled. Vital signs are stable. General: No acute distress. HEENT: Head exam is unremarkable. LUNGS: No audible rhonchi or wheezes. HEART: Rate and Rhythm are regular. ABDOMEN: Nontender. EXTREMITITES: No edema. Past Medical History Past Medical History: Coronary Artery Disease (CAD), Diabetes Mellitus, Hyperlipidemia, Hypertension, Memory Impairment, Myocardial Infarction ([place]), Osteoarthritis (OA), Thyroid Disorder Additional Past Medical History / Comment(s): Type 2 DM, [place] 07/29/19 Last Myocardial Infarction Date:: 07/29/19 History of Any Multi-Drug Resistant Organisms: None Reported Past Surgical History: Breast Surgery, Cholecystectomy, Heart Catheterization With Stent, Joint Replacement, Orthopedic Surgery Additional Past Surgical History / Comment(s): 2 cardiac stents, bilateral ca taract removal and intraocular lens implants Past Anesthesia/Blood Transfusion Reactions: No Reported Reaction Date of Last Stent Placement:: 07/29/19 Past Psychological History: No Psychological Hx Reported Smoking Status: Former smoker Past Alcohol Use History: None Reported Past Drug Use History: None Reported - Past Family History Brother(s) Family Medical History: Myocardial Infarction ([place]) Additional Family Medical History / Comment(s): The patient has 3 brothers and all have passed. Patient does not know their medical histories nor the reason further tests. Father Additional Family Medical History / Comment(s): Patient's father is . Patient does not know any of his medical history. Mother Additional Family Medical History / Comment(s): Mother in her 60s while sleeping. Sister(s) Additional Family Medical History / Comment(s): Patient has 3 sisters and one has that his history of coronary artery disease status post stents. Daughter(s) Additional Family Medical History / Comment(s): Patient has one daughter that in a motor vehicle accident. Patient has 2 sons and one from an unknown cause. One son is alive with no major medical problems. Medications and Allergies Home Medications Medication Instructions Recorded Confirmed Type Aspirin 81 mg PO DAILY@1700 09/22/19 08/16/23 History Levothyroxine Sodium [Synthroid] 75 mcg PO DAILY 09/22/19 08/16/23 History Acetaminophen [Tylenol 8 Hour] 650 mg PO Q4H PRN 02/14/20 08/16/23 History Clopidogrel [Plavix] 75 mg PO DAILY 02/14/20 08/16/23 History INSULIN ASPART (NovoLOG) [NovoLOG See Protocol SQ ACHS 02/14/20 08/16/23 History (formulary)] bisacodyL [Dulcolax] 10 mg RECTAL DAILY PRN 02/14/20 08/16/23 History carvediloL [Coreg*] 12.5 mg PO BID@0800,1700 02/14/20 08/16/23 History Insulin Detemir [Levemir Flextouch 16 units SQ HS 02/01/21 08/16/23 History Pen] Magnesium Hydroxide [Milk of 7,200 mg PO DAILY PRN 04/14/21 08/16/23 History Magnesia Concentrate] Cholecalciferol [Vitamin D3 (25 50 mcg PO DAILY 10/12/21 08/16/23 History Mcg = 1000 Iu)] Ubidecarenone [Coenzyme Q10] 200 mg PO DAILY@1700 10/12/21 08/16/23 History HYDROcodone/APAP 5-325MG [Annabella 1 tab PO Q4HR PRN 3 Days #6 tab 10/16/21 08/16/23 Rx 5-325] Atorvastatin [Lipitor] 20 mg PO HS 08/16/23 08/16/23 History Dapagliflozin Propanediol [Farxiga] 5 mg PO DAILY 08/16/23 08/16/23 History Ensure Enlive 237 ml PO QID 08/16/23 08/16/23 History Furosemide [Lasix] 40 mg PO MOFR 08/16/23 08/16/23 History Hydrocortisone Cream 1 applic TOPICAL BID 08/16/23 08/16/23 History [Hydrocortisone 2.5% Cream] Mirtazapine [Remeron] 15 mg PO HS 08/16/23 08/16/23 History Potassium Chloride [Klor-Con M20] 20 meq PO MOFR 08/16/23 08/16/23 History Sennosides [Senokot] 8.6 mg PO BID@0800,1700 08/16/23 08/16/23 History lisinopriL 2.5 mg PO DAILY 08/16/23 08/16/23 History Allergies Allergy/AdvReac Type Severity Reaction Status Date / Time Sulfa (Sulfonamide Allergy Unknown Verified 08/16/23 07:18 Antibiotics) Physical Exam Vitals: Vital Signs Temp Pulse Resp BP Pulse Ox 08/16/23 02:00 59 L 16 120/48 95 08/16/23 00:00 60 16 114/44 97 08/15/23 21:03 97.0 F L 61 18 114/60 96 Intake and Output 08/15/23 08/16/23 08/16/23 22:59 06:59 14:59 Other: Weight 72.575 kg Results - Lab Results Most recent lab results Calcium 9.2 mg/dL (8.4-10.2) 08/16/23 09:05 Magnesium 3.0 mg/dL (1.6-2.3) H 08/16/23 09:05 08/15/23 21:33 08/16/23 09:05 Assessment and Plan Plan: Assessment: 1. Acute kidney injury secondary to ATN due to hypovolemia, diuretics, ACEi. Creatinine 2.46 on admission and is 3.5 today. No hydronephrosis noted on kidney ultrasound. Left kidney atrophic. 2. Chronic kidney disease stage IV with baseline creatinine 1.8-2 secondary to diabetic kidney disease and nephrosclerosis. 3. Hyperkalemia secondary to acute kidney injury, potassium supplementation and lisinopril. Improved with medical management. 4. Metabolic acidosis secondary to acute kidney injury. 5. Hypertension with chronic kidney disease. Controlled. 6. Diabetes mellitus. 7. Hypermagnesemia secondary to acute kidney injury and magnesium supplementation. Plan: Maintain IV fluids. Continue to hold antihypertensives and diuretics. Stop magnesium citrate. Lokelma 10 g once today. Check bladder scan to rule out urinary retention. Avoid nephrotoxins. Repeat labs in the morning. Thank you for the consultation. I will continue to follow the patient with you during her hospital stay.
[2023-08-16] MEDS ORDERED: bisacodyL 10 MG SUPP RECTAL PRN (12:24)
[2023-08-16] MEDS ORDERED: ACETAMINOPHEN TAB 325 MG TAB PO PRN (12:24)
[2023-08-16] MEDS ORDERED: DEXTROSE 50% SYRINGE 50 ML IVP PRN ×2 (12:27)
[2023-08-16] MEDS ORDERED: NON FORMULARY DRUG (Ensure Enlive 237 ML) PO SCH (13:00)
[2023-08-16 13:26] LABS: Potassium,Urine Random 50.6 mmol/L (25.0-125.0)
[2023-08-16] MEDS: INSULIN ASPART (NovoLOG) 100 UNIT/ML VIAL SQ SCH ×3 (13:31→20:59)
[2023-08-16 13:32] LABS: Glucose,Whole Blood 82 mg/dL (70-110)
--- NOTE | 2023-08-16 15:47 | P.HPIM ---
History of Present Illness H&P Date: 08/16/23 HISTORY OF PRESENT ILLNESS This is an 88-year-old female with previous medical history significant for coronary artery disease status post myocardial infarction with PCI, ischemic cardiomyopathy, hypertension hypertensive cardiovascular disease, hyperlipidemia, diabetes mellitus type 2, vascular dementia, hypothyroidism, chronic kidney disease stage IIIB, recurrent depression and generalized anxiety disorder. Patient is a long-term resident at [facility]. Patient was seen on the weekend lab work was ordered and surprisingly her BUN and creatinine as well as potassium came back very high and she has been sent into [facility] emergency center for evaluation. Patient denies having any concerns at this time. She has no appetite and will not eat for the nurses. She has been started on IV fluids. Consult is in place with nephrology. WBC 6.9, hemoglobin 11.8, platelet count 184. Sodium 137 initial potassium 6. 3 repeat 5.2. Initial CO2 19 a repeat 21. Initial BUN 143 and repeat 132. Creatinine 3.46 and repeat 3.25. Glucose 55. Urine creatinine 50, urine sodium 42, urine potassium 50. Urinalysis revealed WBCs 57 with many clumps, leukoesterase large and bacteria rare. Renal ultrasound revealed small left renal cyst. REVIEW OF SYSTEMS Constitutional: No documented fever, no chills, no night sweats. positive for weight change. Positive for weakness, noted fatigue noted lethargy. No daytime sleepiness. HEENT: No headache. No blurred vision or double vision, no loss of vision. No loss of Hearing, no ringing in the ears, no dizziness. No nasal drainage or congestion. No epistaxis. No sore throat. Lungs: No shortness of breath, cough, no sputum production. No wheezing. Cardiovascular: No chest pain, no lower extremity edema. No palpitations. No paroxysmal nocturnal dyspnea. No orthopnea. No lightheadedness or dizziness. Reported syncopal episodes. Abdominal: No abdominal pain. Reported nausea, no vomiting. No diarrhea. No constipation. No bloody or tarry stools. Noted loss of appetite. Genitourinary: No dysuria, increased frequency, urgency. No urinary retention. Musculoskeletal: No myalgias. No muscle weakness, positive for gait dysfunction, no frequent falls. No back pain. No neck pain, decreased range of motion of the right upper extremity Integumentary: No wounds, no lesions. No rash or pruritus. No unusual bruising. No change in hair or nails. Neurologic: No aphasia. No facial droop. Mild change in mentation due to underlying dementia. No head injury. No headache. No paralysis. No paresthesia. Psychiatric: positive for depression. No anxiety. No mood swings. Endocrine: Noted abnormal blood sugars. MEDICAL HISTORY CAD post DC and PCI. Hypertension and hypertensive cardiovascular disease. Hyperlipidemia. CKD 4. Hypothyroidism. Diabetes mellitus type 2. Osteoarthritis. Vascular dementia. SURGICAL HISTORY [facility] with PCI and 2 stents placed. Bilateral cataract surgeries. Cholecystectomy. Breast surgery. Orthopedic surgery. SOCIAL HISTORY Patient smoked about a pack every day for 20 years then quit, she denies any ETOH use, no Illicit drug use, uses a walker for ambulation. FAMILY HISTORY Mother in her 60s while sleeping, father and she does not know anything about him, patient had 3 brothers all and does not know much about their medicals, patient had 3 sisters one from CAD, patient had one daughter who from MVA, 2 sons one from unknown cause and the other one no issues. PHYSICAL EXAMINATION Gen: This is this is an 88-year-old female. HEENT: Head is atraumatic, normocephalic. Pupils equal, round. Sclerae is anicteric, conjunctivae pale mucous complains of the mouth are somewhat dry. NECK: Supple. No JVD. No lymphadenopathy. No thyromegaly, decreased carotid upstroke bilaterally per LUNGS: Decreased breath sounds at the bases. No wheezes or rhonchi. No intercostal retractions. HEART: first heart sound is depressed, second heart sounds normal, there is systolic ejection murmur 2/6 located in the left sternal border. ABDOMEN: Soft, Bowel sounds are present. No masses. No tenderness. EXTREMITIES: No pedal edema. No calf tenderness, dorsalis pedis +2 bilaterally. NEUROLOGICAL: Patient is awake, alert and oriented to person and place. She is able to move all 4 extremities. Cranial nerves II through XII are grossly intact. Muscle power 4/5 in the bilateral upper extremities and 3/5 in the lower extremities. ASSESSMENT AND PLAN 1. Acute kidney injury on top of chronic kidney disease stage IV secondary to ATN due to hypovolemia, diuretics, trent and poor oral intake. Consult with nephrology is appreciated. Patient is on IV fluids 0.9 normal saline at 75 mL per hour. Antihypertensive and diuretics are on hold. Avoid nephrotoxic agents. Bladder scan. 2. Hyperkalemia secondary to acute kidney injury. Status post treatment. Repeat CMP tomorrow morning. Patient is status post Lokelma 10 gm x1. 3. Metabolic acidosis secondary to acute kidney injury. 4. Hypertension and hypertensive cardiovascular disease. Hold lisinopril. Continue Coreg for 12.5 mg twice daily with parameters 5. Hyperlipidemia. Continue Lipitor 40 mg at bedtime. 6. Coronary artery disease with previous DC and PCI. Continue aspirin 81 mg daily, Plavix 75 mg daily, Coreg 12.5 mg twice every day, continue atorvastatin 40 mg orally once every day. 7. Hypothyroidism. Continue levothyroxine 75 g daily. 8. Diabetes mellitus type 2 uncontrolled with hypoglycemia. Hold Levemir 16 units at bedtime and continue with a sliding scale insulin only for now. 9. Vascular dementia. Continue Aricept 10 mg at bedtime. 10. GI prophylaxis. Protonix 40 mg oral daily. 11. DVT prophylaxis. Heparin subcu 5000 units every 12 hours. CODE STATUS: Full code Patient will be admitted to the hospital for a minimum of 2 night stay. DISCHARGE PLAN Return to [facility] under the care of Dr. Gutierrez where she resides as a long-term care resident. Impression and plan of care have been directed as dictated by the signing physician. Michelle Rivera nurse practitioner acting as scribe for signing physician. Past Medical History Past Medical History: Coronary Artery Disease (CAD), Diabetes Mellitus, Hyperlipidemia, Hypertension, Memory Impairment, Myocardial Infarction (DC), Osteoarthritis (OA), Thyroid Disorder Additional Past Medical History / Comment(s): Type 2 DM, DC 07/29/19 Last Myocardial Infarction Date:: 07/29/19 History of Any Multi-Drug Resistant Organisms: None Reported Past Surgical History: Breast Surgery, Cholecystectomy, Heart Catheterization With Stent, Joint Replacement, Orthopedic Surgery Additional Past Surgical History / Comment(s): 2 cardiac stents, bilateral cataract removal and intraocular lens implants Past Anesthesia/Blood Transfusion Reactions: No Reported Reaction Date of Last Stent Placement:: 07/29/19 Past Psychological History: No Psychological Hx Reported Smoking Status: Former smoker Past Alcohol Use History: None Reported Past Drug Use History: None Reported - Past Family History Brother(s) Family Medical History: Myocardial Infarction (DC) Additional Family Medical History / Comment(s): The patient has 3 brothers and all have passed. Patient does not know their medical histories nor the reason further tests. Father Additional Family Medical History / Comment(s): Patient's father is . Patient does not know any of his medical history. Mother Additional Family Medical History / Comment(s): Mother in her 60s while sleeping. Sister(s) Additional Family Medical History / Comment(s): Patient has 3 sisters and one has that his history of coronary artery disease status post stents. Daughter(s) Additional Family Medical History / Comment(s): Patient has one daughter that in a motor vehicle accident. Patient has 2 sons and one from an unknown cause. One son is alive with no major medical problems. Medications and Allergies Home Medications Medication Instructions Recorded Confirmed Type Aspirin 81 mg PO DAILY@1700 09/22/19 08/16/23 History Levothyroxine Sodium [Synthroid] 75 mcg PO DAILY 09/22/19 08/16/23 History Acetaminophen [Tylenol 8 Hour] 650 mg PO Q4H PRN 02/14/20 08/16/23 History Clopidogrel [Plavix] 75 mg PO DAILY 02/14/20 08/16/23 History INSULIN ASPART (NovoLOG) [NovoLOG See Protocol SQ ACHS 02/14/20 08/16/23 History (formulary)] bisacodyL [Dulcolax] 10 mg RECTAL DAILY PRN 02/14/20 08/16/23 History carvediloL [Coreg*] 12.5 mg PO BID@0800,1700 02/14/20 08/16/23 History Insulin Detemir [Levemir Flextouch 16 units SQ HS 02/01/21 08/16/23 History Pen] Magnesium Hydroxide [Milk of 7,200 mg PO DAILY PRN 04/14/21 08/16/23 History Magnesia Concentrate] Cholecalciferol [Vitamin D3 (25 50 mcg PO DAILY 10/12/21 08/16/23 History Mcg = 1000 Iu)] Ubidecarenone [Coenzyme Q10] 200 mg PO DAILY@1700 10/12/21 08/16/23 History HYDROcodone/APAP 5-325MG [[place] 1 tab PO Q4HR PRN 3 Days #6 tab 10/16/21 08/16/23 Rx 5-325] Atorvastatin [Lipitor] 20 mg PO HS 08/16/23 08/16/23 History Dapagliflozin Propanediol [Farxiga] 5 mg PO DAILY 08/16/23 08/16/23 History Ensure Enlive 237 ml PO QID 08/16/23 08/16/23 History Furosemide [Lasix] 40 mg PO MOFR 08/16/23 08/16/23 History Hydrocortisone Cream 1 applic TOPICAL BID 08/16/23 08/16/23 History [Hydrocortisone 2.5% Cream] Mirtazapine [Remeron] 15 mg PO HS 08/16/23 08/16/23 History Potassium Chloride [Klor-Con M20] 20 meq PO MOFR 08/16/23 08/16/23 History Sennosides [Senokot] 8.6 mg PO BID@0800,1700 08/16/23 08/16/23 History lisinopriL 2.5 mg PO DAILY 08/16/23 08/16/23 History Allergies Allergy/AdvReac Type Severity Reaction Status Date / Time Sulfa (Sulfonamide Allergy Unknown Verified 08/16/23 07:18 Antibiotics) Physical Exam Vitals: Vital Signs Temp Pulse Resp BP Pulse Ox 08/16/23 11:58 97 F L 62 18 120/82 100 08/16/23 02:00 59 L 16 120/48 95 08/16/23 00:00 60 16 114/44 97 08/15/23 21:03 97.0 F L 61 18 114/60 96 Intake and Output 08/15/23 08/16/23 08/16/23 22:59 06:59 14:59 Other: Weight 72.575 kg Results CBC & Chem 7: 08/15/23 21:33 08/16/23 09:05 Labs: Abnormal Lab Results - Last 24 Hours (Table) 08/15/23 08/15/23 08/15/23 Range/Units 21:33 21:33 21:33 RBC 3.79 L (3.80-5.40) m/uL Potassium 6.3 H* (3.5-5.1) mmol/L Chloride (98-107) mmol/L Carbon Dioxide 19 L (22-30) mmol/L BUN 143 H* (7-17) mg/dL Creatinine 3.46 H (0.52-1.04) mg/dL Glucose 107 H (74-99) mg/dL Magnesium 3.1 H (1.6-2.3) mg/dL ALT 36 H (4-34) U/L Urine Appearance Cloudy H (Clear) Urine Protein Trace H (Negative) Urine WBC 57 H (0-5) /hpf Urine WBC Clumps Many H (None) /hpf Urine Bacteria Rare H (None) /hpf 08/16/23 Range/Units 09:05 RBC (3.80-5.40) m/uL Potassium 5.2 H (3.5-5.1) mmol/L Chloride 110 H (98-107) mmol/L Carbon Dioxide 21 L (22-30) mmol/L BUN 132 H* (7-17) mg/dL Creatinine 3.25 H (0.52-1.04) mg/dL Glucose 55 L (74-99) mg/dL Magnesium 3.0 H (1.6-2.3) mg/dL ALT (4-34) U/L Urine Appearance (Clear) Urine Protein (Negative) Urine WBC (0-5) /hpf Urine WBC Clumps (None) /hpf Urine Bacteria (None) /hpf
[2023-08-16] MEDS: ASPIRIN 81 MG PO SCH (16:13)
[2023-08-16] MEDS: carvediloL 12.5 MG TAB PO SCH (16:13)
[2023-08-16] MEDS: SENNOSIDES 8.6 MG TAB PO SCH (16:13)
[2023-08-16 16:36] LABS: Glucose,Whole Blood 88 mg/dL (70-110)
[2023-08-16 20:01] LABS: Glucose,Whole Blood 83 mg/dL (70-110)
[2023-08-16 20:25] LABS: Glucose,Whole Blood 95 mg/dL (70-110)
[2023-08-16] MEDS: ATORVASTATIN 20 MG TAB PO SCH (21:00)
[2023-08-16] MEDS: HEPARIN SODIUM,PORCINE 5,000 UNIT/ML 1 ML VIAL SQ SCH (21:00)
[2023-08-16] MEDS: MIRTAZAPINE 15 MG TAB PO SCH (21:00)
[2023-08-16] MEDS ORDERED: INSULIN DETEMIR (LEVEMIR) 100 UNIT/ML SYR SQ SCH (21:00)
[2023-08-17 05:53] LABS: Glucose,Whole Blood 95 mg/dL (70-110)
[2023-08-17] MEDS: LEVOTHYROXINE 75 MCG TAB PO SCH (06:14)
[2023-08-17] MEDS: PANTOPRAZOLE 40 MG TABLET PO SCH (06:15)
[2023-08-17] MEDS: INSULIN ASPART (NovoLOG) 100 UNIT/ML VIAL SQ SCH ×4 (06:15→20:45)
[2023-08-17 07:26] LABS: African American GFR (CKD) 19 (>60 ml/min/1.73 sqM); Anion Gap 11 mmol/L; Blood Urea Nitrogen 95 mg/dL (7-17); Calcium 8.9 mg/dL (8.4-10.2); Carbon Dioxide 18 mmol/L (22-30); Chloride 114 mmol/L (98-107); Glucose 85 mg/dL (74-99); Magnesium 2.6 mg/dL (1.6-2.3); Non-African American GFR(CKD) 17 (>60 ml/min/1.73 sqM); Sodium 143 mmol/L (137-145)
[2023-08-17 07:28] LABS: Potassium 5.7 mmol/L (3.5-5.1)
[2023-08-17] MEDS: CLOPIDOGREL 75 MG TAB PO SCH (08:22)
[2023-08-17] MEDS: carvediloL 12.5 MG TAB PO SCH ×2 (08:22→18:31)
[2023-08-17] MEDS: SENNOSIDES 8.6 MG TAB PO SCH ×2 (08:22→18:31)
[2023-08-17] MEDS: HEPARIN SODIUM,PORCINE 5,000 UNIT/ML 1 ML VIAL SQ SCH ×2 (08:22→21:45)
[2023-08-17] MEDS: CHOLECALCIFEROL 25 MCG (1000 IU) TABLET PO SCH (08:22)
--- NOTE | 2023-08-17 10:59 | P.PN ---
Subjective Patient is seen in follow-up for acute kidney injury on chronic kidney disease. Renal function improving. Receiving IV fluids. Potassium level 5.7 but is hemolyzed. Denies chest pain or shortness of breath. Vital signs are stable. General: No acute distress. HEENT: Head exam is unremarkable. LUNGS: No audible rhonchi or wheezes. HEART: Rate and Rhythm are regular. ABDOMEN: Nontender. EXTREMITITES: No edema. Objective - Vital Signs Vital signs: Vital Signs Temp 98 F 08/17/23 08:20 Pulse 58 L 08/17/23 08:20 Resp 16 08/17/23 08:20 BP 168/67 08/17/23 08:20 Pulse Ox 98 08/17/23 08:20 FiO2 Intake & Output 08/16/23 08/17/23 08/17/23 18:59 06:59 18:59 Intake Total 200 0 Output Total 650 Balance -450 0 Intake: Oral 200 0 Output: Urine 650 Other: Voiding Method External Catheter Incontinent Incontinent - Labs CBC & Chem 7: 08/15/23 21:33 08/17/23 06:30 Labs: Abnormal Lab Results - Last 24 Hours (Table) 08/17/23 Range/Units 06:30 Potassium 5.7 H (3.5-5.1) mmol/L Chloride 114 H (98-107) mmol/L Carbon Dioxide 18 L (22-30) mmol/L BUN 95 H (7-17) mg/dL Creatinine 2.51 H (0.52-1.04) mg/dL Magnesium 2.6 H (1.6-2.3) mg/dL Assessment and Plan Plan: Assessment: 1. Acute kidney injury secondary to ATN due to hypovolemia, diuretics, ACEi. Creatinine 3.46 on admission and is 2.51 today. No hydronephrosis noted on kidney ultrasound. Left kidney atrophic. 2. Chronic kidney disease stage IV with baseline creatinine 1.8-2 secondary to diabetic kidney disease and nephrosclerosis. 3. Hyperkalemia secondary to acute kidney injury, potassium supplementation and lisinopril. Improved with medical management. Today's sample is hemolyzed and will be repeated. 4. Metabolic acidosis secondary to acute kidney injury and IV fluids. 5. Hypertension with chronic kidney disease. 6. Diabetes mellitus. 7. Hypermagnesemia secondary to acute kidney injury and magnesium supplementation. Better. Plan: Maintain IV fluids. Add hydralazine 50 mg twice daily. Hold for systolic blood pressure less than 120. Add oral bicarb. Avoid nephrotoxins. Repeat potassium level now. Repeat labs in the morning.
[2023-08-17 11:47] LABS: Glucose,Whole Blood 80 mg/dL (70-110)
[2023-08-17] MEDS: hydrALAZINE HCL 50 MG TAB PO SCH ×2 (12:09→21:46)
[2023-08-17] MEDS: SODIUM BICARBONATE TAB 650 MG TAB PO SCH ×2 (12:09→21:45)
[2023-08-17] MEDS: SODIUM CHLORIDE 0.9% 1,000 ML IV SCH (12:09)
[2023-08-17 16:56] LABS: Glucose,Whole Blood 91 mg/dL (70-110)
[2023-08-17] MEDS ORDERED: SODIUM ZIRCONIUM CYCLOSILICATE 10 GM PACKET PO ONE (18:13)
[2023-08-17] MEDS: ASPIRIN 81 MG PO SCH (18:31)
[2023-08-17 20:36] LABS: Glucose,Whole Blood 117 mg/dL (70-110)
[2023-08-17] MEDS: MIRTAZAPINE 15 MG TAB PO SCH (21:46)
[2023-08-17] MEDS: HYDROCORTISONE SUPPOSITORY 25 MG SUPP RECTAL SCH (21:46)
[2023-08-17] MEDS: ATORVASTATIN 20 MG TAB PO SCH (21:46)
[2023-08-18 05:58] LABS: Glucose,Whole Blood 99 mg/dL (70-110)
[2023-08-18] MEDS: INSULIN ASPART (NovoLOG) 100 UNIT/ML VIAL SQ SCH ×4 (06:06→20:28)
[2023-08-18] MEDS: LEVOTHYROXINE 75 MCG TAB PO SCH (06:35)
[2023-08-18] MEDS: PANTOPRAZOLE 40 MG TABLET PO SCH (06:36)
[2023-08-18] MEDS: SODIUM CHLORIDE 0.9% 1,000 ML IV SCH ×2 (06:58→12:12)
[2023-08-18 08:32] LABS: Basophils % (A) 0 %; Eosinophils # (A) 0.1 k/uL (0-0.7); Eosinophils % (A) 2 %; HCT 34.9 % (34.0-46.0); HGB 11.5 gm/dL (11.4-16.0); Lymphocytes # (A) 1.7 k/uL (1.0-4.8); Lymphocytes % (A) 29 %; MCH 31.8 pg (25.0-35.0); MCHC 32.9 g/dL (31.0-37.0); MCV 96.7 fL (80.0-100.0); Mean Platelet Volume 8.1; Monocytes # (A) 0.3 k/uL (0-1.0); Monocytes % (A) 5 %; Neutrophils # (A) 3.8 k/uL (1.3-7.7); Neutrophils % (A) 62 %; Platelet Count 185 k/uL (150-450); RBC 3.61 m/uL (3.80-5.40); RDW 14.4 % (11.5-15.5); WBC 6.1 k/uL (3.8-10.6)
[2023-08-18] MEDS: SENNOSIDES 8.6 MG TAB PO SCH ×2 (08:38→16:54)
[2023-08-18] MEDS: carvediloL 12.5 MG TAB PO SCH ×2 (08:38→16:54)
[2023-08-18 08:58] LABS: ALT 27 U/L (4-34); AST 22 U/L (14-36); African American GFR (CKD) 23 (>60 ml/min/1.73 sqM); Albumin 3.5 g/dL (3.5-5.0); Alkaline Phosphatase 77 U/L (38-126); Anion Gap 12 mmol/L; Blood Urea Nitrogen 64 mg/dL (7-17); Calcium 8.9 mg/dL (8.4-10.2); Carbon Dioxide 18 mmol/L (22-30); Chloride 114 mmol/L (98-107); Glucose 83 mg/dL (74-99); Magnesium 2.3 mg/dL (1.6-2.3); Non-African American GFR(CKD) 20 (>60 ml/min/1.73 sqM); Potassium 4.8 mmol/L (3.5-5.1); Sodium 144 mmol/L (137-145); Total Bilirubin 0.8 mg/dL (0.2-1.3); Total Protein 6.5 g/dL (6.3-8.2)
[2023-08-18] MEDS: hydrALAZINE HCL 50 MG TAB PO SCH ×2 (10:32→21:40)
[2023-08-18] MEDS: SODIUM BICARBONATE TAB 650 MG TAB PO SCH ×2 (10:34→21:40)
[2023-08-18] MEDS: CLOPIDOGREL 75 MG TAB PO SCH ×2 (10:38→10:58)
[2023-08-18] MEDS: CHOLECALCIFEROL 25 MCG (1000 IU) TABLET PO SCH (10:39)
[2023-08-18] MEDS: HEPARIN SODIUM,PORCINE 5,000 UNIT/ML 1 ML VIAL SQ SCH ×2 (10:43→21:40)
[2023-08-18] MEDS: HYDROCORTISONE SUPPOSITORY 25 MG SUPP RECTAL SCH ×2 (10:49→21:40)
--- NOTE | 2023-08-18 10:54 | P.PN ---
Subjective Progress Note Date: 08/17/23 HISTORY OF PRESENT ILLNESS This is an 88-year-old female with previous medical history significant for coronary artery disease status post myocardial infarction with PCI, ischemic cardiomyopathy, hypertension hypertensive cardiovascular disease, hyperlipidemia, diabetes mellitus type 2, vascular dementia, hypothyroidism, chronic kidney disease stage IIIB, recurrent depression and generalized anxiety disorder. Patient is a long-term resident at [facility]. Patient was seen on the weekend lab work was ordered and surprisingly her BUN and creatinine as well as potassium came back very high and she has been sent into [facility] emergency center for evaluation. Patient denies having any concerns at this time. She has no appetite and will not eat for the nurses. She has been started on IV fluids. Consult is in place with nephrology. WBC 6.9, hemoglobin 11.8, platelet count 184. Sodium 137 initial potassium 6. 3 repeat 5.2. Initial CO2 19 a repeat 21. Initial BUN 143 and repeat 132. Creatinine 3.46 and repeat 3.25. Glucose 55. Urine creatinine 50, urine sodium 42, urine potassium 50. Urinalysis revealed WBCs 57 with many clumps, leuk oesterase large and bacteria rare. Renal ultrasound revealed small left renal cyst. 08/17: Patient is seen today on the cardiac stepdown unit. Patient has been afebrile, heart rate in the 50s and 60s, blood pressure 147/55, pulse ox 97% on room air. Repeat blood work this morning reveals sodium 143, potassium 5.7 followed by 5.5, chloride 114, CO2 18, BUN 95 creatinine 2.51. Likely blood glucose running between 80 and 95. Hemoglobin A1c is 7.5. Magnesium 2.6. Calcium 8.9. Patient has been seen and followed by nephrology. Hydralazine 50 mg twice daily was added with parameters, bicarb added. Telemetry is sinus rhythm. Due to low blood sugars and patient continues to not eat very much, scheduled Levemir remains on hold. REVIEW OF SYSTEMS Constitutional: No documented fever, no chills, no night sweats. positive for weight change. Positive for weakness, noted fatigue noted lethargy. No daytime sleepiness. HEENT: No headache. No blurred vision or double vision, no loss of vision. No loss of Hearing, no ringing in the ears, no dizziness. No nasal drainage or congestion. No epistaxis. No sore throat. Lungs: No shortness of breath, cough, no sputum production. No wheezing. Cardiovascular: No chest pain, no lower extremity edema. No palpitations. No paroxysmal nocturnal dyspnea. No orthopnea. No lightheadedness or dizziness. Reported syncopal episodes. Abdominal: No abdominal pain. Reported nausea, no vomiting. No diarrhea. No constipation. No bloody or tarry stools. Noted loss of appetite. Genitourinary: No dysuria, increased frequency, urgency. No urinary retention. Musculoskeletal: No myalgias. No muscle weakness, positive for gait dysfunction, no frequent falls. No back pain. No neck pain, decreased range of motion of the right upper extremity Integumentary: No wounds, no lesions. No rash or pruritus. No unusual bruising. No change in hair or nails. Neurologic: No aphasia. No facial droop. Mild change in mentation due to underlying dementia. No head injury. No headache. No paralysis. No paresthesia. Psychiatric: positive for depression. No anxiety. No mood swings. Endocrine: Noted abnormal blood sugars. PHYSICAL EXAMINATION Gen: This is this is an 88-year-old female. HEENT: Head is atraumatic, normocephalic. Pupils equal, round. Sclerae is anicteric, conjunctivae pale mucous complains of the mouth are somewhat dry. NECK: Supple. No JVD. No lymphadenopathy. No thyromegaly, decreased carotid upstroke bilaterally per LUNGS: Decreased breath sounds at the bases. No wheezes or rhonchi. No intercostal retractions. HEART: first heart sound is depressed, second heart sounds normal, there is systolic ejection murmur 2/6 located in the left sternal border. ABDOMEN: Soft, Bowel sounds are present. No masses. No tenderness. EXTREMITIES: No pedal edema. No calf tenderness, dorsalis pedis +2 bilaterally. NEUROLOGICAL: Patient is awake, alert and oriented to person and place. She is able to move all 4 extremities. Cranial nerves II through XII are grossly intact. Muscle power 4/5 in the bilateral upper extremities and 3/5 in the lower extremities. ASSESSMENT AND PLAN 1. Acute kidney injury on top of chronic kidney disease stage IV secondary to ATN due to hypovolemia, diuretics, trent and poor oral intake. Consult with nephrology is appreciated. Patient is on IV fluids 0.9 normal saline at 75 mL per hour. Antihypertensive and diuretics are on hold. Avoid nephrotoxic agents. Bladder scan. 2. Hyperkalemia secondary to acute kidney injury. Status post treatment. Repeat BMP tomorrow morning. Patient is status post Lokelma 10 gm x1. 3. Metabolic acidosis secondary to acute kidney injury. 4. Hypertension and hypertensive cardiovascular disease. Hold lisinopril. Continue Coreg for 12.5 mg twice daily with parameters. Hydralazine added with parameters 5. Hyperlipidemia. Continue Lipitor 40 mg at bedtime. 6. Coronary artery disease with previous MA and PCI. Continue aspirin 81 mg daily, Plavix 75 mg daily, Coreg 12.5 mg twice every day, continue atorvastatin 40 mg orally once every day. 7. Hypothyroidism. Continue levothyroxine 75 g daily. 8. Diabetes mellitus type 2 uncontrolled with hypoglycemia. Hold Levemir 16 units at bedtime and continue with a sliding scale insulin only for now. 9. Vascular dementia. Continue Aricept 10 mg at bedtime. 10. GI prophylaxis. Protonix 40 mg oral daily. 11. DVT prophylaxis. Heparin subcu 5000 units every 12 hours. CODE STATUS: Full code DISCHARGE PLAN Return to [facility] under the care of Dr. Gutierrez where she resides as a long-term care resident. Impression and plan of care have been directed as dictated by the signing physician. Michelle Rivera nurse practitioner acting as scribe for signing liudmila rizo. Objective - Vital Signs Vital signs: Vital Signs Temp 98.3 F 08/17/23 12:05 Pulse 65 08/17/23 12:05 Resp 16 08/17/23 12:05 BP 147/55 08/17/23 12:05 Pulse Ox 97 08/17/23 12:05 FiO2 Intake & Output 08/16/23 08/17/23 08/17/23 18:59 06:59 18:59 Intake Total 200 0 Output Total 650 Balance -450 0 Intake: Oral 200 0 Output: Urine 650 Other: Voiding Method External Catheter Incontinent Incontinent - Labs CBC & Chem 7: 08/18/23 07:47 08/18/23 07:47 Labs: Abnormal Lab Results - Last 24 Hours (Table) 08/17/23 08/17/23 08/17/23 Range/Units 06:30 06:30 11:12 Potassium 5.7 H 5.5 H (3.5-5.1) mmol/L Chloride 114 H (98-107) mmol/L Carbon Dioxide 18 L (22-30) mmol/L BUN 95 H (7-17) mg/dL Creatinine 2.51 H (0.52-1.04) mg/dL Hemoglobin A1c 7.5 H (<=6.0) % Magnesium 2.6 H (1.6-2.3) mg/dL
--- NOTE | 2023-08-18 10:58 | P.PN ---
Subjective Progress Note Date: 08/18/23 HISTORY OF PRESENT ILLNESS This is an 88-year-old female with previous medical history significant for coronary artery disease status post myocardial infarction with PCI, ischemic cardiomyopathy, hypertension hypertensive cardiovascular disease, hyperlipidemia, diabetes mellitus type 2, vascular dementia, hypothyroidism, chronic kidney disease stage IIIB, recurrent depression and generalized anxiety disorder. Patient is a long-term resident at [facility]. Patient was seen on the weekend lab work was ordered and surprisingly her BUN and creatinine as well as potassium came back very high and she has been sent into [facility] emergency center for evaluation. Patient denies having any concerns at this time. She has no appetite and will not eat for the nurses. She has been started on IV fluids. Consult is in place with nephrology. WBC 6.9, hemoglobin 11.8, platelet count 184. Sodium 137 initial potassium 6. 3 repeat 5.2. Initial CO2 19 a repeat 21. Initial BUN 143 and repeat 132. Creatinine 3.46 and repeat 3.25. Glucose 55. Urine creatinine 50, urine sodium 42, urine potassium 50. Urinalysis revealed WBCs 57 with many clumps, leuk oesterase large and bacteria rare. Renal ultrasound revealed small left renal cyst. 08/17: Patient is seen today on the cardiac stepdown unit. Patient has been afebrile, heart rate in the 50s and 60s, blood pressure 147/55, pulse ox 97% on room air. Repeat blood work this morning reveals sodium 143, potassium 5.7 followed by 5.5, chloride 114, CO2 18, BUN 95 creatinine 2.51. Likely blood glucose running between 80 and 95. Hemoglobin A1c is 7.5. Magnesium 2.6. Calcium 8.9. Patient has been seen and followed by nephrology. Hydralazine 50 mg twice daily was added with parameters, bicarb added. Telemetry is sinus rhythm. Due to low blood sugars and patient continues to not eat very much, scheduled Levemir remains on hold. 08/18: Patient continues to not eat very much. She is on IV fluids at 75 mL per hour. She is followed by nephrology. Repeat blood work today reveals BUN is 64 creatinine 2.19. Chloride is 114 and CO2 18. Yesterday, patient was started on bicarb and received 1 dose of Lokelma. Capillary blood glucose running 80-117. She is not receiving any diabetic medications. She is on NovoLog scale only and has not required medication. REVIEW OF SYSTEMS Constitutional: No documented fever, no chills, no night sweats. positive for weight change. Positive for weakness, noted fatigue noted lethargy. No day time sleepiness. HEENT: No headache. No blurred vision or double vision, no loss of vision. No loss of Hearing, no ringing in the ears, no dizziness. No nasal drainage or congestion. No epistaxis. No sore throat. Lungs: No shortness of breath, cough, no sputum production. No wheezing. Cardiovascular: No chest pain, no lower extremity edema. No palpitations. No paroxysmal nocturnal dyspnea. No orthopnea. No lightheadedness or dizziness. Reported syncopal episodes. Abdominal: No abdominal pain. Reported nausea, no vomiting. No diarrhea. No constipation. No bloody or tarry stools. Noted loss of appetite. Genitourinary: No dysuria, increased frequency, urgency. No urinary retention. Musculoskeletal: No myalgias. No muscle weakness, positive for gait dysfunction, no frequent falls. No back pain. No neck pain, decreased range of motion of the right upper extremity Integumentary: No wounds, no lesions. No rash or pruritus. No unusual bruising. No change in hair or nails. Neurologic: No aphasia. No facial droop. Mild change in mentation due to underlying dementia. No head injury. No headache. No paralysis. No paresthesia. Psychiatric: positive for depression. No anxiety. No mood swings. Endocrine: Noted abnormal blood sugars. PHYSICAL EXAMINATION Gen: This is this is an 88-year-old female. HEENT: Head is atraumatic, normocephalic. Pupils equal, round. Sclerae is anicteric, conjunctivae pale mucous complains of the mouth are somewhat dry. NECK: Supple. No JVD. No lymphadenopathy. No thyromegaly, decreased carotid upstroke bilaterally per LUNGS: Decreased breath sounds at the bases. No wheezes or rhonchi. No int ercostal retractions. HEART: first heart sound is depressed, second heart sounds normal, there is s ystolic ejection murmur 2/6 located in the left sternal border. ABDOMEN: Soft, Bowel sounds are present. No masses. No tenderness. EXTREMITIES: No pedal edema. No calf tenderness, dorsalis pedis +2 bilaterally. NEUROLOGICAL: Patient is awake, alert and oriented to person and place. She is able to move all 4 extremities. Cranial nerves II through XII are grossly intact. Muscle power 4/5 in the bilateral upper extremities and 3/5 in the lower extremities. ASSESSMENT AND PLAN 1. Acute kidney injury on top of chronic kidney disease stage IV secondary to ATN due to hypovolemia, diuretics, trent and poor oral intake. Consult with nephrology is appreciated. Patient is on IV fluids 0.9 normal saline at 75 mL per hour. Antihypertensive and diuretics are on hold. Avoid nephrotoxic agents. Bladder scan. 2. Hyperkalemia secondary to acute kidney injury. Status post treatment. Repeat BMP tomorrow morning. Patient is status post Lokelma 10 gm x1. 3. Metabolic acidosis secondary to acute kidney injury. Continue sodium bicarb 650 mg twice daily. 4. Hypertension and hypertensive cardiovascular disease. Hold lisinopril. Continue Coreg for 12.5 mg twice daily with parameters. Hydralazine added with parameters 5. Hyperlipidemia. Continue Lipitor 40 mg at bedtime. 6. Coronary artery disease with previous KS and PCI. Continue aspirin 81 mg da ramon, Plavix 75 mg daily, Coreg 12.5 mg twice every day, continue atorvastatin 40 mg orally once every day. 7. Hypothyroidism. Continue levothyroxine 75 g daily. 8. Diabetes mellitus type 2 uncontrolled with hypoglycemia. Hold Levemir 16 units at bedtime and continue with a sliding scale insulin only for now. 9. Vascular dementia. Continue Aricept 10 mg at bedtime. 10. GI prophylaxis. Protonix 40 mg oral daily. 11. DVT prophylaxis. Heparin subcu 5000 units every 12 hours. CODE STATUS: Full code DISCHARGE PLAN Return to [facility] on Tuesday. Impression and plan of care have been directed as dictated by the signing physician. Michelle Rivera nurse practitioner acting as scribe for signing physician. Objective - Vital Signs Vital signs: Vital Signs Temp 97.2 F L 08/18/23 08:00 Pulse 73 08/18/23 08:00 Resp 17 08/18/23 08:00 BP 127/56 08/18/23 08:00 Pulse Ox 97 08/18/23 08:00 FiO2 Intake & Output 08/17/23 08/18/23 08/18/23 18:59 06:59 18:59 Intake Total 1785 600 Output Total 600 400 Balance 1785 -600 200 Weight 72.575 kg Intake: Intake, IV Titration 825 600 Amount Sodium Chloride 0.9% 1, 825 600 000 ml @ 75 mls/hr IV . [id number] [facility] Rx#:[id number] Oral 960 Output: Urine 600 400 Other: Voiding Method Incontinent Diaper Diaper Incontinent Incontinent External Catheter External Catheter # Voids 3 # Bowel Movements 2 - Labs CBC & Chem 7: 08/18/23 07:47 08/18/23 07:47 Labs: Abnormal Lab Results - Last 24 Hours (Table) 08/17/23 08/17/23 08/17/23 Range/Units 06:30 11:12 20:35 RBC (3.80-5.40) m/uL Potassium 5.5 H (3.5-5.1) mmol/L Chloride (98-107) mmol/L Carbon Dioxide (22-30) mmol/L BUN (7-17) mg/dL Creatinine (0.52-1.04) mg/dL POC Glucose (mg/dL) 117 H (70-110) mg/dL Hemoglobin A1c 7.5 H (<=6.0) % 08/18/23 08/18/23 Range/Units 07:47 07:47 RBC 3.61 L (3.80-5.40) m/uL Potassium (3.5-5.1) mmol/L Chloride 114 H (98-107) mmol/L Carbon Dioxide 18 L (22-30) mmol/L BUN 64 H (7-17) mg/dL Creatinine 2.19 H (0.52-1.04) mg/dL POC Glucose (mg/dL) (70-110) mg/dL Hemoglobin A1c (<=6.0) %
[2023-08-18] MEDS ORDERED: SODIUM BICARB 8.4% 50 ML SYR (1 MEQ/ML) IV STA (11:06)
--- NOTE | 2023-08-18 11:07 | P.PN ---
Subjective Patient is seen in follow-up for acute kidney injury on chronic kidney disease. Renal function improving. Receiving IV fluids. Potassium level normal today. Denies chest pain or shortness of breath. Hemodynamically stable. Vital signs are stable. General: No acute distress. HEENT: Head exam is unremarkable. LUNGS: No audible rhonchi or wheezes. HEART: Rate and Rhythm are regular. ABDOMEN: Nontender. EXTREMITITES: No edema. Objective - Vital Signs Vital signs: Vital Signs Temp 97.2 F L 08/18/23 08:00 Pulse 73 08/18/23 08:00 Resp 17 08/18/23 08:00 BP 127/56 08/18/23 08:00 Pulse Ox 97 08/18/23 08:00 FiO2 Intake & Output 08/17/23 08/18/23 08/18/23 18:59 06:59 18:59 Intake Total 1785 600 Output Total 600 400 Balance 1785 -600 200 Weight 72.575 kg Intake: Intake, IV Titration 825 600 Amount Sodium Chloride 0.9% 1, 825 600 000 ml @ 75 mls/hr IV . [id number] [facility] Rx#:[id number] Oral 960 Output: Urine 600 400 Other: Voiding Method Incontinent Diaper Diaper Incontinent Incontinent External Catheter External Catheter # Voids 3 # Bowel Movements 2 - Labs CBC & Chem 7: 08/18/23 07:47 08/18/23 07:47 Labs: Abnormal Lab Results - Last 24 Hours (Table) 08/17/23 08/17/23 08/17/23 Range/Units 06:30 11:12 20:35 RBC (3.80-5.40) m/uL Potassium 5.5 H (3.5-5.1) mmol/L Chloride (98-107) mmol/L Carbon Dioxide (22-30) mmol/L BUN (7-17) mg/dL Creatinine (0.52-1.04) mg/dL POC Glucose (mg/dL) 117 H (70-110) mg/dL Hemoglobin A1c 7.5 H (<=6.0) % 08/18/23 08/18/23 Range/Units 07:47 07:47 RBC 3.61 L (3.80-5.40) m/uL Potassium (3.5-5.1) mmol/L Chloride 114 H (98-107) mmol/L Carbon Dioxide 18 L (22-30) mmol/L BUN 64 H (7-17) mg/dL Creatinine 2.19 H (0.52-1.04) mg/dL POC Glucose (mg/dL) (70-110) mg/dL Hemoglobin A1c (<=6.0) % Assessment and Plan Plan: Assessment: 1. Acute kidney injury secondary to ATN due to hypovolemia, diuretics, ACEi. Creatinine 3.46 on admission and is 2.19 today. No hydronephrosis noted on kidney ultrasound. Left kidney atrophic. 2. Chronic kidney disease stage IV with baseline creatinine 1.8-2 secondary to diabetic kidney disease and nephrosclerosis. 3. Hyperkalemia secondary to acute kidney injury, potassium supplementation and lisinopril. Improved with medical management. 4. Metabolic acidosis secondary to acute kidney injury and IV fluids. On oral bicarbonate. 5. Hypertension with chronic kidney disease. Stable. 6. Diabetes mellitus. 7. Hypermagnesemia secondary to acute kidney injury and magnesium supplementation. Better. Plan: Maintain IV fluids, decrease rate. Encourage oral intake. Avoid nephrotoxins. Repeat labs in the morning.
[2023-08-18 11:52] LABS: Glucose,Whole Blood 90 mg/dL (70-110)
[2023-08-18 16:32] LABS: Glucose,Whole Blood 87 mg/dL (70-110)
[2023-08-18] MEDS: ASPIRIN 81 MG PO SCH (16:54)
[2023-08-18 19:32] LABS: Glucose,Whole Blood 97 mg/dL (70-110)
[2023-08-18] MEDS: MIRTAZAPINE 15 MG TAB PO SCH (21:40)
[2023-08-18] MEDS: ATORVASTATIN 20 MG TAB PO SCH (21:40)
[2023-08-19 06:14] LABS: Glucose,Whole Blood 79 mg/dL (70-110)
[2023-08-19] MEDS: INSULIN ASPART (NovoLOG) 100 UNIT/ML VIAL SQ SCH ×4 (06:20→21:03)
[2023-08-19] MEDS: LEVOTHYROXINE 75 MCG TAB PO SCH (06:24)
[2023-08-19] MEDS: PANTOPRAZOLE 40 MG TABLET PO SCH (06:25)
[2023-08-19] MEDS: CHOLECALCIFEROL 25 MCG (1000 IU) TABLET PO SCH (09:25)
[2023-08-19] MEDS: hydrALAZINE HCL 50 MG TAB PO SCH ×2 (09:25→22:01)
[2023-08-19] MEDS: SENNOSIDES 8.6 MG TAB PO SCH ×2 (09:25→17:50)
[2023-08-19] MEDS: SODIUM BICARBONATE TAB 650 MG TAB PO SCH ×2 (09:25→22:01)
[2023-08-19] MEDS: carvediloL 12.5 MG TAB PO SCH ×2 (09:26→17:51)
[2023-08-19] MEDS: HEPARIN SODIUM,PORCINE 5,000 UNIT/ML 1 ML VIAL SQ SCH ×2 (09:26→22:01)
[2023-08-19] MEDS: HYDROCORTISONE SUPPOSITORY 25 MG SUPP RECTAL SCH ×2 (09:26→22:03)
[2023-08-19 09:35] LABS: African American GFR (CKD) 28 (>60 ml/min/1.73 sqM); Anion Gap 9 mmol/L; Blood Urea Nitrogen 42 mg/dL (7-17); Calcium 8.5 mg/dL (8.4-10.2); Carbon Dioxide 20 mmol/L (22-30); Chloride 116 mmol/L (98-107); Glucose 79 mg/dL (74-99); Non-African American GFR(CKD) 24 (>60 ml/min/1.73 sqM); Potassium 4.1 mmol/L (3.5-5.1); Sodium 145 mmol/L (137-145)
--- NOTE | 2023-08-19 11:05 | P.PN ---
Subjective Patient is seen in follow-up for acute kidney injury on chronic kidney disease. Renal function improving. Receiving IV fluids. Potassium level normal today. Denies chest pain or shortness of breath. Hemodynamically stable. Oral intake poor. Vital signs are stable. General: No acute distress. HEENT: Head exam is unremarkable. LUNGS: No audible rhonchi or wheezes. HEART: Rate and Rhythm are regular. ABDOMEN: Nontender. EXTREMITITES: No edema. Objective - Vital Signs Vital signs: Vital Signs Temp 96.4 F L 08/19/23 08:00 Pulse 61 08/19/23 08:00 Resp 17 08/19/23 08:00 BP 159/62 08/19/23 08:00 Pulse Ox 96 08/19/23 08:00 FiO2 Intake & Output 08/18/23 08/19/23 08/19/23 18:59 06:59 18:59 Intake Total 1118 0 Output Total 400 650 Balance 718 -650 0 Weight 73 kg Intake: Intake, IV Titration 1000 Amount Sodium Chloride 0.9% 1, 1000 000 ml @ 50 mls/hr IV . Q20H [facility] Rx#:[id number] Oral 118 0 Output: Urine 400 650 Other: Voiding Method Diaper Incontinent Incontinent External Catheter External Catheter # Voids 1 # Bowel Movements 1 - Labs CBC & Chem 7: 08/18/23 07:47 08/19/23 08:07 Labs: Abnormal Lab Results - Last 24 Hours (Table) 08/19/23 Range/Units 08:07 Chloride 116 H (98-107) mmol/L Carbon Dioxide 20 L (22-30) mmol/L BUN 42 H (7-17) mg/dL Creatinine 1.88 H (0.52-1.04) mg/dL Assessment and Plan Plan: Assessment: 1. Acute kidney injury secondary to ATN due to hypovolemia, diuretics, ACEi. Creatinine 3.46 on admission and is 1.88 today. No hydronephrosis noted on kidney ultrasound. Left kidney atrophic. 2. Chronic kidney disease stage IV with baseline creatinine 1.8-2 secondary to diabetic kidney disease and nephrosclerosis. 3. Hyperkalemia secondary to acute kidney injury, potassium supplementation and lisinopril. Improved with medical management. 4. Metabolic acidosis secondary to acute kidney injury and IV fluids. On oral bicarbonate. 5. Hypertension with chronic kidney disease. Stable. 6. Diabetes mellitus. 7. Hypermagnesemia secondary to acute kidney injury and magnesium supplementation. Better. Plan: Maintain gentle IV hydration. Encourage oral intake. Avoid nephrotoxins. Continue to monitor renal function and urine output.
[2023-08-19 11:28] VITALS: RESP 18
[2023-08-19 11:34] LABS: Glucose,Whole Blood 136 mg/dL (70-110)
--- NOTE | 2023-08-19 13:30 | P.PN ---
Subjective Progress Note Date: 08/19/23 HISTORY OF PRESENT ILLNESS This is an 88-year-old female with previous medical history significant for coronary artery disease status post myocardial infarction with PCI, ischemic cardiomyopathy, hypertension hypertensive cardiovascular disease, hyperlipidemia, diabetes mellitus type 2, vascular dementia, hypothyroidism, chronic kidney disease stage IIIB, recurrent depression and generalized anxiety disorder. Patient is a long-term resident at [facility]. Patient was seen on the weekend lab work was ordered and surprisingly her BUN and creatinine as well as potassium came back very high and she has been sent into [facility] emergency center for evaluation. Patient denies having any concerns at this time. She has no appetite and will not eat for the nurses. She has been started on IV fluids. Consult is in place with nephrology. WBC 6.9, hemoglobin 11.8, platelet count 184. Sodium 137 initial potassium 6. 3 repeat 5.2. Initial CO2 19 a repeat 21. Initial BUN 143 and repeat 132. Creatinine 3.46 and repeat 3.25. Glucose 55. Urine creatinine 50, urine sodium 42, urine potassium 50. Urinalysis revealed WBCs 57 with many clumps, leuk oesterase large and bacteria rare. Renal ultrasound revealed small left renal cyst. 08/17: Patient is seen today on the cardiac stepdown unit. Patient has been afebrile, heart rate in the 50s and 60s, blood pressure 147/55, pulse ox 97% on room air. Repeat blood work this morning reveals sodium 143, potassium 5.7 followed by 5.5, chloride 114, CO2 18, BUN 95 creatinine 2.51. Likely blood glucose running between 80 and 95. Hemoglobin A1c is 7.5. Magnesium 2.6. Calcium 8.9. Patient has been seen and followed by nephrology. Hydralazine 50 mg twice daily was added with parameters, bicarb added. Telemetry is sinus rhythm. Due to low blood sugars and patient continues to not eat very much, scheduled Levemir remains on hold. 08/18: Patient continues to not eat very much. She is on IV fluids at 75 mL per hour. She is followed by nephrology. Repeat blood work today reveals BUN is 64 creatinine 2.19. Chloride is 114 and CO2 18. Yesterday, patient was started on bicarb and received 1 dose of Lokelma. Capillary blood glucose running 80-117. She is not receiving any diabetic medications. She is on NovoLog scale only and has not required medication. 08/19: patient has developed loose stools for which the specimen has been sent for C. difficile toxin. Her abdomen is soft. She denies any abdominal pain. No nausea or vomiting. She is still not eating very much with decreased appetite. She states she feels tired today. She has improvement of her renal function with BUN 42 creatinine 1.88. Patient has been afebrile, heart rate 72, blood pressure 121/66, pulse ox 97% on room air. Plan for return to [facility] tomorrow if C. difficile toxin is negative. REVIEW OF SYSTEMS Constitutional: No documented fever, no chills, no night sweats. positive for weight change. Positive for weakness, noted fatigue noted lethargy. No daytime sleepiness. HEENT: No headache. No blurred vision or double vision, no loss of vision. No loss of Hearing, no ringing in the ears, no dizziness. No nasal drainage or congestion. No epistaxis. No sore throat. Lungs: No shortness of breath, cough, no sputum production. No wheezing. Cardiovascular: No chest pain, no lower extremity edema. No palpitations. No paroxysmal nocturnal dyspnea. No orthopnea. No lightheadedness or dizziness. Reported syncopal episodes. Abdominal: No abdominal pain. Reported nausea, no vomiting. + diarrhea. No constipation. No bloody or tarry stools. Noted loss of appetite. Genitourinary: No dysuria, increased frequency, urgency. No urinary retention. Musculoskeletal: No myalgias. No muscle weakness, positive for gait dysfunction, no frequent falls. No back pain. No neck pain, decreased range of motion of the right upper extremity Integumentary: No wounds, no lesions. No rash or pruritus. No unusual b ruising. No change in hair or nails. Neurologic: No aphasia. No facial droop. Mild change in mentation due to underlying dementia. No head injury. No headache. No paralysis. No paresthesia. Psychiatric: positive for depression. No anxiety. No mood swings. Endocrine: Noted abnormal blood sugars. PHYSICAL EXAMINATION Gen: This is this is an 88-year-old female. HEENT: Head is atraumatic, normocephalic. Pupils equal, round. Sclerae is anicteric, conjunctivae pale mucous complains of the mouth are somewhat dry. NECK: Supple. No JVD. No lymphadenopathy. No thyromegaly, decreased carotid upstroke bilaterally per LUNGS: Decreased breath sounds at the bases. No wheezes or rhonchi. No intercostal retractions. HEART: first heart sound is depressed, second heart sounds normal, there is systolic ejection murmur 2/6 located in the left sternal border. ABDOMEN: Soft, Bowel sounds are present. No masses. No tenderness. EXTREMITIES: No pedal edema. No calf tenderness, dorsalis pedis +2 bilaterally. NEUROLOGICAL: Patient is awake, alert and oriented to person and place. She is able to move all 4 extremities. Cranial nerves II through XII are grossly intact. Muscle power 4/5 in the bilateral upper extremities and 3/5 in the lower extremities. ASSESSMENT AND PLAN 1. Acute kidney injury on top of chronic kidney disease stage IV secondary to ATN due to hypovolemia, diuretics, trent and poor oral intake. Consult with ne phrology is appreciated. Patient is on IV fluids 0.9 normal saline at 75 mL per hour. Antihypertensive and diuretics are on hold. Avoid nephrotoxic agents. Bladder scan. 2. Hyperkalemia secondary to acute kidney injury. Status post treatment. Repeat BMP tomorrow morning. Patient is status post Lokelma 10 gm x1. 3. Metabolic acidosis secondary to acute kidney injury. Continue sodium bicarb 650 mg twice daily. 4. Hypertension and hypertensive cardiovascular disease. Hold lisinopril. Continue Coreg for 12.5 mg twice daily with parameters. Hydralazine added with parameters 5. Hyperlipidemia. Continue Lipitor 40 mg at bedtime. 6. Coronary artery disease with previous [place] and PCI. Continue aspirin 81 mg daily, Plavix 75 mg daily, Coreg 12.5 mg twice every day, continue atorvastatin 40 mg orally once every day. 7. Hypothyroidism. Continue levothyroxine 75 g daily. 8. Diabetes mellitus type 2 uncontrolled with hypoglycemia. Hold Levemir 16 units at bedtime and continue with a sliding scale insulin only for now. 9. Vascular dementia. Continue Aricept 10 mg at bedtime. 10. GI prophylaxis. Protonix 40 mg oral daily. 11. DVT prophylaxis. Heparin subcu 5000 units every 12 hours. CODE STATUS: Full code DISCHARGE PLAN Return to [facility] on Tuesday. Impression and plan of care have been directed as dictated by the signing liudmila rizo. Michelle Rivera nurse practitioner acting as scribe for signing physician. Objective - Vital Signs Vital signs: Vital Signs Temp 98.2 F 08/19/23 11:56 Pulse 72 08/19/23 11:56 Resp 18 08/19/23 11:56 BP 121/66 08/19/23 11:56 Pulse Ox 97 08/19/23 11:56 FiO2 Intake & Output 08/18/23 08/19/23 08/19/23 18:59 06:59 18:59 Intake Total 1118 0 Output Total 400 650 Balance 718 -650 0 Weight 73 kg Intake: Intake, IV Titration 1000 Amount Sodium Chloride 0.9% 1, 1000 000 ml @ 50 mls/hr IV . Q20H [facility] Rx#:[id number] Oral 118 0 Output: Urine 400 650 Other: Voiding Method Diaper Incontinent Incontinent Incontinent External Catheter External Catheter External Catheter # Voids 1 # Bowel Movements 1 - Labs CBC & Chem 7: 08/18/23 07:47 08/19/23 08:07 Labs: Abnormal Lab Results - Last 24 Hours (Table) 08/19/23 08/19/23 Range/Units 08:07 11:32 Chloride 116 H (98-107) mmol/L Carbon Dioxide 20 L (22-30) mmol/L BUN 42 H (7-17) mg/dL Creatinine 1.88 H (0.52-1.04) mg/dL POC Glucose (mg/dL) 136 H (70-110) mg/dL
--- NOTE | 2023-08-19 13:35 | P.DS ---
Providers Date of admission: 08/16/23 00:31 Expected date of discharge: 08/20/23 Attending physician: Lyle Gutierrez Consults: 08/16/23 00:29 Consult Physician Routine Consulting Provider: Italo Botello Consult Reason/Comments: Acute kidney injury Do you want consulting provider notified?: Yes Primary care physician: Lyle Gutierrez [facility] Course: HISTORY OF PRESENT ILLNESS This is an 88-year-old female with previous medical history significant for coronary artery disease status post myocardial infarction with PCI, ischemic cardiomyopathy, hypertension hypertensive cardiovascular disease, hyperlipidemia, diabetes mellitus type 2, vascular dementia, hypothyroidism, chronic kidney disease stage IIIB, recurrent depression and generalized anxiety disorder. Patient is a long-term resident at [facility]. Patient was seen on the weekend lab work was ordered and surprisingly her BUN and creatinine as well as potassium came back very high and she has been sent into [facility] emergency center for evaluation. Patient denies having any concerns at this time. She has no appetite and will not eat for the nurses. She has been started on IV fluids. Consult is in place with nephrology. WBC 6.9, hemoglobin 11.8, platelet count 184. Sodium 137 initial potassium 6. 3 repeat 5.2. Initial CO2 19 a repeat 21. Initial BUN 143 and repeat 132. Creatinine 3.46 and repeat 3.25. Glucose 55. Urine creatinine 50, urine sodium 42, urine potassium 50. Urinalysis revealed WBCs 57 with many clumps, leukoesterase large and bacteria rare. Renal ultrasound revealed small left renal cyst. 08/17: Patient is seen today on the cardiac stepdown unit. Patient has been afebrile, heart rate in the 50s and 60s, blood pressure 147/55, pulse ox 97% on room air. Repeat blood work this morning reveals sodium 143, potassium 5.7 followed by 5.5, chloride 114, CO2 18, BUN 95 creatinine 2.51. Likely blood glucose running between 80 and 95. Hemoglobin A1c is 7.5. Magnesium 2.6. Calcium 8.9. Patient has been seen and followed by nephrology. Hydralazine 50 mg twice daily was added with parameters, bicarb added. Telemetry is sinus r hythm. Due to low blood sugars and patient continues to not eat very much, scheduled Levemir remains on hold. 08/18: Patient continues to not eat very much. She is on IV fluids at 75 mL per hour. She is followed by nephrology. Repeat blood work today reveals BUN is 64 creatinine 2.19. Chloride is 114 and CO2 18. Yesterday, patient was started on bicarb and received 1 dose of Lokelma. Capillary blood glucose running 80-117. She is not receiving any diabetic medications. She is on NovoLog scale only and has not required medication. 08/19: patient has developed loose stools for which the specimen has been sent for C. difficile toxin. Her abdomen is soft. She denies any abdominal pain. No nausea or vomiting. She is still not eating very much with decreased appetite. She states she feels tired today. She has improvement of her renal function with BUN 42 creatinine 1.88. Patient has been afebrile, heart rate 72, blood pressure 121/66, pulse ox 97% on room air. Plan for return to [facility] tomorrow if C. difficile toxin is negative. DISCHARGE DIAGNOSES 1. Acute kidney injury on top of chronic kidney disease stage IV secondary to ATN due to hypovolemia, diuretics, trent and poor oral intake. 2. Hyperkalemia secondary to acute kidney injury. 3. Metabolic acidosis secondary to acute kidney injury. 4. Hypertension and hypertensive cardiovascular disease. 5. Hyperlipidemia. 6. Coronary artery disease with previous [place] and PCI. 7. Hypothyroidism. 8. Diabetes mellitus type 2 uncontrolled with hypoglycemia. 9. Vascular dementia. DISCHARGE PLAN Return to [facility] on Tuesday. Greater than 35 minutes was utilized and coordinating patient's discharge. Impression and plan of care have been directed as dictated by the signing physician. Michelle Rivera nurse practitioner acting as scribe for signing physician. Patient Condition at Discharge: Fair Plan - Discharge Summary Discharge Rx Participant: No New Discharge Prescriptions: New Hydrocortisone Suppository [Anusol-Hc] 25 mg RECTAL BID 5 Days suppositor hydrALAZINE HCL [Apresoline] 50 mg PO BID tab Sodium Bicarbonate Tab 650 mg PO BID tab Continue Levothyroxine Sodium [Synthroid] 75 mcg PO DAILY Aspirin 81 mg PO DAILY@1700 bisacodyL [Dulcolax] 10 mg RECTAL DAILY PRN PRN Reason: Constipation Acetaminophen [Tylenol 8 Hour] 650 mg PO Q4H PRN PRN Reason: general discomfort INSULIN ASPART (NovoLOG) [NovoLOG (formulary)] See Protocol SQ ACHS carvediloL [Coreg*] 12.5 mg PO BID@0800,1700 Clopidogrel [Plavix] 75 mg PO DAILY Magnesium Hydroxide [Milk of Magnesia Concentrate] 7,200 mg PO DAILY PRN PRN Reason: Constipation Ubidecarenone [Coenzyme Q10] 200 mg PO DAILY@1700 Cholecalciferol [Vitamin D3 (25 Mcg = 1000 Iu)] 50 mcg PO DAILY Atorvastatin [Lipitor] 20 mg PO HS Hydrocortisone Cream [Hydrocortisone 2.5% Cream] 1 applic TOPICAL BID Ensure Enlive 237 ml PO QID Mirtazapine [Remeron] 15 mg PO HS Sennosides [Senokot] 8.6 mg PO BID@0800,1700 Discontinued Insulin Detemir [Levemir Flextouch Pen] 16 units SQ HS HYDROcodone/APAP 5-325MG [[place] 5-325] 1 tab PO Q4HR PRN 3 Days #6 tab PRN Reason: Pain Potassium Chloride [Klor-Con M20] 20 meq PO MOFR Dapagliflozin Propanediol [Farxiga] 5 mg PO DAILY Furosemide [Lasix] 40 mg PO MOFR lisinopriL 2.5 mg PO DAILY Discharge Medication List Aspirin 81 mg PO DAILY@1700 09/22/19 [History] Levothyroxine Sodium [Synthroid] 75 mcg PO DAILY 09/22/19 [History] Acetaminophen [Tylenol 8 Hour] 650 mg PO Q4H PRN 02/14/20 [History] Clopidogrel [Plavix] 75 mg PO DAILY 02/14/20 [History] INSULIN ASPART (NovoLOG) [NovoLOG (formulary)] See Protocol SQ ACHS 02/14/20 [History] bisacodyL [Dulcolax] 10 mg RECTAL DAILY PRN 02/14/20 [History] carvediloL [Coreg*] 12.5 mg PO BID@0800,1700 02/14/20 [History] Magnesium Hydroxide [Milk of Magnesia Concentrate] 7,200 mg PO DAILY PRN 04/14/21 [History] Cholecalciferol [Vitamin D3 (25 Mcg = 1000 Iu)] 50 mcg PO DAILY 10/12/21 [History] Ubidecarenone [Coenzyme Q10] 200 mg PO DAILY@1700 10/12/21 [History] Atorvastatin [Lipitor] 20 mg PO HS 08/16/23 [History] Ensure Enlive 237 ml PO QID 08/16/23 [History] Hydrocortisone Cream [Hydrocortisone 2.5% Cream] 1 applic TOPICAL BID 08/16/23 [History] Mirtazapine [Remeron] 15 mg PO HS 08/16/23 [History] Sennosides [Senokot] 8.6 mg PO BID@0800,1700 08/16/23 [History] Hydrocortisone Suppository [Anusol-Hc] 25 mg RECTAL BID 5 Days suppositor 08/19/23 [Rx] Sodium Bicarbonate Tab 650 mg PO BID tab 08/19/23 [Rx] hydrALAZINE HCL [Apresoline] 50 mg PO BID tab 08/19/23 [Rx] Follow up Appointment(s)/Referral(s): Lyle Gutierrez MD [Primary Care Provider] - 1 Week Discharge Disposition: TRANSFER TO SNF/F
[2023-08-19 14:53] VITALS: BMI 29.4
[2023-08-19 17:02] LABS: Glucose,Whole Blood 105 mg/dL (70-110)
[2023-08-19] MEDS: ASPIRIN 81 MG PO SCH (17:51)
[2023-08-19] MEDS: SODIUM CHLORIDE 0.9% 1,000 ML IV SCH (17:51)
[2023-08-19 20:29] LABS: Glucose,Whole Blood 146 mg/dL (70-110)
[2023-08-19] MEDS: ATORVASTATIN 20 MG TAB PO SCH (22:01)
[2023-08-19] MEDS: MIRTAZAPINE 15 MG TAB PO SCH (22:02)
[2023-08-20 06:09] LABS: Glucose,Whole Blood 105 mg/dL (70-110)
[2023-08-20] MEDS: INSULIN ASPART (NovoLOG) 100 UNIT/ML VIAL SQ SCH ×2 (06:13→12:19)
[2023-08-20] MEDS: PANTOPRAZOLE 40 MG TABLET PO SCH (06:16)
[2023-08-20] MEDS: LEVOTHYROXINE 75 MCG TAB PO SCH (06:16)
[2023-08-20] MEDS: carvediloL 12.5 MG TAB PO SCH (08:50)
[2023-08-20] MEDS: HEPARIN SODIUM,PORCINE 5,000 UNIT/ML 1 ML VIAL SQ SCH (08:50)
[2023-08-20] MEDS: SODIUM BICARBONATE TAB 650 MG TAB PO SCH (08:50)
[2023-08-20] MEDS: CHOLECALCIFEROL 25 MCG (1000 IU) TABLET PO SCH (08:50)
[2023-08-20] MEDS: SENNOSIDES 8.6 MG TAB PO SCH (08:50)
[2023-08-20] MEDS: CLOPIDOGREL 75 MG TAB PO SCH (08:50)
[2023-08-20] MEDS: HYDROCORTISONE SUPPOSITORY 25 MG SUPP RECTAL SCH (08:50)
[2023-08-20] MEDS: hydrALAZINE HCL 50 MG TAB PO SCH (08:50)
[2023-08-20 10:19] LABS: African American GFR (CKD) 29 (>60 ml/min/1.73 sqM); Anion Gap 10 mmol/L; Blood Urea Nitrogen 30 mg/dL (7-17); Calcium 8.9 mg/dL (8.4-10.2); Carbon Dioxide 20 mmol/L (22-30); Chloride 117 mmol/L (98-107); Glucose 92 mg/dL (74-99); Magnesium 1.9 mg/dL (1.6-2.3); Non-African American GFR(CKD) 25 (>60 ml/min/1.73 sqM); Potassium 4.3 mmol/L (3.5-5.1); Sodium 147 mmol/L (137-145)
--- NOTE | 2023-08-20 11:09 | P.PN ---
Subjective Patient is seen in follow-up for acute kidney injury on chronic kidney disease. Renal function stable. Receiving IV fluids. Potassium level normal. Denies chest pain or shortness of breath. Hemodynamically stable. Oral intake poor. Vital signs are stable. General: No acute distress. HEENT: Head exam is unremarkable. LUNGS: No audible rhonchi or wheezes. HEART: Rate and Rhythm are regular. ABDOMEN: Nontender. EXTREMITITES: No edema. Objective - Vital Signs Vital signs: Vital Signs Temp 98.1 F 08/20/23 08:20 Pulse 61 08/20/23 08:20 Resp 18 08/20/23 08:20 BP 128/67 08/20/23 08:20 Pulse Ox 97 08/20/23 08:20 FiO2 Intake & Output 08/19/23 08/20/23 08/20/23 18:59 06:59 18:59 Intake Total 0 Output Total 250 Balance 0 -250 Weight 73 kg Intake: Oral 0 Output: Urine 250 Other: Voiding Method Incontinent Incontinent Incontinent External Catheter External Catheter External Catheter # Voids 1 1 - Labs CBC & Chem 7: 08/18/23 07:47 08/20/23 08:07 Labs: Abnormal Lab Results - Last 24 Hours (Table) 08/19/23 08/19/23 08/20/23 Range/Units 11:32 20:28 08:07 Sodium 147 H (137-145) mmol/L Chloride 117 H (98-107) mmol/L Carbon Dioxide 20 L (22-30) mmol/L BUN 30 H (7-17) mg/dL Creatinine 1.82 H (0.52-1.04) mg/dL POC Glucose (mg/dL) 136 H 146 H (70-110) mg/dL Assessment and Plan Plan: Assessment: 1. Acute kidney injury secondary to ATN due to hypovolemia, diuretics, ACEi. Creatinine 3.46 on admission and is stable at 1.82 today. No hydronephrosis noted on kidney ultrasound. Left kidney atrophic. 2. Chronic kidney disease stage IV with baseline creatinine 1.8-2 secondary to diabetic kidney disease and nephrosclerosis. 3. Hyperkalemia secondary to acute kidney injury, potassium supplementation and lisinopril. Improved with medical management. 4. Metabolic acidosis secondary to acute kidney injury and IV fluids. On oral bicarbonate. 5. Hypertension with chronic kidney disease. Stable. 6. Diabetes mellitus. 7. Hypermagnesemia secondary to acute kidney injury and magnesium supplementation. Better. 8. Hypernatremia from lack of oral water intake. Plan: Change IV fluids to D5W at 60 mL an hour. Encourage oral intake, including free water. Avoid nephrotoxins. Continue to monitor renal function and urine output. Repeat labs in the morning.
[2023-08-20] MEDS ORDERED: DEXTROSE 5% IN WATER 1,000 ML IV SCH (11:15)
[2023-08-20 11:24] LABS: Glucose,Whole Blood 100 mg/dL (70-110)
[2023-08-20 13:01] VITALS: BP 114/61; PULSE 68; TEMP 99
--- NOTE | 2023-08-20 15:18 | P.DS ---
Providers Date of admission: 08/16/23 00:31 Attending physician: Lyle Gutierrez Consults: 08/16/23 00:29 Consult Physician Routine Consulting Provider: Italo Botello Consult Reason/Comments: Acute kidney injury Do you want consulting provider notified?: Yes Primary care physician: Lyle Gutierrez Hospital Course: Final Diagnosis 1. Acute kidney injury on top of chronic kidney disease stage IV secondary to ATN due to hypovolemia, diuretics, trent and poor oral intake. 2. Hyperkalemia secondary to acute kidney injury. 3. Metabolic acidosis secondary to acute kidney injury. 4. Hypertension and hypertensive cardiovascular disease. 5. Hyperlipidemia. 6. Coronary artery disease with previous [place] and PCI. 7. Hypothyroidism. 8. Diabetes mellitus type 2 uncontrolled with hypoglycemia. 9. Vascular dementia. Discharge Disposition patient is stable for discharge back to [facility] nursing today. Patient to follow up with nephrology on discharge in 1 to 2 weeks. Additionally, patient has been started on hydralazine Lasix is also being held on discharge. Hospital Course This is an 88-year-old female with previous medical history significant for coronary artery disease status post myocardial infarction with PCI, ischemic cardiomyopathy, hypertension hypertensive cardiovascular disease, hyperlipidemia, diabetes mellitus type 2, vascular dementia, hypothyroidism, chronic kidney disease stage IIIB, recurrent depression and generalized anxiety disorder. Patient is a long-term resident at [facility]. Patient was seen on the weekend lab work was ordered and surprisingly her BUN and creatinine as well as potassium came back very high and she has been sent into [facility] emergency center for evaluation. Patient denies having any concerns at this time. She has no appetite and will not eat for the nurses. She has been started on IV fluids. Consult is in place with nephrology. WBC 6.9, hemoglobin 11.8, platelet count 184. Sodium 137 initial potassium 6. 3 repeat 5.2. Initial CO2 19 a repeat 21. Initial BUN 143 and repeat 132. Creatinine 3.46 and repeat 3.25. Glucose 55. Urine creatinine 50, urine sodium 42, urine potassium 50. Urinalysis revealed WBCs 57 with many clumps, leukoesterase large and bacteria rare. Renal ultrasound revealed small left renal cyst. 08/17: Patient is seen today on the cardiac stepdown unit. Patient has been afebrile, heart rate in the 50s and 60s, blood pressure 147/55, pulse ox 97% on room air. Repeat blood work this morning reveals sodium 143, potassium 5.7 followed by 5.5, chloride 114, CO2 18, BUN 95 creatinine 2.51. Likely blood glucose running between 80 and 95. Hemoglobin A1c is 7.5. Magnesium 2.6. Calcium 8.9. Patient has been seen and followed by nephrology. Hydralazine 50 mg twice daily was added with parameters, bicarb added. Telemetry is sinus rhythm. Due to low blood sugars and patient continues to not eat very much, scheduled Levemir remains on hold. 08/18: Patient continues to not eat very much. She is on IV fluids at 75 mL per hour. She is followed by nephrology. Repeat blood work today reveals BUN is 64 creatinine 2.19. Chloride is 114 and CO2 18. Yesterday, patient was started on bicarb and received 1 dose of Lokelma. Capillary blood glucose running 80-117. She is not receiving any diabetic medications. She is on NovoLog scale only and has not required medication. 08/19: patient has developed loose stools for which the specimen has been sent for C. difficile toxin. Her abdomen is soft. She denies any abdominal pain. No nausea or vomiting. She is still not eating very much with decreased appetite. She states she feels tired today. She has improvement of her renal function with BUN 42 creatinine 1.88. Patient has been afebrile, heart rate 72, blood pressure 121/66, pulse ox 97% on room air. Plan for return to [facility] tomorrow if C. difficile toxin is negative. 08/20/2023 Patient is evaluated today resting in bed no acute complaints overnight. No nausea vomiting or abdominal pain. She does continue with decreased appetite. Currently remains stable at 1.82. Patient is discharged on oral sodium bicarbonate tablets. Her pressure has improved currently 114/61. No chest pain or shortness of breath. Her lungs are clear S and S2 auscultated she is alert 3. The impression and plan of care has been dictated by Lucila Spencer, Nurse Practitioner as directed. Dr. Yany MD I have performed a history and physical examination and medical decision making of this patient, discussed the same with the dictator, and agree with the dictators assessment and plan as written, documented as a scribe. Based on total visit time, I have performed more than 50% of this visit. Patient Condition at Discharge: Fair Plan - Discharge Summary Discharge Rx Participant: No New Discharge Prescriptions: New Hydrocortisone Suppository [Anusol-Hc] 25 mg RECTAL BID 5 Days suppositor hydrALAZINE HCL [Apresoline] 50 mg PO BID tab Sodium Bicarbonate Tab 650 mg PO BID tab Continue Levothyroxine Sodium [Synthroid] 75 mcg PO DAILY Aspirin 81 mg PO DAILY@1700 bisacodyL [Dulcolax] 10 mg RECTAL DAILY PRN PRN Reason: Constipation Acetaminophen [Tylenol 8 Hour] 650 mg PO Q4H PRN PRN Reason: general discomfort INSULIN ASPART (NovoLOG) [NovoLOG (formulary)] See Protocol SQ ACHS carvediloL [Coreg*] 12.5 mg PO BID@0800,1700 Clopidogrel [Plavix] 75 mg PO DAILY Magnesium Hydroxide [Milk of Magnesia Concentrate] 7,200 mg PO DAILY PRN PRN Reason: Constipation Ubidecarenone [Coenzyme Q10] 200 mg PO DAILY@1700 Cholecalciferol [Vitamin D3 (25 Mcg = 1000 Iu)] 50 mcg PO DAILY Atorvastatin [Lipitor] 20 mg PO HS Hydrocortisone Cream [Hydrocortisone 2.5% Cream] 1 applic TOPICAL BID Ensure Enlive 237 ml PO QID Mirtazapine [Remeron] 15 mg PO HS Sennosides [Senokot] 8.6 mg PO BID@0800,1700 Discontinued Insulin Detemir [Levemir Flextouch Pen] 16 units SQ HS HYDROcodone/APAP 5-325MG [[place] 5-325] 1 tab PO Q4HR PRN 3 Days #6 tab PRN Reason: Pain Potassium Chloride [Klor-Con M20] 20 meq PO MOFR Dapagliflozin Propanediol [Farxiga] 5 mg PO DAILY Furosemide [Lasix] 40 mg PO MOFR lisinopriL 2.5 mg PO DAILY Discharge Medication List Aspirin 81 mg PO DAILY@1700 09/22/19 [History] Levothyroxine Sodium [Synthroid] 75 mcg PO DAILY 09/22/19 [History] Acetaminophen [Tylenol 8 Hour] 650 mg PO Q4H PRN 02/14/20 [History] Clopidogrel [Plavix] 75 mg PO DAILY 02/14/20 [History] INSULIN ASPART (NovoLOG) [NovoLOG (formulary)] See Protocol SQ ACHS 02/14/20 [History] bisacodyL [Dulcolax] 10 mg RECTAL DAILY PRN 02/14/20 [History] carvediloL [Coreg*] 12.5 mg PO BID@0800,1700 02/14/20 [History] Magnesium Hydroxide [Milk of Magnesia Concentrate] 7,200 mg PO DAILY PRN 04/14/21 [History] Cholecalciferol [Vitamin D3 (25 Mcg = 1000 Iu)] 50 mcg PO DAILY 10/12/21 [History] Ubidecarenone [Coenzyme Q10] 200 mg PO DAILY@1700 10/12/21 [History] Atorvastatin [Lipitor] 20 mg PO HS 08/16/23 [History] Ensure Enlive 237 ml PO QID 08/16/23 [History] Hydrocortisone Cream [Hydrocortisone 2.5% Cream] 1 applic TOPICAL BID 08/16/23 [History] Mirtazapine [Remeron] 15 mg PO HS 08/16/23 [History] Sennosides [Senokot] 8.6 mg PO BID@0800,1700 08/16/23 [History] Hydrocortisone Suppository [Anusol-Hc] 25 mg RECTAL BID 5 Days suppositor 08/19/23 [Rx] Sodium Bicarbonate Tab 650 mg PO BID tab 08/19/23 [Rx] hydrALAZINE HCL [Apresoline] 50 mg PO BID tab 08/19/23 [Rx] Follow up Appointment(s)/Referral(s): Lyle Gutierrez MD [Primary Care Provider] - 1 Week Patient Instructions/Handouts: Acute Kidney Injury (DC), Hyperkalemia (DC) Discharge Disposition: TRANSFER TO SNF/ECF
== END 2023-08-20 14:27 | DRG 683 ==
LOC: EC 20:59 → 3SCARD 08-16 00:31
PROVIDERS: ADMIT Internal Medicine; ATTEND Internal Medicine
DX: N17.0 Acute kidney failure with tubular necrosis (principal); E87.20 Acidosis, unspecified; F33.9 Major depressive disorder, recurrent, unspecified; F01.53 Vascular dementia, unspecified severity, with mood disturbance; F01.54 Vascular dementia, unspecified severity, with anxiety; E11.649 Type 2 diabetes mellitus with hypoglycemia without coma; N18.4 Chronic kidney disease, stage 4 (severe); E11.22 Type 2 diabetes mellitus with diabetic chronic kidney disease; I13.10 Hypertensive heart and chronic kidney disease without heart failure, with stage 1 through stage 4 chronic kidney disease, or unspecified chronic kidney disease; E83.41 Hypermagnesemia; E03.9 Hypothyroidism, unspecified; E86.1 Hypovolemia; E87.5 Hyperkalemia; E78.5 Hyperlipidemia, unspecified; I25.10 Atherosclerotic heart disease of native coronary artery without angina pectoris; I25.5 Ischemic cardiomyopathy; M19.90 Unspecified osteoarthritis, unspecified site; F41.1 Generalized anxiety disorder; N28.1 Cyst of kidney, acquired; Z79.4 Long term (current) use of insulin; I25.2 Old myocardial infarction; Z79.02 Long term (current) use of antithrombotics/antiplatelets; Z95.5 Presence of coronary angioplasty implant and graft; Z87.891 Personal history of nicotine dependence; Z79.82 Long term (current) use of aspirin; Z79.890 Hormone replacement therapy; Z79.84 Long term (current) use of oral hypoglycemic drugs; Z79.899 Other long term (current) drug therapy; Z88.2 Allergy status to sulfonamides; Z82.49 Family history of ischemic heart disease and other diseases of the circulatory system
CPT/HCPCS: 36415; 76770; 80048; 80053; 81001; 81003; 82570; 83036; 83605; 83735; 84132; 84133; 84300; 85025; 87077; 87086; 87186; 87324; 96361; 96365; 96366; 96368; 96375; 99285